=== PATIENT | female | born 1945 | race American Indian/Alaskan Native ===

== ENCOUNTER 2017-12-06 09:52 | Outpatient (CLI) | payer MEDICARE ==
--- NOTE | 2017-12-06 11:44 | Fluoroscopy Report ---
MODIFIED BARIUM SWALLOW History: dysphagia. Findings: Video radiography was provided by the radiologist for speech therapy to assess the swallowing mechanism. 1 fluoroscopic image was captured. Impression: Successful modified barium swallow.
== END 2017-12-06 09:53 | disposition home or self-care (01) ==
LOC: EDSEX → PT 09:52
PROVIDERS: ATTEND Internal Medicine
DX: R13.10 Dysphagia, unspecified (principal); I10 Essential (primary) hypertension
CPT/HCPCS: 74230; 92611; G8996; G8997; G8998

== ENCOUNTER 2018-07-06 13:46 | Inpatient (IN) | payer MEDICARE ==
--- NOTE | 2018-07-06 13:58 | Emergency Department Report ---
HPI - General Time Seen by Provider: 07/06/18 13:47 - HPI HPI: Charge nurse triage The patient is a 73-year-old female presenting with a chief complaint of "I think that a stroke." The patient states last night (time unknown) she noticed her right face was twisting and today she developed nausea and vomiting. This prompted her to believe she had another stroke. The patient states her first stroke in the 90s which resulted in right-sided weakness. The patient states that weakness has not changed. Patient denies other complaints Location: [See above] Duration: [See above] Quality: [See above] Severity: [See above] Modifying factors: [see above] Context: [see above] Mode of transportation: [not driving] ED Past Medical Hx - Past Medical History Previous Medical History?: Yes Hx Hypertension: Yes Hx CVA: Yes Hx Seizures: Yes - Surgical History Past Surgical History?: Yes - Family History Family history: no significant - Social History Smoking Status: Never Smoker Substance Use Type: None ED Review of Systems ROS: Stated complaint: NEURO ISSUES Other details as noted in HPI Constitutional: no symptoms reported Eyes: denies: eye pain ENT: denies: throat pain Respiratory: no symptoms reported Cardiovascular: denies: chest pain Endocrine: no symptoms reported Gastrointestinal: nausea, vomiting Genitourinary: denies: dysuria Musculoskeletal: denies: back pain Neurological: weakness (right facial twisting). denies: headache Physical Exam - Physical Exam Physical Exam: GENERAL: The patient is well-developed well-nourished female lying on stretcher appearing to be in acute distress. [] HEENT: Normocephalic. Atraumatic. Extraocular motions are intact. Patient has moist mucous membranes. NECK: Supple. No meningitic signs are noted. Trachea midline CHEST/LUNGS: Clear to auscultation. There is no respiratory distress noted. HEART/CARDIOVASCULAR: Regular. There is no tachycardia. There is no gallop rub or murmur. ABDOMEN: Abdomen is soft, nontender. Patient has normal bowel sounds. There is no abdominal distention. SKIN: There is no rash. There is no edema. There is no diaphoresis. NEURO: The patient is awake, alert, and oriented. The patient is cooperative. The patient has right sided facial droop. Patient has right-sided hemiparesis from previous CVA. The patient has normal speech. Tongue midline MUSCULOSKELETAL: There is no evidence of acute injury. NIHSS= 2 LOC a. Alert= 0 Not alert but arousable to minor stimuli=1 Not alert requires repeated or strong stimuli to move= 2 Responds only reflex motor or unresponsive=3 b. asks month and age answers both correctly= 0 answers one correctly= 1 answers neither correctly= 2 Best Gaze normal= 0 abnormal in one or both but forced deviation or total paresis absent= 1 forced deviation or total gaze paresis= 2 Visual no visual loss= 0 partial hemianopia= 1 complete hemianopia= 2 bilateral hemianopia= 3 Facial Palsy normal= 0 minor paralysis= 1 (+)partial paralysis= 2 complete paralysis= 3 Motor Arm no drift= 0 drift before 10 secs but doesnt hit bed= 1 some effort against gravity= 2 no effort against gravity= 3 no movement= 4 Motor leg no drift= 0 drift before 5 secs but doesnt hit bed= 1 drifts to bed before 5 secs= 2 no effort against gravity= 3 no movement= 4 Limb ataxia absent=0 present in one limb= 1 present in two limbs= 2 Sensory normal= 0 mild sensory loss= 1 severe (unaware of being touched)= 2 Best language mild/some loss of fluency= 1 severe= 2 mute= 3 Dysarthria normal= 0 slurs some words= 1 severe/unintelligible= 2 Extinction and Inattention no abnormality= 0 visual, tactile, auditory or personal inattention= 1 profound (doesnt recognize own hand or orients to only one side= 2 ED Course - Consultations Consultation #1: 07/06/18 14:38 Case discussed with Tele-neurologist- recommends administering aspirin and TPA candidate at this time. ED Medical Decision Making - Lab Data Result diagrams: 07/06/18 14:43 Laboratory Tests 07/06/18 07/06/18 07/06/18 14:43 14:43 14:43 WBC 6.6 RBC 3.60 L Hgb 10.3 Hct 32.0 MCV 89 MCH 29 MCHC 32 RDW 13.8 Plt Count 365 Lymph % (Auto) 32.2 [place] % (Auto) 7.7 H Eos % (Auto) 1.2 Baso % (Auto) 0.6 Lymph # 2.1 [place] # 0.5 Eos # 0.1 Baso # 0.0 Seg Neutrophils % 58.3 Seg Neutrophils # 3.9 PT 13.2 INR 0.95 APTT 28.9 Thrombin Time 16.1 VBG pH 7.433 H Total Bilirubin Direct Bilirubin Indirect Bilirubin AST ALT Alkaline Phosphatase Total Creatine Kinase Total Protein Albumin Albumin/Globulin Ratio Lipase 07/06/18 14:43 WBC RBC Hgb Hct MCV MCH MCHC RDW Plt Count Lymph % (Auto) [place] % (Auto) Eos % (Auto) Baso % (Auto) Lymph # [place] # Eos # Baso # Seg Neutrophils % Seg Neutrophils # PT INR APTT Thrombin Time VBG pH Total Bilirubin < 0.20 Direct Bilirubin < 0.2 Indirect Bilirubin 0.0 AST 16 ALT 15 Alkaline Phosphatase 72 Total Creatine Kinase 52 Total Protein 7.0 Albumin 3.4 L Albumin/Globulin Ratio 0.9 Lipase 23 - EKG Data -: EKG Interpreted by Nd EKG shows normal: sinus rhythm Rate: normal - EKG Data When compared to previous EKG there are: previous EKG unavailable Interpretation: other (no ischemic changes seen) - Radiology Data Radiology results: report reviewed (CT head), image reviewed (CT head) [address] [address] Cat Scan Report Signed Patient: DEANNE PAYNE MR#: [id number] : 1945 Acct:[id number] Age/Sex: 73 / F ADM Date: 07/06/18 Loc: ED Attending Dr: Ordering Physician: CHARITY PASTOR MD Date of Service: 07/06/18 Procedure(s): CT head/brain wo con Accession Number(s): [id number] cc: CHARITY PASTOR MD PROCEDURE: CT HEAD/BRAIN WO CON TECHNIQUE: CT examination of the brain without IV contrast HISTORY: right facial "twisting", nausea COMPARISONS: None FINDINGS: Cerebrovascular atherosclerotic calcification is present in the skull base adriana ashish. 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 Nonspecific slight hypodensity is noted in the left periventricular white matter extending to the left caudate body. Approximately size is 10 mm. This may be a focus of ischemia or ischemic infarct. It may be acute or subacute. A similar finding is noted in the anterior right basal ganglia and posterior right internal capsule. No acute air-fluid level visualized in the included air-filled sinuses. Bone windows demonstrate no acute fracture. There is ventricular and sulcal prominence compatible with global cerebrocortical atrophy. Low attenuation regions in the cerebral white matter, while nonspecific, are present and usually attributed to chronic ischemic gliosis. It can occur secondary to the normal aging process, hypertension, or arterial sclerotic vascular disease. The differential includes demyelination in the appropriate clinical setting. The brain contains no mass effect or hemorrhage. There is no extra-axial intracranial bleed or brain bleed. There is no midline shift. IMPRESSION: Multifocal areas of low density may reflect foci of ischemia and/or ischemic infarcts. These may be chronic. They are nonspecific and could reflect acute or subacute lesions. Recommend follow-up brain MRI to further characterize acuity. 07/06/2018 At 2:16 PM EST: I discussed the findings over the phone with Dr. Pastor This document is electronically signed by Kevin Park MD., July 06 2018 02:18:11 PM ET Transcribed By: CAS Dictated By: KEVIN PARK MD Electronically Authenticated By: KEVIN PARK MD Signed Date/Time: 07/06/18 1419 DD/ 1405 TD/TT: 07/06/18 1405 - Differential Diagnosis CVA, ICH, Critical care attestation.: If time is entered above; I have spent that time in minutes in the direct care of this critically ill patient, excluding procedure time. ED Disposition Clinical Impression: Weakness on right side of face Disposition: DC-09 OP ADMIT IP TO THIS HOSP Is pt being admited?: Yes Does the pt Need Aspirin: Yes Condition: Fair Referrals: PRIMARY CARE, [Primary Care Provider] - 3-5 Days Time of Disposition: 15:21 (hospitalist paged (Dr Medeiros))
--- NOTE | 2018-07-06 14:19 | Cat Scan Report ---
PROCEDURE: CT HEAD/BRAIN WO CON TECHNIQUE: CT examination of the brain without IV contrast HISTORY: right facial "twisting", nausea COMPARISONS: None FINDINGS: Cerebrovascular atherosclerotic calcification is present in the skull base arteries. Small cyst inferior to the left basal ganglia most compatible with developmental variation of posteri or choroidal fissure cyst. Nonspecific slight hypodensity is noted in the left periventricular white matter extending to the lef t caudate body. Approximately size is 10 mm. This may be a focus of ischemia or ischemic infarct. It may be acute or subacute. A similar finding is noted in the anterior right basal ganglia and posterio r right internal capsule. No acute air-fluid level visualized in the included air-filled sinuses. Bone windows demonstrate no acute fracture. There is ventricular and sulcal prominence compatible with global cerebrocortical atrophy. Low attenuation regions in the cerebral white matter, while nonspecific, are present and usually attr ibuted to chronic ischemic gliosis. It can occur secondary to the normal aging process, hypertension, or arterial sclerotic vascular dise ase. The differential includes demyelination in the appropriate clinical setting. The brain contains no mass effect or hemorrhage. There is no extra-axial intracranial bleed or brain bleed. There is no midline shift. IMPRESSION: Multifocal areas of low density may reflect foci of ischemia and/or ischemic infarcts. These may be c hronic. They are nonspecific and could reflect acute or subacute lesions. Recommend follow-up brain M RI to further characterize acuity. 07/06/2018 At 2:16 PM EST: I discussed the findings over the phone with Dr. Chavarria This document is electronically signed by Kevin Park MD., July 06 2018 02:18:11 PM ET
[2018-07-06] MEDS ORDERED: ASPIRIN PO ONE (14:37)
--- NOTE | 2018-07-06 14:37 | Consultation ---
History of Present Illness Consult date: 07/06/18 History of present illness: 73 y/o woman with h/o stroke (residual spastic right hemiparesis, speech difficulty) who presents with possible worsening symptoms. Unknown last known well. Emergent telestroke consult requested. CT head reviewed and case discsussed with ED staff. Medications and Allergies Allergies Allergy/AdvReac Type Severity Reaction Status Date / Time benazepril Allergy Unknown Verified 07/06/18 13:48 diltiazem [From Cardizem] Allergy Unknown Verified 07/06/18 13:48 losartan Allergy Unknown Verified 07/06/18 13:48 Physical Examination - Vital Signs Vital Signs: Vital Signs Pulse Resp BP Pulse Ox 74 16 150/90 96 07/06/18 13:51 07/06/18 13:51 07/06/18 13:51 07/06/18 13:51 - Level of Consciousness 1a. Level of Consciousness: alert/keenly responsive - LOC Questions 1b. LOC Questions: answers both correctly - LOC Command 1c. LOC Commands: performs tasks correctly - Best Gaze 2. Best Gaze: normal - Visual 3. Visual: no visual loss - Facial Palsy 4. Facial Palsy: minor paralysis - Motor Arm 5a. Motor Arm Left: no drift 5b. Motor Arm Right: no gravity effort - Motor Leg 6a. Motor Leg Left: no drift 6b. Motor Leg Right: drift - Limb Ataxia 7. Limb Ataxia: absent - Sensory 8. Sensory: normal - Best Language 9. Best Language: no aphasia - Dysarthria 10. Dysarthria: mild/moderate dysarthria - Extinction and Inattention 11. Extinction/Inattention: no abnormality - Scoring Total Score: 6 Stroke Severity: Moderate Stroke Assessment and Plan [facility] Consult Services Impression: R/O Stroke vs recrudescence of her previous stroke symptoms Differential Diagnosis: 1. Cardioembolic stroke 2. Small vessel disease/lacune 3. Thromboembolic, [id number] mechanism 4. Hypercoagulable state-related infarct 5. Thrombotic mechanism, large artery disease 6. Transient ischemic attack Comments: Last known well: unknown Door time:1346 [facility] contacted: 1421 [facility] at bedside: 1429 NIHSS assessment time:1429 Needle time:TPA not considered since she is unknown at her baseline. Thrombectomy not considered since large proximal intracranial vessel occlusion is not suspected. Also with high modified louie score due to previous stroke (lives in correction, dependent on ADLs and is nonambulatory) Discussion: Our recommendations are outlined below. Recommendations: Toxic, metabolic and infectious work-up as per ED and primary team ASA, IV fluids and permissive hypertension (Keep BP < 220/110) Neurochecks PT/OT/ST DVT prophylaxis Follow up with Neurology for further testing/evaluation Medical Decision Making: - Extensive number of diagnosis or management options are considered above. - Extensive amount of complex data reviewed. - High risk of complication and/or morbidity or mortality are associated with differential diagnostic considerations above. - There may be uncertain outcome and increased probability of prolonged functional impairment or high probability of severe prolonged functional impairment associated with some of these differential diagnosis. Medical Data Reviewed: 1.Data reviewed include clinical labs, radiology, Medical Tests; 2.Tests results discussed w/performing or interpreting physician; 3.Obtaining/reviewing old medical records; 4.Obtaining case history from another source; 5.Independent review of image, tracing or specimen.
[2018-07-06 14:58] LABS: Basophils % (Auto) 0.6 % (0.0-1.8); Eosinophils # (Auto) 0.1 K/mm3 (0.0-0.4); Eosinophils % (Auto) 1.2 % (0.0-4.3); Hemoglobin 10.3 gm/dl (10.1-14.3); Lymphocytes # (Auto) 2.1 K/mm3 (1.2-5.4); Lymphocytes % (Auto) 32.2 % (13.4-35.0); Monocytes # (Auto) 0.5 K/mm3 (0.0-0.8); Monocytes % (Auto) 7.7 % (0.0-7.3)
[2018-07-06 15:07] LABS: Alanine Aminotransferase 15 units/L (7-56); Albumin 3.4 g/dL (3.9-5); Mean Corpuscular HGB Conc 32 % (30-34); Mean Corpuscular Volume 89 fl (79-97); Platelet Count 365 K/mm3 (140-440); Red Cell Distribution Width 13.8 % (13.2-15.2)
[2018-07-06 15:08] LABS: Bilirubin,Direct < 0.2 mg/dL (0-0.2)
[2018-07-06 15:16] LABS: INR 0.95 (0.87-1.13); Partial Thromboplastin Time 28.9 Sec. (24.2-36.6); Thrombin Time 16.1 Sec. (15.1-19.6)
[2018-07-06 15:31] LABS: BUN/Creatinine Ratio 18; Blood Urea Nitrogen 14 mg/dL (7-17); Calcium 9.3 mg/dL (8.4-10.2); Hemolysis Index 0
[2018-07-06 15:40] LABS: Creatine Kinase MB < 1.0 ng/mL (0.0-4.0)
[2018-07-06] MEDS ORDERED: TYLENOL PO PRN (17:15)
[2018-07-06] MEDS ORDERED: SODIUM CHLORIDE FLUSH SYRINGE 10 ML IV PRN (17:15)
--- NOTE | 2018-07-06 17:15 | History and Physical Report ---
History of Present Illness Date of examination: 07/06/18 Date of admission: 07/06/18 Chief complaint: Facial weakness last night History of present illness: 73-year-old female presenting with a chief complaint of "I think that a stroke." The patient states last night (time unknown) she noticed her right face was twisting and today she developed nausea and vomiting. This prompted her to believe she had another stroke. The patient states her first stroke in the s which resulted in right-sided weakness. The patient states that weakness has not changed. Patient denies other complaints.No seizures. Past Medical History Previous Medical History?: Yes Hypertension: Yes CVA: Yes wiyh residual rt sided weakness Seizures: Yes Surgical History Past Surgical History?: Yes Family History Family history: no significant Social History Smoking Status: Never Smoker Substance Use Type: None Review of Systems ROS: Stated complaint: NEURO ISSUES Other details as noted in HPI Constitutional: no symptoms reported Eyes: denies: eye pain ENT: denies: throat pain Respiratory: no symptoms reported Cardiovascular: denies: chest pain Endocrine: no symptoms reported Gastrointestinal: nausea, vomiting Genitourinary: denies: dysuria Musculoskeletal: denies: back pain Neurological: weakness (right facial twisting). denies: headache Medications and Allergies Allergies Allergy/AdvReac Type Severity Reaction Status Date / Time benazepril Allergy Unknown Verified 07/06/18 13:48 diltiazem [From Cardizem] Allergy Unknown Verified 07/06/18 13:48 losartan Allergy Unknown Verified 07/06/18 13:48 Home Medications Medication Instructions Recorded Confirmed Last Taken Type Acetaminophen 325 mg PO Q12HR PRN 07/06/18 07/06/18 Unknown History Amino Acids/Protein Hydrolys 30 ml PO BID 07/06/18 07/06/18 Unknown History [Pro-Stat Aw Liquid Packet] Atorvastatin Calcium [Lipitor] 40 mg PO QHS 07/06/18 07/06/18 Unknown History Calcium Carbonate [Tums] 1,000 mg PO Q12HR 07/06/18 07/06/18 Unknown History Clopidogrel [Plavix] 75 mg PO QDAY 07/06/18 07/06/18 Unknown History Famotidine [Pepcid] 20 mg PO QHS 07/06/18 07/06/18 Unknown History Ferrous Sulfate [Iron 325 MG] 325 mg PO QAC 07/06/18 07/06/18 Unknown History Hydralazine HCl 50 mg PO TID 07/06/18 07/06/18 Unknown History Lactobacillus Acidophil [Lactinex] 1 cap PO Q12HR 07/06/18 07/06/18 Unknown History Loratadine [Claritin] 10 mg PO DAILY 07/06/18 07/06/18 Unknown History Magnesium Hydroxide [Milk of 400 mg PO QWEEK 07/06/18 07/06/18 Unknown History Magnesia] Melatonin 3 mg PO QHS 07/06/18 07/06/18 Unknown History Metoprolol [Lopressor TAB] 50 mg PO QDAY 07/06/18 07/06/18 Unknown History Mirtazapine [Remeron] 15 mg PO QHS 07/06/18 07/06/18 Unknown History Multivit with Minerals/Lutein [Pub 1 each PO QDAY 07/06/18 07/06/18 Unknown History Senior Vitamin Tablet] Polyethylene Glycol 3350 [Gavilax] 8.5 gm PO QDAY 07/06/18 07/06/18 Unknown History Scopolamine Hydrobromide 1.5 mg TP Q3D 07/06/18 07/06/18 Unknown History Sennosides/Docusate [Senokot S] 1 tab PO QDAY 07/06/18 07/06/18 Unknown History Sertraline [Zoloft] 25 mg PO QDAY 07/06/18 07/06/18 Unknown History amLODIPine [Norvasc] 10 mg PO DAILY 07/06/18 07/06/18 Unknown History levETIRAcetam [Keppra TAB] 500 mg PO BID 07/06/18 07/06/18 Unknown History Exam - Constitutional Vitals: Temp Pulse Resp BP Pulse Ox 98.4 F 74 24 150/84 97 07/06/18 15:05 07/06/18 15:05 07/06/18 15:06 07/06/18 15:05 07/06/18 15:06 General appearance: Present: no acute distress, well-nourished - EENT Eyes: Present: PERRL ENT: hearing intact, clear oral mucosa, other (Lower lip swollen--chronic) - Neck Neck: Present: supple, normal ROM - Respiratory Respiratory effort: normal Respiratory: bilateral: CTA - Cardiovascular Heart rate: 75 Rhythm: regular Heart Sounds: Present: S1 & S2. Absent: rub, click - Extremities Extremities: no ischemia, pulses intact, pulses symmetrical, No edema, abnormal Peripheral Pulses: within normal limits - Abdominal General gastrointestinal: Present: soft, non-tender, non-distended, normal bowel sounds Female genitourinary: Present: normal - Integumentary Integumentary: Present: clear, warm, dry - Musculoskeletal Musculoskeletal: right sided weakness (3/5 power both rt upper and lower extremity) - Psychiatric Psychiatric: appropriate mood/affect, intact judgment & insight - Neurologic Neurologic: CNII-XII intact, focal deficits - Allied Health Allied health notes reviewed: nursing, case management Results - Labs CBC & Chem 7: 07/06/18 14:43 07/06/18 14:43 Labs: Laboratory Last Values WBC 6.6 K/mm3 (4.5-11.0) 07/06/18 14:43 RBC 3.60 M/mm3 (3.65-5.03) L 07/06/18 14:43 Hgb 10.3 gm/dl (10.1-14.3) 07/06/18 14:43 Hct 32.0 % (30.3-42.9) 07/06/18 14:43 MCV 89 fl (79-97) 07/06/18 14:43 MCH 29 pg (28-32) 07/06/18 14:43 MCHC 32 % (30-34) 07/06/18 14:43 RDW 13.8 % (13.2-15.2) 07/06/18 14:43 Plt Count 365 K/mm3 (140-440) 07/06/18 14:43 Lymph % (Auto) 32.2 % (13.4-35.0) 07/06/18 14:43 [place] % (Auto) 7.7 % (0.0-7.3) H 07/06/18 14:43 Eos % (Auto) 1.2 % (0.0-4.3) 07/06/18 14:43 Baso % (Auto) 0.6 % (0.0-1.8) 07/06/18 14:43 Lymph # 2.1 K/mm3 (1.2-5.4) 07/06/18 14:43 [place] # 0.5 K/mm3 (0.0-0.8) 07/06/18 14:43 Eos # 0.1 K/mm3 (0.0-0.4) 07/06/18 14:43 Baso # 0.0 K/mm3 (0.0-0.1) 07/06/18 14:43 Seg Neutrophils % 58.3 % (40.0-70.0) 07/06/18 14:43 Seg Neutrophils # 3.9 K/mm3 (1.8-7.7) 07/06/18 14:43 PT 13.2 Sec. (12.2-14.9) 07/06/18 14:43 INR 0.95 (0.87-1.13) 07/06/18 14:43 APTT 28.9 Sec. (24.2-36.6) 07/06/18 14:43 Thrombin Time 16.1 Sec. (15.1-19.6) 07/06/18 14:43 VBG pH 7.433 (7.320-7.420) H 07/06/18 14:43 Sodium 143 mmol/L (137-145) 07/06/18 14:43 Potassium 3.8 mmol/L (3.6-5.0) 07/06/18 14:43 Chloride 105.0 mmol/L (98-107) 07/06/18 14:43 Carbon Dioxide 28 mmol/L (22-30) 07/06/18 14:43 Anion Gap 14 mmol/L 07/06/18 14:43 BUN 14 mg/dL (7-17) 07/06/18 14:43 Creatinine 0.8 mg/dL (0.7-1.2) 07/06/18 14:43 Estimated GFR > 60 ml/min 07/06/18 14:43 BUN/Creatinine Ratio 18 % 07/06/18 14:43 Glucose 86 mg/dL (65-100) 07/06/18 14:43 Calcium 9.3 mg/dL (8.4-10.2) 07/06/18 14:43 Total Bilirubin < 0.20 mg/dL (0.1-1.2) 07/06/18 14:43 Direct Bilirubin < 0.2 mg/dL (0-0.2) 07/06/18 14:43 Indirect Bilirubin 0.0 mg/dL 07/06/18 14:43 AST 16 units/L (5-40) 07/06/18 14:43 ALT 15 units/L (7-56) 07/06/18 14:43 Alkaline Phosphatase 72 units/L (35-129) 07/06/18 14:43 Total Creatine Kinase 52 units/L (30-135) 07/06/18 14:43 CK-MB (CK-2) < 1.0 ng/mL (0.0-4.0) 07/06/18 14:43 CK-MB (CK-2) Rel Index 1.9 (0-4) 07/06/18 14:43 Troponin T < 0.010 ng/mL (0.00-0.029) 07/06/18 14:43 Total Protein 7.0 g/dL (6.3-8.2) 07/06/18 14:43 Albumin 3.4 g/dL (3.9-5) L 07/06/18 14:43 Albumin/Globulin Ratio 0.9 % 07/06/18 14:43 Lipase 23 units/L (13-60) 07/06/18 14:43 - Imaging and Cardiology EKG: report reviewed (NSR 75/min) CT Scan - head: report reviewed Imaging and Cardiology: CT Head IMPRESSION: Multifocal areas of low density may reflect foci of ischemia and/or ischemic infarcts. These may be chronic. They are nonspecific and could reflect acute or subacute lesions. Recommend follow-up brain MRI to further characterize acuity. Assessment and Plan Advance Directives: Yes (Full code) VTE prophylaxis?: Chemical Plan of care discussed with patient/family: Yes - Patient Problems (1) TIA (transient ischemic attack) Current Visit: Yes Status: Acute Plan to address problem: Symptoms c/w TIA TIA w/u MRI/MRA ordered Neuro consult ordered (2) HTN (hypertension) Current Visit: Yes Status: Chronic Qualifiers: Hypertension type: essential hypertension Qualified Code(s): I10 - Essential (primary) hypertension Plan to address problem: Cont antihypertensives (3) Seizure disorder Current Visit: Yes Status: Chronic Plan to address problem: Cont Keppra (4) Anemia Current Visit: Yes Status: Chronic Qualifiers: Anemia type: iron deficiency Plan to address problem: Cont Iron (5) Constipation Current Visit: Yes Status: Chronic Qualifiers: Constipation type: slow transit constipation Qualified Code(s): K59.01 - Slow transit constipation Plan to address problem: Patient on Senna and Miralax (6) DVT prophylaxis Current Visit: Yes Status: Acute Plan to address problem: On Lovenox and GI prophylaxis
[2018-07-06] MEDS ORDERED: PERCOCET 5/325 PO PRN (17:16)
[2018-07-06] MEDS ORDERED: DILAUDID IV PRN (17:16)
[2018-07-06] MEDS ORDERED: NACL 0.9% 1000 ML 1,000 ML IV SCH (18:00)
[2018-07-06 19:22] LABS: Bacteria,Urine 1+ /HPF (Negative); Bilirubin,Urine NEG (Negative); Blood,Urine NEG (Negative); Color,Urine Yellow (Yellow); Mucus,Urine FEW /HPF; Urobilinogen,Urine < 2.0 mg/dL (<2.0)
[2018-07-06] MEDS: ZOFRAN IV PRN (20:23)
--- NOTE | 2018-07-06 21:26 | Consultation ---
HISTORY OF PRESENT ILLNESS: This is a 73-year-old black female who presents with a history of onset of feeling is that she had a stroke and the right side of her face was twisted. She began to develop nausea and vomiting. She presented to the Emergency Room with right-sided weakness. She has had a prior history of a previous stroke and by history of being followed up for this with treatment of hypertension. The patient was initially assessed in the Emergency Room Department by Dr. Chavarria, differential diagnosis of cerebrovascular accident versus intracranial hemorrhage. The patient's CT was reviewed by me and she has multiple scattered areas of deep white matter infarcts in the left cerebral hemisphere anterior to the caudate nucleus in the posterior internal capsule on several levels. These appeared to be non-confluent, but it is difficult to assess what the age of these she has I can say whether they are all from the prior stroke or certainly an evidence of a chronic stroke in the left hemisphere. We recommend getting MRI, MRA and potentially a CTA depending on Dr. Chavarria's impressions. I have reviewed over the chart and laboratories are not back as yet. The patient was seen as a result of the stroke alert. Further disposition and case as per Dr. Chavarria. JOB# [id number] MATT/NTS
[2018-07-06] MEDS ORDERED: PEPCID IV SCH (22:00)
[2018-07-07] MEDS: SODIUM CHLORIDE FLUSH SYRINGE 10 ML IV SCH ×3 (00:13→22:06)
[2018-07-07] MEDS ORDERED: SODIUM CHLORIDE FLUSH SYRINGE 10 ML INJ PRN ×2 (01:11→01:17)
[2018-07-07] MEDS ORDERED: NON-FORMULARY (Hydralazine Hcl [Hydralazine Hcl] 50 MG) PO SCH (08:00)
[2018-07-07 08:20] LABS: Basophils # (Auto) 0.1 K/mm3 (0.0-0.1); Eosinophils # (Auto) 0.1 K/mm3 (0.0-0.4); Hematocrit 31.3 % (30.3-42.9); Hemoglobin 10.2 gm/dl (10.1-14.3); Lymphocytes # (Auto) 1.7 K/mm3 (1.2-5.4); Lymphocytes % (Auto) 29.6 % (13.4-35.0); Mean Corpuscular HGB Conc 33 % (30-34); Mean Corpuscular Volume 88 fl (79-97); Monocytes # (Auto) 0.4 K/mm3 (0.0-0.8); Monocytes % (Auto) 7.7 % (0.0-7.3); Platelet Count 368 K/mm3 (140-440); Red Blood Count 3.56 M/mm3 (3.65-5.03); Red Cell Distribution Width 13.6 % (13.2-15.2)
[2018-07-07 08:58] LABS: Alanine Aminotransferase 13 units/L (7-56); Albumin 2.9 g/dL (3.9-5); BUN/Creatinine Ratio 14; Blood Urea Nitrogen 11 mg/dL (7-17); Calcium 8.9 mg/dL (8.4-10.2); Hemolysis Index 15
[2018-07-07] MEDS: ASPIRIN PO SCH (09:48)
[2018-07-07] MEDS: NORVASC PO SCH (09:48)
[2018-07-07] MEDS: FEOSOL PO SCH ×3 (09:48→17:24)
[2018-07-07] MEDS: ZOLOFT PO SCH (09:48)
[2018-07-07] MEDS: PLAVIX PO SCH (09:48)
[2018-07-07] MEDS: CLARITIN PO SCH (09:48)
[2018-07-07] MEDS: KEPPRA PO SCH ×2 (09:48→22:05)
[2018-07-07] MEDS: LACTINEX PO SCH ×2 (09:48→22:06)
[2018-07-07] MEDS: MIRALAX 3350 PO SCH (09:48)
[2018-07-07] MEDS: LOPRESSOR PO SCH (09:49)
[2018-07-07] MEDS: APRESOLINE PO SCH ×3 (09:49→22:05)
[2018-07-07] MEDS: SENOKOT S PO SCH (09:53)
[2018-07-07] MEDS ORDERED: POLYETHYLENE GLYCOL 8.5 GM PO SCH (10:00)
[2018-07-07] MEDS ORDERED: MILK OF MAGNESIA PO SCH (10:00)
--- NOTE | 2018-07-07 10:36 | Progress Note ---
Subjective Date of service: 07/07/18 Interval history: see my note from the ED dictated note for stroke alert plan MRI and further work up for condition there is prior hx of stroke reviewed CT during time of the stroke alert Thanks Objective - Vital Sign Vital Signs - 12hr 07/06/18 07/06/18 07/06/18 22:41 22:51 23:01 Temperature Pulse Rate 73 73 70 Respiratory 19 40 H 26 H Rate Blood Pressure 143/86 134/85 134/85 O2 Sat by Pulse 100 100 99 Oximetry 07/06/18 07/06/18 07/06/18 23:11 23:21 23:31 Temperature Pulse Rate 71 69 70 Respiratory 18 40 H 22 Rate Blood Pressure 134/85 134/85 134/85 O2 Sat by Pulse 100 99 99 Oximetry 07/06/18 07/07/18 07/07/18 23:45 00:16 00:26 Temperature 97.6 F Pulse Rate 72 72 78 Respiratory 36 H 20 Rate Blood Pressure 138/81 151/83 O2 Sat by Pulse 98 97 Oximetry 07/07/18 07/07/18 03:08 08:06 Temperature 97.8 F 98.6 F Pulse Rate 66 71 Respiratory 16 20 Rate Blood Pressure 134/76 140/82 O2 Sat by Pulse 100 98 Oximetry - Laboratory Findings CBC and BMP: 07/07/18 07:37 07/07/18 07:37 Abnormal Lab Findings: Abnormal Labs 07/06/18 07/06/18 07/06/18 14:43 14:43 14:43 RBC 3.60 L Towner % (Auto) 7.7 H VBG pH 7.433 H Albumin 3.4 L Urine WBC (Auto) 07/06/18 07/07/18 07/07/18 18:30 07:37 07:37 RBC 3.56 L [place] % (Auto) 7.7 H VBG pH Albumin 2.9 L Urine WBC (Auto) 33.0 H
[2018-07-07] MEDS: ZOFRAN IV PRN (12:08)
--- NOTE | 2018-07-07 12:33 | Vascular Lab Report ---
PROCEDURE: VL CAROTID DUPLEX BILAT TECHNIQUE: Duplex Doppler ultrasound of the common, internal and external carotid arteries and the v ertebral arteries was performed bilaterally. Bourgeois scale imaging, velocity spectral waveform analysis, and color flow Doppler were employed. HISTORY: stroke COMPARISONS: None . Note: Measurement of carotid stenosis is based on flow velocity values that correlate with the [place] Symptomatic Carotid Endarterectomy Trial (NASCET) based stenosis criteria using the internal carotid artery diameter as the denominator for stenosis calculation. FINDINGS: RIGHT carotid artery: Velocities: ICA PSV: 68.9 cm/sec ICA End diastolic: 24.5 cm/sec CCA PSV: 99.6 cm/sec IC/CC ratio : 0.69 Plaque/color flow: Mild heterogeneous plaque without significant spectral broadening or abnormal col or flow . RIGHT vertebral artery: Antegrade systolic and diastolic flow LEFT carotid artery: Velocities: ICA PSV: 71.5 cm/sec ICA End diastolic: 27.7 cm/sec CCA PSV: 72.7 cm/sec IC/CC ratio : 0.90 Plaque/color flow: Mild heterogeneous plaque without significant spectral broadening or abnormal col or flow . LEFT vertebral artery: Antegrade systolic and diastolic flow IMPRESSION: 1. RIGHT carotid: No hemodynamically significant (less than 50 percent) internal carotid artery kathryn nosis. 2. LEFT carotid: No hemodynamically significant (less than 50 percent) internal carotid artery sten osis. 3. Vertebral arteries: Bilaterally antegrade. This document is electronically signed by Karen Subramanian MD., July 07 2018 12:31:20 PM ET
--- NOTE | 2018-07-07 15:50 | Progress Note ---
Assessment and Plan Assessment and plan: TIA, rule out acute stroke -On stroke protocol -MRI brain, MRA head and neck pending -Neurology following UTI -On IV antibiotic -Urine culture pending Hypertension -Controlled Seizure disorder -Stable on Keppra Anemia of chronic disease -H/H stable -cont oral Fe tab Chronic constipation -Continue laxatives Disposition: For discharge if MRI brain is negative History Interval history: Patient complained of nausea without vomiting Hospitalist Physical - Constitutional Vitals: Temp Pulse Resp BP Pulse Ox 97.9 F 81 16 119/66 96 07/07/18 11:11 07/07/18 11:11 07/07/18 11:11 07/07/18 11:11 07/07/18 11:11 General appearance: Present: no acute distress, well-nourished - EENT Eyes: Present: PERRL, EOM intact ENT: hearing intact, clear oral mucosa - Neck Neck: Present: supple - Respiratory Respiratory effort: normal Respiratory: bilateral: CTA - Cardiovascular Rhythm: regular Heart Sounds: Present: S1 & S2 - Extremities Extremities: No edema - Abdominal General gastrointestinal: soft, tender (epigastric), non-distended, normal bowel sounds - Integumentary Integumentary: Present: clear, warm, dry - Neurologic Neurologic: focal deficits (chronic right-sided weakness) Results - Labs CBC & Chem 7: 07/07/18 07:37 07/07/18 07:37 Labs: Laboratory Last Values WBC 5.7 K/mm3 (4.5-11.0) 07/07/18 07:37 RBC 3.56 M/mm3 (3.65-5.03) L 07/07/18 07:37 Hgb 10.2 gm/dl (10.1-14.3) 07/07/18 07:37 Hct 31.3 % (30.3-42.9) 07/07/18 07:37 MCV 88 fl (79-97) 07/07/18 07:37 MCH 29 pg (28-32) 07/07/18 07:37 MCHC 33 % (30-34) 07/07/18 07:37 RDW 13.6 % (13.2-15.2) 07/07/18 07:37 Plt Count 368 K/mm3 (140-440) 07/07/18 07:37 Lymph % (Auto) 29.6 % (13.4-35.0) 07/07/18 07:37 Robertson % (Auto) 7.7 % (0.0-7.3) H 07/07/18 07:37 Eos % (Auto) 2.0 % (0.0-4.3) 07/07/18 07:37 Baso % (Auto) 1.0 % (0.0-1.8) 07/07/18 07:37 Lymph # 1.7 K/mm3 (1.2-5.4) 07/07/18 07:37 Robertson # 0.4 K/mm3 (0.0-0.8) 07/07/18 07:37 Eos # 0.1 K/mm3 (0.0-0.4) 07/07/18 07:37 Baso # 0.1 K/mm3 (0.0-0.1) 07/07/18 07:37 Seg Neutrophils % 59.7 % (40.0-70.0) 07/07/18 07:37 Seg Neutrophils # 3.4 K/mm3 (1.8-7.7) 07/07/18 07:37 PT 13.2 Sec. (12.2-14.9) 07/06/18 14:43 INR 0.95 (0.87-1.13) 07/06/18 14:43 APTT 28.9 Sec. (24.2-36.6) 07/06/18 14:43 Thrombin Time 16.1 Sec. (15.1-19.6) 07/06/18 14:43 VBG pH 7.433 (7.320-7.420) H 07/06/18 14:43 Sodium 143 mmol/L (137-145) 07/07/18 07:37 Potassium 4.3 mmol/L (3.6-5.0) 07/07/18 07:37 Chloride 105.1 mmol/L (98-107) 07/07/18 07:37 Carbon Dioxide 25 mmol/L (22-30) 07/07/18 07:37 Anion Gap 17 mmol/L 07/07/18 07:37 BUN 11 mg/dL (7-17) 07/07/18 07:37 Creatinine 0.8 mg/dL (0.7-1.2) 07/07/18 07:37 Estimated GFR > 60 ml/min 07/07/18 07:37 BUN/Creatinine Ratio 14 % 07/07/18 07:37 Glucose 68 mg/dL (65-100) 07/07/18 07:37 Hemoglobin A1c 5.0 % (4-6) 07/06/18 14:43 Calcium 8.9 mg/dL (8.4-10.2) 07/07/18 07:37 Total Bilirubin 0.30 mg/dL (0.1-1.2) 07/07/18 07:37 Direct Bilirubin < 0.2 mg/dL (0-0.2) 07/06/18 14:43 Indirect Bilirubin 0.0 mg/dL 07/06/18 14:43 AST 14 units/L (5-40) 07/07/18 07:37 ALT 13 units/L (7-56) 07/07/18 07:37 Alkaline Phosphatase 64 units/L (35-129) 07/07/18 07:37 Total Creatine Kinase 52 units/L (30-135) 07/06/18 14:43 CK-MB (CK-2) < 1.0 ng/mL (0.0-4.0) 07/06/18 14:43 CK-MB (CK-2) Rel Index 1.9 (0-4) 07/06/18 14:43 Troponin T < 0.010 ng/mL (0.00-0.029) 07/06/18 14:43 Total Protein 6.9 g/dL (6.3-8.2) 07/07/18 07:37 Albumin 2.9 g/dL (3.9-5) L 07/07/18 07:37 Albumin/Globulin Ratio 0.7 % 07/07/18 07:37 Lipase 23 units/L (13-60) 07/06/18 14:43 Urine Color Yellow (Yellow) 07/06/18 18:30 Urine Turbidity Slightly-cloudy (Clear) 07/06/18 18:30 Urine pH 7.0 (5.0-7.0) 07/06/18 18:30 Ur Specific [place] 1.009 (1.003-1.030) 07/06/18 18:30 Urine Protein 100 mg/dl mg/dL (Negative) 07/06/18 18:30 Urine Glucose (UA) Neg mg/dL (Negative) 07/06/18 18:30 Urine Ketones Neg mg/dL (Negative) 07/06/18 18:30 Urine Blood Neg (Negative) 07/06/18 18:30 Urine Nitrite Neg (Negative) 07/06/18 18:30 Urine Bilirubin Neg (Negative) 07/06/18 18:30 Urine Urobilinogen < 2.0 mg/dL (<2.0) 07/06/18 18:30 Ur Leukocyte Esterase Lg (Negative) 07/06/18 18:30 Urine WBC (Auto) 33.0 /HPF (0.0-6.0) H 07/06/18 18:30 Urine RBC (Auto) 2.0 /HPF (0.0-6.0) 07/06/18 18:30 U Epithel Cells (Auto) 1.0 /HPF (0-13.0) 07/06/18 18:30 Urine Bacteria (Auto) 1+ /HPF (Negative) 07/06/18 18:30 Urine Mucus Few /HPF 07/06/18 18:30 Active Medications - Current Medications Current Medications: Generic Name Dose Route Start Last Admin Trade Name Freq PRN Reason Stop Dose Admin Acetaminophen 650 mg 07/06/18 17:15 Tylenol PO Q4H PRN Pain MILD(1-3)/Fever >100.5/CHRISTIE Amlodipine Besylate 10 mg 07/07/18 10:00 07/07/18 09:48 Norvasc PO 10 mg DAILY COLE Administration Aspirin 325 mg 07/07/18 10:00 07/07/18 09:48 Aspirin PO 325 mg QDAY COLE Administration Atorvastatin Calcium 40 mg 07/07/18 22:00 Lipitor PO QHS [facility] Clopidogrel Bisulfate 75 mg 07/07/18 10:00 07/07/18 09:48 Plavix PO 75 mg QDAY COLE Administration Famotidine 20 mg 07/07/18 22:00 Pepcid PO QHS [facility] Ferrous Sulfate 325 mg 07/07/18 07:30 07/07/18 15:02 Feosol PO 325 mg QAC COLE Administration Hydralazine HCl 50 mg 07/07/18 08:00 07/07/18 14:55 Apresoline PO 50 mg TID COLE Administration Hydromorphone HCl 0.5 mg 07/06/18 17:16 Dilaudid IV Q3H PRN Pain , Severe (7-10) Ceftriaxone Sodium 1 gm in 50 mls @ 100 mls/hr 07/07/18 15:00 Rocephin/Ns 1 Gm/50 Ml IV Q24HR [facility] Protocol Lactobacillus Acidophilus 1 each 07/07/18 10:00 07/07/18 09:48 Lactinex PO 1 each Q12HR COLE Administration Levetiracetam 500 mg 07/07/18 10:00 07/07/18 09:48 Keppra PO 500 mg BID COLE Administration Loratadine 10 mg 07/07/18 10:00 07/07/18 09:48 Claritin PO 10 mg DAILY COLE Administration Magnesium Hydroxide 30 ml 07/07/18 21:00 Milk Of Magnesia PO 07/07/18 23:00 ONCE NR Magnesium Hydroxide 30 ml 07/13/18 22:00 Milk Of Magnesia PO Sa@2200 COLE Metoprolol Tartrate 50 mg 07/07/18 10:00 07/07/18 09:49 Lopressor PO 50 mg QDAY [facility] Administration Ondansetron HCl 4 mg 07/06/18 17:15 07/07/18 12:08 Zofran IV 4 mg Q8H PRN Administration Nausea And Vomiting Oxycodone/Acetaminophen 1 tab 07/06/18 17:16 Percocet 5/325 PO Q6H PRN Pain, Moderate (4-6) Polyethylene Glycol 8.5 gm 07/07/18 10:00 07/07/18 09:48 Miralax 3350 PO 8.5 gm QDAY COLE Administration Scopolamine 1 each 07/08/18 10:00 Transderm-Scop TD Q3D COLE Senna/Docusate Sodium 1 tab 07/07/18 10:00 07/07/18 09:53 Senokot S PO 1 tab QDAY COLE Administration Sertraline HCl 25 mg 07/07/18 10:00 07/07/18 09:48 Zoloft PO 25 mg QDAY COLE Administration Sodium Chloride 10 ml 07/06/18 22:00 07/07/18 09:49 Sodium Chloride Flush Syringe 10 Ml IV 10 ml BID COLE Administration Sodium Chloride 10 ml 07/06/18 17:15 Sodium Chloride Flush Syringe 10 Ml IV PRN PRN LINE FLUSH
[2018-07-07] MEDS: ROCEPHIN/NS 1 GM/50 ML 1 GM/50 ML BAG IV SCH (17:23)
[2018-07-07] MEDS ORDERED: MILK OF MAGNESIA PO NR (21:00)
[2018-07-07] MEDS ORDERED: NON-FORMULARY (Atorvastatin Calcium [Lipitor] 40 MG) PO SCH (22:00)
[2018-07-07] MEDS: PEPCID PO SCH (22:06)
[2018-07-08 06:48] LABS: Chol/HDL Ratio 3.2 %
[2018-07-08] MEDS ORDERED: SCOPOLAMINE HYDROBROMIDE TP SCH (07:30)
[2018-07-08] MEDS: SENOKOT S PO SCH (09:17)
[2018-07-08] MEDS: LACTINEX PO SCH ×2 (09:17→22:23)
[2018-07-08] MEDS: APRESOLINE PO SCH ×3 (09:17→22:23)
[2018-07-08] MEDS: PLAVIX PO SCH (09:17)
[2018-07-08] MEDS: FEOSOL PO SCH ×3 (09:17→18:14)
[2018-07-08] MEDS: ASPIRIN PO SCH (09:17)
[2018-07-08] MEDS: CLARITIN PO SCH (09:18)
[2018-07-08] MEDS: MIRALAX 3350 PO SCH (09:18)
[2018-07-08] MEDS: ZOLOFT PO SCH (09:18)
[2018-07-08] MEDS: NORVASC PO SCH (09:18)
[2018-07-08] MEDS: LOPRESSOR PO SCH (09:19)
[2018-07-08] MEDS: ROCEPHIN/NS 1 GM/50 ML 1 GM/50 ML BAG IV SCH (09:19)
[2018-07-08] MEDS: SODIUM CHLORIDE FLUSH SYRINGE 10 ML IV SCH ×2 (09:19→21:57)
[2018-07-08] MEDS: TRANSDERM-SCOP TD SCH (09:20)
[2018-07-08] MEDS: KEPPRA PO SCH ×2 (11:10→21:56)
--- NOTE | 2018-07-08 12:26 | Progress Note ---
Assessment and Plan Assessment and plan: TIA, rule out acute stroke -On stroke protocol -MRI brain, MRA head and neck pending -Carotid duplex negative for significant stenosis -Echocardiogram showed EF of 65-70% with diastolic dysfunction -Neurology following UTI -Continue IV antibiotic -Urine culture pending Hypertension -Controlled Seizure disorder -Stable on Keppra Anemia of chronic disease -H/H stable -cont oral Fe tab Chronic constipation -Continue laxatives Disposition: For discharge if MRI brain is negative History Interval history: Patient has no new complaints. Her nausea has resolved. Hospitalist Physical - Constitutional Vitals: Temp Pulse Resp BP Pulse Ox 97.4 F L 78 18 115/63 98 07/08/18 08:23 07/08/18 08:22 07/08/18 08:22 07/08/18 08:22 07/08/18 08:22 General appearance: Present: no acute distress - EENT Eyes: Present: PERRL, EOM intact ENT: hearing intact, clear oral mucosa - Neck Neck: Present: supple - Respiratory Respiratory effort: normal Respiratory: bilateral: CTA - Cardiovascular Rhythm: regular Heart Sounds: Present: S1 & S2 - Extremities Extremities: No edema - Abdominal General gastrointestinal: soft, non-tender, non-distended, normal bowel sounds - Integumentary Integumentary: Present: clear, warm, dry - Neurologic Neurologic: focal deficits (right-sided weakness) Results - Labs CBC & Chem 7: 07/07/18 07:37 07/07/18 07:37 Labs: Laboratory Last Values WBC 5.7 K/mm3 (4.5-11.0) 07/07/18 07:37 RBC 3.56 M/mm3 (3.65-5.03) L 07/07/18 07:37 Hgb 10.2 gm/dl (10.1-14.3) 07/07/18 07:37 Hct 31.3 % (30.3-42.9) 07/07/18 07:37 MCV 88 fl (79-97) 07/07/18 07:37 MCH 29 pg (28-32) 07/07/18 07:37 MCHC 33 % (30-34) 07/07/18 07:37 RDW 13.6 % (13.2-15.2) 07/07/18 07:37 Plt Count 368 K/mm3 (140-440) 07/07/18 07:37 Lymph % (Auto) 29.6 % (13.4-35.0) 07/07/18 07:37 Stark % (Auto) 7.7 % (0.0-7.3) H 07/07/18 07:37 Eos % (Auto) 2.0 % (0.0-4.3) 07/07/18 07:37 Baso % (Auto) 1.0 % (0.0-1.8) 07/07/18 07:37 Lymph # 1.7 K/mm3 (1.2-5.4) 07/07/18 07:37 Stark # 0.4 K/mm3 (0.0-0.8) 07/07/18 07:37 Eos # 0.1 K/mm3 (0.0-0.4) 07/07/18 07:37 Baso # 0.1 K/mm3 (0.0-0.1) 07/07/18 07:37 Seg Neutrophils % 59.7 % (40.0-70.0) 07/07/18 07:37 Seg Neutrophils # 3.4 K/mm3 (1.8-7.7) 07/07/18 07:37 PT 13.2 Sec. (12.2-14.9) 07/06/18 14:43 INR 0.95 (0.87-1.13) 07/06/18 14:43 APTT 28.9 Sec. (24.2-36.6) 07/06/18 14:43 Thrombin Time 16.1 Sec. (15.1-19.6) 07/06/18 14:43 VBG pH 7.433 (7.320-7.420) H 07/06/18 14:43 Sodium 143 mmol/L (137-145) 07/07/18 07:37 Potassium 4.3 mmol/L (3.6-5.0) 07/07/18 07:37 Chloride 105.1 mmol/L (98-107) 07/07/18 07:37 Carbon Dioxide 25 mmol/L (22-30) 07/07/18 07:37 Anion Gap 17 mmol/L 07/07/18 07:37 BUN 11 mg/dL (7-17) 07/07/18 07:37 Creatinine 0.8 mg/dL (0.7-1.2) 07/07/18 07:37 Estimated GFR > 60 ml/min 07/07/18 07:37 BUN/Creatinine Ratio 14 % 07/07/18 07:37 Glucose 68 mg/dL (65-100) 07/07/18 07:37 Hemoglobin A1c 5.0 % (4-6) 07/06/18 14:43 Calcium 8.9 mg/dL (8.4-10.2) 07/07/18 07:37 Total Bilirubin 0.30 mg/dL (0.1-1.2) 07/07/18 07:37 Direct Bilirubin < 0.2 mg/dL (0-0.2) 07/06/18 14:43 Indirect Bilirubin 0.0 mg/dL 07/06/18 14:43 AST 14 units/L (5-40) 07/07/18 07:37 ALT 13 units/L (7-56) 07/07/18 07:37 Alkaline Phosphatase 64 units/L (35-129) 07/07/18 07:37 Total Creatine Kinase 52 units/L (30-135) 07/06/18 14:43 CK-MB (CK-2) < 1.0 ng/mL (0.0-4.0) 07/06/18 14:43 CK-MB (CK-2) Rel Index 1.9 (0-4) 07/06/18 14:43 Troponin T < 0.010 ng/mL (0.00-0.029) 07/06/18 14:43 Total Protein 6.9 g/dL (6.3-8.2) 07/07/18 07:37 Albumin 2.9 g/dL (3.9-5) L 07/07/18 07:37 Albumin/Globulin Ratio 0.7 % 07/07/18 07:37 Triglycerides 81 mg/dL (2-149) 07/08/18 06:08 Cholesterol 157 mg/dL (50-199) 07/08/18 06:08 LDL Cholesterol Direct 103 mg/dL (50-130) 07/08/18 06:08 HDL Cholesterol 49 mg/dL (40-59) 07/08/18 06:08 Cholesterol/HDL Ratio 3.20 % 07/08/18 06:08 Lipase 23 units/L (13-60) 07/06/18 14:43 Urine Color Yellow (Yellow) 07/06/18 18:30 Urine Turbidity Slightly-cloudy (Clear) 07/06/18 18:30 Urine pH 7.0 (5.0-7.0) 07/06/18 18:30 Ur Specific [place] 1.009 (1.003-1.030) 07/06/18 18:30 Urine Protein 100 mg/dl mg/dL (Negative) 07/06/18 18:30 Urine Glucose (UA) Neg mg/dL (Negative) 07/06/18 18:30 Urine Ketones Neg mg/dL (Negative) 07/06/18 18:30 Urine Blood Neg (Negative) 07/06/18 18:30 Urine Nitrite Neg (Negative) 07/06/18 18:30 Urine Bilirubin Neg (Negative) 07/06/18 18:30 Urine Urobilinogen < 2.0 mg/dL (<2.0) 07/06/18 18:30 Ur Leukocyte Esterase Lg (Negative) 07/06/18 18:30 Urine WBC (Auto) 33.0 /HPF (0.0-6.0) H 07/06/18 18:30 Urine RBC (Auto) 2.0 /HPF (0.0-6.0) 07/06/18 18:30 U Epithel Cells (Auto) 1.0 /HPF (0-13.0) 07/06/18 18:30 Urine Bacteria (Auto) 1+ /HPF (Negative) 07/06/18 18:30 Urine Mucus Few /HPF 07/06/18 18:30 Active Medications - Current Medications Current Medications: Generic Name Dose Route Start Last Admin Trade Name Freq PRN Reason Stop Dose Admin Acetaminophen 650 mg 07/06/18 17:15 Tylenol PO Q4H PRN Pain MILD(1-3)/Fever >100.5/CHRISTIE Amlodipine Besylate 10 mg 07/07/18 10:00 07/08/18 09:18 Norvasc PO 10 mg DAILY COLE Administration Aspirin 325 mg 07/07/18 10:00 07/08/18 09:17 Aspirin PO 325 mg QDAY COLE Administration Atorvastatin Calcium 40 mg 07/07/18 22:00 07/07/18 22:05 Lipitor PO 40 mg QHS COLE Administration Clopidogrel Bisulfate 75 mg 07/07/18 10:00 07/08/18 09:17 Plavix PO 75 mg QDAY COLE Administration Famotidine 20 mg 07/07/18 22:00 07/07/18 22:06 Pepcid PO 20 mg QHS CO[facility] Administration Ferrous Sulfate 325 mg 07/07/18 07:30 07/08/18 09:17 Feosol PO 325 mg QAC COLE Administration Hydralazine HCl 50 mg 07/07/18 08:00 07/08/18 09:17 Apresoline PO 50 mg TID COLE Administration Hydromorphone HCl 0.5 mg 07/06/18 17:16 Dilaudid IV Q3H PRN Pain , Severe (7-10) Ceftriaxone Sodium 1 gm in 50 mls @ 100 mls/hr 07/07/18 15:00 07/08/18 09:19 Rocephin/Ns 1 Gm/50 Ml IV 100 mls/hr Q24HR COLE Administration Protocol Lactobacillus Acidophilus 1 each 07/07/18 10:00 07/08/18 09:17 Lactinex PO 1 each Q12HR COLE Administration Levetiracetam 500 mg 07/07/18 10:00 07/08/18 11:10 Keppra PO 500 mg BID COLE Administration Loratadine 10 mg 07/07/18 10:00 07/08/18 09:18 Claritin PO 10 mg DAILY COLE Administration Magnesium Hydroxide 30 ml 07/13/18 22:00 Milk Of Magnesia PO Sa@2200 [facility] Metoprolol Tartrate 50 mg 07/07/18 10:00 07/08/18 09:19 Lopressor PO 50 mg QDAY COLE Administration Ondansetron HCl 4 mg 07/06/18 17:15 07/07/18 12:08 Zofran IV 4 mg Q8H PRN Administration Nausea And Vomiting Oxycodone/Acetaminophen 1 tab 07/06/18 17:16 07/08/18 00:41 Percocet 5/325 PO 1 tab Q6H PRN Administration Pain, Moderate (4-6) Polyethylene Glycol 8.5 gm 07/07/18 10:00 07/08/18 09:18 Miralax 3350 PO 8.5 gm QDAY COLE Administration Scopolamine 1 each 07/08/18 10:00 07/08/18 09:20 Transderm-Scop TD 1 each Q3D COLE Administration Senna/Docusate Sodium 1 tab 07/07/18 10:00 07/08/18 09:17 Senokot S PO 1 tab QDAY COLE Administration Sertraline HCl 25 mg 07/07/18 10:00 07/08/18 09:18 Zoloft PO 25 mg QDAY COLE Administration Sodium Chloride 10 ml 07/06/18 22:00 07/08/18 09:19 Sodium Chloride Flush Syringe 10 Ml IV 10 ml BID COLE Administration Sodium Chloride 10 ml 07/06/18 17:15 Sodium Chloride Flush Syringe 10 Ml IV PRN PRN LINE FLUSH
--- NOTE | 2018-07-08 15:14 | Magnetic Resonance Report ---
MRI BRAIN WITHOUT CONTRAST: 07/08/18 CLINICAL: Stroke. COMPARISON: CT Head 07/06/18 TECHNIQUE: Axial diffusion, T1, T2, gradient echo T2*, coronal and axial FLAIR and sagittal T1 sequences on a 1.5 Ashley magnet. FINDINGS: The ventricles and sulci are normal for age . No restricted diffusion. Right temporal lobe encephalomalacia measures 3.2 x 1.6 cm. Multiple bilateral basal ganglia and deep white matter focal hyperintensities on T2 and FLAIR. Several correlate with hypodensities on the recent CT. A few bilateral basal ganglia chronic lacunar infarcts. The largest involve the left putamen, left external capsule and the left anterior commissure. No mass or mass effect. No hemorrhage, edema or extra-axial collection. No chronic microbleeds on the gradient echo sequence. Normal pituitary and optic chiasm. The brainstem is normal. Mild cerebellar cortical atrophy. Intact vascular flow voids. Mild right maxillary sinusitis . The orbits, and soft tissues are normal. Normal calvarium and skull base. IMPRESSION: 1. No evidence of acute/subacute infarct or hemorrhage. 2. A chronic right temporal lobe infarct. 3. Bilateral basal ganglia and deep white matter chronic lacunar infarcts and additional chronic ischemic changes. 4. Moderate bilateral deep white matter chronic ischemic micro-angiopathy.
--- NOTE | 2018-07-08 15:26 | Magnetic Resonance Report ---
MRA HEAD WITHOUT CONTRAST: 07/06/18 17:15:00 CLINICAL: Stroke. TECHNIQUE: Axial 3-D [id number] MR angiography of the [place] with review of axial source images. FINDINGS: A fair quality examination. High-grade stenosis of the distal right ICA with poststenotic dilatation. There is also a high-grade stenosis of the proximal right MCA. As result, the right posterior communicating artery is relatively large. Despite the high grade right ICA stenosis, there is relatively symmetric blood flow in the distal MCAs. 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 IMPRESSION: Abnormal study with high-grade stenoses of the distal right ICA and the proximal right MCA. Recommend CTA head for correlation since this exam is of marginal quality.
[2018-07-08] MEDS: PEPCID PO SCH (21:57)
[2018-07-09] MEDS: LOPRESSOR PO SCH (09:21)
[2018-07-09] MEDS: ASPIRIN PO SCH (09:21)
[2018-07-09] MEDS: ROCEPHIN/NS 1 GM/50 ML 1 GM/50 ML BAG IV SCH (09:21)
[2018-07-09] MEDS: LACTINEX PO SCH ×2 (09:21→22:06)
[2018-07-09] MEDS: KEPPRA PO SCH ×2 (09:21→22:05)
[2018-07-09] MEDS: SENOKOT S PO SCH (09:22)
[2018-07-09] MEDS: APRESOLINE PO SCH ×2 (09:22→13:32)
[2018-07-09] MEDS: PLAVIX PO SCH (09:22)
[2018-07-09] MEDS: FEOSOL PO SCH ×3 (09:22→17:14)
[2018-07-09] MEDS: NORVASC PO SCH (09:22)
[2018-07-09] MEDS: MIRALAX 3350 PO SCH (09:22)
[2018-07-09] MEDS: ZOLOFT PO SCH (09:23)
[2018-07-09] MEDS: CLARITIN PO SCH (09:23)
[2018-07-09] MEDS: SODIUM CHLORIDE FLUSH SYRINGE 10 ML IV SCH ×2 (09:28→22:06)
--- NOTE | 2018-07-09 14:02 | Progress Note ---
Assessment and Plan Assessment and plan: TIA, acute stroke ruled out -On stroke protocol except antiplatelet due to current nosebleed -MRI brain, MRA head and neck neg for acute findings -Carotid duplex negative for significant stenosis -Echocardiogram showed EF of 65-70% with diastolic dysfunction -Neurology following UTI -Continue IV antibiotic -Urine culture positive for gram-negative lamin, follow-up Hypertension -Controlled on meds Seizure disorder -Stable on Keppra Anemia of chronic disease -H/H stable -cont oral Fe tab Moderate malnutrition -Dietitian following Chronic constipation -Continue laxatives Chronic dysphagia -Diet changed to mechanical soft Disposition: Will await the urine culture result before discharge. For possible discharge in a.m. if the nosebleed is controlled History Interval history: Patient noted to be having nosebleed today. Hospitalist Physical - Constitutional Vitals: Temp Pulse Resp BP Pulse Ox 97.3 F L 70 18 104/61 98 07/09/18 13:53 07/09/18 08:02 07/09/18 13:53 07/09/18 13:53 07/09/18 08:02 General appearance: Present: no acute distress - EENT Eyes: Present: PERRL, EOM intact ENT: hearing intact, clear oral mucosa - Neck Neck: Present: supple - Respiratory Respiratory effort: normal Respiratory: bilateral: CTA - Cardiovascular Rhythm: regular Heart Sounds: Present: S1 & S2 - Extremities Extremities: No edema - Abdominal General gastrointestinal: soft, non-tender, non-distended, normal bowel sounds - Integumentary Integumentary: Present: clear, warm, dry - Neurologic Neurologic: focal deficits (right-sided weakness) Results - Labs CBC & Chem 7: 07/07/18 07:37 07/07/18 07:37 Labs: Laboratory Last Values WBC 5.7 K/mm3 (4.5-11.0) 07/07/18 07:37 RBC 3.56 M/mm3 (3.65-5.03) L 07/07/18 07:37 Hgb 10.2 gm/dl (10.1-14.3) 07/07/18 07:37 Hct 31.3 % (30.3-42.9) 07/07/18 07:37 MCV 88 fl (79-97) 07/07/18 07:37 MCH 29 pg (28-32) 07/07/18 07:37 MCHC 33 % (30-34) 07/07/18 07:37 RDW 13.6 % (13.2-15.2) 07/07/18 07:37 Plt Count 368 K/mm3 (140-440) 07/07/18 07:37 Lymph % (Auto) 29.6 % (13.4-35.0) 07/07/18 07:37 [place] % (Auto) 7.7 % (0.0-7.3) H 07/07/18 07:37 Eos % (Auto) 2.0 % (0.0-4.3) 07/07/18 07:37 Baso % (Auto) 1.0 % (0.0-1.8) 07/07/18 07:37 Lymph # 1.7 K/mm3 (1.2-5.4) 07/07/18 07:37 [place] # 0.4 K/mm3 (0.0-0.8) 07/07/18 07:37 Eos # 0.1 K/mm3 (0.0-0.4) 07/07/18 07:37 Baso # 0.1 K/mm3 (0.0-0.1) 07/07/18 07:37 Seg Neutrophils % 59.7 % (40.0-70.0) 07/07/18 07:37 Seg Neutrophils # 3.4 K/mm3 (1.8-7.7) 07/07/18 07:37 PT 13.2 Sec. (12.2-14.9) 07/06/18 14:43 INR 0.95 (0.87-1.13) 07/06/18 14:43 APTT 28.9 Sec. (24.2-36.6) 07/06/18 14:43 Thrombin Time 16.1 Sec. (15.1-19.6) 07/06/18 14:43 VBG pH 7.433 (7.320-7.420) H 07/06/18 14:43 Sodium 143 mmol/L (137-145) 07/07/18 07:37 Potassium 4.3 mmol/L (3.6-5.0) 07/07/18 07:37 Chloride 105.1 mmol/L (98-107) 07/07/18 07:37 Carbon Dioxide 25 mmol/L (22-30) 07/07/18 07:37 Anion Gap 17 mmol/L 07/07/18 07:37 BUN 11 mg/dL (7-17) 07/07/18 07:37 Creatinine 0.8 mg/dL (0.7-1.2) 07/07/18 07:37 Estimated GFR > 60 ml/min 07/07/18 07:37 BUN/Creatinine Ratio 14 % 07/07/18 07:37 Glucose 68 mg/dL (65-100) 07/07/18 07:37 Hemoglobin A1c 5.0 % (4-6) 07/06/18 14:43 Calcium 8.9 mg/dL (8.4-10.2) 07/07/18 07:37 Total Bilirubin 0.30 mg/dL (0.1-1.2) 07/07/18 07:37 Direct Bilirubin < 0.2 mg/dL (0-0.2) 07/06/18 14:43 Indirect Bilirubin 0.0 mg/dL 07/06/18 14:43 AST 14 units/L (5-40) 07/07/18 07:37 ALT 13 units/L (7-56) 07/07/18 07:37 Alkaline Phosphatase 64 units/L (35-129) 07/07/18 07:37 Total Creatine Kinase 52 units/L (30-135) 07/06/18 14:43 CK-MB (CK-2) < 1.0 ng/mL (0.0-4.0) 07/06/18 14:43 CK-MB (CK-2) Rel Index 1.9 (0-4) 07/06/18 14:43 Troponin T < 0.010 ng/mL (0.00-0.029) 07/06/18 14:43 Total Protein 6.9 g/dL (6.3-8.2) 07/07/18 07:37 Albumin 2.9 g/dL (3.9-5) L 07/07/18 07:37 Albumin/Globulin Ratio 0.7 % 07/07/18 07:37 Triglycerides 81 mg/dL (2-149) 07/08/18 06:08 Cholesterol 157 mg/dL (50-199) 07/08/18 06:08 LDL Cholesterol Direct 103 mg/dL (50-130) 07/08/18 06:08 HDL Cholesterol 49 mg/dL (40-59) 07/08/18 06:08 Cholesterol/HDL Ratio 3.20 % 07/08/18 06:08 Lipase 23 units/L (13-60) 07/06/18 14:43 Urine Color Yellow (Yellow) 07/06/18 18:30 Urine Turbidity Slightly-cloudy (Clear) 07/06/18 18:30 Urine pH 7.0 (5.0-7.0) 07/06/18 18:30 Ur Specific [place] 1.009 (1.003-1.030) 07/06/18 18:30 Urine Protein 100 mg/dl mg/dL (Negative) 07/06/18 18:30 Urine Glucose (UA) Neg mg/dL (Negative) 07/06/18 18:30 Urine Ketones Neg mg/dL (Negative) 07/06/18 18:30 Urine Blood Neg (Negative) 07/06/18 18:30 Urine Nitrite Neg (Negative) 07/06/18 18:30 Urine Bilirubin Neg (Negative) 07/06/18 18:30 Urine Urobilinogen < 2.0 mg/dL (<2.0) 07/06/18 18:30 Ur Leukocyte Esterase Lg (Negative) 07/06/18 18:30 Urine WBC (Auto) 33.0 /HPF (0.0-6.0) H 07/06/18 18:30 Urine RBC (Auto) 2.0 /HPF (0.0-6.0) 07/06/18 18:30 U Epithel Cells (Auto) 1.0 /HPF (0-13.0) 07/06/18 18:30 Urine Bacteria (Auto) 1+ /HPF (Negative) 07/06/18 18:30 Urine Mucus Few /HPF 07/06/18 18:30 Active Medications - Current Medications Current Medications: Generic Name Dose Route Start Last Admin Trade Name Freq PRN Reason Stop Dose Admin Acetaminophen 650 mg 07/06/18 17:15 Tylenol PO Q4H PRN Pain MILD(1-3)/Fever >100.5/CHRISTIE Amlodipine Besylate 10 mg 07/07/18 10:00 07/09/18 09:22 Norvasc PO 10 mg DAILY COLE Administration Aspirin 325 mg 07/07/18 10:00 07/09/18 09:21 Aspirin PO 325 mg QDAY COLE Administration Atorvastatin Calcium 40 mg 07/07/18 22:00 07/08/18 21:57 Lipitor PO 40 mg QHS COLE Administration Famotidine 20 mg 07/07/18 22:00 07/08/18 21:57 Pepcid PO 20 mg QHS COLE Administration Ferrous Sulfate 325 mg 07/07/18 07:30 07/09/18 13:32 Feosol PO 325 mg QAC COLE Administration Hydralazine HCl 50 mg 07/07/18 08:00 07/09/18 13:32 Apresoline PO 50 mg TID COLE Administration Hydromorphone HCl 0.5 mg 07/06/18 17:16 Dilaudid IV Q3H PRN Pain , Severe (7-10) Ceftriaxone Sodium 1 gm in 50 mls @ 100 mls/hr 07/07/18 15:00 07/09/18 09:21 Rocephin/Ns 1 Gm/50 Ml IV 100 mls/hr Q24HR COLE Administration Protocol Lactobacillus Acidophilus 1 each 07/07/18 10:00 07/09/18 09:21 Lactinex PO 1 each Q12HR COLE Administration Levetiracetam 500 mg 07/07/18 10:00 07/09/18 09:21 Keppra PO 500 mg BID [facility] Administration Loratadine 10 mg 07/07/18 10:00 07/09/18 09:23 Claritin PO 10 mg DAILY COLE Administration Magnesium Hydroxide 30 ml 07/13/18 22:00 Milk Of Magnesia PO Sa@2200 [facility] Metoprolol Tartrate 50 mg 07/07/18 10:00 07/09/18 09:21 Lopressor PO 50 mg QDAY [facility] Administration Ondansetron HCl 4 mg 07/06/18 17:15 07/07/18 12:08 Zofran IV 4 mg Q8H PRN Administration Nausea And Vomiting Oxycodone/Acetaminophen 1 tab 07/06/18 17:16 07/08/18 00:41 Percocet 5/325 PO 1 tab Q6H PRN Administration Pain, Moderate (4-6) Polyethylene Glycol 8.5 gm 07/07/18 10:00 07/09/18 09:22 Miralax 3350 PO 8.5 gm QDAY [facility] Administration Scopolamine 1 each 07/08/18 10:00 07/08/18 09:20 Transderm-Scop TD 1 each Q3D COLE Administration Senna/Docusate Sodium 1 tab 07/07/18 10:00 07/09/18 09:22 Senokot S PO 1 tab QDAY COLE Administration Sertraline HCl 25 mg 07/07/18 10:00 07/09/18 09:23 Zoloft PO 25 mg QDAY COLE Administration Sodium Chloride 10 ml 07/06/18 22:00 07/09/18 09:28 Sodium Chloride Flush Syringe 10 Ml IV 10 ml BID COLE Administration Sodium Chloride 10 ml 07/06/18 17:15 Sodium Chloride Flush Syringe 10 Ml IV PRN PRN LINE FLUSH Nutrition/Malnutrition Assess - Dietary Evaluation Nutrition/Malnutrition Findings: Nutrition Notes Start: 07/08/18 16:51 Freq: Status: Active Protocol: Document 07/08/18 16:51 RM (Rec: 07/08/18 16:58 RM [id number]) Nutrition Notes Need for Assessment generated from: MD Order Initial or Follow up Assessment Current Diagnosis Hypertension Other Pertinent Diagnosis Sacral stasis ulcer, TIA, Seizure disorder, Constipation , UTI Current Diet Cardiac Labs/Tests Reviewed Pertinent Medications Reviewed Height 5 ft 7 in Weight 52.3 kg Usual Body Weight 53.64 kg [place] Body Weight (kg) 61.36 BMI 18.0 Subjective/Other Information Screened for low BMI and consulted for malnutrition. Pt stated that [place] she ate [address] [place]. Stated that she eats 50% of her meals there. Stated that she ate bites of her breakfast here. Admitted to nausea and constipation. Also stated that when she tries to swallow "food doesn't go down like it should." Informed MD of this and MD stated she would ordered swallow evaluation ST. Pt stated that her UBW was 118 lbs a few months ago. No temporal or orbital wasting . Burn Absent Trauma Absent #1 Nutrition Diagnosis Malnutrition Etiology nausea, possible swallowing difficulty, decreased appetite As Evidenced by Signs and Symptoms pt statement that she ate 50% of her meals at the [place], pt BMI of 18.1 Is patient on ventilator? No Is Patient Ambulatory and/or Out of Bed No REE-([facility] [facility]-confined to bed) 1267.320 Kcal/Kg value to use for calculation 34 Approximate Energy Requirements Using 1778 kcal/Kg Calculation Used for Recommendations Kcal/kg Additional Notes Protein Needs: 63-78g (1.2-1. 5g/kg) Fluid Needs: 1 ml/kcal Nutrition Intervention Change Diet Order: Per ST Goal #1 ST swallow evaluation Anticipated Discharge Needs: Unable to determine at this time Follow-Up By: 07/10/18 Additional Comments Follow for swallow evaluation results, PO intakes
--- NOTE | 2018-07-09 15:42 | Event Note ---
Discussed with community specialist she has checked with physician patient showed up on my list Does know renal consult needed according to community specialist
[2018-07-09] MEDS: ZOFRAN IV PRN (17:15)
[2018-07-09] MEDS: PEPCID PO SCH (22:06)
[2018-07-10 06:36] LABS: Hematocrit 31.2 % (30.3-42.9); Hemoglobin 10.5 gm/dl (10.1-14.3)
[2018-07-10] MEDS: MIRALAX 3350 PO SCH (10:15)
[2018-07-10] MEDS: SENOKOT S PO SCH (10:15)
[2018-07-10] MEDS: CLARITIN PO SCH (10:15)
[2018-07-10] MEDS: KEPPRA PO SCH ×2 (10:15→22:15)
[2018-07-10] MEDS: LACTINEX PO SCH ×2 (10:15→22:15)
[2018-07-10] MEDS: ASPIRIN PO SCH (10:15)
[2018-07-10] MEDS: LOPRESSOR PO SCH (10:15)
[2018-07-10] MEDS: NORVASC PO SCH (10:15)
[2018-07-10] MEDS: FEOSOL PO SCH ×2 (10:16→17:08)
[2018-07-10] MEDS: SODIUM CHLORIDE FLUSH SYRINGE 10 ML IV SCH ×2 (10:16→22:14)
[2018-07-10] MEDS: ZOLOFT PO SCH (10:16)
[2018-07-10] MEDS: ROCEPHIN/NS 1 GM/50 ML 1 GM/50 ML BAG IV SCH (10:16)
--- NOTE | 2018-07-10 17:04 | Progress Note ---
Assessment and Plan Assessment and plan: TIA, acute stroke ruled out -On stroke protocol except antiplatelet due to current nosebleed -MRI brain, MRA head and neck neg for acute findings BUT NOTED SOME STENOSIS -Carotid duplex negative for significant stenosis -Echocardiogram showed EF of 65-70% with diastolic dysfunction -Neurology following - OBTAIN CTA head per MRI recommendation UTI -Continue IV antibiotic -Urine culture positive for gram-negative lamin, kLEBSILLA PNEUMONIA Hypertension -Controlled on meds Seizure disorder -Stable on Keppra Anemia of chronic disease -H/H stable -cont oral Fe tab Moderate malnutrition -Dietitian following Chronic constipation -Continue laxatives Chronic dysphagia -Diet changed to mechanical soft History of stroke with residual right-sided weakness Disposition: Will await the urine culture result before discharge. For possible discharge in a.m. if the nosebleed is controlled History Interval history: Patient seen and examined, no new complaints Hospitalist Physical - Physical exam Narrative exam: General appearance: Present: no acute distress - EENT Eyes: Present: PERRL, EOM intact ENT: hearing intact, clear oral mucosa - Neck Neck: Present: supple - Respiratory Respiratory effort: normal Respiratory: bilateral: CTA - Cardiovascular Rhythm: regular Heart Sounds: Present: S1 & S2 - Extremities Extremities: No edema - Abdominal General gastrointestinal: soft, non-tender, non-distended, normal bowel sounds - Integumentary Integumentary: Present: clear, warm, dry - Neurologic Neurologic: focal deficits (right-sided weakness) - Constitutional Vitals: Temp Pulse Resp BP Pulse Ox 97.9 F 71 18 125/71 98 07/10/18 12:05 07/10/18 12:05 07/10/18 12:05 07/10/18 12:05 07/10/18 12:05 General appearance: Present: no acute distress Results - Labs CBC & Chem 7: 07/10/18 06:15 07/07/18 07:37 Labs: Laboratory Last Values WBC 5.7 K/mm3 (4.5-11.0) 07/07/18 07:37 RBC 3.56 M/mm3 (3.65-5.03) L 07/07/18 07:37 Hgb 10.5 gm/dl (10.1-14.3) 07/10/18 06:15 Hct 31.2 % (30.3-42.9) 07/10/18 06:15 MCV 88 fl (79-97) 07/07/18 07:37 MCH 29 pg (28-32) 07/07/18 07:37 MCHC 33 % (30-34) 07/07/18 07:37 RDW 13.6 % (13.2-15.2) 07/07/18 07:37 Plt Count 368 K/mm3 (140-440) 07/07/18 07:37 Lymph % (Auto) 29.6 % (13.4-35.0) 07/07/18 07:37 [place] % (Auto) 7.7 % (0.0-7.3) H 07/07/18 07:37 Eos % (Auto) 2.0 % (0.0-4.3) 07/07/18 07:37 Baso % (Auto) 1.0 % (0.0-1.8) 07/07/18 07:37 Lymph # 1.7 K/mm3 (1.2-5.4) 07/07/18 07:37 [place] # 0.4 K/mm3 (0.0-0.8) 07/07/18 07:37 Eos # 0.1 K/mm3 (0.0-0.4) 07/07/18 07:37 Baso # 0.1 K/mm3 (0.0-0.1) 07/07/18 07:37 Seg Neutrophils % 59.7 % (40.0-70.0) 07/07/18 07:37 Seg Neutrophils # 3.4 K/mm3 (1.8-7.7) 07/07/18 07:37 PT 13.2 Sec. (12.2-14.9) 07/06/18 14:43 INR 0.95 (0.87-1.13) 07/06/18 14:43 APTT 28.9 Sec. (24.2-36.6) 07/06/18 14:43 Thrombin Time 16.1 Sec. (15.1-19.6) 07/06/18 14:43 VBG pH 7.433 (7.320-7.420) H 07/06/18 14:43 Sodium 143 mmol/L (137-145) 07/07/18 07:37 Potassium 4.3 mmol/L (3.6-5.0) 07/07/18 07:37 Chloride 105.1 mmol/L (98-107) 07/07/18 07:37 Carbon Dioxide 25 mmol/L (22-30) 07/07/18 07:37 Anion Gap 17 mmol/L 07/07/18 07:37 BUN 11 mg/dL (7-17) 07/07/18 07:37 Creatinine 0.8 mg/dL (0.7-1.2) 07/07/18 07:37 Estimated GFR > 60 ml/min 07/07/18 07:37 BUN/Creatinine Ratio 14 % 07/07/18 07:37 Glucose 68 mg/dL (65-100) 07/07/18 07:37 Hemoglobin A1c 5.0 % (4-6) 07/06/18 14:43 Calcium 8.9 mg/dL (8.4-10.2) 07/07/18 07:37 Total Bilirubin 0.30 mg/dL (0.1-1.2) 07/07/18 07:37 Direct Bilirubin < 0.2 mg/dL (0-0.2) 07/06/18 14:43 Indirect Bilirubin 0.0 mg/dL 07/06/18 14:43 AST 14 units/L (5-40) 07/07/18 07:37 ALT 13 units/L (7-56) 07/07/18 07:37 Alkaline Phosphatase 64 units/L (35-129) 07/07/18 07:37 Total Creatine Kinase 52 units/L (30-135) 07/06/18 14:43 CK-MB (CK-2) < 1.0 ng/mL (0.0-4.0) 07/06/18 14:43 CK-MB (CK-2) Rel Index 1.9 (0-4) 07/06/18 14:43 Troponin T < 0.010 ng/mL (0.00-0.029) 07/06/18 14:43 Total Protein 6.9 g/dL (6.3-8.2) 07/07/18 07:37 Albumin 2.9 g/dL (3.9-5) L 07/07/18 07:37 Albumin/Globulin Ratio 0.7 % 07/07/18 07:37 Triglycerides 81 mg/dL (2-149) 07/08/18 06:08 Cholesterol 157 mg/dL (50-199) 07/08/18 06:08 LDL Cholesterol Direct 103 mg/dL (50-130) 07/08/18 06:08 HDL Cholesterol 49 mg/dL (40-59) 07/08/18 06:08 Cholesterol/HDL Ratio 3.20 % 07/08/18 06:08 Lipase 23 units/L (13-60) 07/06/18 14:43 Urine Color Yellow (Yellow) 07/06/18 18:30 Urine Turbidity Slightly-cloudy (Clear) 07/06/18 18:30 Urine pH 7.0 (5.0-7.0) 07/06/18 18:30 Ur Specific [place] 1.009 (1.003-1.030) 07/06/18 18:30 Urine Protein 100 mg/dl mg/dL (Negative) 07/06/18 18:30 Urine Glucose (UA) Neg mg/dL (Negative) 07/06/18 18:30 Urine Ketones Neg mg/dL (Negative) 07/06/18 18:30 Urine Blood Neg (Negative) 07/06/18 18:30 Urine Nitrite Neg (Negative) 07/06/18 18:30 Urine Bilirubin Neg (Negative) 07/06/18 18:30 Urine Urobilinogen < 2.0 mg/dL (<2.0) 07/06/18 18:30 Ur Leukocyte Esterase Lg (Negative) 07/06/18 18:30 Urine WBC (Auto) 33.0 /HPF (0.0-6.0) H 07/06/18 18:30 Urine RBC (Auto) 2.0 /HPF (0.0-6.0) 07/06/18 18:30 U Epithel Cells (Auto) 1.0 /HPF (0-13.0) 07/06/18 18:30 Urine Bacteria (Auto) 1+ /HPF (Negative) 07/06/18 18:30 Urine Mucus Few /HPF 07/06/18 18:30 Active Medications - Current Medications Current Medications: Generic Name Dose Route Start Last Admin Trade Name Freq PRN Reason Stop Dose Admin Acetaminophen 650 mg 07/06/18 17:15 Tylenol PO Q4H PRN Pain MILD(1-3)/Fever >100.5/CHRISTIE Amlodipine Besylate 10 mg 07/07/18 10:00 07/10/18 10:15 Norvasc PO 10 mg DAILY COLE Administration Aspirin 325 mg 07/07/18 10:00 07/10/18 10:15 Aspirin PO 325 mg QDAY COLE Administration Atorvastatin Calcium 40 mg 07/07/18 22:00 07/09/18 22:05 Lipitor PO 40 mg QHS COLE Administration Famotidine 20 mg 07/07/18 22:00 07/09/18 22:06 Pepcid PO 20 mg QHS COLE Administration Ferrous Sulfate 325 mg 07/07/18 07:30 07/10/18 10:16 Feosol PO 325 mg QAC COLE Administration Hydromorphone HCl 0.5 mg 07/06/18 17:16 Dilaudid IV Q3H PRN Pain , Severe (7-10) Ceftriaxone Sodium 1 gm in 50 mls @ 100 mls/hr 07/07/18 15:00 07/10/18 10:16 Rocephin/Ns 1 Gm/50 Ml IV 100 mls/hr Q24HR COLE Administration Protocol Lactobacillus Acidophilus 1 each 07/07/18 10:00 07/10/18 10:15 Lactinex PO 1 each Q12HR COLE Administration Levetiracetam 500 mg 07/07/18 10:00 07/10/18 10:15 Keppra PO 500 mg BID COLE Administration Loratadine 10 mg 07/07/18 10:00 07/10/18 10:15 Claritin PO 10 mg DAILY COLE Administration Magnesium Hydroxide 30 ml 07/13/18 22:00 Milk Of Magnesia PO Sa@2200 [facility] Metoprolol Tartrate 50 mg 07/07/18 10:00 07/10/18 10:15 Lopressor PO 50 mg QDAY COLE Administration Ondansetron HCl 4 mg 07/06/18 17:15 07/09/18 17:15 Zofran IV 4 mg Q8H PRN Administration Nausea And Vomiting Oxycodone/Acetaminophen 1 tab 07/06/18 17:16 07/08/18 00:41 Percocet 5/325 PO 1 tab Q6H PRN Administration Pain, Moderate (4-6) Polyethylene Glycol 8.5 gm 07/07/18 10:00 07/10/18 10:15 Miralax 3350 PO 8.5 gm QDAY COLE Administration Scopolamine 1 each 07/08/18 10:00 07/08/18 09:20 Transderm-Scop TD 1 each Q3D COLE Administration Senna/Docusate Sodium 1 tab 07/07/18 10:00 07/10/18 10:15 Senokot S PO 1 tab QDAY COLE Administration Sertraline HCl 25 mg 07/07/18 10:00 07/10/18 10:16 Zoloft PO 25 mg QDAY COLE Administration Sodium Chloride 10 ml 07/06/18 22:00 07/10/18 10:16 Sodium Chloride Flush Syringe 10 Ml IV 10 ml BID COLE Administration Sodium Chloride 10 ml 07/06/18 17:15 Sodium Chloride Flush Syringe 10 Ml IV PRN PRN LINE FLUSH Nutrition/Malnutrition Assess - Dietary Evaluation Nutrition/Malnutrition Findings: Nutrition Notes Start: 07/08/18 16:51 Freq: Status: Active Protocol: Document 07/10/18 08:56 ER (Rec: 07/10/18 09:08 ER [id number]) Co-Sign 07/10/18 08:56 LP Nutrition Notes Initial or Follow up Reassessment Current Diagnosis Hypertension Other Pertinent Diagnosis Sacral stasis ulcer, TIA, Seizure disorder, Constipation , UTI Current Diet Cardiac Diet Labs/Tests Reviewed Pertinent Medications Miralax Height 5 ft 7 in Weight 52.3 kg [place] Body Weight (kg) 61.36 BMI 18.0 Subjective/Other Information Per ST note, patient's swallowing is adequate, but she exhibits impaired cognitive and auditory comprehensive function. Pt. stated she is eating just under 50% of her meals, tolerates the softer foods and liquids. Pt. agreeable to try Ensure Enlive once daily. Pt. has nausea, constipation is better. Percent of energy/protein needs met: 60%/66% Burn Absent Trauma Absent #1 Nutrition Diagnosis Malnutrition Diagnosis Progress(for reassessment Continues documentation) Is patient on ventilator? No Is Patient Ambulatory and/or Out of Bed No REE-([facility]-confined to bed) 1267.320 Kcal/Kg value to use for calculation 34 Approximate Energy Requirements Using 1778 kcal/Kg Calculation Used for Recommendations Kcal/kg Additional Notes Protein Needs: 63-78g (1.2-1. 5g/kg) Fluid Needs: 1 ml/kcal Nutrition Intervention Change Diet Order: Add mechanical soft modification and Ensure Enlive once daily Add Supplement/Snack (indicate name/kcal Ensure Enlive (vanilla) once /protein ) daily Provides kCal: 350 Provides Protein (gm) 20 Goal #1 Pt. to consume 75% of energy and protein needs through PO and ONS intakes. Anticipated Discharge Needs: Mechanical Soft Follow-Up By: 07/12/18 Additional Comments F/U: PO and ONS intakes
[2018-07-10] MEDS: PEPCID PO SCH (22:15)
--- NOTE | 2018-07-11 11:10 | Discharge Summary ---
Providers - Providers Date of Admission: 07/06/18 17:15 Attending physician: THERESA LIZAMA MD 07/07/18 Consult to Physician [CONS] Routine Comment: Consulting Provider: ASHIA HARMON Physician Instructions: Reason For Exam: CVA 07/07/18 01:12 Occupational Therapy Evaluate and Treat [CONS] Routine Comment: Reason For Exam: Neuro deficits Physical Therapy Evaluation and Treat [CONS] Routine Comment: Reason For Exam: Neuro deficits 07/07/18 01:17 Occupational Therapy Evaluate and Treat [CONS] Routine Comment: Reason For Exam: Neuro deficits Physical Therapy Evaluation and Treat [CONS] Routine Comment: Reason For Exam: Neuro deficits 07/07/18 08:00 Consult to Wound/ET Nurse [CONS] Urgent Reason For Exam: wound eval of sacrum 07/08/18 12:24 Consult to Dietitian/Nutrition [CONS] Routine Physician Instructions: Reason For Exam: Reason for Consult: Malnutrition 07/08/18 17:58 Speech Therapy Evaluation and Treat [CONS] Routine Reason For Exam: dysphagia Primary care physician: YOSELIN SOUSA Hospitalization Reason for admission: TIA Condition: Fair Hospital course: 73-year-old female presenting with a chief complaint of "I think that a stroke." The patient states last night (time unknown) she noticed her right face was twisting and today she developed nausea and vomiting. This prompted her to believe she had another stroke. The patient states her first stroke in the 90s which resulted in right-sided weakness. The patient states that weakness has not changed. Patient denies other complaints.No seizures. TIA, acute stroke ruled out -On stroke protocol except antiplatelet due to current nosebleed -MRI brain, MRA head and neck neg for acute findings BUT NOTED SOME STENOSIS -Carotid duplex negative for significant stenosis -Echocardiogram showed EF of 65-70% with diastolic dysfunction -Neurology following -cta showed 65% steonsis of the cavernous portion of the right ICA and 50% stenosis of the right MCA VA. findings discussed witht eh aptient and recommended she follow with vascular outpatient UTI -treated with IV antibiotic -Urine culture positive for gram-negative lamin, kLEBSILLA PNEUMONIA Hypertension -Controlled on meds Seizure disorder -Stable on Keppra Anemia of chronic disease -H/H stable -cont oral Fe tab Moderate malnutrition -Dietitian following Chronic constipation -Continue laxatives Chronic dysphagia -Diet changed to mechanical soft History of stroke with residual right-sided weakness Disposition: DC/[place]-03 [facility] Time spent for discharge: 35 mins Core Measure Documentation - Palliative Care Palliative Care/ Comfort Measures: Not Applicable - Core Measures Any of the following diagnoses?: stroke - Stroke Discharge Requirements Statin for LDL = or >70 mg/dl on DC: Yes Anticoag for atrial fib/atrial flutter: Not Applicable Antithrombotic for ischemic stroke: Yes Exam - Physical Exam Narrative exam: General appearance: Present: no acute distress - EENT Eyes: Present: PERRL, EOM intact ENT: hearing intact, clear oral mucosa - Neck Neck: Present: supple - Respiratory Respiratory effort: normal Respiratory: bilateral: CTA - Cardiovascular Rhythm: regular Heart Sounds: Present: S1 & S2 - Extremities Extremities: No edema - Abdominal General gastrointestinal: soft, non-tender, non-distended, normal bowel sounds - Integumentary Integumentary: Present: clear, warm, dry - Neurologic Neurologic: focal deficits (right-sided weakness) - Constitutional Vitals: Temp Pulse Resp BP Pulse Ox 97.9 F 75 18 130/71 99 07/11/18 07:55 07/11/18 07:55 07/11/18 07:55 07/11/18 07:55 07/11/18 07:55 Plan Activity: advance as tolerated, fall precautions Diet: per dietitian instruction Special Instructions: record daily BP diary Follow up with: PRIMARY CARE, [Referring] - 3-5 Days ASHIA HARMON MD [Staff Physician] - 7 Days MYCHAL SUH MD [Staff Physician] - 7 Days
--- NOTE | 2018-07-11 13:48 | Cat Scan Report ---
CTA HEAD: 07/11/18 CLINICAL: Right ICA and MCA stenosis. COMPARISON: MRA head 07/08/18 TECHNIQUE- Volumetric acquisition and 1.25 mm scan reconstructions after the uneventful intravenous injection of 100-cc Omnipaque 350. Consent was obtained prior to the administration of the IV contrast. Sagittal and reformats were obtained. Volume rendered images were generated and reviewed on a 3-D workstation. FINDINGS: Extensive calcification of the distal ICAs and 65% stenosis of the cavernous portion of the right ICA and 54% stenosis of the proximal right MCA M1 segment. No other significant stenoses. Relatively symmetric blood flow in the distal MCA's. Intact bilateral ELIZABETH and TUBE DRAWER. No aneurysm. The vertebral and basilar arteries are intact. The left vertebral artery is dominant. IMPRESSION: 65% stenosis of the cavernous portion of the right ICA and 50% stenosis of the right MCA M1 segment.
[2018-07-11] MEDS: LACTINEX PO SCH (14:42)
[2018-07-11] MEDS: SENOKOT S PO SCH (14:42)
[2018-07-11] MEDS: NORVASC PO SCH (14:42)
[2018-07-11] MEDS: TRANSDERM-SCOP TD SCH (14:42)
[2018-07-11] MEDS: ZOLOFT PO SCH (14:43)
[2018-07-11] MEDS: CLARITIN PO SCH (14:43)
[2018-07-11] MEDS: ASPIRIN PO SCH (14:43)
[2018-07-11] MEDS: LOPRESSOR PO SCH (14:43)
[2018-07-11] MEDS: KEPPRA PO SCH (14:43)
[2018-07-11] MEDS: FEOSOL PO SCH ×2 (14:44→14:45)
[2018-07-11] MEDS: MIRALAX 3350 PO SCH (14:44)
[2018-07-11] MEDS: SODIUM CHLORIDE FLUSH SYRINGE 10 ML IV SCH (14:45)
[2018-07-11] MEDS: ROCEPHIN/NS 1 GM/50 ML 1 GM/50 ML BAG IV SCH (14:45)
[2018-07-11 16:09] VITALS: BP 141/84
[2018-07-13] MEDS ORDERED: MILK OF MAGNESIA PO SCH (22:00)
== END 2018-07-11 18:30 | DRG 69 ==
LOC: ED 13:46 → 4A 17:15
PROVIDERS: ADMIT Internal Medicine; ATTEND Internal Medicine
DX: G45.9 Transient cerebral ischemic attack, unspecified (principal); N39.0 Urinary tract infection, site not specified; E44.0 Moderate protein-calorie malnutrition; Z68.1 Body mass index [BMI] 19.9 or less, adult; I69.351 Hemiplegia and hemiparesis following cerebral infarction affecting right dominant side; I10 Essential (primary) hypertension; G40.909 Epilepsy, unspecified, not intractable, without status epilepticus; D50.9 Iron deficiency anemia, unspecified; K59.01 Slow transit constipation; D63.8 Anemia in other chronic diseases classified elsewhere; R13.10 Dysphagia, unspecified; B96.1 Klebsiella pneumoniae [K. pneumoniae] as the cause of diseases classified elsewhere
CPT/HCPCS: 36415; 70450; 70496; 70544; 70551; 80048; 80053; 80061; 80076; 81001; 82550; 82553; 82805; 83036; 83690; 84484; 85014; 85018; 85025; 85610; 85670; 85730; 87076; 87086; 87186; 93005; 93010; 93306; 93880; 96374; G0378; A9270-GY; J0696; J2405; J3246; J7030; Q9967

== ENCOUNTER 2019-11-05 19:33 | Inpatient (IN) | payer MEDICARE ==
[2019-11-05] MEDS ORDERED: SODIUM CHLORIDE 0.9% 500 ML 500 ML IV ONE (20:45)
--- NOTE | 2019-11-05 20:56 | Emergency Department Report ---
ED Altered Mental Status HPI - General Chief Complaint: Altered Mental Status Stated Complaint: FAILURE TO LAUNCH PUI?: No Time Seen by Provider: 11/05/19 20:45 Source: EMS Mode of arrival: Stretcher Limitations: Altered Mental Status - History of Present Illness Initial Comments: CC: Altered mental status HPI: This is a 74-year-old female with history of CVA hemiplegia seizure disorder, anemia, lung mass, UTI, pneumonia, hyperlipidemia who presents with altered mental status after fall 3 days ago. She is a resident of [facility]. She appears lethargic. She gives limited history. She was able to say her first name. When asked if in pain she says "no". MD Complaint: altered mental status, decreased responsiveness -: Gradual Severity: severe Consistency of Symptoms: getting worse Context: seizure disorder - Related Data Home Medications Medication Instructions Recorded Confirmed Last Taken Acetaminophen 325 mg PO Q12HR PRN 07/06/18 11/28/18 Unknown Amino Acids/Protein Hydrolys 30 ml PO BID 07/06/18 11/28/18 Unknown [Pro-Stat Aw Liquid Packet] Calcium Carbonate [Tums 500MG CHEW] 1,000 mg PO Q12HR 07/06/18 11/28/18 Unknown Famotidine [Pepcid] 20 mg PO QHS 07/06/18 11/28/18 Unknown Ferrous Sulfate [Iron 325 MG] 325 mg PO QAC 07/06/18 11/28/18 Unknown Hydralazine HCl 50 mg PO TID 07/06/18 11/28/18 Unknown Lactobacillus Acidophil [Lactinex] 1 cap PO Q12HR 07/06/18 11/28/18 Unknown Loratadine (Nf) [Claritin (Nf)] 10 mg PO DAILY 07/06/18 11/28/18 Unknown Magnesium Hydroxide [Milk of 400 mg PO QWEEK 07/06/18 11/28/18 Unknown Magnesia] Melatonin 3 mg PO QHS 07/06/18 11/28/18 Unknown Metoprolol [Lopressor TAB] 50 mg PO QDAY 07/06/18 11/28/18 Unknown Mirtazapine [Remeron 15mg TAB] 15 mg PO QHS 07/06/18 11/28/18 Unknown Multivit with Minerals/Lutein [Pub 1 each PO QDAY 07/06/18 11/28/18 Unknown Multivitamin 50 Plus Tab] Polyethylene Glycol 3350 [Gavilax] 8.5 gm PO QDAY 07/06/18 11/28/18 Unknown Scopolamine Hydrobromide 1.5 mg TP Q3D 07/06/18 11/28/18 Unknown Sennosides/Docusate [Senokot S] 1 tab PO QDAY 07/06/18 11/28/18 Unknown amLODIPine 10 mg PO DAILY 07/06/18 11/28/18 Unknown levETIRAcetam [Keppra TAB] 500 mg PO BID 07/06/18 11/28/18 Unknown Previous Rx's Medication Instructions Recorded Last Taken Type Metoclopramide [Reglan TAB] 10 mg PO Q6H PRN #90 tablet 01/09/14 Unknown Rx Rosuvastatin (Nf) [Crestor] 20 mg PO QHS #30 tablet 01/09/14 Unknown Rx levETIRAcetam [Keppra TAB] 500 mg PO BID #60 tablet 01/09/14 Unknown Rx hydrALAZINE [Apresoline TAB] 25 mg PO Q8H #90 tab 01/28/14 Unknown Rx Allergies Allergy/AdvReac Type Severity Reaction Status Date / Time benazepril Allergy Unknown Verified 07/09/18 10:17 benazepril HCl Allergy Swelling Verified 07/09/18 10:17 [From Lotensin] diltiazem [From Cardizem] Allergy Unknown Verified 07/09/18 10:17 diltiazem HCl [From Cardizem] Allergy Swelling Verified 07/09/18 10:17 losartan Allergy Unknown Verified 07/09/18 10:17 ED Review of Systems ROS: Stated complaint: FAILURE TO LAUNCH Other details as noted in HPI Comment: Unobtainable due to pts medical conditions (Altered mental status) ED Past Medical Hx - Past Medical History Previous Medical History?: Yes Hx Hypertension: Yes Hx CVA: Yes Hx Diabetes: No Hx Renal Disease: No Hx Arthritis: No Hx Seizures: Yes Hx Asthma: No Hx HIV: No Additional medical history: R side deficits from previous cva - Surgical History Past Surgical History?: Yes Hx Pacemaker: No Hx Appendectomy: Yes Additional Surgical History: partial hysterectomy - Social History Smoking Status: Unknown if ever smoked Substance Use Type: None - Medications Home Medications: Home Medications Medication Instructions Recorded Confirmed Last Taken Type Metoclopramide [Reglan TAB] 10 mg PO Q6H PRN #90 tablet 01/09/14 11/28/18 Unknown Rx Rosuvastatin (Nf) [Crestor] 20 mg PO QHS #30 tablet 01/09/14 11/28/18 Unknown Rx levETIRAcetam [Keppra TAB] 500 mg PO BID #60 tablet 01/09/14 11/28/18 Unknown Rx hydrALAZINE [Apresoline TAB] 25 mg PO Q8H #90 tab 01/28/14 11/28/18 Unknown Rx Acetaminophen 325 mg PO Q12HR PRN 07/06/18 11/28/18 Unknown History Amino Acids/Protein Hydrolys 30 ml PO BID 07/06/18 11/28/18 Unknown History [Pro-Stat [facility] Liquid Packet] Calcium Carbonate [Tums 500MG CHEW] 1,000 mg PO Q12HR 07/06/18 11/28/18 Unknown History Famotidine [Pepcid] 20 mg PO QHS 07/06/18 11/28/18 Unknown History Ferrous Sulfate [Iron 325 MG] 325 mg PO QAC 07/06/18 11/28/18 Unknown History Hydralazine HCl 50 mg PO TID 07/06/18 11/28/18 Unknown History Lactobacillus Acidophil [Lactinex] 1 cap PO Q12HR 07/06/18 11/28/18 Unknown History Loratadine (Nf) [Claritin (Nf)] 10 mg PO DAILY 07/06/18 11/28/18 Unknown History Magnesium Hydroxide [Milk of 400 mg PO QWEEK 07/06/18 11/28/18 Unknown History Magnesia] Melatonin 3 mg PO QHS 07/06/18 11/28/18 Unknown History Metoprolol [Lopressor TAB] 50 mg PO QDAY 07/06/18 11/28/18 Unknown History Mirtazapine [Remeron 15mg TAB] 15 mg PO QHS 07/06/18 11/28/18 Unknown History Multivit with Minerals/Lutein [Pub 1 each PO QDAY 07/06/18 11/28/18 Unknown History Multivitamin 50 Plus Tab] Polyethylene Glycol 3350 [Gavilax] 8.5 gm PO QDAY 07/06/18 11/28/18 Unknown History Scopolamine Hydrobromide 1.5 mg TP Q3D 07/06/18 11/28/18 Unknown History Sennosides/Docusate [Senokot S] 1 tab PO QDAY 07/06/18 11/28/18 Unknown History amLODIPine 10 mg PO DAILY 07/06/18 11/28/18 Unknown History levETIRAcetam [Keppra TAB] 500 mg PO BID 07/06/18 11/28/18 Unknown History ED Physical Exam - General Limitations: Altered Mental Status General appearance: alert, lethargic, cachectic, other (Facial droop evident, frequent cough) - Head Head exam: Present: atraumatic, normocephalic - Eye Eye exam: Present: normal appearance. Absent: scleral icterus, conjunctival injection - ENT ENT exam: Present: mucous membranes dry, other (Copious amount of dark galicia sputum in mouth, poor dentition, no oropharyngeal lesions) - Neck Neck exam: Present: normal inspection, full ROM - Respiratory Respiratory exam: Present: normal lung sounds bilaterally. Absent: respiratory distress, wheezes, rales, rhonchi - Cardiovascular Cardiovascular Exam: Present: tachycardia, irregular rhythm, normal heart sounds. Absent: systolic murmur, diastolic murmur, rubs, gallop - GI/Abdominal GI/Abdominal exam: Present: soft, normal bowel sounds. Absent: distended, tenderness, guarding - Extremities Exam Extremities exam: Present: other (flexed Contracted right upper extremity ) - Neurological Exam Neurological exam: Present: alert, altered - Psychiatric Psychiatric exam: Present: depressed, flat affect - Skin Skin exam: Present: warm, dry, pallor, other (Bandage overlying sacral region). Absent: rash ED Course Vital Signs 11/05/19 11/05/19 11/05/19 20:06 20:40 20:46 Temperature 97.8 F Pulse Rate 113 H 157 H 106 H Respiratory 18 Rate Blood Pressure 95/59 Blood Pressure 69/61 [Left] O2 Sat by Pulse 99 Oximetry 11/05/19 11/05/19 21:00 21:15 Temperature Pulse Rate 107 H 109 H Respiratory Rate Blood Pressure 93/68 98/66 Blood Pressure [Left] O2 Sat by Pulse 95 95 Oximetry - Lab Data Result diagrams: 11/05/19 23:03 11/05/19 23:03 Lab Results 11/05/19 11/05/19 11/05/19 Range/Units 21:44 23:03 23:03 WBC 19.2 H (4.5-11.0) K/mm3 RBC 3.84 (3.65-5.03) M/mm3 Hgb 10.8 (10.1-14.3) gm/dl Hct 34.2 (30.3-42.9) % MCV 89 (79-97) fl MCH 28 (28-32) pg MCHC 32 (30-34) % RDW 13.7 (13.2-15.2) % Plt Count 677 H (140-440) K/mm3 Lymph % (Auto) 5.5 L (13.4-35.0) % Winkler % (Auto) 7.2 (0.0-7.3) % Eos % (Auto) 0.1 (0.0-4.3) % Baso % (Auto) 0.3 (0.0-1.8) % Lymph # 1.1 L (1.2-5.4) K/mm3 Winkler # 1.4 H (0.0-0.8) K/mm3 Eos # 0.0 (0.0-0.4) K/mm3 Baso # 0.1 (0.0-0.1) K/mm3 Seg Neutrophils % 86.9 H (40.0-70.0) % Seg Neutrophils # 16.7 H (1.8-7.7) K/mm3 PT (12.2-14.9) Sec. INR (0.87-1.13) Sodium 158 H (137-145) mmol/L Potassium 4.1 (3.6-5.0) mmol/L Chloride 116.3 H (98-107) mmol/L Carbon Dioxide 25 (22-30) mmol/L Anion Gap 21 mmol/L BUN 92 H (7-17) mg/dL Creatinine 3.5 H (0.6-1.2) mg/dL Estimated GFR 15 ml/min BUN/Creatinine Ratio 26 % Glucose 116 H (65-100) mg/dL Lactic Acid (0.7-2.0) mmol/L Calcium 9.7 (8.4-10.2) mg/dL Total Bilirubin 0.20 (0.1-1.2) mg/dL AST 29 (5-40) units/L ALT 21 (7-56) units/L Alkaline Phosphatase 91 (35-129) units/L Troponin T (0.00-0.029) ng/mL Total Protein 7.8 (6.3-8.2) g/dL Albumin 3.0 L (3.9-5) g/dL Albumin/Globulin Ratio 0.6 % TSH (0.270-4.200) mlU/mL Urine Color Brianna (Yellow) Urine Turbidity Cloudy (Clear) Urine pH 6.0 (5.0-7.0) Ur Specific Auberry 1.016 (1.003-1.030) Urine Protein 100 mg/dl (Negative) mg/dL Urine Glucose (UA) Neg (Negative) mg/dL Urine Ketones Neg (Negative) mg/dL Urine Blood Mod (Negative) Urine Nitrite Neg (Negative) Urine Bilirubin Neg (Negative) Urine Urobilinogen < 2.0 (<2.0) mg/dL Ur Leukocyte Esterase Lg (Negative) Urine WBC (Auto) > 182.0 H (0.0-6.0) /HPF Urine RBC (Auto) 6.0 (0.0-6.0) /HPF Urine Bacteria (Auto) 2+ (Negative) /HPF Urine Mucus 3+ /HPF Urine Yeast (Budding) 2+ /HPF 11/05/19 11/05/19 11/05/19 Range/Units 23:03 23:03 23:03 WBC (4.5-11.0) K/mm3 RBC (3.65-5.03) M/mm3 Hgb (10.1-14.3) gm/dl Hct (30.3-42.9) % MCV (79-97) fl MCH (28-32) pg MCHC (30-34) % RDW (13.2-15.2) % Plt Count (140-440) K/mm3 Lymph % (Auto) (13.4-35.0) % Winkler % (Auto) (0.0-7.3) % Eos % (Auto) (0.0-4.3) % Baso % (Auto) (0.0-1.8) % Lymph # (1.2-5.4) K/mm3 Winkler # (0.0-0.8) K/mm3 Eos # (0.0-0.4) K/mm3 Baso # (0.0-0.1) K/mm3 Seg Neutrophils % (40.0-70.0) % Seg Neutrophils # (1.8-7.7) K/mm3 PT 17.5 H (12.2-14.9) Sec. INR 1.40 H (0.87-1.13) Sodium (137-145) mmol/L Potassium (3.6-5.0) mmol/L Chloride (98-107) mmol/L Carbon Dioxide (22-30) mmol/L Anion Gap mmol/L BUN (7-17) mg/dL Creatinine (0.6-1.2) mg/dL Estimated GFR ml/min BUN/Creatinine Ratio % Glucose (65-100) mg/dL Lactic Acid 1.20 (0.7-2.0) mmol/L Calcium (8.4-10.2) mg/dL Total Bilirubin (0.1-1.2) mg/dL AST (5-40) units/L ALT (7-56) units/L Alkaline Phosphatase (35-129) units/L Troponin T 0.014 (0.00-0.029) ng/mL Total Protein (6.3-8.2) g/dL Albumin (3.9-5) g/dL Albumin/Globulin Ratio % TSH (0.270-4.200) mlU/mL Urine Color (Yellow) Urine Turbidity (Clear) Urine pH (5.0-7.0) Ur Specific Auberry (1.003-1.030) Urine Protein (Negative) mg/dL Urine Glucose (UA) (Negative) mg/dL Urine Ketones (Negative) mg/dL Urine Blood (Negative) Urine Nitrite (Negative) Urine Bilirubin (Negative) Urine Urobilinogen (<2.0) mg/dL Ur Leukocyte Esterase (Negative) Urine WBC (Auto) (0.0-6.0) /HPF Urine RBC (Auto) (0.0-6.0) /HPF Urine Bacteria (Auto) (Negative) /HPF Urine Mucus /HPF Urine Yeast (Budding) /HPF 11/05/19 Range/Units 23:03 WBC (4.5-11.0) K/mm3 RBC (3.65-5.03) M/mm3 Hgb (10.1-14.3) gm/dl Hct (30.3-42.9) % MCV (79-97) fl MCH (28-32) pg MCHC (30-34) % RDW (13.2-15.2) % Plt Count (140-440) K/mm3 Lymph % (Auto) (13.4-35.0) % Winkler % (Auto) (0.0-7.3) % Eos % (Auto) (0.0-4.3) % Baso % (Auto) (0.0-1.8) % Lymph # (1.2-5.4) K/mm3 Winkler # (0.0-0.8) K/mm3 Eos # (0.0-0.4) K/mm3 Baso # (0.0-0.1) K/mm3 Seg Neutrophils % (40.0-70.0) % Seg Neutrophils # (1.8-7.7) K/mm3 PT (12.2-14.9) Sec. INR (0.87-1.13) Sodium (137-145) mmol/L Potassium (3.6-5.0) mmol/L Chloride (98-107) mmol/L Carbon Dioxide (22-30) mmol/L Anion Gap mmol/L BUN (7-17) mg/dL Creatinine (0.6-1.2) mg/dL Estimated GFR ml/min BUN/Creatinine Ratio % Glucose (65-100) mg/dL Lactic Acid (0.7-2.0) mmol/L Calcium (8.4-10.2) mg/dL Total Bilirubin (0.1-1.2) mg/dL AST (5-40) units/L ALT (7-56) units/L Alkaline Phosphatase (35-129) units/L Troponin T (0.00-0.029) ng/mL Total Protein (6.3-8.2) g/dL Albumin (3.9-5) g/dL Albumin/Globulin Ratio % TSH 0.214 L (0.270-4.200) mlU/mL Urine Color (Yellow) Urine Turbidity (Clear) Urine pH (5.0-7.0) Ur Specific Auberry (1.003-1.030) Urine Protein (Negative) mg/dL Urine Glucose (UA) (Negative) mg/dL Urine Ketones (Negative) mg/dL Urine Blood (Negative) Urine Nitrite (Negative) Urine Bilirubin (Negative) Urine Urobilinogen (<2.0) mg/dL Ur Leukocyte Esterase (Negative) Urine WBC (Auto) (0.0-6.0) /HPF Urine RBC (Auto) (0.0-6.0) /HPF Urine Bacteria (Auto) (Negative) /HPF Urine Mucus /HPF Urine Yeast (Budding) /HPF - Radiology Data Radiology results: report reviewed Chest radiograph: No acute findings CT head: Chronic changes present, no evidence for acute intracranial abnormality, evidence of previous infarcts seen on previous CT head imaging CT head images are unchanged from previous study obtained 07/06/2018 - Medical Decision Making Acute metabolic encephalopathy caused by UTI sepsis uremia. Patient received broad-spectrum antibiotics upon arrival. Work-up revealed leukocytosis 19,000 WBC, urinalysis reveals pyuria. Patient also has severe acute prerenal injury due to sepsis and likely decreased p.o. intake. Patient had normal kidney function on previous labs obtained last year. Suspect hypovolemic hypernatremia Admitted to the hospital service in fair condition Critical Care Time: Yes Critical care time in (mins) excluding proc time.: 40 Critical care attestation.: If time is entered above; I have spent that time in minutes in the direct care of this critically ill patient, excluding procedure time. 40 minutes of critical care time excluding procedures were used in the care of the patient. I reviewed electronic record. I discussed treatment plan with the nursing team members at the bedside. I came immediately to the bedside upon patient's arrival. I was concerned for sepsis. I was concerned for possible intracranial hemorrhage. Patient required multiple interventions and reassessments. ED Disposition Clinical Impression: Sepsis, Acute prerenal failure, Acute metabolic encephalopathy, UTI (urinary tract infection) Disposition: OP ADMIT IP TO THIS HOSP Is pt being admited?: Yes Does the pt Need Aspirin: No Condition: Stable
[2019-11-05] MEDS ORDERED: VANCOMYCIN 1,000 MG in SODIUM CHLORIDE 0.9% 500 ML 500 ML IV ONE (20:59)
[2019-11-05] MEDS ORDERED: SODIUM CHLORIDE 0.9% 1000 ML IV SOLN IV ONE (20:59)
[2019-11-05] MEDS ORDERED: VANCOMYCIN PHARMACY TO DOSE IV SCH (21:00)
[2019-11-05] MEDS ORDERED: CEFEPIME/NS 2 GM/100 ML 2 GM/100 ML BAG IV SCH (21:30)
[2019-11-05] MEDS ORDERED: CEFEPIME/NS 2 GM/100 ML 2 GM/100 ML BAG IV ONE (21:30)
--- NOTE | 2019-11-05 21:34 | XRay Report ---
CHEST 1 VIEW INDICATION / CLINICAL INFORMATION: Altered Mental Status. COMPARISON: 11/28/2018 FINDINGS: SUPPORT DEVICES: None. HEART / MEDIASTINUM: No significant abnormality. LUNGS / PLEURA: No significant pulmonary or pleural abnormality. No pneumothorax. ADDITIONAL FINDINGS: No significant additional findings. IMPRESSION: 1. No acute findings. 2. Previously seen right upper lobe opacification on the prior chest radiograph has resolved. Signer Name: Colleen Che MD Signed: 11/05/2019 9:29 PM Workstation Name: [email or web address]
[2019-11-05] MEDS ORDERED: VANCOMYCIN/NS 1 GM/250 ML 1 GM/250 ML BAG IV ONE (22:00)
[2019-11-05 22:08] LABS: Bacteria,Urine 2+ /HPF (Negative); Bilirubin,Urine NEG (Negative); Blood,Urine MOD (Negative); Color,Urine Amber (Yellow); Mucus,Urine 3+ /HPF; Urobilinogen,Urine < 2.0 mg/dL (<2.0)
[2019-11-05 22:10] LABS: WBC,Urine > 182.0 /HPF (0.0-6.0)
--- NOTE | 2019-11-05 22:58 | Cat Scan Report ---
CT head/brain wo con INDICATION / CLINICAL INFORMATION: Altered Mental Status. TECHNIQUE: Axial CT imaging of abdomen and pelvis was obtained without contrast. Coronal and sagittal reformatte d imaging obtained and reviewed. All CT scans at this location are performed using CT dose reduction for ALARA by means of automated exposure control. COMPARISON: Prior head CT, 07/06/2018 FINDINGS: No intracranial hemorrhage, mass, or midline shift is noted. No extra-axial fluid collection or sugge stion of acute territorial infarction. Focal area of encephalomalacia is again noted in the right tem poral lobe unchanged from prior exam. There is patchy hypoattenuation throughout the periventricular white matter unchanged from prior exam, either representing old infarcts or microangiopathy. Ventricu lar system and basilar cisterns are unremarkable. Overall, the appearance of the head CT is stable fr om prior exam. Visualized paranasal sinuses and mastoid air cells are well aerated and clear. IMPRESSION: 1. Chronic changes as described above. No evidence for acute intracranial abnormality. There has been no interval change in the appearance of the head CT since 07/06/2018. Signer Name: Colleen Che MD Signed: 11/05/2019 10:53 PM Workstation Name: [id number]
[2019-11-05 23:32] LABS: Basophils # (Auto) 0.1 K/mm3 (0.0-0.1); Basophils % (Auto) 0.3 % (0.0-1.8); Eosinophils % (Auto) 0.1 % (0.0-4.3); Hematocrit 34.2 % (30.3-42.9); Hemoglobin 10.8 gm/dl (10.1-14.3); Lymphocytes # (Auto) 1.1 K/mm3 (1.2-5.4); Lymphocytes % (Auto) 5.5 % (13.4-35.0); Mean Corpuscular HGB Conc 32 % (30-34); Mean Corpuscular Volume 89 fl (79-97); Monocytes # (Auto) 1.4 K/mm3 (0.0-0.8); Monocytes % (Auto) 7.2 % (0.0-7.3); Platelet Count 677 K/mm3 (140-440); Red Blood Count 3.84 M/mm3 (3.65-5.03); Red Cell Distribution Width 13.7 % (13.2-15.2)
[2019-11-05 23:39] LABS: INR 1.4 (0.87-1.13)
[2019-11-05 23:40] LABS: Calcium 9.7 mg/dL (8.4-10.2)
[2019-11-06] MEDS ORDERED: ACETAMINOPHEN 325 MG TAB PO PRN (02:04)
[2019-11-06] MEDS ORDERED: SODIUM CHLORIDE 0.9% 1000 ML 1,000 ML IV SCH (02:15)
--- NOTE | 2019-11-06 02:34 | History and Physical Report ---
History of Present Illness Date of examination: 11/06/19 Date of admission: 11/06/19 00:49 Chief complaint: Altered Mental Status History of present illness: 74 year old female brought from [facility] facility with altered mental status 3 days after a fall. No history of fever, shortness of breath ,cough ,nausea or vomiting. 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) Family history: no significant family history Medications and Allergies Allergies Allergy/AdvReac Type Severity Reaction Status Date / Time benazepril Allergy Unknown Verified 07/09/18 10:17 benazepril HCl Allergy Swelling Verified 07/09/18 10:17 [From Lotensin] diltiazem [From Cardizem] Allergy Unknown Verified 07/09/18 10:17 diltiazem HCl [From Cardizem] Allergy Swelling Verified 07/09/18 10:17 losartan Allergy Unknown Verified 07/09/18 10:17 Home Medications Medication Instructions Recorded Confirmed Last Taken Type Metoclopramide [Reglan TAB] 10 mg PO Q6H PRN #90 tablet 01/09/14 11/28/18 Unknown Rx Rosuvastatin (Nf) [Crestor] 20 mg PO QHS #30 tablet 01/09/14 11/28/18 Unknown Rx levETIRAcetam [Keppra TAB] 500 mg PO BID #60 tablet 01/09/14 11/28/18 Unknown Rx hydrALAZINE [Apresoline TAB] 25 mg PO Q8H #90 tab 01/28/14 11/28/18 Unknown Rx Acetaminophen 325 mg PO Q12HR PRN 07/06/18 11/28/18 Unknown History Amino Acids/Protein Hydrolys 30 ml PO BID 07/06/18 11/28/18 Unknown History [Pro-Stat Awc Liquid Packet] Calcium Carbonate [Tums 500MG CHEW] 1,000 mg PO Q12HR 07/06/18 11/28/18 Unknown History Famotidine [Pepcid] 20 mg PO QHS 07/06/18 11/28/18 Unknown History Ferrous Sulfate [Iron 325 MG] 325 mg PO QAC 07/06/18 11/28/18 Unknown History Hydralazine HCl 50 mg PO TID 07/06/18 11/28/18 Unknown History Lactobacillus Acidophil [Lactinex] 1 cap PO Q12HR 07/06/18 11/28/18 Unknown History Loratadine (Nf) [Claritin (Nf)] 10 mg PO DAILY 07/06/18 11/28/18 Unknown History Magnesium Hydroxide [Milk of 400 mg PO QWEEK 07/06/18 11/28/18 Unknown History Magnesia] Melatonin 3 mg PO QHS 07/06/18 11/28/18 Unknown History Metoprolol [Lopressor TAB] 50 mg PO QDAY 07/06/18 11/28/18 Unknown History Mirtazapine [Remeron 15mg TAB] 15 mg PO QHS 07/06/18 11/28/18 Unknown History Multivit with Minerals/Lutein [Pub 1 each PO QDAY 07/06/18 11/28/18 Unknown History Multivitamin 50 Plus Tab] Polyethylene Glycol 3350 [Gavilax] 8.5 gm PO QDAY 07/06/18 11/28/18 Unknown History Scopolamine Hydrobromide 1.5 mg TP Q3D 07/06/18 11/28/18 Unknown History Sennosides/Docusate [Senokot S] 1 tab PO QDAY 07/06/18 11/28/18 Unknown History amLODIPine 10 mg PO DAILY 07/06/18 11/28/18 Unknown History levETIRAcetam [Keppra TAB] 500 mg PO BID 07/06/18 11/28/18 Unknown History Active Meds: Active Medications Acetaminophen (Tylenol) 650 mg PO Q4H PRN PRN Reason: Fever >101 Amlodipine Besylate (Amlodipine) 10 mg PO DAILY [facility] Calcium Carbonate/Glycine (Tums) 1,000 mg PO Q12HR [facility] Famotidine (Pepcid) 20 mg PO QHS [facility] Ferrous Sulfate (Feosol) 325 mg PO QAC [facility] Heparin Sodium (Porcine) (Heparin) 5,000 unit SUB-Q Q12HR [facility] Hydralazine HCl (Apresoline) 50 mg PO TID [facility] Cefepime HCl (Cefepime/Ns 2 Gm/100 Ml) 2 gm in 100 mls @ 200 mls/hr IV Q24HR COLE; Protocol Sodium Chloride (Nacl 0.9% 1000 Ml) 1,000 mls @ 125 mls/hr IV DIRECT [facility] Miscellaneous Medication (Amino Acids/Protein Hydrolys [Pro-Stat Awc Liquid Packet]) 30 ml PO BID COLE Review of Systems Constitutional: weakness, no weight loss, no weight gain, no fever, no chills, no sweats, no night sweats, no fatigue, no malaise Eyes: bilateral: other (NO BILATERAL EYE SYMPTOM) Ears, nose, mouth and throat: no ear pain, no ear discharge, no decreased hearing, no nose pain, no nasal congestion, no nasal discharge, no sinus pressure, no dental pain, no mouth pain, no dysphagia, no hoarseness, no sore throat, no swelling in mouth, no swelling in throat Breasts: deferred Cardiovascular: no chest pain, no syncope, no lightheadedness, no shortness of breath Respiratory: no cough, no hemoptysis, no shortness of breath, no congestion, no wheezing Gastrointestinal: no abdominal pain, no nausea, no vomiting, no diarrhea, no constipation, no hematemesis, no hematochezia Genitourinary Female: no Menstruation: postmenopausal Rectal: no pain, no itching Integumentary: no rash, no pruritis, no redness, no sores, no wounds, no jaundice, no boils, no growths, no lesions, no darkening of skin, no depigmenta tion, no acne, no dryness Neurological: change in mentation, no paralysis, no weakness, no parathesias, no numbness, no tingling, no seizures, no syncope, no headaches, no migraines, no convulsions, no aphasia, no change in speech Psychiatric: no anxiety, no suicidal ideation, no depression Endocrine: no cold intolerance, no heat intolerance, no polydipsia, no polyuria, no excessive sweating Hematologic/Lymphatic: no easy bruising, no easy bleeding, no lymphadenopathy Allergic/Immunologic: no urticaria, no persistent infections Exam - Constitutional Vitals: Temp Pulse Resp BP Pulse Ox 97.8 F 101 H 48 H 141/82 77 L 11/05/19 20:06 11/06/19 02:15 11/06/19 02:15 11/06/19 02:15 11/06/19 02:15 General appearance: Present: no acute distress - EENT Eyes: Present: PERRL - Neck Neck: Present: supple, normal ROM - Respiratory Respiratory effort: normal - Cardiovascular Rhythm: regular Heart Sounds: Present: S1 & S2. Absent: gallop, systolic murmur, diastolic murmur, click - Extremities Extremities: no ischemia, No edema Peripheral Pulses: within normal limits - Abdominal General gastrointestinal: Present: soft, non-tender, non-distended. Absent: tender, distended, hepatomegaly, splenomegaly Female genitourinary: Present: deferred - Rectal Rectal Exam: deferred - Integumentary Integumentary: Present: clear, warm, dry - Musculoskeletal Musculoskeletal: strength equal bilaterally HEART Score - HEART Score Age: > 65 Risk factors: 1-2 risk factors Troponin: Troponin T 0.014 ng/mL (0.00-0.029) 11/05/19 23:03 Troponin: < normal limit - Critical Actions Critical Actions: 0-3 pts:0.9-1.7%risk of adverse cardiac event.Candidate for discharge Results - Labs CBC & Chem 7: 11/05/19 23:03 11/05/19 23:03 Labs: Laboratory Last Values WBC 19.2 K/mm3 (4.5-11.0) H 11/05/19 23:03 RBC 3.84 M/mm3 (3.65-5.03) 11/05/19 23:03 Hgb 10.8 gm/dl (10.1-14.3) 11/05/19 23:03 Hct 34.2 % (30.3-42.9) 11/05/19 23:03 MCV 89 fl (79-97) 11/05/19 23:03 MCH 28 pg (28-32) 11/05/19 23: MCHC 32 % (30-34) 11/05/19 23:03 RDW 13.7 % (13.2-15.2) 11/05/19 23:03 Plt Count 677 K/mm3 (140-440) H 11/05/19 23:03 Lymph % (Auto) 5.5 % (13.4-35.0) L 11/05/19 23: [place] % (Auto) 7.2 % (0.0-7.3) 11/05/19 23:03 Eos % (Auto) 0.1 % (0.0-4.3) 11/05/19 23: Baso % (Auto) 0.3 % (0.0-1.8) 11/05/19 23:03 Lymph # 1.1 K/mm3 (1.2-5.4) L 11/05/19 23:03 [place] # 1.4 K/mm3 (0.0-0.8) H 11/05/19 23:03 Eos # 0.0 K/mm3 (0.0-0.4) 11/05/19 23:03 Baso # 0.1 K/mm3 (0.0-0.1) 11/05/19 23:03 Seg Neutrophils % 86.9 % (40.0-70.0) H 11/05/19 23:03 Seg Neutrophils # 16.7 K/mm3 (1.8-7.7) H 11/05/19 23:03 PT 17.5 Sec. (12.2-14.9) H 11/05/19 23:03 INR 1.40 (0.87-1.13) H 11/05/19 23:03 Sodium 158 mmol/L (137-145) H 11/05/19 23:03 Potassium 4.1 mmol/L (3.6-5.0) 11/05/19 23:03 Chloride 116.3 mmol/L (98-107) H 11/05/19 23:03 Carbon Dioxide 25 mmol/L (22-30) 11/05/19 23:03 Anion Gap 21 mmol/L 11/05/19 23:03 BUN 92 mg/dL (7-17) H 11/05/19 23:03 Creatinine 3.5 mg/dL (0.6-1.2) H 11/05/19 23:03 Estimated GFR 15 ml/min 11/05/19 23:03 BUN/Creatinine Ratio 26 % 11/05/19 23:03 Glucose 116 mg/dL (65-100) H 11/05/19 23:03 Lactic Acid 0.80 mmol/L (0.7-2.0) 11/05/19 23:57 Calcium 9.7 mg/dL (8.4-10.2) 11/05/19 23:03 Total Bilirubin 0.20 mg/dL (0.1-1.2) 11/05/19 23:03 AST 29 units/L (5-40) 11/05/19 23:03 ALT 21 units/L (7-56) 11/05/19 23:03 Alkaline Phosphatase 91 units/L (35-129) 11/05/19 23:03 Troponin T 0.014 ng/mL (0.00-0.029) 11/05/19 23:03 Total Protein 7.8 g/dL (6.3-8.2) 11/05/19 23:03 Albumin 3.0 g/dL (3.9-5) L 11/05/19 23:03 Albumin/Globulin Ratio 0.6 % 11/05/19 23:03 TSH 0.214 mlU/mL (0.270-4.200) L 11/05/19 23:03 Urine Color Brianna (Yellow) 11/05/19 21:44 Urine Turbidity Cloudy (Clear) 11/05/19 21:44 Urine pH 6.0 (5.0-7.0) 11/05/19 21:44 Ur Specific [place] 1.016 (1.003-1.030) 11/05/19 21:44 Urine Protein 100 mg/dl mg/dL (Negative) 11/05/19 21:44 Urine Glucose (UA) Neg mg/dL (Negative) 11/05/19 21:44 Urine Ketones Neg mg/dL (Negative) 11/05/19 21:44 Urine Blood Mod (Negative) 11/05/19 21:44 Urine Nitrite Neg (Negative) 11/05/19 21:44 Urine Bilirubin Neg (Negative) 11/05/19 21:44 Urine Urobilinogen < 2.0 mg/dL (<2.0) 11/05/19 21:44 Ur Leukocyte Esterase Lg (Negative) 11/05/19 21:44 Urine WBC (Auto) > 182.0 /HPF (0.0-6.0) H 11/05/19 21:44 Urine RBC (Auto) 6.0 /HPF (0.0-6.0) 11/05/19 21:44 Urine Bacteria (Auto) 2+ /HPF (Negative) 11/05/19 21:44 Urine Mucus 3+ /HPF 11/05/19 21:44 Urine Yeast (Budding) 2+ /HPF 11/05/19 21:44 Microbiology: Microbiology 11/05/19 23:03 Peripheral/Venous Blood Culture - Preliminary Culture in Progress 11/05/19 22:57 Peripheral/Venous Blood Culture - Preliminary Culture in Progress Assessment and Plan - Patient Problems (1) TAYLER (acute kidney injury) Current Visit: Yes Status: Acute Plan to address problem: 1. I.V FLUID 2. BMP IN A.M 3 NEPHROLOGY CONSULT (2) Sepsis Current Visit: Yes Status: Acute Plan to address problem: 1. I.V VANCOMYCIN ANTIBIOTIC 2. I.V CEFEPIME ANTIBIOTIC 3. I.V FLUID 4. TYLENOL FOR FEVER (3) Urinary tract infection Current Visit: Yes Status: Acute Plan to address problem: 1. I.V CEFEPIME ANTIBIOTIC (4) Hypernatremia Current Visit: Yes Status: Acute Plan to address problem: 1. I.V DETROSE IN WATER 2. BMP MORNITORING
[2019-11-06] MEDS: HEPARIN 5,000 UNIT/1 ML VIAL SUB-Q SCH ×3 (02:44→22:01)
[2019-11-06] MEDS ORDERED: DEXTROSE 5% IN WATER 1,000 ML IV SCH (03:00)
[2019-11-06] MEDS: hydrALAZINE 25 MG TAB PO SCH ×5 (08:30→22:09)
--- NOTE | 2019-11-06 08:37 | Consultation ---
History of Present Illness - Reason for Consult Consult date: 11/06/19 acute renal failure - History of Present Illness This is a 74-year-old female with history of CVA hemiplegia seizure disorder, anemia, lung mass, UTI, pneumonia, hyperlipidemia who presents with altered mental status after fall 3 days ago. She is a resident of Health system. history obtained from chart, she was found to have TAYLER and hypernatremia and renal consult was requested. 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) Family history: no significant family history Medications and Allergies Allergies Allergy/AdvReac Type Severity Reaction Status Date / Time benazepril Allergy Unknown Verified 07/09/18 10:17 benazepril HCl Allergy Swelling Verified 07/09/18 10:17 [From Lotensin] diltiazem [From Cardizem] Allergy Unknown Verified 07/09/18 10:17 diltiazem HCl [From Cardizem] Allergy Swelling Verified 07/09/18 10:17 losartan Allergy Unknown Verified 07/09/18 10:17 Home Medications Medication Instructions Recorded Confirmed Last Taken Type Metoclopramide [Reglan TAB] 10 mg PO Q6H PRN #90 tablet 01/09/14 11/06/19 Unknown Rx Rosuvastatin (Nf) [Crestor] 20 mg PO QHS #30 tablet 01/09/14 11/06/19 Unknown Rx levETIRAcetam [Keppra TAB] 500 mg PO BID #60 tablet 01/09/14 11/28/18 Unknown Rx hydrALAZINE [Apresoline TAB] 25 mg PO Q8H #90 tab 01/28/14 11/06/19 Unknown Rx Acetaminophen 325 mg PO Q12HR PRN 07/06/18 11/06/19 Unknown History Amino Acids/Protein Hydrolys 30 ml PO BID 07/06/18 11/06/19 Unknown History [Pro-Stat Awc Liquid Packet] Calcium Carbonate [Tums 500MG CHEW] 1,000 mg PO Q12HR 07/06/18 11/06/19 Unknown History Famotidine [Pepcid] 20 mg PO QHS 07/06/18 11/28/18 Unknown History Ferrous Sulfate [Iron 325 MG] 325 mg PO QAC 07/06/18 11/28/18 Unknown History Lactobacillus Acidophil [Lactinex] 1 cap PO Q12HR 07/06/18 11/06/19 Unknown History Loratadine (Nf) [Claritin (Nf)] 10 mg PO DAILY 07/06/18 11/06/19 Unknown History Magnesium Hydroxide [Milk of 400 mg PO QWEEK 07/06/18 11/06/19 Unknown History Magnesia] Melatonin 3 mg PO QHS 07/06/18 11/06/19 Unknown History Metoprolol [Lopressor TAB] 50 mg PO QDAY 07/06/18 11/06/19 Unknown History Mirtazapine [Remeron 15mg TAB] 15 mg PO QHS 07/06/18 11/06/19 Unknown History Multivit with Minerals/Lutein [Pub 1 each PO QDAY 07/06/18 11/06/19 Unknown History Multivitamin 50 Plus Tab] Polyethylene Glycol 3350 [Gavilax] 8.5 gm PO QDAY 07/06/18 11/28/18 Unknown H istory Scopolamine Hydrobromide 1.5 mg TP Q3D 07/06/18 11/06/19 Unknown History Sennosides/Docusate [Senokot S] 1 tab PO QDAY 07/06/18 11/06/19 Unknown History amLODIPine 10 mg PO DAILY 07/06/18 11/06/19 Unknown History levETIRAcetam [Keppra TAB] 500 mg PO BID 07/06/18 11/06/19 Unknown History Collagenase (Nf) [Santyl (Nf)] 11/06/19 Unknown History Active Meds: Active Medications Acetaminophen (Tylenol) 650 mg PO Q4H PRN PRN Reason: Fever >101 Last Admin: 11/06/19 07:04 Dose: 650 mg Documented by: Amlodipine Besylate (Amlodipine) 10 mg PO DAILY [facility] Calcium Carbonate/Glycine (Tums) 1,000 mg PO Q12HR [facility] Famotidine (Pepcid) 20 mg PO QHS [facility] Ferrous Sulfate (Feosol) 325 mg PO QAC [facility] Heparin Sodium (Porcine) (Heparin) 5,000 unit SUB-Q Q12HR COLE Last Admin: 11/06/19 02:44 Dose: 5,000 unit Documented by: Hydralazine HCl (Apresoline) 50 mg PO TID [facility] Cefepime HCl (Cefepime/Ns 2 Gm/100 Ml) 2 gm in 100 mls @ 200 mls/hr IV Q24HR [facility]; Protocol Dextrose (D5w) 1,000 mls @ 75 mls/hr IV DIRECT [facility]LE Last Admin: 11/06/19 07:03 Dose: 75 mls/hr Documented by: Sodium Chloride (Nacl 0.45% 1000 Ml) 1,000 mls @ 125 mls/hr IV DIRECT [facility] Miscellaneous Medication (Amino Acids/Protein Hydrolys [Pro-Stat Awc Liquid Packet]) 30 ml PO BID COLE Review of Systems ROS unobtainable: due to mental status Exam - Vital Signs Vital signs: Vital Signs Temp Pulse Resp BP Pulse Ox 97.8 F 113 H 18 69/61 99 11/05/19 20:06 11/05/19 20:06 11/05/19 20:06 11/05/19 20:06 11/05/19 20:06 - General Appearance General appearance: cachectic EENT: mucous membranes dry Neck: Present: neck supple Respiratory: Clear to Ascultation Heart: regular, S1S2 Gastrointestinal: Present: normoactive bowel sounds Integumentary: no rash, warm and dry Neurologic: other (does not follow commands) Musculoskeletal: Present: other (no edema in BLE) Psychiatric: other (does not answer questions) Results - Lab Results 11/05/19 23:03 11/05/19 23:03 Most recent lab results Calcium 9.7 mg/dL (8.4-10.2) 11/05/19 23:03 Assessment and Plan acute renal failure, likel yprerenal azotemia, cannot r/o ATN Hypernatremia due to poor oral intake Sepsis UTI will switch IVF to 1/2 NS 125 cc/h for volume repletion and hypernatremia will check renal US will check urine lytes, protein and eos renally dose meds strict I&O daily weight Shyam Guo MD [phone]
[2019-11-06] MEDS: CEFEPIME/NS 2 GM/100 ML 2 GM/100 ML BAG IV SCH (09:19)
[2019-11-06] MEDS: SODIUM CHLORIDE 0.45% 1000 ML 1,000 ML IV SCH ×2 (09:19→15:34)
[2019-11-06] MEDS: amLODIPine 10 MG TAB PO SCH ×2 (09:19→09:34)
[2019-11-06] MEDS: CALCIUM CARBONATE 500 MG TAB CHEW PO SCH ×2 (09:20→21:59)
[2019-11-06] MEDS: FERROUS SULFATE 325 MG TAB PO SCH ×3 (09:20→17:56)
[2019-11-06 09:23] LABS: Calcium 9.7 mg/dL (8.4-10.2)
[2019-11-06] MEDS ORDERED: PROTEIN HYDROLYS PO SCH (10:00)
[2019-11-06] MEDS ORDERED: AMINO ACIDS PO SCH (10:00)
--- NOTE | 2019-11-06 12:47 | Progress Note ---
Assessment and Plan Assessment and plan: 74-year-old female with history of CVA hemiplegia, seizure disorder, anemia, lung mass, UTI, pneumonia, hyperlipidemia who presents with altered mental status after fall 3 days ago. She is a resident of [facility]. Here in the ER, she appeared lethargic. She gives limited history. She was able to say her first name. When asked if in pain she says "no". She was found to have leukocytosis, lactic acidosis, UTI, TAYLER and was admitted to the hospital for evaluation of sepsis secondary to pneumonia. Blood cultures were drawn and patient was started on vancomycin and cefepime. 11/05. Patient seen and examined at bedside this morning. She is unable to be further history. On IV antibiotics. Blood cultures have been drawn and awaiting results. Urine culture also pending. - Patient Problems (1) Sepsis Current Visit: Yes Status: Acute Plan to address problem: Blood culture and urine cultures pending Continue vancomycin and cefepime Monitor vital signs closely (2) TAYLER (acute kidney injury) Current Visit: Yes Status: Acute Plan to address problem: Continue IV hydration Nephrology consulted. Recommendations appreciated Avoid nephrotoxic medications (3) Acute metabolic encephalopathy Current Visit: Yes Status: Acute Plan to address problem: Likely as result of sepsis secondary to infection and possibly uremia Continue antibiotics. Nephrology consulted for renal failure (4) Hypernatremia Current Visit: Yes Status: Acute Plan to address problem: Continue hypotonic solution Nephrology recommendations appreciated (5) Urinary tract infection Current Visit: Yes Status: Acute Plan to address problem: Continue antibiotics Urine cultures pending (6) DVT prophylaxis Current Visit: No Status: Acute History Interval history: See assessment and plan Hospitalist Physical - Constitutional Vitals: Temp Pulse Resp BP Pulse Ox 98.9 F 109 H 16 105/56 96 11/06/19 08:50 11/06/19 08:50 11/06/19 08:50 11/06/19 08:50 11/06/19 08:50 General appearance: Present: no acute distress - EENT Eyes: Present: PERRL - Neck Neck: Present: supple - Respiratory Respiratory effort: normal Respiratory: bilateral: diminished - Cardiovascular Heart Sounds: Present: S1 & S2 - Extremities Extremities: no ischemia - Abdominal General gastrointestinal: soft, non-tender, non-distended - Neurologic Neurologic: CNII-XII intact HEART Score - HEART Score Age: > 65 Risk factors: 1-2 risk factors Troponin: Troponin T 0.014 ng/mL (0.00-0.029) 11/05/19 23:03 Troponin: < normal limit - Critical Actions Critical Actions: 0-3 pts:0.9-1.7%risk of adverse cardiac event.Candidate for discharge Results - Labs CBC & Chem 7: 11/05/19 23:03 11/06/19 08:35 Labs: Laboratory Last Values WBC 19.2 K/mm3 (4.5-11.0) H 11/05/19 23:03 RBC 3.84 M/mm3 (3.65-5.03) 11/05/19 23:03 Hgb 10.8 gm/dl (10.1-14.3) 11/05/19 23:03 Hct 34.2 % (30.3-42.9) 11/05/19 23:03 MCV 89 fl (79-97) 11/05/19 23:03 MCH 28 pg (28-32) 11/05/19 23: MCHC 32 % (30-34) 11/05/19 23:03 RDW 13.7 % (13.2-15.2) 11/05/19 23:03 Plt Count 677 K/mm3 (140-440) H 11/05/19 23:03 Lymph % (Auto) 5.5 % (13.4-35.0) L 11/05/19 23:03 [place] % (Auto) 7.2 % (0.0-7.3) 11/05/19 23: Eos % (Auto) 0.1 % (0.0-4.3) 11/05/19 23:03 Baso % (Auto) 0.3 % (0.0-1.8) 11/05/19 23:03 Lymph # 1.1 K/mm3 (1.2-5.4) L 11/05/19 23:03 [place] # 1.4 K/mm3 (0.0-0.8) H 11/05/19 23:03 Eos # 0.0 K/mm3 (0.0-0.4) 11/05/19 23:03 Baso # 0.1 K/mm3 (0.0-0.1) 11/05/19 23:03 Seg Neutrophils % 86.9 % (40.0-70.0) H 11/05/19 23:03 Seg Neutrophils # 16.7 K/mm3 (1.8-7.7) H 11/05/19 23:03 PT 17.5 Sec. (12.2-14.9) H 11/05/19 23:03 INR 1.40 (0.87-1.13) H 11/05/19 23:03 Sodium 162 mmol/L (137-145) H* 11/06/19 08:35 Potassium 3.9 mmol/L (3.6-5.0) 11/06/19 08:35 Chloride 121.5 mmol/L (98-107) H 11/06/19 08:35 Carbon Dioxide 25 mmol/L (22-30) 11/06/19 08:35 Anion Gap 19 mmol/L 11/06/19 08:35 BUN 87 mg/dL (7-17) H 11/06/19 08:35 Creatinine 2.8 mg/dL (0.6-1.2) H 11/06/19 08:35 Estimated GFR 20 ml/min 11/06/19 08:35 BUN/Creatinine Ratio 31 % 11/06/19 08:35 Glucose 130 mg/dL (65-100) H 11/06/19 08:35 Lactic Acid 0.80 mmol/L (0.7-2.0) 11/05/19 23:57 Calcium 9.7 mg/dL (8.4-10.2) 11/06/19 08:35 Total Bilirubin 0.20 mg/dL (0.1-1.2) 11/05/19 23:03 AST 29 units/L (5-40) 11/05/19 23:03 ALT 21 units/L (7-56) 11/05/19 23:03 Alkaline Phosphatase 91 units/L (35-129) 11/05/19 23:03 Lactate Dehydrogenase 216 units/L (91-180) H 11/06/19 08:35 Total Creatine Kinase 802 units/L (30-135) H 11/06/19 08:35 Troponin T 0.014 ng/mL (0.00-0.029) 11/05/19 23:03 Total Protein 7.8 g/dL (6.3-8.2) 11/05/19 23:03 Albumin 3.0 g/dL (3.9-5) L 11/05/19 23:03 Albumin/Globulin Ratio 0.6 % 11/05/19 23:03 TSH 0.214 mlU/mL (0.270-4.200) L 11/05/19 23:03 Thyroxine (T4) 9.8 ug/dL (4.0-12.0) 11/06/19 05:25 Urine Color [place] (Yellow) 11/05/19 21:44 Urine Turbidity Cloudy (Clear) 11/05/19 21:44 Urine pH 6.0 (5.0-7.0) 11/05/19 21:44 Ur Specific [place] 1.016 (1.003-1.030) 11/05/19 21:44 Urine Protein 100 mg/dl mg/dL (Negative) 11/05/19 21:44 Urine Glucose (UA) Neg mg/dL (Negative) 11/05/19 21:44 Urine Ketones Neg mg/dL (Negative) 11/05/19 21:44 Urine Blood Mod (Negative) 11/05/19 21:44 Urine Nitrite Neg (Negative) 11/05/19 21:44 Urine Bilirubin Neg (Negative) 11/05/19 21:44 Urine Urobilinogen < 2.0 mg/dL (<2.0) 11/05/19 21:44 Ur Leukocyte Esterase Lg (Negative) 11/05/19 21:44 Urine WBC (Auto) > 182.0 /HPF (0.0-6.0) H 11/05/19 21:44 Urine RBC (Auto) 6.0 /HPF (0.0-6.0) 11/05/19 21:44 Urine Bacteria (Auto) 2+ /HPF (Negative) 11/05/19 21:44 Urine Mucus 3+ /HPF 11/05/19 21:44 Urine Yeast (Budding) 2+ /HPF 11/05/19 21:44 Microbiology: Microbiology 11/05/19 21:40 Urine,Catheterized - Straight Catheter Urine Culture - Preliminary NO GROWTH AFTER 24 HOURS 11/05/19 23:03 Peripheral/Venous Blood Culture - Preliminary Culture in Progress 11/05/19 22:57 Peripheral/Venous Blood Culture - Preliminary Culture in Progress To/IV: Voiding Method External Female Catheter IV Catheter Type [Right Hand] INT / Saline Lock Active Medications - Current Medications Current Medications: Generic Name Dose Route Start Last Admin Trade Name Freq PRN Reason Stop Dose Admin Acetaminophen 650 mg 11/06/19 02:04 11/06/19 07:04 Tylenol PO 650 mg Q4H PRN Administration Fever >101 Amlodipine Besylate 10 mg 11/06/19 10:00 11/06/19 09:34 Amlodipine PO Not Given DAILY COLE Calcium Carbonate/Glycine 1,000 mg 11/06/19 10:00 11/06/19 09:20 Tums PO 1,000 mg Q12HR COLE Administration Famotidine 20 mg 11/06/19 22:00 Pepcid PO QHS COLE Ferrous Sulfate 325 mg 11/06/19 07:30 11/06/19 09:20 Feosol PO 325 mg QAC COLE Administration Heparin Sodium (Porcine) 5,000 unit 11/06/19 02:15 11/06/19 09:20 Heparin SUB-Q 5,000 unit Q12HR COLE Administration Hydralazine HCl 50 mg 11/06/19 08:00 11/06/19 08:30 Apresoline PO Not Given TID COLE Cefepime HCl 2 gm in 100 mls @ 200 mls/hr 11/06/19 10:00 11/06/19 09:19 Cefepime/Ns 2 Gm/100 Ml IV 200 mls/hr Q24HR COLE Administration Protocol Sodium Chloride 1,000 mls @ 125 mls/hr 11/06/19 09:00 11/06/19 09:19 Nacl 0.45% 1000 Ml IV 125 mls/hr DIRECT COLE Administration Miscellaneous Medication 30 ml 11/06/19 10:00 Amino Acids/Protein Hydrolys [Pro-Stat Awc Liquid Packet] PO BID COLE
[2019-11-06] MEDS: FAMOTIDINE 20 MG TAB PO SCH (22:01)
[2019-11-07 00:52] LABS: Basophils % (Auto) 0.1 % (0.0-1.8); Eosinophils % (Auto) 0.1 % (0.0-4.3); Hematocrit 31.9 % (30.3-42.9); Hemoglobin 9.4 gm/dl (10.1-14.3); Lymphocytes # (Auto) 1.1 K/mm3 (1.2-5.4); Lymphocytes % (Auto) 4.5 % (13.4-35.0); Mean Corpuscular HGB Conc 29 % (30-34); Mean Corpuscular Volume 91 fl (79-97); Monocytes # (Auto) 1.1 K/mm3 (0.0-0.8); Monocytes % (Auto) 4.2 % (0.0-7.3); Platelet Count 654 K/mm3 (140-440); Red Blood Count 3.51 M/mm3 (3.65-5.03); Red Cell Distribution Width 13.7 % (13.2-15.2)
[2019-11-07 01:17] LABS: Albumin 2.5 g/dL (3.9-5); Calcium 9.3 mg/dL (8.4-10.2)
[2019-11-07] MEDS: SODIUM CHLORIDE 0.45% 1000 ML 1,000 ML IV SCH ×2 (03:38→18:55)
[2019-11-07 06:25] LABS: Basophils # (Auto) 0.1 K/mm3 (0.0-0.1); Basophils % (Auto) 0.5 % (0.0-1.8); Eosinophils % (Auto) 0.2 % (0.0-4.3); Hematocrit 30.3 % (30.3-42.9); Hemoglobin 9.5 gm/dl (10.1-14.3); Lymphocytes # (Auto) 1.2 K/mm3 (1.2-5.4); Lymphocytes % (Auto) 5.1 % (13.4-35.0); Mean Corpuscular HGB Conc 31 % (30-34); Mean Corpuscular Volume 91 fl (79-97); Monocytes % (Auto) 4.2 % (0.0-7.3); Platelet Count 590 K/mm3 (140-440); Red Blood Count 3.34 M/mm3 (3.65-5.03); Red Cell Distribution Width 13.4 % (13.2-15.2)
[2019-11-07 07:12] LABS: Calcium 9.3 mg/dL (8.4-10.2)
[2019-11-07 08:32] LABS: Bacteria,Urine 3+ /HPF (Negative); Bilirubin,Urine NEG (Negative); Blood,Urine MOD (Negative); Color,Urine Amber (Yellow); Mucus,Urine FEW /HPF; Urobilinogen,Urine < 2.0 mg/dL (<2.0)
--- NOTE | 2019-11-07 08:42 | Progress Note ---
Assessment and Plan acute renal failure, likel yprerenal azotemia, cannot r/o ATN Hypernatremia due to poor oral intake Sepsis UTI Cr is trending down will increase 1/2 NS to 150 cc/h for worsening hypernatremia, consider NGT for feeding and water flushes, may switch IVF to D5W if hypernatremia is not imporiving renal US is pending will check urine lytes, protein and eos renally dose meds strict I&O daily weight Shyam Guo MD [phone] Subjective Date of service: 11/07/19 Principal diagnosis: TAYLER Interval history: no overnight events reported Objective - Vital Signs Vital signs: Vital Signs - 12hr 11/06/19 11/06/19 11/07/19 21:22 22:09 01:00 Temperature 100.0 F H Pulse Rate 111 H 111 H Respiratory 20 18 Rate Blood Pressure 111/63 111/63 Blood Pressure [Left] O2 Sat by Pulse 99 Oximetry 11/07/19 11/07/19 11/07/19 01:53 02:00 06:00 Temperature 98.6 F 97.8 F Pulse Rate 117 H 50 L Respiratory 18 18 18 Rate Blood Pressure 131/73 Blood Pressure 131/73 136/75 [Left] O2 Sat by Pulse 91 92 Oximetry - Lab 11/07/19 05:03 11/07/19 05:03 Most recent lab results Calcium 9.3 mg/dL (8.4-10.2) 11/07/19 05:03 Phosphorus 2.50 mg/dL (2.5-4.5) 11/07/19 05:03 Medications & Allergies - Medications Allergies/Adverse Reactions: Allergies benazepril Allergy (Verified 07/09/18 10:17) Unknown benazepril HCl [From Lotensin] Allergy (Verified 07/09/18 10:17) Swelling diltiazem [From Cardizem] Allergy (Verified 07/09/18 10:17) Unknown diltiazem HCl [From Cardizem] Allergy (Verified 07/09/18 10:17) Swelling losartan Allergy (Verified 07/09/18 10:17) Unknown Home Medications: Home Medications Medication Instructions Recorded Confirmed Last Taken Type Metoclopramide [Reglan TAB] 10 mg PO Q6H PRN #90 tablet 01/09/14 11/06/19 Unknown Rx Rosuvastatin (Nf) [Crestor] 20 mg PO QHS #30 tablet 01/09/14 11/06/19 Unknown Rx levETIRAcetam [Keppra TAB] 500 mg PO BID #60 tablet 01/09/14 11/07/19 Unknown Rx hydrALAZINE [Apresoline TAB] 25 mg PO Q8H #90 tab 01/28/14 11/06/19 Unknown Rx Acetaminophen 325 mg PO Q12HR PRN 07/06/18 11/06/19 Unknown History Amino Acids/Protein Hydrolys 30 ml PO BID 07/06/18 11/06/19 Unknown History [Pro-Stat [facility]c Liquid Packet] Calcium Carbonate [Tums 500MG CHEW] 1,000 mg PO Q12HR 07/06/18 11/06/19 Unknown History Famotidine [Pepcid] 20 mg PO QHS 07/06/18 11/07/19 Unknown History Ferrous Sulfate [Iron 325 MG] 325 mg PO QAC 07/06/18 11/07/19 Unknown History Lactobacillus Acidophil [Lactinex] 1 cap PO Q12HR 07/06/18 11/06/19 Unknown History Loratadine (Nf) [Claritin (Nf)] 10 mg PO DAILY 07/06/18 11/06/19 Unknown History Magnesium Hydroxide [Milk of 400 mg PO QWEEK 07/06/18 11/06/19 Unknown History Magnesia] Melatonin 3 mg PO QHS 07/06/18 11/06/19 Unknown History Metoprolol [Lopressor TAB] 50 mg PO QDAY 07/06/18 11/06/19 Unknown History Mirtazapine [Remeron 15mg TAB] 15 mg PO QHS 07/06/18 11/06/19 Unknown History Multivit with Minerals/Lutein [Pub 1 each PO QDAY 07/06/18 11/06/19 Unknown History Multivitamin 50 Plus Tab] Polyethylene Glycol 3350 [Gavilax] 8.5 gm PO QDAY 07/06/18 11/07/19 Unknown History Scopolamine Hydrobromide 1.5 mg TP Q3D 07/06/18 11/06/19 Unknown History Sennosides/Docusate [Senokot S] 1 tab PO QDAY 07/06/18 11/06/19 Unknown History amLODIPine 10 mg PO DAILY 07/06/18 11/06/19 Unknown History levETIRAcetam [Keppra TAB] 500 mg PO BID 07/06/18 11/06/19 Unknown History Collagenase (Nf) [Santyl (Nf)] 1 applic TRANSDERMA QDAY 11/06/19 11/07/19 Unknown History Active Medications: Generic Name Dose Route Start Last Admin Trade Name Freq PRN Reason Stop Dose Admin Acetaminophen 650 mg 11/06/19 02:04 11/06/19 07:04 Tylenol PO 650 mg Q4H PRN Administration Fever >101 Amlodipine Besylate 10 mg 11/06/19 10:00 11/06/19 09:34 Amlodipine PO Not Given DAILY COLE Calcium Carbonate/Glycine 1,000 mg 11/06/19 10:00 11/06/19 21:59 Tums PO 1,000 mg Q12HR COLE Administration Famotidine 20 mg 11/06/19 22:00 11/06/19 22:01 Pepcid PO 20 mg QHS COLE Administration Ferrous Sulfate 325 mg 11/06/19 07:30 11/06/19 17:56 Feosol PO Not Given QAC COLE Heparin Sodium (Porcine) 5,000 unit 11/06/19 02:15 11/06/19 22:01 Heparin SUB-Q 5,000 unit Q12HR COLE Administration Hydralazine HCl 50 mg 11/06/19 08:00 11/06/19 22:09 Apresoline PO Not Given TID COLE Cefepime HCl 2 gm in 100 mls @ 200 mls/hr 11/06/19 10:00 11/06/19 09:19 Cefepime/Ns 2 Gm/100 Ml IV 200 mls/hr Q24HR COLE Administration Protocol Sodium Chloride 1,000 mls @ 150 mls/hr 11/06/19 09:00 11/07/19 03:38 Nacl 0.45% 1000 Ml IV 125 mls/hr DIRECT COLE Administration
[2019-11-07 09:54] LABS: Creatinine,Urine 111.2 mg/dL (0.1-20.0); Protein/Creatinine Ratio,Urine 1.41
[2019-11-07] MEDS: CALCIUM CARBONATE 500 MG TAB CHEW PO SCH ×2 (10:35→22:48)
[2019-11-07] MEDS: FERROUS SULFATE 325 MG TAB PO SCH ×3 (10:35→17:16)
[2019-11-07] MEDS: amLODIPine 10 MG TAB PO SCH (10:35)
[2019-11-07] MEDS: HEPARIN 5,000 UNIT/1 ML VIAL SUB-Q SCH ×2 (10:35→22:50)
[2019-11-07] MEDS: CEFEPIME/NS 2 GM/100 ML 2 GM/100 ML BAG IV SCH (10:36)
[2019-11-07] MEDS: hydrALAZINE 25 MG TAB PO SCH ×3 (10:38→22:48)
[2019-11-07] MEDS ORDERED: VANCOMYCIN 750 MG in SODIUM CHLORIDE 0.9% 250ML 250 ML IV SCH (11:00)
--- NOTE | 2019-11-07 16:46 | Progress Note ---
Assessment and Plan Assessment and plan: 74-year-old female with history of CVA hemiplegia, seizure disorder, anemia, lung mass, UTI, pneumonia, hyperlipidemia who presents with altered mental status after fall 3 days ago. She is a resident of [facility]. Here in the ER, she appeared lethargic. She gives limited history. She was able to say her first name. When asked if in pain she says "no". She was found to have leukocytosis, lactic acidosis, UTI, TAYLER and was admitted to the hospital for evaluation of sepsis secondary to pneumonia. Blood cultures were drawn and patient was started on vancomycin and cefepime. 11/05. Patient seen and examined at bedside this morning. She is unable to be further history. On IV antibiotics. Blood cultures have been drawn and awaiting results. Urine culture also pending. 11/06. COVID -19 came out positive. She has been placed on isolation. Urine culture is growing gram negative rods. On cefepime and vancomycin. Awaiting final blood culture results - Patient Problems (1) Sepsis Current Visit: Yes Status: Acute Plan to address problem: From UTI and COVID-19. Blood culture NTD Urine culture - GN rods Continue vancomycin and cefepime for now. Monitor vital signs closely (2) TAYLER (acute kidney injury) Current Visit: Yes Status: Acute Plan to address problem: [place] vasomotor nephropathy. Continue IV hydration Nephrology recommendations appreciated Avoid nephrotoxic medications (3) Acute metabolic encephalopathy Current Visit: Yes Status: Acute Plan to address problem: Likely as result of sepsis secondary to infection and possibly uremia Continue antibiotics. Nephrology consulted for renal failure (4) Hypernatremia Current Visit: Yes Status: Acute Plan to address problem: Continue hypotonic solution Trend sodium Nephrology recommendations appreciated (5) Urinary tract infection Current Visit: Yes Status: Acute Plan to address problem: Continue antibiotics Urine cultures - GN rods. (6) COVID-19 Current Visit: Yes Status: Acute Plan to address problem: Continue oxygen supplementation Dexamethasone if she becomes hypoxic.. Not a candidate for remdesivir due to TAYLER Will get ID evaluation (7) DVT prophylaxis Current Visit: No Status: Acute Plan to address problem: Lovenox 30 mg BID History Interval history: See assessment and plan Hospitalist Physical - Constitutional Vitals: Temp Pulse Resp BP Pulse Ox 97.8 F 111 H 18 136/75 92 11/07/19 06:00 11/07/19 11:00 11/07/19 06:00 11/07/19 06:00 11/07/19 06:00 General appearance: Present: no acute distress - EENT Eyes: Present: PERRL - Respiratory Respiratory effort: normal Respiratory: bilateral: CTA - Cardiovascular Heart Sounds: Present: S1 & S2 - Extremities Extremities: No edema - Abdominal General gastrointestinal: soft, non-tender, non-distended - Neurologic Neurologic: CNII-XII intact HEART Score - HEART Score Age: > 65 Risk factors: 1-2 risk factors Troponin: Troponin T 0.014 ng/mL (0.00-0.029) 11/05/19 23:03 Troponin: < normal limit - Critical Actions Critical Actions: 0-3 pts:0.9-1.7%risk of adverse cardiac event.Candidate for discharge Results - Labs CBC & Chem 7: 11/07/19 05:03 11/07/19 05:03 Labs: Laboratory Last Values WBC 24.1 K/mm3 (4.5-11.0) H 11/07/19 05:03 RBC 3.34 M/mm3 (3.65-5.03) L 11/07/19 05:03 Hgb 9.5 gm/dl (10.1-14.3) L 11/07/19 05:03 Hct 30.3 % (30.3-42.9) 11/07/19 05:03 MCV 91 fl (79-97) 11/07/19 05:03 MCH 28 pg (28-32) 11/07/19 05:03 MCHC 31 % (30-34) 11/07/19 05:03 RDW 13.4 % (13.2-15.2) 11/07/19 05:03 Plt Count 590 K/mm3 (140-440) H 11/07/19 05:03 Lymph % (Auto) 5.1 % (13.4-35.0) L 11/07/19 05:03 [place]imer % (Auto) 4.2 % (0.0-7.3) 11/07/19 05:03 Eos % (Auto) 0.2 % (0.0-4.3) 11/07/19 05:03 Baso % (Auto) 0.5 % (0.0-1.8) 11/07/19 05:03 Lymph # 1.2 K/mm3 (1.2-5.4) 11/07/19 05:03 Latimer # 1.0 K/mm3 (0.0-0.8) H 11/07/19 05:03 Eos # 0.0 K/mm3 (0.0-0.4) 11/07/19 05:03 Baso # 0.1 K/mm3 (0.0-0.1) 11/07/19 05:03 Seg Neutrophils % 90.0 % (40.0-70.0) H 11/07/19 05:03 Seg Neutrophils # 21.7 K/mm3 (1.8-7.7) H 11/07/19 05:03 PT 17.5 Sec. (12.2-14.9) H 11/05/19 23:03 INR 1.40 (0.87-1.13) H 11/05/19 23:03 Sodium 159 mmol/L (137-145) H 11/07/19 05:03 Potassium 3.4 mmol/L (3.6-5.0) L 11/07/19 05:03 Chloride 121.2 mmol/L (98-107) H 11/07/19 05:03 Carbon Dioxide 20 mmol/L (22-30) L 11/07/19 05:03 Anion Gap 21 mmol/L 11/07/19 05:03 BUN 69 mg/dL (7-17) H 11/07/19 05:03 Creatinine 1.9 mg/dL (0.6-1.2) H 11/07/19 05:03 Estimated GFR 31 ml/min 11/07/19 05:03 BUN/Creatinine Ratio 36 % 11/07/19 05:03 Glucose 76 mg/dL (65-100) 11/07/19 05:03 Lactic Acid 0.80 mmol/L (0.7-2.0) 11/05/19 23:57 Calcium 9.3 mg/dL (8.4-10.2) 11/07/19 05:03 Phosphorus 2.50 mg/dL (2.5-4.5) 11/07/19 05:03 Total Bilirubin 0.20 mg/dL (0.1-1.2) 11/07/19 00:43 AST 27 units/L (5-40) 11/07/19 00:43 ALT 20 units/L (7-56) 11/07/19 00:43 Alkaline Phosphatase 81 units/L (35-129) 11/07/19 00:43 Lactate Dehydrogenase 216 units/L (91-180) H 11/06/19 08:35 Total Creatine Kinase 802 units/L (30-135) H 11/06/19 08:35 Troponin T 0.014 ng/mL (0.00-0.029) 11/05/19 23:03 Total Protein 7.1 g/dL (6.3-8.2) 11/07/19 00:43 Albumin 2.5 g/dL (3.9-5) L 11/07/19 00:43 Albumin/Globulin Ratio 0.5 % 11/07/19 00:43 TSH 0.214 mlU/mL (0.270-4.200) L 11/05/19 23:03 Thyroxine (T4) 9.8 ug/dL (4.0-12.0) 11/06/19 05:25 Urine Color Brianna (Yellow) 11/07/19 08:10 Urine Turbidity Cloudy (Clear) 11/07/19 08:10 Urine pH 6.0 (5.0-7.0) 11/07/19 08:10 Ur Specific [place] 1.017 (1.003-1.030) 11/07/19 08:10 Urine Protein 100 mg/dl mg/dL (Negative) 11/07/19 08:10 Urine Glucose (UA) Neg mg/dL (Negative) 11/07/19 08:10 Urine Ketones Tr mg/dL (Negative) 11/07/19 08:10 Urine Blood Mod (Negative) 11/07/19 08:10 Urine Nitrite Pos (Negative) 11/07/19 08:10 Urine Bilirubin Neg (Negative) 11/07/19 08:10 Urine Urobilinogen < 2.0 mg/dL (<2.0) 11/07/19 08:10 Ur Leukocyte Esterase Lg (Negative) 11/07/19 08:10 Urine WBC (Auto) 65.0 /HPF (0.0-6.0) H 11/07/19 08:10 Urine RBC (Auto) 3.0 /HPF (0.0-6.0) 11/07/19 08:10 U Epithel Cells (Auto) 1.0 /HPF (0-13.0) 11/07/19 08:10 Urine Bacteria (Auto) 3+ /HPF (Negative) 11/07/19 08:10 Urine Mucus Few /HPF 11/07/19 08:10 Urine Yeast (Budding) 2+ /HPF 11/05/19 21:44 Urine Eosinophils None seen (None Seen) 11/07/19 08:10 Urine Creatinine 111.2 mg/dL (0.1-20.0) H 11/07/19 08:10 Protein/Creatinin Ratio 1.41 11/07/19 08:10 Urine Sodium 41 mmol/L 11/07/19 08:10 Urine Urea Nitrogen 894 11/07/19 08:10 Urine Total Protein 157 mg/dL (5-11.8) H 11/07/19 08:10 Random Vancomycin 7.7 ug/mL (0-40.0) 11/07/19 05:03 Coronavirus (PCR) Positive (Negative) A 11/06/19 09:56 Microbiology: Microbiology 11/05/19 21:40 Urine,Catheterized - Straight Catheter Urine Culture - Preliminary Gram Negative Matthew 11/05/19 23:03 Peripheral/Venous Blood Culture - Preliminary NO GROWTH AFTER 24 HOURS 11/05/19 22:57 Peripheral/Venous Blood Culture - Preliminary NO GROWTH AFTER 24 HOURS To/IV: Voiding Method External Female Catheter IV Catheter Type [Left INT / Saline Lock Antecubital] IV Catheter Type [Right Hand] INT / Saline Lock Active Medications - Current Medications Current Medications: Generic Name Dose Route Start Last Admin Trade Name Jefferyq PRN Reason Stop Dose Admin Acetaminophen 650 mg 11/06/19 02:04 11/06/19 07:04 Tylenol PO 650 mg Q4H PRN Administration Fever >101 Amlodipine Besylate 10 mg 11/06/19 10:00 11/07/19 10:35 Amlodipine PO 10 mg DAILY COLE Administration Calcium Carbonate/Glycine 1,000 mg 11/06/19 10:00 11/07/19 10:35 Tums PO 1,000 mg Q12HR COLE Administration Famotidine 20 mg 11/06/19 22:00 11/06/19 22:01 Pepcid PO 20 mg QHS COLE Administration Ferrous Sulfate 325 mg 11/06/19 07:30 11/07/19 14:21 Feosol PO 325 mg QAC COLE Administration Heparin Sodium (Porcine) 5,000 unit 11/06/19 02:15 11/07/19 10:35 Heparin SUB-Q 5,000 unit Q12HR COLE Administration Hydralazine HCl 50 mg 11/06/19 08:00 11/07/19 14:21 Apresoline PO 50 mg TID COLE Administration Cefepime HCl 2 gm in 100 mls @ 200 mls/hr 11/06/19 10:00 11/07/19 10:36 Cefepime/Ns 2 Gm/100 Ml IV 200 mls/hr Q24HR COLE Administration Protocol Sodium Chloride 1,000 mls @ 150 mls/hr 11/06/19 09:00 11/07/19 03:38 Nacl 0.45% 1000 Ml IV 125 mls/hr DIRECT COLE Administration Nutrition/Malnutrition Assess - Dietary Evaluation Nutrition/Malnutrition Findings: Nutrition Notes Start: 11/06/19 12:02 Freq: Status: Active Protocol: Document 11/06/19 12:04 CW (Rec: 11/06/19 13:15 CW [id number]) Co-Sign 11/06/19 12:04 LP Nutrition Notes Need for Assessment generated from: director outpatient services Initial or Follow up Assessment Current Diagnosis Acute Kidney Injury,Sepsis Other Pertinent Diagnosis AMS, UTI, seizure disorder Current Diet sodium diet Labs/Tests Na 162 BUN 87 Creatinine 2.8 Glucose 130 Pertinent Medications reviewed Height 5 ft 6 in Weight 45.359 kg [place] Body Weight (kg) 59.09 BMI 16.1 Intake Prior to Admission Fair Weight Status Underweight Subjective/Other Information [facility] from [facility]. Previously on pureed diet with no salt, house supplement tid , and pro-stat 30mL bid. Consult for MST and skin assessment. Pt with AMS and decreased responsiveness. Pt has sacral wound. Pt is not able to feed herself. Pt has temporal wasting and teeth missing. 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 No Is Patient Ambulatory and/or Out of Bed No REE-([facility]-confined to bed) 1159.164 Kcal/Kg value to use for calculation 35 Approximate Energy Requirements Using 1588 kcal/Kg Calculation Used for Recommendations Kcal/kg Additional Notes Protein needs are 54-68g (1.2- 1.5 g/kg) Fluid needs are 1ml/kcal Nutrition Intervention Change Diet Order: pureed Add Supplement/Snack (indicate name/kcal Ensure Enlive Vanilla tid /protein ) Provides kCal: 1,050 Provides Protein (gm) 60 Goal #1 meet at least 75% of kcal and protein needs via pureed diet and supplements Goal #2 wound healing Anticipated Discharge Needs: pureed diet with ONS Follow-Up By: 11/10/19 Additional Comments follow for po tollerence/ intake and wound healing
[2019-11-07 17:31] LABS: Calcium 9.5 mg/dL (8.4-10.2)
[2019-11-07] MEDS: FAMOTIDINE 20 MG TAB PO SCH (22:48)
[2019-11-08 06:00] LABS: Hematocrit 29.4 % (30.3-42.9); Hemoglobin 8.8 gm/dl (10.1-14.3); Mean Corpuscular HGB Conc 30 % (30-34); Mean Corpuscular Volume 93 fl (79-97); Platelet Count 507 K/mm3 (140-440); Red Blood Count 3.16 M/mm3 (3.65-5.03); Red Cell Distribution Width 14.2 % (13.2-15.2)
[2019-11-08 06:12] LABS: Alanine Aminotransferase 20 units/L (7-56); Albumin 2.4 g/dL (3.9-5); BUN/Creatinine Ratio 38; Blood Urea Nitrogen 49 mg/dL (7-17); Calcium 9.5 mg/dL (8.4-10.2); Hemolysis Index 14
[2019-11-08 06:54] LABS: Total Cells Counted 200
[2019-11-08 06:55] LABS: Anisocytosis 1+; Basophils % (Manual) 0 % (0.0-1.8); Eosinophils % (Manual) 0 % (0.0-4.3); Monocytes % (Manual) 1.5 % (0.0-7.3); Platelet Estimate Consistent w Auto
[2019-11-08 07:03] LABS: Calcium 9.5 mg/dL (8.4-10.2)
[2019-11-08] MEDS ORDERED: VANCOMYCIN 750 MG in SODIUM CHLORIDE 0.9% 250ML 250 ML IV SCH (10:00)
[2019-11-08] MEDS: CALCIUM CARBONATE 500 MG TAB CHEW PO SCH ×2 (10:56→22:52)
[2019-11-08] MEDS: FERROUS SULFATE 325 MG TAB PO SCH ×3 (10:56→18:05)
[2019-11-08] MEDS: HEPARIN 5,000 UNIT/1 ML VIAL SUB-Q SCH ×2 (10:56→22:54)
[2019-11-08] MEDS ORDERED: REMDESIVIR 100 MG VIAL IV ONE (11:00)
[2019-11-08] MEDS ORDERED: REMDESIVIR 200 MG in SODIUM CHLORIDE 0.9% 250ML 250 ML IV ONE (11:00)
[2019-11-08] MEDS: hydrALAZINE 25 MG TAB PO SCH ×3 (11:05→22:52)
[2019-11-08] MEDS: amLODIPine 10 MG TAB PO SCH (11:05)
[2019-11-08] MEDS: CEFEPIME/NS 2 GM/100 ML 2 GM/100 ML BAG IV SCH (12:25)
[2019-11-08] MEDS: dexAMETHasone 4 MG/ML VIAL IV SCH (12:25)
--- NOTE | 2019-11-08 12:52 | Progress Note ---
Assessment and Plan Acute kidney injury 2/2 prerenal azotemia, cannot r/o ATN Hypernatremia due to poor oral intake Sepsis 2/2 COVID-19 COVID-19 Non-Anion Gap Metabolic Acidosis UTI Acute Encephalopathy Plan: Renal function reviewed, improving, SCr level was 1.3 today, yesterday's SCr level was 1.5 D/C 0.45% NS infusion Start D5W infusion at 75 ml/hr for worsening hypernatremia Renal US pending Calculated protein to cr ratio 1.4 g, urine eosinophils negative Pt on isolation for COVID-19, on remdesivir and decadron Renally dose meds Strict I&O Renal plan d/w Dr Tian Subjective Date of service: 11/08/19 Principal diagnosis: TAYLER Interval history: Pt on isolation for COVID-19, pt not examined to limit direct contact/resources of PPE, reviewed medical chart, labs, and notes Objective - Vital Signs Vital signs: Vital Signs - 12hr 11/08/19 11/08/19 11/08/19 04:38 11:41 11:42 Temperature 97.7 F 98.5 F Pulse Rate 61 112 H 111 H Respiratory 20 20 Rate Blood Pressure 122/78 143/70 O2 Sat by Pulse 92 92 100 Oximetry - Lab 11/08/19 04:48 11/08/19 04:48 Most recent lab results Calcium 9.5 mg/dL (8.4-10.2) 11/08/19 04:48 Calcium 9.5 mg/dL (8.4-10.2) 11/08/19 04:48 Phosphorus 2.50 mg/dL (2.5-4.5) 11/07/19 05:03 Urine Creatinine 111.2 mg/dL (0.1-20.0) H 11/07/19 08:10 Urine Sodium 41 mmol/L 11/07/19 08:10 Urine Total Protein 157 mg/dL (5-11.8) H 11/07/19 08:10 Medications & Allergies - Medications Allergies/Adverse Reactions: Allergies benazepril Allergy (Verified 07/09/18 10:17) Unknown benazepril HCl [From Lotensin] Allergy (Verified 07/09/18 10:17) Swelling diltiazem [From Cardizem] Allergy (Verified 07/09/18 10:17) Unknown diltiazem HCl [From Cardizem] Allergy (Verified 07/09/18 10:17) Swelling losartan Allergy (Verified 07/09/18 10:17) Unknown Home Medications: Home Medications Medication Instructions Recorded Confirmed Last Taken Type Metoclopramide [Reglan TAB] 10 mg PO Q6H PRN #90 tablet 01/09/14 11/06/19 Unknown Rx Rosuvastatin (Nf) [Crestor] 20 mg PO QHS #30 tablet 01/09/14 11/06/19 Unknown Rx levETIRAcetam [Keppra TAB] 500 mg PO BID #60 tablet 01/09/14 11/07/19 Unknown Rx hydrALAZINE [Apresoline TAB] 25 mg PO Q8H #90 tab 01/28/14 11/06/19 Unknown Rx Acetaminophen 325 mg PO Q12HR PRN 07/06/18 11/06/19 Unknown History Amino Acids/Protein Hydrolys 30 ml PO BID 07/06/18 11/06/19 Unknown History [Pro-Stat [facility]c Liquid Packet] Calcium Carbonate [Tums 500MG CHEW] 1,000 mg PO Q12HR 07/06/18 11/06/19 Unknown History Famotidine [Pepcid] 20 mg PO QHS 07/06/18 11/07/19 Unknown History Ferrous Sulfate [Iron 325 MG] 325 mg PO QAC 07/06/18 11/07/19 Unknown History Lactobacillus Acidophil [Lactinex] 1 cap PO Q12HR 07/06/18 11/06/19 Unknown History Loratadine (Nf) [Claritin (Nf)] 10 mg PO DAILY 07/06/18 11/06/19 Unknown History Magnesium Hydroxide [Milk of 400 mg PO QWEEK 07/06/18 11/06/19 Unknown History Magnesia] Melatonin 3 mg PO QHS 07/06/18 11/06/19 Unknown History Metoprolol [Lopressor TAB] 50 mg PO QDAY 07/06/18 11/06/19 Unknown History Mirtazapine [Remeron 15mg TAB] 15 mg PO QHS 07/06/18 11/06/19 Unknown History Multivit with Minerals/Lutein [Pub 1 each PO QDAY 07/06/18 11/06/19 Unknown History Multivitamin 50 Plus Tab] Polyethylene Glycol 3350 [Gavilax] 8.5 gm PO QDAY 07/06/18 11/07/19 Unknown History Scopolamine Hydrobromide 1.5 mg TP Q3D 07/06/18 11/06/19 Unknown History Sennosides/Docusate [Senokot S] 1 tab PO QDAY 07/06/18 11/06/19 Unknown History amLODIPine 10 mg PO DAILY 07/06/18 11/06/19 Unknown History levETIRAcetam [Keppra TAB] 500 mg PO BID 07/06/18 11/06/19 Unknown History Collagenase (Nf) [Santyl (Nf)] 1 applic TRANSDERMA QDAY 11/06/19 11/07/19 Unknown History Active Medications: Generic Name Dose Route Start Last Admin Trade Name Freq PRN Reason Stop Dose Admin Acetaminophen 650 mg 11/06/19 02:04 11/06/19 07:04 Tylenol PO 650 mg Q4H PRN Administration Fever >101 Amlodipine Besylate 10 mg 11/06/19 10:00 11/08/19 11:05 Amlodipine PO 10 mg DAILY COLE Administration Calcium Carbonate/Glycine 1,000 mg 11/06/19 10:00 11/08/19 10:56 Tums PO 1,000 mg Q12HR COLE Administration Dexamethasone 6 mg 11/08/19 10:00 11/08/19 12:25 Decadron IV 6 mg DAILY COLE Administration Famotidine 20 mg 11/06/19 22:00 11/07/19 22:48 Pepcid PO 20 mg QHS COLE Administration Ferrous Sulfate 325 mg 11/06/19 07:30 11/08/19 10:56 Feosol PO 325 mg QAC COLE Administration Heparin Sodium (Porcine) 5,000 unit 11/06/19 02:15 11/08/19 10:56 Heparin SUB-Q 5,000 unit Q12HR COLE Administration Hydralazine HCl 50 mg 11/06/19 08:00 11/08/19 11:05 Apresoline PO 50 mg TID COLE Administration Cefepime HCl 2 gm in 100 mls @ 200 mls/hr 11/06/19 10:00 11/08/19 12:25 Cefepime/Ns 2 Gm/100 Ml IV 200 mls/hr Q24HR COLE Administration Protocol Sodium Chloride 1,000 mls @ 150 mls/hr 11/06/19 09:00 11/07/19 18:55 Nacl 0.45% 1000 Ml IV 125 mls/hr DIRECT COLE Administration Vancomycin HCl 750 mg/ Sodium 265 mls @ 166.667 mls/hr 11/08/19 10:00 Chloride IV Q24HR COLE REMDESIVIR 100 mg/ Sodium 250 mls @ 500 mls/hr 11/09/19 21:00 Chloride IV 11/12/19 21:29 Q24HR@2100 COLE Sodium Chloride 50 ml 11/08/19 11:00 Nacl 0.9% IV 11/12/19 21:01 2100 COLE
--- NOTE | 2019-11-08 13:04 | Progress Note ---
Assessment and Plan Assessment and plan: 74-year-old female with history of CVA hemiplegia, seizure disorder, anemia, lung mass, UTI, pneumonia, hyperlipidemia who presents with altered mental status after fall 3 days ago. She is a resident of [facility] nursing [facility]. Here in the ER, she appeared lethargic. She gives limited history. She was able to say her first name. When asked if in pain she says "no". She was found to have leukocytosis, lactic acidosis, UTI, TAYLER and was admitted to the hospital for evaluation of sepsis secondary to pneumonia. Blood cultures were drawn and patient was started on vancomycin and cefepime. 11/05. Patient seen and examined at bedside this morning. She is unable to be further history. On IV antibiotics. Blood cultures have been drawn and awaiting results. Urine culture also pending. 11/06. COVID -19 came out positive. She has been placed on isolation. Urine culture is growing gram negative rods. On cefepime and vancomycin. Awaiting final blood culture results 11/07. She became hypoxic and has been started on dexamethasone and remdesivir. ID consulted. Continue antibiotics for UTI. Urine culture grwoing GN rods. Still has hypernatremia - nephrology is following. - Patient Problems (1) Sepsis Current Visit: Yes Status: Acute Plan to address problem: From UTI and COVID-19. Blood culture NTD Urine culture - GN rods Continue cefepime. DC vancomycin Monitor vital signs closely (2) TAYLER (acute kidney injury) Current Visit: Yes Status: Acute Plan to address problem: From vasomotor nephropathy. This is improving. Continue IV hydration Nephrology recommendations appreciated Avoid nephrotoxic medications (3) Acute metabolic encephalopathy Current Visit: Yes Status: Acute Plan to address problem: Likely as result of sepsis secondary to infection and possibly uremia Continue antibiotics. Nephrology following for renal failure (4) Hypernatremia Current Visit: Yes Status: Acute Plan to address problem: Continue hypotonic solution Trend sodium Nephrology recommendations appreciated (5) Urinary tract infection Current Visit: Yes Status: Acute Plan to address problem: Continue cefepime. Urine cultures - GN rods. (6) COVID-19 Current Visit: Yes Status: Acute Plan to address problem: Continue oxygen supplementation Dexamethasone as she became hypoxic and is now on 5L. ID consulted. Ordered remdesivir as her renal function has improved. (7) DVT prophylaxis Current Visit: No Status: Acute Plan to address problem: Heparin SQ History Interval history: See assessment and plan Hospitalist Physical - Constitutional Vitals: Temp Pulse Resp BP Pulse Ox 98.5 F 111 H 20 143/70 100 11/08/19 11:41 11/08/19 11:42 11/08/19 11:41 11/08/19 11:41 11/08/19 11:42 General appearance: Present: no acute distress - EENT Eyes: Present: PERRL - Neck Neck: Present: supple - Respiratory Respiratory: bilateral: CTA - Cardiovascular Rhythm: regular Heart Sounds: Present: S1 & S2 - Extremities Extremities: no ischemia - Abdominal General gastrointestinal: soft, non-tender, non-distended - Neurologic Neurologic: CNII-XII intact HEART Score - HEART Score Age: > 65 Risk factors: 1-2 risk factors Troponin: Troponin T 0.014 ng/mL (0.00-0.029) 11/05/19 23:03 Troponin: < normal limit - Critical Actions Critical Actions: 0-3 pts:0.9-1.7%risk of adverse cardiac event.Candidate for discharge Results - Labs CBC & Chem 7: 11/08/19 04:48 11/08/19 04:48 Labs: Laboratory Last Values WBC 23.8 K/mm3 (4.5-11.0) H 11/08/19 04:48 RBC 3.16 M/mm3 (3.65-5.03) L 11/08/19 04:48 Hgb 8.8 gm/dl (10.1-14.3) L 11/08/19 04:48 Hct 29.4 % (30.3-42.9) L 11/08/19 04:48 MCV 93 fl (79-97) 11/08/19 04:48 MCH 28 pg (28-32) 11/08/19 04:48 MCHC 30 % (30-34) 11/08/19 04:48 RDW 14.2 % (13.2-15.2) 11/08/19 04:48 Plt Count 507 K/mm3 (140-440) H 11/08/19 04:48 Lymph % (Auto) 5.1 % (13.4-35.0) L 11/07/19 05:03 Mccracken % (Auto) 4.2 % (0.0-7.3) 11/07/19 05:03 Eos % (Auto) 0.2 % (0.0-4.3) 11/07/19 05:03 Baso % (Auto) 0.5 % (0.0-1.8) 11/07/19 05:03 Lymph # 1.2 K/mm3 (1.2-5.4) 11/07/19 05:03 Mccracken # 1.0 K/mm3 (0.0-0.8) H 11/07/19 05:03 Eos # 0.0 K/mm3 (0.0-0.4) 11/07/19 05:03 Baso # 0.1 K/mm3 (0.0-0.1) 11/07/19 05:03 Add Manual Diff Complete 11/08/19 04:48 Total Counted 200 11/08/19 04:48 Seg Neutrophils % 90.0 % (40.0-70.0) H 11/07/19 05:03 Seg Neuts % (Manual) 95.0 % (40.0-70.0) H 11/08/19 04:48 Band Neutrophils % 0 % 11/08/19 04:48 Lymphocytes % (Manual) 3.5 % (13.4-35.0) L 11/08/19 04:48 Reactive Lymphs % (Man) 0 % 11/08/19 04:48 Monocytes % (Manual) 1.5 % (0.0-7.3) 11/08/19 04:48 Eosinophils % (Manual) 0 % (0.0-4.3) 11/08/19 04:48 Basophils % (Manual) 0 % (0.0-1.8) 11/08/19 04:48 Metamyelocytes % 0 % 11/08/19 04:48 Myelocytes % 0 % 11/08/19 04:48 Promyelocytes % 0 % 11/08/19 04:48 Blast Cells % 0 % 11/08/19 04:48 Nucleated RBC % Not Reportable 11/08/19 04:48 Seg Neutrophils # 21.7 K/mm3 (1.8-7.7) H 11/07/19 05:03 Seg Neutrophils # Man 22.6 K/mm3 (1.8-7.7) H 11/08/19 04:48 Band Neutrophils # 0.0 K/mm3 11/08/19 04:48 Lymphocytes # (Manual) 0.8 K/mm3 (1.2-5.4) L 11/08/19 04:48 Abs React Lymphs (Man) 0.0 K/mm3 11/08/19 04:48 Monocytes # (Manual) 0.4 K/mm3 (0.0-0.8) 11/08/19 04:48 Eosinophils # (Manual) 0.0 K/mm3 (0.0-0.4) 11/08/19 04:48 Basophils # (Manual) 0.0 K/mm3 (0.0-0.1) 11/08/19 04:48 Metamyelocytes # 0.0 K/mm3 11/08/19 04:48 Myelocytes # 0.0 K/mm3 11/08/19 04:48 Promyelocytes # 0.0 K/mm3 11/08/19 04:48 Blast Cells # 0.0 K/mm3 11/08/19 04:48 WBC Morphology Not Reportable 11/08/19 04:48 Hypersegmented Neuts Not Reportable 11/08/19 04:48 Hyposegmented Neuts Not Reportable 11/08/19 04:48 Hypogranular Neuts Not Reportable 11/08/19 04:48 Smudge Cells Not Reportable 11/08/19 04:48 Toxic Granulation Not Reportable 11/08/19 04:48 Toxic Vacuolation Not Reportable 11/08/19 04:48 Dohle Bodies Not Reportable 11/08/19 04:48 Pelger-Huet Anomaly Not Reportable 11/08/19 04:48 Sofi Rods Not Reportable 11/08/19 04:48 Platelet Estimate Consistent w auto 11/08/19 04:48 Clumped Platelets Not Reportable 11/08/19 04:48 Plt Clumps, EDTA Not Reportable 11/08/19 04:48 Large Platelets Not Reportable 11/08/19 04:48 Giant Platelets Not Reportable 11/08/19 04:48 Platelet Satelliting Not Reportable 11/08/19 04:48 Plt Morphology Comment Not Reportable 11/08/19 04:48 RBC Morphology Not Reportable 11/08/19 04:48 Dimorphic RBCs Not Reportable 11/08/19 04:48 Polychromasia Not Reportable 11/08/19 04:48 Hypochromasia Not Reportable 11/08/19 04:48 Poikilocytosis Not Reportable 11/08/19 04:48 Anisocytosis 1+ 11/08/19 04:48 Microcytosis Not Reportable 11/08/19 04:48 Macrocytosis Not Reportable 11/08/19 04:48 Spherocytes Not Reportable 11/08/19 04:48 Pappenheimer Bodies Not Reportable 11/08/19 04:48 Sickle Cells Not Reportable 11/08/19 04:48 Target Cells Not Reportable 11/08/19 04:48 Tear Drop Cells Not Reportable 11/08/19 04:48 Ovalocytes Not Reportable 11/08/19 04:48 Helmet Cells Not Reportable 11/08/19 04:48 Mandel-Belton Bodies Not Reportable 11/08/19 04:48 [place] Rings Not Reportable 11/08/19 04:48 Iron Belt Cells Not Reportable 11/08/19 04:48 Bite Cells Not Reportable 11/08/19 04:48 Crenated Cell Not Reportable 11/08/19 04:48 Elliptocytes Not Reportable 11/08/19 04:48 Acanthocytes (Spur) Not Reportable 11/08/19 04:48 Rouleaux Not Reportable 11/08/19 04:48 Hemoglobin C Crystals Not Reportable 11/08/19 04:48 Schistocytes Not Reportable 11/08/19 04:48 Malaria parasites Not Reportable 11/08/19 04:48 [place] Bodies Not Reportable 11/08/19 04:48 Hem Pathologist Commnt No 11/08/19 04:48 PT 17.5 Sec. (12.2-14.9) H 11/05/19 23:03 INR 1.40 (0.87-1.13) H 11/05/19 23:03 D-Dimer 2398.51 ng/mlDDU (0-234) H 11/08/19 04:48 Sodium 158 mmol/L (137-145) H 11/08/19 04:48 Sodium 159 mmol/L (137-145) H 11/08/19 04:48 Potassium 3.8 mmol/L (3.6-5.0) 11/08/19 04:48 Potassium 3.8 mmol/L (3.6-5.0) 11/08/19 04:48 Chloride 123.4 mmol/L (98-107) H 11/08/19 04:48 Chloride 124.0 mmol/L (98-107) H 11/08/19 04:48 Carbon Dioxide 21 mmol/L (22-30) L 11/08/19 04:48 Carbon Dioxide 22 mmol/L (22-30) 11/08/19 04:48 Anion Gap 17 mmol/L 11/08/19 04:48 Anion Gap 17 mmol/L 11/08/19 04:48 BUN 48 mg/dL (7-17) H 11/08/19 04:48 BUN 49 mg/dL (7-17) H 11/08/19 04:48 Creatinine 1.3 mg/dL (0.6-1.2) H 11/08/19 04:48 Creatinine 1.3 mg/dL (0.6-1.2) H 11/08/19 04:48 Estimated GFR 48 ml/min 11/08/19 04:48 Estimated GFR 48 ml/min 11/08/19 04:48 BUN/Creatinine Ratio 37 % 11/08/19 04:48 BUN/Creatinine Ratio 38 % 11/08/19 04:48 Glucose 83 mg/dL (65-100) 11/08/19 04:48 Glucose 84 mg/dL (65-100) 11/08/19 04:48 Lactic Acid 0.80 mmol/L (0.7-2.0) 11/05/19 23:57 Calcium 9.5 mg/dL (8.4-10.2) 11/08/19 04:48 Calcium 9.5 mg/dL (8.4-10.2) 11/08/19 04:48 Phosphorus 2.50 mg/dL (2.5-4.5) 11/07/19 05:03 Total Bilirubin < 0.20 mg/dL (0.1-1.2) 11/08/19 04:48 AST 25 units/L (5-40) 11/08/19 04:48 ALT 20 units/L (7-56) 11/08/19 04:48 Alkaline Phosphatase 101 units/L (35-129) 11/08/19 04:48 Lactate Dehydrogenase 216 units/L (91-180) H 11/06/19 08:35 Total Creatine Kinase 802 units/L (30-135) H 11/06/19 08:35 Troponin T 0.014 ng/mL (0.00-0.029) 11/05/19 23:03 Total Protein 6.8 g/dL (6.3-8.2) 11/08/19 04:48 Albumin 2.4 g/dL (3.9-5) L 11/08/19 04:48 Albumin/Globulin Ratio 0.5 % 11/08/19 04:48 TSH 0.214 mlU/mL (0.270-4.200) L 11/05/19 23:03 Thyroxine (T4) 9.8 ug/dL (4.0-12.0) 11/06/19 05:25 Urine Color Brianna (Yellow) 11/07/19 08:10 Urine Turbidity Cloudy (Clear) 11/07/19 08:10 Urine pH 6.0 (5.0-7.0) 11/07/19 08:10 Ur Specific [place] 1.017 (1.003-1.030) 11/07/19 08:10 Urine Protein 100 mg/dl mg/dL (Negative) 11/07/19 08:10 Urine Glucose (UA) Neg mg/dL (Negative) 11/07/19 08:10 Urine Ketones Tr mg/dL (Negative) 11/07/19 08:10 Urine Blood Mod (Negative) 11/07/19 08:10 Urine Nitrite Pos (Negative) 11/07/19 08:10 Urine Bilirubin Neg (Negative) 11/07/19 08:10 Urine Urobilinogen < 2.0 mg/dL (<2.0) 11/07/19 08:10 Ur Leukocyte Esterase Lg (Negative) 11/07/19 08:10 Urine WBC (Auto) 65.0 /HPF (0.0-6.0) H 11/07/19 08:10 Urine RBC (Auto) 3.0 /HPF (0.0-6.0) 11/07/19 08:10 U Epithel Cells (Auto) 1.0 /HPF (0-13.0) 11/07/19 08:10 Urine Bacteria (Auto) 3+ /HPF (Negative) 11/07/19 08:10 Urine Mucus Few /HPF 11/07/19 08:10 Urine Yeast (Budding) 2+ /HPF 11/05/19 21:44 Urine Eosinophils None seen (None Seen) 11/07/19 08:10 Urine Creatinine 111.2 mg/dL (0.1-20.0) H 11/07/19 08:10 Protein/Creatinin Ratio 1.41 11/07/19 08:10 Urine Sodium 41 mmol/L 11/07/19 08:10 Urine Urea Nitrogen 894 11/07/19 08:10 Urine Total Protein 157 mg/dL (5-11.8) H 11/07/19 08:10 Random Vancomycin 7.7 ug/mL (0-40.0) 11/07/19 05:03 Coronavirus (PCR) Positive (Negative) A 11/06/19 09:56 Microbiology: Microbiology 11/05/19 23:03 Peripheral/Venous Blood Culture - Preliminary NO GROWTH AFTER 48 HOURS 11/05/19 22:57 Peripheral/Venous Blood Culture - Preliminary NO GROWTH AFTER 48 HOURS 11/05/19 21:40 Urine,Catheterized - Straight Catheter Urine Culture - Preliminary Gram Negative Matthew To/IV: Voiding Method External Female Catheter IV Catheter Type [Left INT / Saline Lock Antecubital] IV Catheter Type [Right Hand] INT / Saline Lock Active Medications - Current Medications Current Medications: Generic Name Dose Route Start Last Admin Trade Name Jefferyq PRN Reason Stop Dose Admin Acetaminophen 650 mg 11/06/19 02:04 11/06/19 07:04 Tylenol PO 650 mg Q4H PRN Administration Fever >101 Amlodipine Besylate 10 mg 11/06/19 10:00 11/08/19 11:05 Amlodipine PO 10 mg DAILY COLE Administration Calcium Carbonate/Glycine 1,000 mg 11/06/19 10:00 11/08/19 10:56 Tums PO 1,000 mg Q12HR COLE Administration Dexamethasone 6 mg 11/08/19 10:00 11/08/19 12:25 Decadron IV 6 mg DAILY COLE Administration Famotidine 20 mg 11/06/19 22:00 11/07/19 22:48 Pepcid PO 20 mg QHS COLE Administration Ferrous Sulfate 325 mg 11/06/19 07:30 11/08/19 10:56 Feosol PO 325 mg QAC COLE Administration Heparin Sodium (Porcine) 5,000 unit 11/06/19 02:15 11/08/19 10:56 Heparin SUB-Q 5,000 unit Q12HR COLE Administration Hydralazine HCl 50 mg 11/06/19 08:00 11/08/19 11:05 Apresoline PO 50 mg TID COLE Administration Cefepime HCl 2 gm in 100 mls @ 200 mls/hr 11/06/19 10:00 11/08/19 12:25 Cefepime/Ns 2 Gm/100 Ml IV 200 mls/hr Q24HR COLE Administration Protocol Vancomycin HCl 750 mg/ Sodium 265 mls @ 166.667 mls/hr 11/08/19 10:00 Chloride IV Q24HR COLE REMDESIVIR 100 mg/ Sodium 250 mls @ 500 mls/hr 11/09/19 21:00 Chloride IV 11/12/19 21:29 Q24HR@2100 COLE Dextrose 1,000 mls @ 75 mls/hr 11/08/19 13:00 D5w IV [facility] Sodium Chloride 50 ml 11/08/19 11:00 Nacl 0.9% IV 11/12/19 21:01 2100 [facility] Nutrition/Malnutrition Assess - Dietary Evaluation Nutrition/Malnutrition Findings: Nutrition Notes Start: 11/06/19 1 2:02 Freq: Status: Active Protocol: Document 11/06/19 12:04 CW (Rec: 11/06/19 13:15 CW [id number]) Co-Sign 11/06/19 12:04 LP Nutrition Notes 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 Previously on pureed diet with no salt, house supplement tid , and pro-stat 30mL bid. Consult for MST and skin assessment. Pt with AMS and decreased responsiveness. Pt has sacral wound. Pt is not able to feed herself. Pt has temporal wasting and teeth missing. Burn Absent Trauma Absent GI Symptoms None Food Allergy No Current % PO Poor (25-49%) Minimum of two criteria Yes Body Fat Depletion Mild depletion (non-severe) Muscle Mass Mild Depletion (non-severe) Reduced Complaint Clerk Strength Measurably Reduced (severe) #2 Nutrition Diagnosis Increased nutrient needs ( specify in comment below) Comments: Protein Etiology wound healing As Evidenced by Signs and Symptoms scaral wound #1 Nutrition Diagnosis Malnutrition Etiology advantaced age and inabilty to feed self As Evidenced by Signs and Symptoms Pt noted with reduced support services rep strength, 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 No Is Patient Ambulatory and/or Out of Bed No REE-([facility]-confined to bed) 1159.164 Kcal/Kg value to use for calculation 35 Approximate Energy Requirements Using 1588 kcal/Kg Calculation Used for Recommendations Kcal/kg Additional Notes Protein needs are 54-68g (1.2- 1.5 g/kg) Fluid needs are 1ml/kcal Nutrition Intervention Change Diet Order: pureed Add Supplement/Snack (indicate name/kcal Ensure Enlive Vanilla tid /protein ) Provides kCal: 1,050 Provides Protein (gm) 60 Goal #1 meet at least 75% of kcal and protein needs via pureed diet and supplements Goal #2 wound healing Anticipated Discharge Needs: pureed diet with ONS Follow-Up By: 11/10/19 Additional Comments follow for po tollerence/ intake and wound healing
[2019-11-08] MEDS: SODIUM CHLORIDE 0.9% 50 ML IVPB IV SCH (13:59)
[2019-11-08] MEDS: DEXTROSE 5% IN WATER 1,000 ML IV SCH (18:06)
[2019-11-08 20:00] LABS: Calcium 9.6 mg/dL (8.4-10.2)
[2019-11-08] MEDS ORDERED: REMDESIVIR 100 MG in SODIUM CHLORIDE 0.9% 250ML 250 ML IV SCH (21:00)
[2019-11-08] MEDS: FAMOTIDINE 20 MG TAB PO SCH (22:52)
[2019-11-08] MEDS: DOXYCYCLINE 100 MG CAP PO SCH (22:52)
[2019-11-09 04:34] LABS: Hematocrit 27.9 % (30.3-42.9); Hemoglobin 8.7 gm/dl (10.1-14.3); Mean Corpuscular HGB Conc 31 % (30-34); Mean Corpuscular Volume 89 fl (79-97); Platelet Count 550 K/mm3 (140-440); Red Blood Count 3.13 M/mm3 (3.65-5.03); Red Cell Distribution Width 13.5 % (13.2-15.2)
[2019-11-09 04:53] LABS: Calcium 9.7 mg/dL (8.4-10.2)
[2019-11-09 04:54] LABS: Albumin 2.5 g/dL (3.9-5); Calcium 9.8 mg/dL (8.4-10.2)
[2019-11-09 05:31] LABS: Basophils % (Manual) 0 % (0.0-1.8); Eosinophils % (Manual) 0 % (0.0-4.3); Total Cells Counted 100
[2019-11-09 05:32] LABS: Macrocytosis Few; Ovalocytes Rare; Platelet Estimate Consistent w Auto; Schistocytes Few; Target Cells Rare
[2019-11-09] MEDS ORDERED: POTASSIUM CHLORIDE ER 20 MEQ TAB PO ONE (08:00)
--- NOTE | 2019-11-09 08:13 | Consultation ---
History of Present Illness - Reason for Consult Consult date: 11/09/19 COVID Requesting physician: NICK UNNES - History of Present Illness 74 y/o female with history of hypertension, seizures, CVA with hemiplegia, anemia, previous Kleb UTI, previous pneumonia, hyperlipidemia admitted on 11/05/2019 due to 3-day history of altered mental status and a fall. She is a resident of [facility] nursing [facility]. History is limited due to AMS. On arrival, temp 97.8, HR 113, BP 69/61. WBC 19. Plat 677. Ddimer 2398. UA with 182 wbc/large LE. MRSA PCR positive. COVID 11/06/2019 positive. Urine cx 11/05/2019 Klebsiella resist to Bactrim/amp. Blood cx 11/05/[address] no [address]. [address] head chronic changes. CXR no consolidations. Sats dropped 85% now on 6L NC O2. 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) Family history: no significant family history Medications and Allergies Allergies Allergy/AdvReac Type Severity Reaction Status Date / Time benazepril Allergy Unknown Verified 07/09/18 10:17 benazepril HCl Allergy Swelling Verified 07/09/18 10:17 [From Lotensin] diltiazem [From Cardizem] Allergy Unknown Verified 07/09/18 10:17 diltiazem HCl [From Cardizem] Allergy Swelling Verified 07/09/18 10:17 losartan Allergy Unknown Verified 07/09/18 10:17 Home Medications Medication Instructions Recorded Confirmed Last Taken Type Metoclopramide [Reglan TAB] 10 mg PO Q6H PRN #90 tablet 01/09/14 11/06/19 Unknown Rx Rosuvastatin (Nf) [Crestor] 20 mg PO QHS #30 tablet 01/09/14 11/06/19 Unknown Rx levETIRAcetam [Keppra TAB] 500 mg PO BID #60 tablet 01/09/14 11/07/19 Unknown Rx hydrALAZINE [Apresoline TAB] 25 mg PO Q8H #90 tab 01/28/14 11/06/19 Unknown Rx Acetaminophen 325 mg PO Q12HR PRN 07/06/18 11/06/19 Unknown History Amino Acids/Protein Hydrolys 30 ml PO BID 07/06/18 11/06/19 Unknown History [Pro-Stat Awc Liquid Packet] Calcium Carbonate [Tums 500MG CHEW] 1,000 mg PO Q12HR 07/06/18 11/06/19 Unknown History Famotidine [Pepcid] 20 mg PO QHS 07/06/18 11/07/19 Unknown History Ferrous Sulfate [Iron 325 MG] 325 mg PO QAC 07/06/18 11/07/19 Unknown History Lactobacillus Acidophil [Lactinex] 1 cap PO Q12HR 07/06/18 11/06/19 Unknown History Loratadine (Nf) [Claritin (Nf)] 10 mg PO DAILY 07/06/18 11/06/19 Unknown History Magnesium Hydroxide [Milk of 400 mg PO QWEEK 07/06/18 11/06/19 Unknown History Magnesia] Melatonin 3 mg PO QHS 07/06/18 11/06/19 Unknown History Metoprolol [Lopressor TAB] 50 mg PO QDAY 07/06/18 11/06/19 Unknown History Mirtazapine [Remeron 15mg TAB] 15 mg PO QHS 07/06/18 11/06/19 Unknown History Multivit with Minerals/Lutein [Pub 1 each PO QDAY 07/06/18 11/06/19 Unknown History Multivitamin 50 Plus Tab] Polyethylene Glycol 3350 [Gavilax] 8.5 gm PO QDAY 07/06/18 11/07/19 Unknown History Scopolamine Hydrobromide 1.5 mg TP Q3D 07/06/18 11/06/19 Unknown History Sennosides/Docusate [Senokot S] 1 tab PO QDAY 07/06/18 11/06/19 Unknown History amLODIPine 10 mg PO DAILY 07/06/18 11/06/19 Unknown History levETIRAcetam [Keppra TAB] 500 mg PO BID 07/06/18 11/06/19 Unknown History Collagenase (Nf) [Santyl (Nf)] 1 applic TRANSDERMA QDAY 11/06/19 11/07/19 Unknown History Active Meds: Active Medications Acetaminophen (Tylenol) 650 mg PO Q4H PRN PRN Reason: Fever >101 Last Admin: 11/06/19 07:04 Dose: 650 mg Documented by: Amlodipine Besylate (Amlodipine) 10 mg PO DAILY [facility] Last Admin: 11/08/19 11:05 Dose: 10 mg Documented by: Calcium Carbonate/Glycine (Tums) 1,000 mg PO Q12HR [facility] Last Admin: 11/08/19 22:52 Dose: 1,000 mg Documented by: Dexamethasone (Decadron) 6 mg IV DAILY [facility] Last Admin: 11/08/19 12:25 Dose: 6 mg Documented by: Doxycycline Hyclate (Vibramycin) 100 mg PO BID [facility] Last Admin: 11/08/19 22:52 Dose: 100 mg Documented by: Famotidine (Pepcid) 20 mg PO QHS [facility] Last Admin: 11/08/19 22:52 Dose: 20 mg Documented by: Ferrous Sulfate (Feosol) 325 mg PO QAC [facility] Last Admin: 11/08/19 18:05 Dose: 325 mg Documented by: Heparin Sodium (Porcine) (Heparin) 5,000 unit SUB-Q Q12HR [facility] Last Admin: 11/08/19 22:54 Dose: 5,000 unit Documented by: Hydralazine HCl (Apresoline) 50 mg PO TID [facility] Last Admin: 11/08/19 22:52 Dose: 50 mg Documented by: Cefepime HCl (Cefepime/Ns 2 Gm/100 Ml) 2 gm in 100 mls @ 200 mls/hr IV Q24HR [facility]; Protocol Last Admin: 11/08/19 12:25 Dose: 200 mls/hr Documented by: REMDESIVIR 100 mg/ Sodium (Chloride) 250 mls @ 500 mls/hr IV Q24HR@2100 [facility] Stop: 11/12/19 21:29 Dextrose (D5w) 1,000 mls @ 75 mls/hr IV DIRECT [facility] Last Admin: 11/08/19 18:06 Dose: 75 mls/hr Documented by: Sodium Chloride (Nacl 0.9%) 50 ml IV 2100 [facility] Stop: 11/12/19 21:01 Last Admin: 11/08/19 13:59 Dose: 50 ml Documented by: Physical Examination - Physical Exam Narrative exam: Physical Exam (reviewed in chart due to PPE conservation and minimize risk of transmission) Constitutional: limited due to PPE conservation strategy Head, Ears, Nose: normocephalic, atraumatic Eyes: limited due to PPE conservation strategy Neck:limited due to PPE conservation strategy Oral: limited due to PPE conservation strategy Cardiovascular: limited due to PPE conservation strategy Respiratory: limited due to PPE conservation strategy GI: limited due to PPE conservation strategy Musculoskeletal: limited due to PPE conservation strategy Skin: limited due to PPE conservation strategy Hem/Lymphatic: limited due to PPE conservation strategy Neuro: limited due to PPE conservation strategy - Constitutional Vitals: Vital Signs Temp Pulse Resp BP Pulse Ox 98.6 F 98 H 16 134/75 97 11/09/19 04:54 11/09/19 04:54 11/09/19 04:54 11/09/19 04:54 11/09/19 04:54 Temperature -Last 24 Hours Temperature 98.6 F Temperature 98.1 F Temperature 98.0 F Temperature 98.5 F Results - Labs CBC & Chem 7: 11/09/19 04:02 11/09/19 04:02 Labs: Abnormal lab results 11/08/19 11/09/19 11/09/19 Range/Units 19:30 04:02 04:02 WBC 23.4 H (4.5-11.0) K/mm3 RBC 3.13 L (3.65-5.03) M/mm3 Hgb 8.7 L (10.1-14.3) gm/dl Hct 27.9 L (30.3-42.9) % Plt Count 550 H (140-440) K/mm3 Seg Neuts % (Manual) 91.0 H (40.0-70.0) % Lymphocytes % (Manual) 5.0 L (13.4-35.0) % Seg Neutrophils # Man 21.3 H (1.8-7.7) K/mm3 Monocytes # (Manual) 0.9 H (0.0-0.8) K/mm3 Sodium 157 H 157 H (137-145) mmol/L Potassium 3.4 L (3.6-5.0) mmol/L Chloride 123.8 H 121.1 H (98-107) mmol/L Carbon Dioxide 19 L 20 L (22-30) mmol/L BUN 44 H 43 H (7-17) mg/dL Glucose 163 H 142 H (65-100) mg/dL Phosphorus (2.5-4.5) mg/dL Albumin 2.5 L (3.9-5) g/dL 11/09/19 Range/Units 04:02 WBC (4.5-11.0) K/mm3 RBC (3.65-5.03) M/mm3 Hgb (10.1-14.3) gm/dl Hct (30.3-42.9) % Plt Count (140-440) K/mm3 Seg Neuts % (Manual) (40.0-70.0) % Lymphocytes % (Manual) (13.4-35.0) % Seg Neutrophils # Man (1.8-7.7) K/mm3 Monocytes # (Manual) (0.0-0.8) K/mm3 Sodium 157 H (137-145) mmol/L Potassium 3.3 L (3.6-5.0) mmol/L Chloride 121.8 H (98-107) mmol/L Carbon Dioxide 20 L (22-30) mmol/L BUN 43 H (7-17) mg/dL Glucose 141 H (65-100) mg/dL Phosphorus 1.70 L (2.5-4.5) mg/dL Albumin (3.9-5) g/dL Assessment and Plan Cultures: MRSA PCR positive. COVID 11/06/2019 positive. Urine cx 11/05/2019 Klebsiella resist to Bactrim/amp. Blood cx 11/05/2019 no growth so far. A/P: 74 y/o female with history of hypertension, seizures, CVA with hemiplegia, anemia, previous Kleb UTI, previous pneumonia, hyperlipidemia admitted on 11/05/2019 due to 3-day history of altered mental status and a fall: #Severe Sepsis: with tachycardia, leukocytosis, hypotension, AMS; secondary to COVID-19 infection and UTI: #Presumed severe COVID pneumonia: Initial CXR w/o obvious infiltrates, suspect interstitial pneumonia. Noted MRSA PCR positive. ?bacterial component possible. #Acute hypoxic respiratory failure: sats dropped 85%, now on 6L NC #TAYLER: creat 2.8--> now 1.2, renal on board #AMS: from COVID, UTI and high sodium #Hypernatremia: managed by hospitalist / renal Recs: -Continue IV/PO Dexamethasone 6 mg daily x 10 days -Continue IV Remdesivir x 5 days - CrCl>30. day 2 of 5 -Prophylactic anticoagulation based on d-dimer -Trend ferritin, LDH, d-dimer, CRP every 2-3 days for risk stratification and to assess disease progression- ferritin/CRP pending -Continue cefepime total 7 days (very high inital WBC, suspect from UTI/ HCAP) -Continue doxycycline total 7 days (very high inital WBC, suspect from HCAP +MRSA PCR) -Check procal -Repeat CXR Disccused with pharmacy MD [facility] M: [phone] C: [phone]
[2019-11-09] MEDS: dexAMETHasone 4 MG/ML VIAL IV SCH (09:49)
[2019-11-09] MEDS: CEFEPIME/NS 2 GM/100 ML 2 GM/100 ML BAG IV SCH (09:49)
[2019-11-09] MEDS: CALCIUM CARBONATE 500 MG TAB CHEW PO SCH (09:50)
[2019-11-09] MEDS: FERROUS SULFATE 325 MG TAB PO SCH ×3 (09:50→17:40)
[2019-11-09] MEDS: amLODIPine 10 MG TAB PO SCH (09:50)
[2019-11-09] MEDS: hydrALAZINE 25 MG TAB PO SCH ×3 (09:50→23:46)
[2019-11-09] MEDS: HEPARIN 5,000 UNIT/1 ML VIAL SUB-Q SCH ×2 (09:51→23:46)
[2019-11-09] MEDS: DOXYCYCLINE 100 MG CAP PO SCH ×2 (09:51→23:46)
--- NOTE | 2019-11-09 10:08 | XRay Report ---
CHEST 1 VIEW INDICATION / CLINICAL INFORMATION: COVID worsening hypoxia. COMPARISON: 11/05/2019. FINDINGS: SUPPORT DEVICES: None. HEART / MEDIASTINUM: Stable. LUNGS / PLEURA: Interval development of confluent infiltrate in the right perihilar region and lower lobe. No pneumothorax. ADDITIONAL FINDINGS: No significant additional findings. IMPRESSION: 1. Interval development of confluent infiltrate in the right perihilar and lower lobe region consiste nt with infectious etiology given the patient's clinical history. Signer Name: Bradford Baptiste MD Signed: 11/09/2019 10:03 AM Workstation Name: [id number]
[2019-11-09 10:32] LABS: C-Reactive Protein 16.1 mg/dL (0.00-1.30)
--- NOTE | 2019-11-09 11:37 | Progress Note ---
Assessment and Plan Acute kidney injury 2/2 prerenal azotemia, cannot r/o ATN Hypernatremia due to poor oral intake Sepsis 2/2 COVID-19 COVID-19 Non-Anion Gap Metabolic Acidosis UTI Acute Encephalopathy Plan: Renal function reviewed, stable, SCr level was 1.2 today, yesterday's SCr level was 1.2 Most recent serum Na level was 157 today Increase D5W infusion at 100 ml/hr for hypernatremia Replete potassium and phosphorus Renal US pending Calculated protein to cr ratio 1.4 g, urine eosinophils negative Pt on isolation for COVID-19, on remdesivir and decadron Renally dose meds Strict I&O Renal plan d/w Dr Tian Plan d/w nurse Subjective Date of service: 11/09/19 Principal diagnosis: TAYLER Interval history: Pt on isolation for COVID-19, pt not examined to limit direct contact/resources of PPE, reviewed medical chart, labs, and notes. Nurse states pt tolerating oral intake/medications, denies pt having any choking issues Objective - Vital Signs Vital signs: Vital Signs - 12hr 11/09/19 11/09/19 04:54 09:50 Temperature 98.6 F Pulse Rate 98 H 98 H Respiratory 16 Rate Blood Pressure 134/75 O2 Sat by Pulse 97 Oximetry - Lab 11/09/19 04:02 11/09/19 04:02 Most recent lab results Calcium 9.7 mg/dL (8.4-10.2) 11/09/19 04:02 Calcium 9.8 mg/dL (8.4-10.2) 11/09/19 04:02 Phosphorus 1.70 mg/dL (2.5-4.5) L 11/09/19 04:02 Urine Creatinine 111.2 mg/dL (0.1-20.0) H 11/07/19 08:10 Urine Sodium 41 mmol/L 11/07/19 08:10 Urine Total Protein 157 mg/dL (5-11.8) H 11/07/19 08:10 Medications & Allergies - Medications Allergies/Adverse Reactions: Allergies benazepril Allergy (Verified 07/09/18 10:17) Unknown benazepril HCl [From Lotensin] Allergy (Verified 07/09/18 10:17) Swelling diltiazem [From Cardizem] Allergy (Verified 07/09/18 10:17) Unknown diltiazem HCl [From Cardizem] Allergy (Verified 07/09/18 10:17) Swelling losartan Allergy (Verified 07/09/18 10:17) Unknown Home Medications: Home Medications Medication Instructions Recorded Confirmed Last Taken Type Metoclopramide [Reglan TAB] 10 mg PO Q6H PRN #90 tablet 01/09/14 11/06/19 Unknown Rx Rosuvastatin (Nf) [Crestor] 20 mg PO QHS #30 tablet 01/09/14 11/06/19 Unknown Rx levETIRAcetam [Keppra TAB] 500 mg PO BID #60 tablet 01/09/14 11/07/19 Unknown Rx hydrALAZINE [Apresoline TAB] 25 mg PO Q8H #90 tab 01/28/14 11/06/19 Unknown Rx Acetaminophen 325 mg PO Q12HR PRN 07/06/18 11/06/19 Unknown History Amino Acids/Protein Hydrolys 30 ml PO BID 07/06/18 11/06/19 Unknown History [Pro-Stat [facility] Liquid Packet] Calcium Carbonate [Tums 500MG CHEW] 1,000 mg PO Q12HR 07/06/18 11/06/19 Unknown History Famotidine [Pepcid] 20 mg PO QHS 07/06/18 11/07/19 Unknown History Ferrous Sulfate [Iron 325 MG] 325 mg PO QAC 07/06/18 11/07/19 Unknown History Lactobacillus Acidophil [Lactinex] 1 cap PO Q12HR 07/06/18 11/06/19 Unknown History Loratadine (Nf) [Claritin (Nf)] 10 mg PO DAILY 07/06/18 11/06/19 Unknown History Magnesium Hydroxide [Milk of 400 mg PO QWEEK 07/06/18 11/06/19 Unknown History Magnesia] Melatonin 3 mg PO QHS 07/06/18 11/06/19 Unknown History Metoprolol [Lopressor TAB] 50 mg PO QDAY 07/06/18 11/06/19 Unknown History Mirtazapine [Remeron 15mg TAB] 15 mg PO QHS 07/06/18 11/06/19 Unknown History Multivit with Minerals/Lutein [Pub 1 each PO QDAY 07/06/18 11/06/19 Unknown History Multivitamin 50 Plus Tab] Polyethylene Glycol 3350 [Gavilax] 8.5 gm PO QDAY 07/06/18 11/07/19 Unknown History Scopolamine Hydrobromide 1.5 mg TP Q3D 07/06/18 11/06/19 Unknown History Sennosides/Docusate [Senokot S] 1 tab PO QDAY 07/06/18 11/06/19 Unknown History amLODIPine 10 mg PO DAILY 07/06/18 11/06/19 Unknown History levETIRAcetam [Keppra TAB] 500 mg PO BID 07/06/18 11/06/19 Unknown History Collagenase (Nf) [Santyl (Nf)] 1 applic TRANSDERMA QDAY 11/06/19 11/07/19 Unknown History Active Medications: Generic Name Dose Route Start Last Admin Trade Name Freq PRN Reason Stop Dose Admin Acetaminophen 650 mg 11/06/19 02:04 11/06/19 07:04 Tylenol PO 650 mg Q4H PRN Administration Fever >101 Amlodipine Besylate 10 mg 11/06/19 10:00 11/09/19 09:50 Amlodipine PO 10 mg DAILY COLE Administration Calcium Carbonate/Glycine 1,000 mg 11/06/19 10:00 11/09/19 09:50 Tums PO 1,000 mg Q12HR COLE Administration Dexamethasone 6 mg 11/08/19 10:00 11/09/19 09:49 Decadron IV 11/17/19 10:01 6 mg DAILY COLE Administration Doxycycline Hyclate 100 mg 11/08/19 22:00 11/09/19 09:51 Vibramycin PO 11/11/19 21:59 100 mg BID COLE Administration Famotidine 20 mg 11/06/19 22:00 11/08/19 22:52 Pepcid PO 20 mg QHS COLE Administration Ferrous Sulfate 325 mg 11/06/19 07:30 11/09/19 09:50 Feosol PO 325 mg QAC COLE Administration Heparin Sodium (Porcine) 5,000 unit 11/06/19 02:15 11/09/19 09:51 Heparin SUB-Q 5,000 unit Q12HR COLE Administration Hydralazine HCl 50 mg 11/06/19 08:00 11/09/19 09:50 Apresoline PO 50 mg TID COLE Administration Cefepime HCl 2 gm in 100 mls @ 200 mls/hr 11/06/19 10:00 08/30/20 09:49 Cefepime/Ns 2 Gm/100 Ml IV 11/11/19 23:59 200 mls/hr Q24HR COLE Administration Protocol Dextrose 1,000 mls @ 75 mls/hr 11/08/19 13:00 11/08/19 18:06 D5w IV 75 mls/hr DIRECT COLE Administration REMDESIVIR 100 mg/ Sodium 250 mls @ 500 mls/hr 11/09/19 21:00 Chloride IV 11/12/19 21:29 Q24HR@2100 COLE Sodium Chloride 50 ml 11/08/19 11:00 11/08/19 13:59 Nacl 0.9% IV 11/12/19 21:01 50 ml 2100 COLE Administration
[2019-11-09] MEDS ORDERED: PHOS-NAK POWDER PACKET PO ONE (12:00)
--- NOTE | 2019-11-09 15:40 | Progress Note ---
Assessment and Plan Assessment and plan: 74-year-old female with history of CVA hemiplegia, seizure disorder, anemia, lung mass, UTI, pneumonia, hyperlipidemia who presents with altered mental status after fall 3 days ago. She is a resident of [facility] nursing [facility]. Here in the ER, she appeared lethargic. She gives limited history. She was able to say her first name. When asked if in pain she says "no". She was found to have leukocytosis, lactic acidosis, UTI, TAYLER and was admitted to the hospital for evaluation of sepsis secondary to pneumonia. Blood cultures were drawn and patient was started on vancomycin and cefepime. 11/05. Patient seen and examined at bedside this morning. She is unable to be further history. On IV antibiotics. Blood cultures have been drawn and awaiting results. Urine culture also pending. 11/06. COVID -19 came out positive. She has been placed on isolation. Urine culture is growing gram negative rods. On cefepime and vancomycin. Awaiting final blood culture results 11/07. She became hypoxic and has been started on dexamethasone and remdesivir. ID consulted. Continue antibiotics for UTI. Urine culture growing GN rods. Still has hypernatremia - nephrology is following. 11/08. On 6L nasal cannula. Still on remdesivir and dexamethasone. Urine culture grew Klebsiella pneumoniae. Sodium is still high. Need to encourage PO intake. - Patient Problems (1) Sepsis Current Visit: Yes Status: Acute Plan to address problem: From UTI and COVID-19. Blood culture NTD Urine culture - Klebsiella Continue cefepime. Added doxycycline as MRSA nares+ Monitor vital signs closely (2) TAYLER (acute kidney injury) Current Visit: Yes Status: Acute Plan to address problem: From vasomotor nephropathy. This is improving. Continue IV hydration Nephrology recommendations appreciated Avoid nephrotoxic medications (3) Acute metabolic encephalopathy Current Visit: Yes Status: Acute Plan to address problem: Likely as result of sepsis secondary to infection and possibly uremia Continue antibiotics. Nephrology following for renal failure (4) Hypernatremia Current Visit: Yes Status: Acute Plan to address problem: Continue hypotonic solution Trend sodium Nephrology recommendations appreciated (5) Urinary tract infection Current Visit: Yes Status: Acute Plan to address problem: Continue cefepime. Urine cultures - Klebsiella. (6) COVID-19 Current Visit: Yes Status: Acute Plan to address problem: Continue oxygen supplementation Continue remdesivir and dexamethasone ID following Continue to follow inflammatory markers (7) DVT prophylaxis Current Visit: No Status: Acute Plan to address problem: Heparin SQ History Interval history: See assessment and plan Hospitalist Physical - Constitutional Vitals: Temp Pulse Resp BP Pulse Ox 97.9 F 109 H 20 124/76 100 11/09/19 11:02 11/09/19 11:02 11/09/19 13:00 11/09/19 11:02 11/09/19 11:02 General appearance: Present: no acute distress - EENT Eyes: Present: PERRL - Respiratory Respiratory: bilateral: rales - Cardiovascular Heart Sounds: Present: S1 & S2 - Abdominal General gastrointestinal: soft, non-tender, non-distended, normal bowel sounds - Neurologic Neurologic: CNII-XII intact HEART Score - HEART Score Age: > 65 Risk factors: 1-2 risk factors Troponin: Troponin T 0.014 ng/mL (0.00-0.029) 11/05/19 23:03 Troponin: < normal limit - Critical Actions Critical Actions: 0-3 pts:0.9-1.7%risk of adverse cardiac event.Candidate for discharge Results - Labs CBC & Chem 7: 11/09/19 04:02 11/09/19 04:02 Labs: Laboratory Last Values WBC 23.4 K/mm3 (4.5-11.0) H 11/09/19 04:02 RBC 3.13 M/mm3 (3.65-5.03) L 11/09/19 04:02 Hgb 8.7 gm/dl (10.1-14.3) L 11/09/19 04:02 Hct 27.9 % (30.3-42.9) L 11/09/19 04:02 MCV 89 fl (79-97) 11/09/19 04:02 MCH 28 pg (28-32) 11/09/19 04:02 MCHC 31 % (30-34) 11/09/19 04:02 RDW 13.5 % (13.2-15.2) 11/09/19 04:02 Plt Count 550 K/mm3 (140-440) H 11/09/19 04:02 Lymph % (Auto) 5.1 % (13.4-35.0) L 11/07/19 05:03 Mcintosh % (Auto) 4.2 % (0.0-7.3) 11/07/19 05:03 Eos % (Auto) 0.2 % (0.0-4.3) 11/07/19 05:03 Baso % (Auto) 0.5 % (0.0-1.8) 11/07/19 05:03 Lymph # 1.2 K/mm3 (1.2-5.4) 11/07/19 05:03 Mcintosh # 1.0 K/mm3 (0.0-0.8) H 11/07/19 05:03 Eos # 0.0 K/mm3 (0.0-0.4) 11/07/19 05:03 Baso # 0.1 K/mm3 (0.0-0.1) 11/07/19 05:03 Add Manual Diff Complete 11/09/19 04:02 Total Counted 100 11/09/19 04:02 Seg Neutrophils % Polysomnography Technician 11/09/19 04:02 Seg Neuts % (Manual) 91.0 % (40.0-70.0) H 11/09/19 04:02 Band Neutrophils % 0 % 11/09/19 04:02 Lymphocytes % (Manual) 5.0 % (13.4-35.0) L 11/09/19 04:02 Reactive Lymphs % (Man) 0 % 11/09/19 04:02 Monocytes % (Manual) 4.0 % (0.0-7.3) 11/09/19 04:02 Eosinophils % (Manual) 0 % (0.0-4.3) 11/09/19 04:02 Basophils % (Manual) 0 % (0.0-1.8) 11/09/19 04:02 Metamyelocytes % 0 % 11/09/19 04:02 Myelocytes % 0 % 11/09/19 04:02 Promyelocytes % 0 % 11/09/19 04:02 Blast Cells % 0 % 11/09/19 04:02 Nucleated RBC % Not Reportable 11/09/19 04:02 Seg Neutrophils # 21.7 K/mm3 (1.8-7.7) H 11/07/19 05:03 Seg Neutrophils # Man 21.3 K/mm3 (1.8-7.7) H 11/09/19 04:02 Band Neutrophils # 0.0 K/mm3 11/09/19 04:02 Lymphocytes # (Manual) 1.2 K/mm3 (1.2-5.4) 11/09/19 04:02 Abs React Lymphs (Man) 0.0 K/mm3 11/09/19 04:02 Monocytes # (Manual) 0.9 K/mm3 (0.0-0.8) H 11/09/19 04:02 Eosinophils # (Manual) 0.0 K/mm3 (0.0-0.4) 11/09/19 04:02 Basophils # (Manual) 0.0 K/mm3 (0.0-0.1) 11/09/19 04:02 Metamyelocytes # 0.0 K/mm3 11/09/19 04:02 Myelocytes # 0.0 K/mm3 11/09/19 04:02 Promyelocytes # 0.0 K/mm3 11/09/19 04:02 Blast Cells # 0.0 K/mm3 11/09/19 04:02 WBC Morphology Not Reportable 11/09/19 04:02 Hypersegmented Neuts Not Reportable 11/09/19 04:02 Hyposegmented Neuts Not Reportable 11/09/19 04:02 Hypogranular Neuts Not Reportable 11/09/19 04:02 Smudge Cells Not Reportable 11/09/19 04:02 Toxic Granulation Not Reportable 11/09/19 04:02 Toxic Vacuolation Not Reportable 11/09/19 04:02 Dohle Bodies Not Reportable 11/09/19 04:02 Pelger-Huet Anomaly Not Reportable 11/09/19 04:02 Sofi Rods Not Reportable 11/09/19 04:02 Platelet Estimate Consistent w auto 11/09/19 04:02 Clumped Platelets Not Reportable 11/09/19 04:02 Plt Clumps, EDTA Not Reportable 11/09/19 04:02 Large Platelets Not Reportable 11/09/19 04:02 Giant Platelets Not Reportable 11/09/19 04:02 Platelet Satelliting Not Reportable 11/09/19 04:02 Plt Morphology Comment Not Reportable 11/09/19 04:02 RBC Morphology Not Reportable 11/09/19 04:02 Dimorphic RBCs Not Reportable 11/09/19 04:02 Polychromasia Few 11/09/19 04:02 Hypochromasia Not Reportable 11/09/19 04:02 Poikilocytosis Not Reportable 11/09/19 04:02 Anisocytosis Not Reportable 11/09/19 04:02 Microcytosis Not Reportable 11/09/19 04:02 Macrocytosis Few 11/09/19 04:02 Spherocytes Not Reportable 11/09/19 04:02 Pappenheimer Bodies Not Reportable 11/09/19 04:02 Sickle Cells Not Reportable 11/09/19 04:02 Target Cells Rare 11/09/19 04:02 Tear Drop Cells Not Reportable 11/09/19 04:02 Ovalocytes Rare 11/09/19 04:02 Helmet Cells Not Reportable 11/09/19 04:02 Mandel-Platina Bodies Not Reportable 11/09/19 04:02 [place] Rings Not Reportable 11/09/19 04:02 Telma Cells Not Reportable 11/09/19 04:02 Bite Cells Not Reportable 11/09/19 04:02 Crenated Cell Not Reportable 11/09/19 04:02 Elliptocytes Not Reportable 11/09/19 04:02 Acanthocytes (Spur) Not Reportable 11/09/19 04:02 Rouleaux Not Reportable 11/09/19 04:02 Hemoglobin C Crystals Not Reportable 11/09/19 04:02 Schistocytes Few 11/09/19 04:02 Malaria parasites Not Reportable 11/09/19 04:02 [place] Bodies Not Reportable 11/09/19 04:02 Hem Pathologist Commnt No 11/09/19 04:02 PT 17.5 Sec. (12.2-14.9) H 11/05/19 23:03 INR 1.40 (0.87-1.13) H 11/05/19 23:03 D-Dimer 2218.71 ng/mlDDU (0-234) H 11/09/19 09:37 Sodium 157 mmol/L (137-145) H 11/09/19 04:02 Sodium 157 mmol/L (137-145) H 11/09/19 04:02 Potassium 3.3 mmol/L (3.6-5.0) L 11/09/19 04:02 Potassium 3.4 mmol/L (3.6-5.0) L 11/09/19 04:02 Chloride 121.1 mmol/L (98-107) H 11/09/19 04:02 Chloride 121.8 mmol/L (98-107) H 11/09/19 04:02 Carbon Dioxide 20 mmol/L (22-30) L 11/09/19 04:02 Carbon Dioxide 20 mmol/L (22-30) L 11/09/19 04:02 Anion Gap 19 mmol/L 11/09/19 04:02 Anion Gap 19 mmol/L 11/09/19 04:02 BUN 43 mg/dL (7-17) H 11/09/19 04:02 BUN 43 mg/dL (7-17) H 11/09/19 04:02 Creatinine 1.2 mg/dL (0.6-1.2) 11/09/19 04:02 Creatinine 1.2 mg/dL (0.6-1.2) 11/09/19 04:02 Estimated GFR 53 ml/min 11/09/19 04:02 Estimated GFR 53 ml/min 11/09/19 04:02 BUN/Creatinine Ratio 36 % 11/09/19 04:02 BUN/Creatinine Ratio 36 % 11/09/19 04:02 Glucose 141 mg/dL (65-100) H 11/09/19 04:02 Glucose 142 mg/dL (65-100) H 11/09/19 04:02 Lactic Acid 0.80 mmol/L (0.7-2.0) 11/05/19 23:57 Calcium 9.7 mg/dL (8.4-10.2) 11/09/19 04:02 Calcium 9.8 mg/dL (8.4-10.2) 11/09/19 04:02 Phosphorus 1.70 mg/dL (2.5-4.5) L 11/09/19 04:02 Ferritin 1703.0 ng/mL (10.0-200.0) H 11/09/19 09:37 Total Bilirubin 0.20 mg/dL (0.1-1.2) 11/09/19 04:02 AST 21 units/L (5-40) 11/09/19 04:02 ALT 22 units/L (7-56) 11/09/19 04:02 Alkaline Phosphatase 86 units/L (35-129) 11/09/19 04:02 Lactate Dehydrogenase 271 units/L (91-180) H 11/09/19 09:37 Total Creatine Kinase 802 units/L (30-135) H 11/06/19 08:35 Troponin T 0.014 ng/mL (0.00-0.029) 11/05/19 23:03 C-Reactive Protein 16.10 mg/dL (0.00-1.30) H 11/09/19 09:37 Total Protein 7.3 g/dL (6.3-8.2) 11/09/19 04:02 Albumin 2.5 g/dL (3.9-5) L 11/09/19 04:02 Albumin/Globulin Ratio 0.5 % 11/09/19 04:02 Procalcitonin 0.60 ng/mL (<0.15) 11/09/19 09:37 TSH 0.214 mlU/mL (0.270-4.200) L 11/05/19 23:03 Thyroxine (T4) 9.8 ug/dL (4.0-12.0) 11/06/19 05:25 Urine Color Brianna (Yellow) 11/07/19 08:10 Urine Turbidity Cloudy (Clear) 11/07/19 08:10 Urine pH 6.0 (5.0-7.0) 11/07/19 08:10 Ur Specific [place] 1.017 (1.003-1.030) 11/07/19 08:10 Urine Protein 100 mg/dl mg/dL (Negative) 11/07/19 08:10 Urine Glucose (UA) Neg mg/dL (Negative) 11/07/19 08:10 Urine Ketones Tr mg/dL (Negative) 11/07/19 08:10 Urine Blood Mod (Negative) 11/07/19 08:10 Urine Nitrite Pos (Negative) 11/07/19 08:10 Urine Bilirubin Neg (Negative) 11/07/19 08:10 Urine Urobilinogen < 2.0 mg/dL (<2.0) 11/07/19 08:10 Ur Leukocyte Esterase Lg (Negative) 11/07/19 08:10 Urine WBC (Auto) 65.0 /HPF (0.0-6.0) H 11/07/19 08:10 Urine RBC (Auto) 3.0 /HPF (0.0-6.0) 11/07/19 08:10 U Epithel Cells (Auto) 1.0 /HPF (0-13.0) 11/07/19 08:10 Urine Bacteria (Auto) 3+ /HPF (Negative) 11/07/19 08:10 Urine Mucus Few /HPF 11/07/19 08:10 Urine Yeast (Budding) 2+ /HPF 11/05/19 21:44 Urine Eosinophils None seen (None Seen) 11/07/19 08:10 Urine Creatinine 111.2 mg/dL (0.1-20.0) H 11/07/19 08:10 Protein/Creatinin Ratio 1.41 11/07/19 08:10 Urine Sodium 41 mmol/L 11/07/19 08:10 Urine Urea Nitrogen 894 11/07/19 08:10 Urine Total Protein 157 mg/dL (5-11.8) H 11/07/19 08:10 Nasal Screen MRSA (PCR) Positive (Negative) 11/06/19 13:30 Random Vancomycin 7.7 ug/mL (0-40.0) 11/07/19 05:03 Coronavirus (PCR) Positive (Negative) A 11/06/19 09:56 Microbiology: Microbiology 11/07/19 08:10 Urine,Clean Catch Urine Culture - Final 11/05/19 23:03 Peripheral/Venous Blood Culture - Preliminary NO GROWTH AFTER 72 HOURS 11/05/19 22:57 Peripheral/Venous Blood Culture - Preliminary NO GROWTH AFTER 72 HOURS 11/05/19 21:40 Urine,Catheterized - Straight Catheter Urine Culture - Final Klebsiella Pneumoniae To/IV: Voiding Method Indwelling Catheter IV Catheter Type [Left Upper INT / Saline Lock arm] IV Catheter Type [Left INT / Saline Lock Antecubital] IV Catheter Type [Right Hand] INT / Saline Lock Active Medications - Current Medications Current Medications: Generic Name Dose Route Start Last Admin Trade Name Freq PRN Reason Stop Dose Admin Acetaminophen 650 mg 11/06/19 02:04 11/06/19 07:04 Tylenol PO 650 mg Q4H PRN Administration Fever >101 Amlodipine Besylate 10 mg 11/06/19 10:00 11/09/19 09:50 Amlodipine PO 10 mg DAILY COLE Administration Dexamethasone 6 mg 11/08/19 10:00 11/09/19 09:49 Decadron IV 11/17/19 10:01 6 mg DAILY COLE Administration Doxycycline Hyclate 100 mg 11/08/19 22:00 11/09/19 09:51 Vibramycin PO 11/11/19 21:59 100 mg BID COLE Administration Famotidine 20 mg 11/06/19 22:00 11/08/19 22:52 Pepcid PO 20 mg QHS COLE Administration Ferrous Sulfate 325 mg 11/06/19 07:30 11/09/19 14:33 Feosol PO 325 mg QAC COLE Administration Heparin Sodium (Porcine) 5,000 unit 11/06/19 02:15 11/09/19 09:51 Heparin SUB-Q 5,000 unit Q12HR COLE Administration Hydralazine HCl 50 mg 11/06/19 08:00 11/09/19 14:32 Apresoline PO 50 mg TID COLE Administration Cefepime HCl 2 gm in 100 mls @ 200 mls/hr 11/06/19 10:00 11/09/19 09:49 Cefepime/Ns 2 Gm/100 Ml IV 11/11/19 23:59 200 mls/hr Q24HR COLE Administration Protocol Dextrose 1,000 mls @ 100 mls/hr 11/08/19 13:00 11/08/19 18:06 D5w IV 75 mls/hr DIRECT COLE Administration REMDESIVIR 100 mg/ Sodium 250 mls @ 500 mls/hr 11/09/19 21:00 Chloride IV 11/12/19 21:29 Q24HR@2100 COLE Sodium Chloride 50 ml 11/08/19 11:00 11/08/19 13:59 Nacl 0.9% IV 11/12/19 21:01 50 ml 2100 COLE Administration Nutrition/Malnutrition Assess - Dietary Evaluation Nutrition/Malnutrition Findings: Nutrition Notes Start: 11/06/19 12:02 Freq: Status: Active Protocol: Document 11/06/19 12:04 CW (Rec: 11/06/19 13:15 CW [id number]) Co-Sign 11/06/19 12:04 LP Nutrition Notes 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 Previously on pureed diet with no salt, house supplement tid , and pro-stat 30mL bid. Consult for MST and skin assessment. Pt with AMS and decreased responsiveness. Pt has sacral wound. Pt is not able to feed herself. Pt has temporal wasting and teeth missing. 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 No Is Patient Ambulatory and/or Out of Bed No REE-([facility]-confined to bed) 1159.164 Kcal/Kg value to use for calculation 35 Approximate Energy Requirements Using 1588 kcal/Kg Calculation Used for Recommendations Kcal/kg Additional Notes Protein needs are 54-68g (1.2- 1.5 g/kg) Fluid needs are 1ml/kcal Nutrition Intervention Change Diet Order: pureed Add Supplement/Snack (indicate name/kcal Ensure Enlive Vanilla tid /protein ) Provides kCal: 1,050 Provides Protein (gm) 60 Goal #1 meet at least 75% of kcal and protein needs via pureed diet and supplements Goal #2 wound healing Anticipated Discharge Needs: pureed diet with ONS Follow-Up By: 11/10/19 Additional Comments follow for po tollerence/ intake and wound healing
[2019-11-09] MEDS ORDERED: REMDESIVIR 100 MG in SODIUM CHLORIDE 0.9% 250ML 250 ML IV SCH (21:00)
[2019-11-09] MEDS: FAMOTIDINE 20 MG TAB PO SCH (23:46)
[2019-11-10] MEDS: SODIUM CHLORIDE 0.9% 50 ML IVPB IV SCH (00:31)
[2019-11-10] MEDS: REMDESIVIR 100 MG in SODIUM CHLORIDE 0.9% 250ML 250 ML IV SCH (00:32)
[2019-11-10 02:45] LABS: Hematocrit 28.3 % (30.3-42.9); Hemoglobin 8.7 gm/dl (10.1-14.3); Mean Corpuscular HGB Conc 31 % (30-34); Mean Corpuscular Volume 91 fl (79-97); Platelet Count 508 K/mm3 (140-440); Red Cell Distribution Width 13.7 % (13.2-15.2)
[2019-11-10 02:56] LABS: Albumin 2.6 g/dL (3.9-5); Calcium 9.8 mg/dL (8.4-10.2)
[2019-11-10 04:22] LABS: Basophils % (Manual) 0 % (0.0-1.8); Eosinophils % (Manual) 0 % (0.0-4.3); Total Cells Counted 200
[2019-11-10 04:23] LABS: Anisocytosis 1+; Macrocytosis 1+; Platelet Estimate Consistent w Auto
[2019-11-10 06:46] LABS: Hematocrit 28.4 % (30.3-42.9); Hemoglobin 8.9 gm/dl (10.1-14.3); Mean Corpuscular HGB Conc 31 % (30-34); Mean Corpuscular Volume 89 fl (79-97); Platelet Count 559 K/mm3 (140-440); Red Cell Distribution Width 13.7 % (13.2-15.2)
[2019-11-10 07:31] LABS: Calcium 10.5 mg/dL (8.4-10.2)
[2019-11-10 08:47] LABS: Anisocytosis 1+; Basophils % (Manual) 0 % (0.0-1.8); Eosinophils % (Manual) 0 % (0.0-4.3); Total Cells Counted 100
[2019-11-10 08:48] LABS: Platelet Estimate Consistent w Auto
[2019-11-10] MEDS: FERROUS SULFATE 325 MG TAB PO SCH ×3 (09:39→18:24)
[2019-11-10] MEDS: DOXYCYCLINE 100 MG CAP PO SCH (09:39)
[2019-11-10] MEDS: amLODIPine 10 MG TAB PO SCH (09:39)
[2019-11-10] MEDS: hydrALAZINE 25 MG TAB PO SCH ×2 (09:40→13:13)
[2019-11-10] MEDS: HEPARIN 5,000 UNIT/1 ML VIAL SUB-Q SCH (09:41)
[2019-11-10] MEDS: DEXAMETHASONE 4 MG TAB PO SCH (09:47)
[2019-11-10] MEDS: DEXTROSE 5% IN WATER 1,000 ML IV SCH ×2 (11:14→18:48)
--- NOTE | 2019-11-10 13:41 | Progress Note ---
Assessment and Plan Assessment: Acute kidney injury 2/2 prerenal azotemia, cannot r/o ATN Hypernatremia due to poor oral intake Sepsis 2/2 COVID-19 COVID-19 Non-Anion Gap Metabolic Acidosis UTI Acute Encephalopathy Plan: Renal function reviewed, stable, SCr level was 1.2 today, yesterday's SCr level was 1.2 Most recent serum Na level was 166 today, yesterday's was 157 Increase D5W infusion to 150 ml/hr for hypernatremia and needs free water intake Replete potassium and phosphorus Renal US- remains pending Calculated protein to cr ratio 1.4 g, urine eosinophils negative Pt on isolation for COVID-19, on remdesivir and decadron Renally dose medications Strict I&O monitor Renal plan discussed with Dr Tian Subjective Date of service: 11/10/19 Principal diagnosis: TAYLER Interval history: Patient on isolation for COVID-19, pt not examined to limit direct contact/resources of PPE, reviewed medical chart, labs, and notes. Objective - Vital Signs Vital signs: Vital Signs - 12hr 11/10/19 11/10/19 04:53 12:02 Temperature 98.4 F 98.0 F Pulse Rate 100 H 105 H Respiratory 16 20 Rate Blood Pressure 142/79 133/76 O2 Sat by Pulse 97 97 Oximetry - Lab 11/10/19 06:04 11/10/19 06:04 Most recent lab results Calcium 10.5 mg/dL (8.4-10.2) H 11/10/19 06:04 Phosphorus 1.70 mg/dL (2.5-4.5) L 11/09/19 04:02 Urine Creatinine 111.2 mg/dL (0.1-20.0) H 11/07/19 08:10 Urine Sodium 41 mmol/L 11/07/19 08:10 Urine Total Protein 157 mg/dL (5-11.8) H 11/07/19 08:10 Medications & Allergies - Medications Allergies/Adverse Reactions: Allergies benazepril Allergy (Verified 07/09/18 10:17) Unknown benazepril HCl [From Lotensin] Allergy (Verified 07/09/18 10:17) Swelling diltiazem [From Cardizem] Allergy (Verified 07/09/18 10:17) Unknown diltiazem HCl [From Cardizem] Allergy (Verified 07/09/18 10:17) Swelling losartan Allergy (Verified 07/09/18 10:17) Unknown Home Medications: Home Medications Medication Instructions Recorded Confirmed Last Taken Type Metoclopramide [Reglan TAB] 10 mg PO Q6H PRN #90 tablet 01/09/14 11/06/19 Unkno wn Rx Rosuvastatin (Nf) [Crestor] 20 mg PO QHS #30 tablet 01/09/14 11/06/19 Unknown Rx levETIRAcetam [Keppra TAB] 500 mg PO BID #60 tablet 01/09/14 11/07/19 Unknown Rx hydrALAZINE [Apresoline TAB] 25 mg PO Q8H #90 tab 01/28/14 11/06/19 Unknown Rx Acetaminophen 325 mg PO Q12HR PRN 07/06/18 11/06/19 Unknown History Amino Acids/Protein Hydrolys 30 ml PO BID 07/06/18 11/06/19 Unknown History [Pro-Stat Awc Liquid Packet] Calcium Carbonate [Tums 500MG CHEW] 1,000 mg PO Q12HR 07/06/18 11/06/19 Unknown History Famotidine [Pepcid] 20 mg PO QHS 07/06/18 11/07/19 Unknown History Ferrous Sulfate [Iron 325 MG] 325 mg PO QAC 07/06/18 11/07/19 Unknown History Lactobacillus Acidophil [Lactinex] 1 cap PO Q12HR 07/06/18 11/06/19 Unknown History Loratadine (Nf) [Claritin (Nf)] 10 mg PO DAILY 07/06/18 11/06/19 Unknown History Magnesium Hydroxide [Milk of 400 mg PO QWEEK 07/06/18 11/06/19 Unknown History Magnesia] Melatonin 3 mg PO QHS 07/06/18 11/06/19 Unknown History Metoprolol [Lopressor TAB] 50 mg PO QDAY 07/06/18 11/06/19 Unknown History Mirtazapine [Remeron 15mg TAB] 15 mg PO QHS 07/06/18 11/06/19 Unknown History Multivit with Minerals/Lutein [Pub 1 each PO QDAY 07/06/18 11/06/19 Unknown History Multivitamin 50 Plus Tab] Polyethylene Glycol 3350 [Gavilax] 8.5 gm PO QDAY 07/06/18 11/07/19 Unknown History Scopolamine Hydrobromide 1.5 mg TP Q3D 07/06/18 11/06/19 Unknown History Sennosides/Docusate [Senokot S] 1 tab PO QDAY 07/06/18 11/06/19 Unknown History amLODIPine 10 mg PO DAILY 07/06/18 11/06/19 Unknown History levETIRAcetam [Keppra TAB] 500 mg PO BID 07/06/18 11/06/19 Unknown History Collagenase (Nf) [Santyl (Nf)] 1 applic TRANSDERMA QDAY 11/06/19 11/07/19 Unknown History Active Medications: Generic Name Dose Route Start Last Admin Trade Name Freq PRN Reason Stop Dose Admin Acetaminophen 650 mg 11/06/19 02:04 11/06/19 07:04 Tylenol PO 650 mg Q4H PRN Administration Fever >101 Amlodipine Besylate 10 mg 11/06/19 10:00 11/10/19 09:39 Amlodipine PO 10 mg DAILY COLE Administration Dexamethasone 6 mg 11/10/19 10:00 11/10/19 09:47 Decadron PO 11/17/19 12:00 6 mg DAILY COLE Administration Doxycycline Hyclate 100 mg 11/08/19 22:00 11/10/19 09:39 Vibramycin PO 11/11/19 21:59 100 mg BID COLE Administration Famotidine 20 mg 11/06/19 22:00 11/09/19 23:46 Pepcid PO 20 mg QHS COLE Administration Ferrous Sulfate 325 mg 11/06/19 07:30 11/10/19 11:13 Feosol PO 325 mg QAC COLE Administration Heparin Sodium (Porcine) 5,000 unit 11/06/19 02:15 11/10/19 09:41 Heparin SUB-Q 5,000 unit Q12HR COLE Administration Hydralazine HCl 50 mg 11/06/19 08:00 11/10/19 13:13 Apresoline PO 50 mg TID COLE Administration Cefepime HCl 2 gm in 100 mls @ 200 mls/hr 11/06/19 10:00 11/09/19 09:49 Cefepime/Ns 2 Gm/100 Ml IV 11/11/19 23:59 200 mls/hr Q24HR COLE Administration Protocol Dextrose 1,000 mls @ 100 mls/hr 11/08/19 13:00 11/10/19 11:14 D5w IV 75 mls/hr DIRECT COLE Administration REMDESIVIR 100 mg/ Sodium 250 mls @ 500 mls/hr 11/09/19 21:00 11/10/19 00:32 Chloride IV 11/12/19 21:29 Not Given Q24HR@2100 COLE Sodium Chloride 50 ml 11/08/19 11:00 11/10/19 00:31 Nacl 0.9% IV 11/12/19 21:01 Not Given 2100 COLE
[2019-11-10] MEDS: CEFEPIME/NS 2 GM/100 ML 2 GM/100 ML BAG IV SCH (13:52)
--- NOTE | 2019-11-10 13:52 | Progress Note ---
Assessment and Plan Assessment and plan: 74-year-old female with history of CVA hemiplegia, seizure disorder, anemia, lung mass, UTI, pneumonia, hyperlipidemia who presents with altered mental status after fall 3 days ago. She is a resident of [facility] nursing [facility]. Here in the ER, she appeared lethargic. She gives limited history. She was able to say her first name. When asked if in pain she says "no". She was found to have leukocytosis, lactic acidosis, UTI, TAYLER and was admitted to the hospital for evaluation of sepsis secondary to pneumonia. Blood cultures were drawn and patient was started on vancomycin and cefepime. 11/05. Patient seen and examined at bedside this morning. She is unable to be further history. On IV antibiotics. Blood cultures have been drawn and awaiting results. Urine culture also pending. 11/06. COVID -19 came out positive. She has been placed on isolation. Urine culture is growing gram negative rods. On cefepime and vancomycin. Awaiting final blood culture results 11/07. She became hypoxic and has been started on dexamethasone and remdesivir. ID consulted. Continue antibiotics for UTI. Urine culture growing GN rods. Still has hypernatremia - nephrology is following. 11/08. On 6L nasal cannula. Still on remdesivir and dexamethasone. Urine culture grew Klebsiella pneumoniae. Sodium is still high. Need to encourage PO intake. 11/09. Sodium is still creeping up. She has poor oral intake. Increased D5 to 150cc/hr. She needs encouragement and assistance with meals and water intake. Discussed with RN. Nephrology recommendations appreciated. - Patient Problems (1) Sepsis Current Visit: Yes Status: Acute Plan to address problem: Secondary to PNA, UTI and COVID-19 Blood culture NTD Urine culture - Klebsiella Continue cefepime. Added doxycycline as MRSA nares+ Monitor vital signs closely (2) TAYLER (acute kidney injury) Current Visit: Yes Status: Acute Plan to address problem: From vasomotor nephropathy. This is improving. Continue IV hydration Nephrology recommendations appreciated Avoid nephrotoxic medications (3) Acute metabolic encephalopathy Current Visit: Yes Status: Acute Plan to address problem: Likely as result of sepsis Continue antibiotics. Nephrology following for renal failure (4) Hypernatremia Current Visit: Yes Status: Acute Plan to address problem: Continue hypotonic solution. Increase rate to 150 cc/h Trend sodium Nephrology recommendations appreciated (5) Urinary tract infection Current Visit: Yes Status: Acute Plan to address problem: Continue cefepime. Urine cultures - Klebsiella. (6) COVID-19 Current Visit: Yes Status: Acute Plan to address problem: Continue oxygen supplementation Continue remdesivir and dexamethasone ID following Continue to follow inflammatory markers (7) DVT prophylaxis Current Visit: No Status: Acute Plan to address problem: Heparin SQ History Interval history: See assessment and plan Hospitalist Physical - Constitutional Vitals: Temp Pulse Resp BP Pulse Ox 98.0 F 105 H 20 133/76 97 11/10/19 12:02 11/10/19 12:02 11/10/19 12:02 11/10/19 12:02 11/10/19 12:02 General appearance: Present: no acute distress - Neck Neck: Present: supple - Respiratory Respiratory: bilateral: diminished - Cardiovascular Heart Sounds: Present: S1 & S2 - Abdominal General gastrointestinal: soft, non-tender, non-distended, normal bowel sounds - Neurologic Neurologic: CNII-XII intact HEART Score - HEART Score Age: > 65 Risk factors: 1-2 risk factors Troponin: Troponin T 0.014 ng/mL (0.00-0.029) 11/05/19 23:03 Troponin: < normal limit - Critical Actions Critical Actions: 0-3 pts:0.9-1.7%risk of adverse cardiac event.Candidate for discharge Results - Labs CBC & Chem 7: 11/10/19 06:04 11/10/19 06:04 Labs: Laboratory Last Values WBC 22.7 K/mm3 (4.5-11.0) H 11/10/19 06:04 RBC 3.20 M/mm3 (3.65-5.03) L 11/10/19 06:04 Hgb 8.9 gm/dl (10.1-14.3) L 11/10/19 06:04 Hct 28.4 % (30.3-42.9) L 11/10/19 06:04 MCV 89 fl (79-97) 11/10/19 06:04 MCH 28 pg (28-32) 11/10/19 06:04 MCHC 31 % (30-34) 11/10/19 06:04 RDW 13.7 % (13.2-15.2) 11/10/19 06:04 Plt Count 559 K/mm3 (140-440) H 11/10/19 06:04 Lymph % (Auto) 5.1 % (13.4-35.0) L 11/07/19 05:03 [place] % (Auto) 4.2 % (0.0-7.3) 11/07/19 05:03 Eos % (Auto) 0.2 % (0.0-4.3) 11/07/19 05:03 Baso % (Auto) 0.5 % (0.0-1.8) 11/07/19 05:03 Lymph # 1.2 K/mm3 (1.2-5.4) 11/07/19 05:03 [place] # 1.0 K/mm3 (0.0-0.8) H 11/07/19 05:03 Eos # 0.0 K/mm3 (0.0-0.4) 11/07/19 05:03 Baso # 0.1 K/mm3 (0.0-0.1) 11/07/19 05:03 Add Manual Diff Complete 11/10/19 06:04 Total Counted 100 11/10/19 06:04 Seg Neutrophils % Dairy Bacteriologist 11/09/19 04:02 Seg Neuts % (Manual) 92.0 % (40.0-70.0) H 11/10/19 06:04 Band Neutrophils % 0 % 11/10/19 06:04 Lymphocytes % (Manual) 5.0 % (13.4-35.0) L 11/10/19 06:04 Reactive Lymphs % (Man) 0 % 11/10/19 06:04 Monocytes % (Manual) 3.0 % (0.0-7.3) 11/10/19 06:04 Eosinophils % (Manual) 0 % (0.0-4.3) 11/10/19 06:04 Basophils % (Manual) 0 % (0.0-1.8) 11/10/19 06:04 Metamyelocytes % 0 % 11/10/19 06:04 Myelocytes % 0 % 11/10/19 06:04 Promyelocytes % 0 % 11/10/19 06:04 Blast Cells % 0 % 11/10/19 06:04 Nucleated RBC % Not Reportable 11/10/19 06:04 Seg Neutrophils # 21.7 K/mm3 (1.8-7.7) H 11/07/19 05:03 Seg Neutrophils # Man 20.9 K/mm3 (1.8-7.7) H 11/10/19 06:04 Band Neutrophils # 0.0 K/mm3 11/10/19 06:04 Lymphocytes # (Manual) 1.1 K/mm3 (1.2-5.4) L 11/10/19 06:04 Abs React Lymphs (Man) 0.0 K/mm3 11/10/19 06:04 Monocytes # (Manual) 0.7 K/mm3 (0.0-0.8) 11/10/19 06:04 Eosinophils # (Manual) 0.0 K/mm3 (0.0-0.4) 11/10/19 06:04 Basophils # (Manual) 0.0 K/mm3 (0.0-0.1) 11/10/19 06:04 Metamyelocytes # 0.0 K/mm3 11/10/19 06:04 Myelocytes # 0.0 K/mm3 11/10/19 06:04 Promyelocytes # 0.0 K/mm3 11/10/19 06:04 Blast Cells # 0.0 K/mm3 11/10/19 06:04 WBC Morphology Not Reportable 11/10/19 06:04 Hypersegmented Neuts Not Reportable 11/10/19 06:04 Hyposegmented Neuts Not Reportable 11/10/19 06:04 Hypogranular Neuts Not Reportable 11/10/19 06:04 Smudge Cells Not Reportable 11/10/19 06:04 Toxic Granulation Not Reportable 11/10/19 06:04 Toxic Vacuolation Not Reportable 11/10/19 06:04 Dohle Bodies Not Reportable 11/10/19 06:04 Pelger-Huet Anomaly Not Reportable 11/10/19 06:04 Sofi Rods Not Reportable 11/10/19 06:04 Platelet Estimate Consistent w auto 11/10/19 06:04 Clumped Platelets Not Reportable 11/10/19 06:04 Plt Clumps, EDTA Not Reportable 11/10/19 06:04 Large Platelets Not Reportable 11/10/19 06:04 Giant Platelets Not Reportable 11/10/19 06:04 Platelet Satelliting Not Reportable 11/10/19 06:04 Plt Morphology Comment Not Reportable 11/10/19 06:04 RBC Morphology Not Reportable 11/10/19 06:04 Dimorphic RBCs Not Reportable 11/10/19 06:04 Polychromasia Not Reportable 11/10/19 06:04 Hypochromasia Not Reportable 11/10/19 06:04 Poikilocytosis Not Reportable 11/10/19 06:04 Anisocytosis 1+ 11/10/19 06:04 Microcytosis Not Reportable 11/10/19 06:04 Macrocytosis Not Reportable 11/10/19 06:04 Spherocytes Not Reportable 11/10/19 06:04 Pappenheimer Bodies Not Reportable 11/10/19 06:04 Sickle Cells Not Reportable 11/10/19 06:04 Target Cells Not Reportable 11/10/19 06:04 Tear Drop Cells Not Reportable 11/10/19 06:04 Ovalocytes Not Reportable 11/10/19 06:04 Helmet Cells Not Reportable 11/10/19 06:04 [place] Bodies Not Reportable 11/10/19 06:04 [place] Rings Not Reportable 11/10/19 06:04 [place] Cells Not Reportable 11/10/19 06:04 Bite Cells Not Reportable 11/10/19 06:04 Crenated Cell Not Reportable 11/10/19 06:04 Elliptocytes Not Reportable 11/10/19 06:04 Acanthocytes (Spur) Not Reportable 11/10/19 06:04 Rouleaux Not Reportable 11/10/19 06:04 Hemoglobin C Crystals Not Reportable 11/10/19 06:04 Schistocytes Not Reportable 11/10/19 06:04 Malaria parasites Not Reportable 11/10/19 06:04 [place] Bodies Not Reportable 11/10/19 06:04 Hem Pathologist Commnt No 11/10/19 06:04 PT 17.5 Sec. (12.2-14.9) H 11/05/19 23:03 INR 1.40 (0.87-1.13) H 11/05/19 23:03 D-Dimer 2218.71 ng/mlDDU (0-234) H 11/09/19 09:37 Sodium 166 mmol/L (137-145) H* 11/10/19 06:04 Potassium 3.8 mmol/L (3.6-5.0) 11/10/19 06:04 Chloride 129.3 mmol/L (98-107) H 11/10/19 06:04 Carbon Dioxide 20 mmol/L (22-30) L 11/10/19 06:04 Anion Gap 20 mmol/L 11/10/19 06:04 BUN 47 mg/dL (7-17) H 11/10/19 06:04 Creatinine 1.2 mg/dL (0.6-1.2) 11/10/19 06:04 Estimated GFR 53 ml/min 11/10/19 06:04 BUN/Creatinine Ratio 39 % 11/10/19 06:04 Glucose 99 mg/dL (65-100) 11/10/19 06:04 Lactic Acid 0.80 mmol/L (0.7-2.0) 11/05/19 23:57 Calcium 10.5 mg/dL (8.4-10.2) H 11/10/19 06:04 Phosphorus 1.70 mg/dL (2.5-4.5) L 11/09/19 04:02 Ferritin 1703.0 ng/mL (10.0-200.0) H 11/09/19 09:37 Total Bilirubin 0.20 mg/dL (0.1-1.2) 11/10/19 01:42 AST 22 units/L (5-40) 11/10/19 01:42 ALT 22 units/L (7-56) 11/10/19 01:42 Alkaline Phosphatase 83 units/L (35-129) 11/10/19 01:42 Lactate Dehydrogenase 271 units/L (91-180) H 11/09/19 09:37 Total Creatine Kinase 802 units/L (30-135) H 11/06/19 08:35 Troponin T 0.014 ng/mL (0.00-0.029) 11/05/19 23:03 C-Reactive Protein 16.10 mg/dL (0.00-1.30) H 11/09/19 09:37 Total Protein 7.0 g/dL (6.3-8.2) 11/10/19 01:42 Albumin 2.6 g/dL (3.9-5) L 11/10/19 01:42 Albumin/Globulin Ratio 0.6 % 11/10/19 01:42 Procalcitonin 0.60 ng/mL (<0.15) 11/09/19 09:37 TSH 0.214 mlU/mL (0.270-4.200) L 11/05/19 23:03 Thyroxine (T4) 9.8 ug/dL (4.0-12.0) 11/06/19 05:25 Urine Color Brianna (Yellow) 11/07/19 08:10 Urine Turbidity Cloudy (Clear) 11/07/19 08:10 Urine pH 6.0 (5.0-7.0) 11/07/19 08:10 Ur Specific [place] 1.017 (1.003-1.030) 11/07/19 08:10 Urine Protein 100 mg/dl mg/dL (Negative) 11/07/19 08:10 Urine Glucose (UA) Neg mg/dL (Negative) 11/07/19 08:10 Urine Ketones Tr mg/dL (Negative) 11/07/19 08:10 Urine Blood Mod (Negative) 11/07/19 08:10 Urine Nitrite Pos (Negative) 11/07/19 08:10 Urine Bilirubin Neg (Negative) 11/07/19 08:10 Urine Urobilinogen < 2.0 mg/dL (<2.0) 11/07/19 08:10 Ur Leukocyte Esterase Lg (Negative) 11/07/19 08:10 Urine WBC (Auto) 65.0 /HPF (0.0-6.0) H 11/07/19 08:10 Urine RBC (Auto) 3.0 /HPF (0.0-6.0) 11/07/19 08:10 U Epithel Cells (Auto) 1.0 /HPF (0-13.0) 11/07/19 08:10 Urine Bacteria (Auto) 3+ /HPF (Negative) 11/07/19 08:10 Urine Mucus Few /HPF 11/07/19 08:10 Urine Yeast (Budding) 2+ /HPF 11/05/19 21:44 Urine Eosinophils None seen (None Seen) 11/07/19 08:10 Urine Creatinine 111.2 mg/dL (0.1-20.0) H 11/07/19 08:10 Protein/Creatinin Ratio 1.41 11/07/19 08:10 Urine Sodium 41 mmol/L 11/07/19 08:10 Urine Urea Nitrogen 894 11/07/19 08:10 Urine Total Protein 157 mg/dL (5-11.8) H 11/07/19 08:10 Nasal Screen MRSA (PCR) Positive (Negative) 11/06/19 13:30 Random Vancomycin 7.7 ug/mL (0-40.0) 11/07/19 05:03 Coronavirus (PCR) Positive (Negative) A 11/06/19 09:56 Microbiology: Microbiology 11/05/19 23:03 Peripheral/Venous Blood Culture - Preliminary NO GROWTH AFTER 4 DAYS 11/05/19 22:57 Peripheral/Venous Blood Culture - Preliminary NO GROWTH AFTER 4 DAYS 11/07/19 08:10 Urine,Clean Catch Urine Culture - Final To/IV: Voiding Method External Female Catheter IV Catheter Type [Left Hand] INT / Saline Lock IV Catheter Type [Left Upper INT / Saline Lock arm] IV Catheter Type [Left INT / Saline Lock Antecubital] IV Catheter Type [Right Hand] INT / Saline Lock Active Medications - Current Medications Current Medications: Generic Name Dose Route Start Last Admin Trade Name Freq PRN Reason Stop Dose Admin Acetaminophen 650 mg 11/06/19 02:04 11/06/19 07:04 Tylenol PO 650 mg Q4H PRN Administration Fever >101 Amlodipine Besylate 10 mg 11/06/19 10:00 11/10/19 09:39 Amlodipine PO 10 mg DAILY COLE Administration Dexamethasone 6 mg 11/10/19 10:00 11/10/19 09:47 Decadron PO 11/17/19 12:00 6 mg DAILY COLE Administration Doxycycline Hyclate 100 mg 11/08/19 22:00 11/10/19 09:39 Vibramycin PO 11/11/19 21:59 100 mg BID COLE Administration Famotidine 20 mg 11/06/19 22:00 11/09/19 23:46 Pepcid PO 20 mg QHS COLE Administration Ferrous Sulfate 325 mg 11/06/19 07:30 11/10/19 11:13 Feosol PO 325 mg QAC COLE Administration Heparin Sodium (Porcine) 5,000 unit 11/06/19 02:15 11/10/19 09:41 Heparin SUB-Q 5,000 unit Q12HR COLE Administration Hydralazine HCl 50 mg 11/06/19 08:00 11/10/19 13:13 Apresoline PO 50 mg TID COLE Administration Cefepime HCl 2 gm in 100 mls @ 200 mls/hr 11/06/19 10:00 11/09/19 09:49 Cefepime/Ns 2 Gm/100 Ml IV 11/11/19 23:59 200 mls/hr Q24HR COLE Administration Protocol Dextrose 1,000 mls @ 150 mls/hr 11/08/19 13:00 11/10/19 11:14 D5w IV 75 mls/hr DIRECT COLE Administration REMDESIVIR 100 mg/ Sodium 250 mls @ 500 mls/hr 11/09/19 21:00 11/10/19 00:32 Chloride IV 11/12/19 21:29 Not Given Q24HR@2100 COLE Sodium Chloride 50 ml 11/08/19 11:00 11/10/19 00:31 Nacl 0.9% IV 11/12/19 21:01 Not Given 2100 COLE Nutrition/Malnutrition Assess - Dietary Evaluation Nutrition/Malnutrition Findings: Nutrition Notes Start: 11/06/19 12:02 Freq: Status: Active Protocol: Document 11/06/19 12:04 CW (Rec: 11/06/19 13:15 CW [id number]) Co-Sign 11/06/19 12:04 LP Nutrition Notes 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 Previously on pureed diet with no salt, house supplement tid , and pro-stat 30mL bid. Consult for MST and skin assessment. Pt with AMS and decreased responsiveness. Pt has sacral wound. Pt is not able to feed herself. Pt has temporal wasting and teeth missing. 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 No Is Patient Ambulatory and/or Out of Bed No REE-([facility]-confined to bed) 1159.164 Kcal/Kg value to use for calculation 35 Approximate Energy Requirements Using 1588 kcal/Kg Calculation Used for Recommendations Kcal/kg Additional Notes Protein needs are 54-68g (1.2- 1.5 g/kg) Fluid needs are 1ml/kcal Nutrition Intervention Change Diet Order: pureed Add Supplement/Snack (indicate name/kcal Ensure Enlive Vanilla tid /protein ) Provides kCal: 1,050 Provides Protein (gm) 60 Goal #1 meet at least 75% of kcal and protein needs via pureed diet and supplements Goal #2 wound healing Anticipated Discharge Needs: pureed diet with ONS Follow-Up By: 11/10/19 Additional Comments follow for po tollerence/ intake and wound healing
[2019-11-10] MEDS ORDERED: DEXTROSE 5% IN WATER 1,000 ML IV SCH (14:00)
--- NOTE | 2019-11-10 15:01 | Progress Note ---
Assessment and Plan Cultures: MRSA PCR positive. COVID 11/06/2019 positive. Urine cx 11/05/2019 Klebsiella resist to Bactrim/amp. Blood cx 11/05/2019 no growth so far. A/P: 74 y/o female with history of hypertension, seizures, CVA with hemiplegia, anemia, previous Kleb UTI, previous pneumonia, hyperlipidemia admitted on 11/05/2019 due to 3-day history of altered mental status and a fall: #Severe Sepsis: with tachycardia, leukocytosis, hypotension, AMS; secondary to COVID-19 infection and UTI: #Presumed severe COVID pneumonia: Initial CXR w/o obvious infiltrates, suspect interstitial pneumonia. Noted MRSA PCR positive. ?bacterial component possible. #Acute hypoxic respiratory failure: sats dropped 85%, now on 6L NC #TAYLER: creat 2.8--> now 1.2, renal on board #AMS: from COVID, UTI and high sodium #Hypernatremia: managed by hospitalist / renal Recs: -Continue IV/PO Dexamethasone 6 mg daily x 10 days -Continue IV Remdesivir x 5 days - CrCl>30. day 3 of 5 -Prophylactic anticoagulation based on d-dimer -Trend ferritin, LDH, d-dimer, CRP every 2-3 days for risk stratification and to assess disease progression- ferritin/CRP pending -Continue cefepime total 7 days (very high inital WBC, suspect from UTI/ HCAP) -Continue doxycycline total 7 days (very high inital WBC, suspect from HCAP +MRSA PCR) Kee Noriega MD [facility] M: [phone] O: [phone] F: [phone] Subjective Date of service: 11/10/19 Principal diagnosis: TAYLER Interval history: Afebrile, white count remains high at 22.7. Imaging personally reviewed: Chest x-ray: Development of confluent infiltrates Objective - Exam Narrative Exam: Physical exam deferred due to PPE conservation strategy. Please refer to primary team's note. - Constitutional Vitals: Vital Signs Temp Pulse Resp BP Pulse Ox 98.0 F 105 H 20 133/76 97 11/10/19 12:02 11/10/19 12:02 11/10/19 12:02 11/10/19 12:02 11/10/19 12:02 Temperature -Last 24 Hours Temperature 98.0 F Temperature 98.4 F Temperature 98.2 F Temperature 97.7 F - Labs CBC & Chem 7: 11/10/19 06:04 11/10/19 06:04 Labs: Abnormal lab results 11/09/19 11/10/19 11/10/19 Range/Units 19:12 01:42 01:42 WBC 22.1 H (4.5-11.0) K/mm3 RBC 3.10 L (3.65-5.03) M/mm3 Hgb 8.7 L (10.1-14.3) gm/dl Hct 28.3 L (30.3-42.9) % Plt Count 508 H (140-440) K/mm3 Seg Neuts % (Manual) 90.0 H (40.0-70.0) % Lymphocytes % (Manual) 5.0 L (13.4-35.0) % Seg Neutrophils # Man 19.9 H (1.8-7.7) K/mm3 Lymphocytes # (Manual) 1.1 L (1.2-5.4) K/mm3 Monocytes # (Manual) 1.1 H (0.0-0.8) K/mm3 Sodium 157 H 160 H (137-145) mmol/L Chloride 124.4 H 125.9 H (98-107) mmol/L Carbon Dioxide 19 L 20 L (22-30) mmol/L BUN 46 H 47 H (7-17) mg/dL Glucose 138 H 113 H (65-100) mg/dL Calcium (8.4-10.2) mg/dL Albumin 2.6 L (3.9-5) g/dL 11/10/19 11/10/19 Range/Units 06:04 06:04 WBC 22.7 H (4.5-11.0) K/mm3 RBC 3.20 L (3.65-5.03) M/mm3 Hgb 8.9 L (10.1-14.3) gm/dl Hct 28.4 L (30.3-42.9) % Plt Count 559 H (140-440) K/mm3 Seg Neuts % (Manual) 92.0 H (40.0-70.0) % Lymphocytes % (Manual) 5.0 L (13.4-35.0) % Seg Neutrophils # Man 20.9 H (1.8-7.7) K/mm3 Lymphocytes # (Manual) 1.1 L (1.2-5.4) K/mm3 Monocytes # (Manual) (0.0-0.8) K/mm3 Sodium 166 H* (137-145) mmol/L Chloride 129.3 H (98-107) mmol/L Carbon Dioxide 20 L (22-30) mmol/L BUN 47 H (7-17) mg/dL Glucose (65-100) mg/dL Calcium 10.5 H (8.4-10.2) mg/dL Albumin (3.9-5) g/dL
[2019-11-10 20:56] LABS: Calcium 9.3 mg/dL (8.4-10.2)
[2019-11-11] MEDS: hydrALAZINE 25 MG TAB PO SCH ×4 (00:33→23:11)
[2019-11-11] MEDS: REMDESIVIR 100 MG in SODIUM CHLORIDE 0.9% 250ML 250 ML IV SCH ×2 (00:34→23:10)
[2019-11-11] MEDS: FAMOTIDINE 20 MG TAB PO SCH ×2 (00:34→23:12)
[2019-11-11] MEDS: DOXYCYCLINE 100 MG CAP PO SCH ×2 (00:34→10:07)
[2019-11-11] MEDS: HEPARIN 5,000 UNIT/1 ML VIAL SUB-Q SCH ×3 (00:34→23:12)
[2019-11-11] MEDS ORDERED: ZOLPIDEM 5 MG TAB PO ONE (01:16)
[2019-11-11] MEDS: SODIUM CHLORIDE 0.9% 50 ML IVPB IV SCH ×2 (05:32→23:13)
--- NOTE | 2019-11-11 08:36 | Progress Note ---
Assessment and Plan Acute kidney injury 2/2 prerenal azotemia, cannot r/o ATN Hypernatremia due to poor oral intake Sepsis 2/2 COVID-19 COVID-19 Non-Anion Gap Metabolic Acidosis UTI Acute Encephalopathy Plan: stable kidney function Na is trending down, BMP from AM is pending Renally dose medications Strict I&O monitor Subjective Date of service: 11/11/19 Principal diagnosis: TAYLER Interval history: no overnight events Objective - Vital Signs Vital signs: Vital Signs - 12hr 11/10/19 23:27 Temperature 97.5 F L Pulse Rate 97 H Respiratory 18 Rate Blood Pressure 139/68 O2 Sat by Pulse 98 Oximetry - Lab 11/10/19 06:04 11/10/19 19:43 Most recent lab results Calcium 9.3 mg/dL (8.4-10.2) 11/10/19 19:43 Phosphorus 1.70 mg/dL (2.5-4.5) L 11/09/19 04:02 Urine Creatinine 111.2 mg/dL (0.1-20.0) H 11/07/19 08:10 Urine Sodium 41 mmol/L 11/07/19 08:10 Urine Total Protein 157 mg/dL (5-11.8) H 11/07/19 08:10 Medications & Allergies - Medications Allergies/Adverse Reactions: Allergies benazepril Allergy (Verified 07/09/18 10:17) Unknown benazepril HCl [From Lotensin] Allergy (Verified 07/09/18 10:17) Swelling diltiazem [From Cardizem] Allergy (Verified 07/09/18 10:17) Unknown diltiazem HCl [From Cardizem] Allergy (Verified 07/09/18 10:17) Swelling losartan Allergy (Verified 07/09/18 10:17) Unknown Home Medications: Home Medications Medication Instructions Recorded Confirmed Last Taken Type Metoclopramide [Reglan TAB] 10 mg PO Q6H PRN #90 tablet 01/09/14 11/06/19 Unknown Rx Rosuvastatin (Nf) [Crestor] 20 mg PO QHS #30 tablet 01/09/14 11/06/19 Unknown Rx levETIRAcetam [Keppra TAB] 500 mg PO BID #60 tablet 01/09/14 11/07/19 Unknown Rx hydrALAZINE [Apresoline TAB] 25 mg PO Q8H #90 tab 01/28/14 11/06/19 Unknown Rx Acetaminophen 325 mg PO Q12HR PRN 07/06/18 11/06/19 Unknown History Amino Acids/Protein Hydrolys 30 ml PO BID 07/06/18 11/06/19 Unknown History [Pro-Stat Awc Liquid Packet] Calcium Carbonate [Tums 500MG CHEW] 1,000 mg PO Q12HR 07/06/18 11/06/19 Unknown History Famotidine [Pepcid] 20 mg PO QHS 07/06/18 11/07/19 Unknown History Ferrous Sulfate [Iron 325 MG] 325 mg PO QAC 07/06/18 11/07/19 Unknown History Lactobacillus Acidophil [Lactinex] 1 cap PO Q12HR 07/06/18 11/06/19 Unknown History Loratadine (Nf) [Claritin (Nf)] 10 mg PO DAILY 07/06/18 11/06/19 Unknown History Magnesium Hydroxide [Milk of 400 mg PO QWEEK 07/06/18 11/06/19 Unknown History Magnesia] Melatonin 3 mg PO QHS 07/06/18 11/06/19 Unknown History Metoprolol [Lopressor TAB] 50 mg PO QDAY 07/06/18 11/06/19 Unknown History Mirtazapine [Remeron 15mg TAB] 15 mg PO QHS 07/06/18 11/06/19 Unknown History Multivit with Minerals/Lutein [Pub 1 each PO QDAY 07/06/18 11/06/19 Unknown History Multivitamin 50 Plus Tab] Polyethylene Glycol 3350 [Gavilax] 8.5 gm PO QDAY 07/06/18 11/07/19 Unknown History Scopolamine Hydrobromide 1.5 mg TP Q3D 07/06/18 11/06/19 Unknown History Sennosides/Docusate [Senokot S] 1 tab PO QDAY 07/06/18 11/06/19 Unknown History amLODIPine 10 mg PO DAILY 07/06/18 11/06/19 Unknown History levETIRAcetam [Keppra TAB] 500 mg PO BID 07/06/18 11/06/19 Unknown History Collagenase (Nf) [Santyl (Nf)] 1 applic TRANSDERMA QDAY 11/06/19 11/07/19 Unknown History Active Medications: Generic Name Dose Route Start Last Admin Trade Name Gaviota PRN Reason Stop Dose Admin Acetaminophen 650 mg 11/06/19 02:04 11/06/19 07:04 Tylenol PO 650 mg Q4H PRN Administration Fever >101 Amlodipine Besylate 10 mg 11/06/19 10:00 11/10/19 09:39 Amlodipine PO 10 mg DAILY COLE Administration Dexamethasone 6 mg 11/10/19 10:00 11/10/19 09:47 Decadron PO 11/17/19 12:00 6 mg DAILY COLE Administration Doxycycline Hyclate 100 mg 11/08/19 22:00 11/11/19 00:34 Vibramycin PO 11/11/19 21:59 100 mg BID COLE Administration Famotidine 20 mg 11/06/19 22:00 11/11/19 00:34 Pepcid PO 20 mg QHS COLE Administration Ferrous Sulfate 325 mg 11/06/19 07:30 11/10/19 18:24 Feosol PO 325 mg QAC COLE Administration Heparin Sodium (Porcine) 5,000 unit 11/06/19 02:15 11/11/19 00:34 Heparin SUB-Q 5,000 unit Q12HR COLE Administration Hydralazine HCl 50 mg 11/06/19 08:00 11/11/19 00:33 Apresoline PO 25 mg TID COLE Administration Cefepime HCl 2 gm in 100 mls @ 200 mls/hr 11/06/19 10:00 11/10/19 13:52 Cefepime/Ns 2 Gm/100 Ml IV 11/11/19 23:59 200 mls/hr Q24HR COLE Administration Protocol Dextrose 1,000 mls @ 150 mls/hr 11/08/19 13:00 11/10/19 18:48 D5w IV 75 mls/hr DIRECT COLE Administration REMDESIVIR 100 mg/ Sodium 250 mls @ 500 mls/hr 11/09/19 21:00 11/11/19 00:34 Chloride IV 11/12/19 21:29 500 mls/hr Q24HR@2100 COLE Administration Sodium Chloride 50 ml 11/08/19 11:00 11/11/19 05:32 Nacl 0.9% IV 11/12/19 21:01 Not Given 2100 COLE
[2019-11-11] MEDS: DEXAMETHASONE 4 MG TAB PO SCH (10:06)
[2019-11-11] MEDS: CEFEPIME/NS 2 GM/100 ML 2 GM/100 ML BAG IV SCH (10:06)
[2019-11-11] MEDS: amLODIPine 10 MG TAB PO SCH (10:07)
[2019-11-11] MEDS: FERROUS SULFATE 325 MG TAB PO SCH ×3 (10:07→18:48)
[2019-11-11] MEDS: DEXTROSE 5% IN WATER 1,000 ML IV SCH ×2 (10:11→23:34)
--- NOTE | 2019-11-11 14:47 | Progress Note ---
Assessment and Plan Cultures: MRSA PCR positive. COVID 11/06/2019 positive. Urine cx 11/05/2019 Klebsiella resist to Bactrim/amp. Blood cx 11/05/2019 no growth so far. A/P: 74 y/o female with history of hypertension, seizures, CVA with hemiplegia, anemia, previous Kleb UTI, previous pneumonia, hyperlipidemia admitted on 11/05/2019 due to 3-day history of altered mental status and a fall: #Severe Sepsis: with tachycardia, leukocytosis, hypotension, AMS; secondary to COVID-19 infection and UTI: #Presumed severe COVID pneumonia: Initial CXR w/o obvious infiltrates, suspect interstitial pneumonia. Noted MRSA PCR positive. ?bacterial component possible. #Acute hypoxic respiratory failure: sats dropped 85%, now on 6L NC #TAYLER: creat 2.8--> now 1.2, renal on board #AMS: from COVID, UTI and high sodium #Hypernatremia: managed by hospitalist / renal Recs: -Continue IV/PO Dexamethasone 6 mg daily x 10 days -Continue IV Remdesivir x 5 days - CrCl>30. day 4 of 5 -Prophylactic anticoagulation based on d-dimer -Trend ferritin, LDH, d-dimer, CRP every 2-3 days for risk stratification and to assess disease progression- ferritin/CRP pending -Continue cefepime total 7 days (very high inital WBC, suspect from UTI/ HCAP) -Continue doxycycline total 7 days (very high inital WBC, suspect from HCAP +MRSA PCR) Kee Noriega MD [facility] ([facility] M: [phone] O: [phone] F: [phone] Subjective Date of service: 11/11/19 Principal diagnosis: TAYLER Interval history: Afebrile, elevated white count at 22.7 Objective - Exam Narrative Exam: Physical exam deferred due to PPE conservation strategy. Please refer to primary team's note. - Constitutional Vitals: Vital Signs Temp Pulse Resp BP Pulse Ox 98.4 F 92 H 24 117/75 93 11/11/19 11:44 11/11/19 11:44 11/11/19 11:44 11/11/19 11:44 11/11/19 11:44 Temperature -Last 24 Hours Temperature 98.4 F Temperature 97.5 F Temperature 98.2 F - Labs CBC & Chem 7: 11/10/19 06:04 11/10/19 19:43 Labs: Abnormal lab results 11/10/19 Range/Units 19:43 Sodium 153 H D (137-145) mmol/L Potassium 5.2 H D (3.6-5.0) mmol/L Chloride 120.0 H (98-107) mmol/L Carbon Dioxide 19 L (22-30) mmol/L BUN 42 H (7-17) mg/dL Glucose 165 H (65-100) mg/dL
--- NOTE | 2019-11-11 15:57 | Progress Note ---
Assessment and Plan -- Sepsis Secondary to PNA, UTI and COVID-19 Blood culture NTD Urine culture - Klebsiella Continue cefepime. Added doxycycline as MRSA nares+ Monitor vital signs closely -- TAYLER (acute kidney injury) From vasomotor nephropathy. This is improving. Continue IV hydration Nephrology recommendations appreciated Avoid nephrotoxic medications -- Acute metabolic encephalopathy Likely as result of sepsis Continue antibiotics. Nephrology following for renal failure -- Hypernatremia Continue hypotonic solution. Increase rate to 150 cc/h Trend sodium Nephrology recommendations appreciated -- Urinary tract infection Continue cefepime. Urine cultures - Klebsiella. -- COVID-19 Continue oxygen supplementation Continue remdesivir and dexamethasone ID following, Continue to follow inflammatory markers --Severe protein calorie malnutrition, present on admission Speech therapy evaluation pending, patient is on great risks for aspiration We will also consult dietary -- DVT prophylaxis Heparin SQ Brief History; 74-year-old female with history of CVA hemiplegia, seizure disorder, anemia, lung mass, UTI, pneumonia, hyperlipidemia who presents with altered mental status after fall 3 days ago. She is a resident of [facility]. Here in the ER, she appeared lethargic. She gives limited history. She was able to say her first name. When asked if in pain she says "no". She was found to have leukocytosis, lactic acidosis, UTI, TAYLER and was admitted to the hospital for evaluation of sepsis secondary to pneumonia. Blood cultures were drawn and patient was started on vancomycin and cefepime. 11/05. Patient seen and examined at bedside this morning. She is unable to be further history. On IV antibiotics. Blood cultures have been drawn and awaiting results. Urine culture also pending. 11/06. COVID -19 came out positive. She has been placed on isolation. Urine cult ure is growing gram negative rods. On cefepime and vancomycin. Awaiting final blood culture results 11/07. She became hypoxic and has been started on dexamethasone and remdesivir. ID consulted. Continue antibiotics for UTI. Urine culture growing GN rods. Still has hypernatremia - nephrology is following. 11/08. On 6L nasal cannula. Still on remdesivir and dexamethasone. Urine culture grew Klebsiella pneumoniae. Sodium is still high. Need to encourage PO intake. 11/09. Sodium is still creeping up. She has poor oral intake. Increased D5 to 150cc/hr. She needs encouragement and assistance with meals and water intake. Discussed with RN. Nephrology recommendations appreciated. 11/10: cont on remdesivir (last day would be tomorrow, but she missed her dose on 11/08 because she lost iv access) and dexamethasone Subjective Date of service: 11/11/19 Principal diagnosis: TAYLER Interval history: Patient seen and examined. Medical records and medication list reviewed. No acute event overnight noted by the RN. Patient denies any chest pain or difficulty breathing. We will follow speech eval Discussed plan of care at bedside with patient,s RN. Objective - Exam Narrative Exam: GENERAL: This is a malnourished elderly -[place] female lying on bed appeared to be in no discomfort. HEENT: Normocephalic. Atraumatic. No conjunctival congestion or icterus. Patient has moist mucous membranes. NECK: Supple. Trachea midline. CHEST/LUNGS: Clear to auscultated bilaterally, breathing nonlabored. No wheezes crackles or rhonchi. HEART/CARDIOVASCULAR: Regular in rate and rhythm. S1 and S2 positive. ABDOMEN: Abdomen is soft, nontender. Patient has normal bowel sounds. SKIN: There is no rash. Warm and dry. NEURO: No focal motor deficit. Follows command. MUSCULOSKELETAL: No joint effusion or tenderness. Generalized muscle wasting EXTRIMITY: No edema, no cyanosis or clubbing. PSYCH: Cooperative. - Constitutional Vitals: Vital Signs - 12hr 11/11/19 11:44 Temperature 98.4 F Pulse Rate 92 H Respiratory 24 Rate Blood Pressure 117/75 O2 Sat by Pulse 93 Oximetry - Labs CBC & Chem 7: 11/13/19 04:38 11/13/19 08:46 Labs: Abnormal lab results 11/10/19 Range/Units 19:43 Sodium 153 H D (137-145) mmol/L Potassium 5.2 H D (3.6-5.0) mmol/L Chloride 120.0 H (98-107) mmol/L Carbon Dioxide 19 L (22-30) mmol/L BUN 42 H (7-17) mg/dL Glucose 165 H (65-100) mg/dL HEART Score - HEART Score Age: > 65 Risk factors: 1-2 risk factors Troponin: Troponin T 0.014 ng/mL (0.00-0.029) 11/05/19 23:03 Troponin: < normal limit - Critical Actions Critical Actions: 0-3 pts:0.9-1.7%risk of adverse cardiac event.Candidate for discharge
[2019-11-12 00:26] LABS: Basophils # (Auto) 0.1 K/mm3 (0.0-0.1); Basophils % (Auto) 0.5 % (0.0-1.8); Eosinophils % (Auto) 0.1 % (0.0-4.3); Hematocrit 26.5 % (30.3-42.9); Hemoglobin 8.1 gm/dl (10.1-14.3); Lymphocytes # (Auto) 1.3 K/mm3 (1.2-5.4); Lymphocytes % (Auto) 6.5 % (13.4-35.0); Mean Corpuscular HGB Conc 31 % (30-34); Mean Corpuscular Volume 90 fl (79-97); Monocytes # (Auto) 1.1 K/mm3 (0.0-0.8); Monocytes % (Auto) 5.7 % (0.0-7.3); Platelet Count 444 K/mm3 (140-440); Red Blood Count 2.95 M/mm3 (3.65-5.03); Red Cell Distribution Width 13.7 % (13.2-15.2)
[2019-11-12 00:42] LABS: Alanine Aminotransferase 31 units/L (7-56); Albumin 2.5 g/dL (3.9-5); BUN/Creatinine Ratio 41; Blood Urea Nitrogen 37 mg/dL (7-17); Calcium 8.2 mg/dL (8.4-10.2); Hemolysis Index 0
[2019-11-12 01:13] LABS: Albumin 2.1 g/dL (3.8-4.8); Gamma Globulin 1.4 g/dL (0.8-1.7)
[2019-11-12] MEDS ORDERED: guaiFENesin/CODEINE 100-10MG ORAL LIQD 5 ML PO PRN (01:26)
[2019-11-12 06:13] LABS: Basophils % (Auto) 0.2 % (0.0-1.8); Hemoglobin 7.8 gm/dl (10.1-14.3); Lymphocytes # (Auto) 1.6 K/mm3 (1.2-5.4); Lymphocytes % (Auto) 7.7 % (13.4-35.0); Mean Corpuscular HGB Conc 31 % (30-34); Mean Corpuscular Volume 90 fl (79-97); Monocytes # (Auto) 1.4 K/mm3 (0.0-0.8); Monocytes % (Auto) 6.9 % (0.0-7.3); Platelet Count 401 K/mm3 (140-440); Red Blood Count 2.76 M/mm3 (3.65-5.03); Red Cell Distribution Width 13.5 % (13.2-15.2)
[2019-11-12 08:45] LABS: BUN/Creatinine Ratio 41; Blood Urea Nitrogen 33 mg/dL (7-17); Calcium 8.8 mg/dL (8.4-10.2); Hemolysis Index 0
[2019-11-12] MEDS: DEXAMETHASONE 4 MG TAB PO SCH (11:30)
[2019-11-12] MEDS: HEPARIN 5,000 UNIT/1 ML VIAL SUB-Q SCH ×2 (11:30→22:23)
[2019-11-12] MEDS: amLODIPine 10 MG TAB PO SCH (11:30)
[2019-11-12] MEDS: DEXTROSE 5% IN WATER 1,000 ML IV SCH (11:31)
[2019-11-12] MEDS: FERROUS SULFATE 325 MG TAB PO SCH ×3 (11:31→18:38)
[2019-11-12] MEDS: hydrALAZINE 25 MG TAB PO SCH ×3 (11:31→22:23)
--- NOTE | 2019-11-12 14:21 | Progress Note ---
Assessment and Plan Cultures: MRSA PCR positive. COVID 11/06/2019 positive. Urine cx 11/05/2019 Klebsiella resist to Bactrim/amp. Blood cx 11/05/2019 no growth so far. A/P: 74 y/o female with history of hypertension, seizures, CVA with hemiplegia, anemia, previous Kleb UTI, previous pneumonia, hyperlipidemia admitted on 11/05/2019 due to 3-day history of altered mental status and a fall: #Severe Sepsis: with tachycardia, leukocytosis, hypotension, AMS; secondary to COVID-19 infection and UTI: #Presumed severe COVID pneumonia: Initial CXR w/o obvious infiltrates, suspect interstitial pneumonia. Noted MRSA PCR positive. ?bacterial component possible. #Acute hypoxic respiratory failure: sats dropped 85%, now on 6L NC #TAYLER: creat 2.8--> now 1.2, renal on board #AMS: from COVID, UTI and high sodium #Hypernatremia: managed by hospitalist / renal Recs: -Continue IV/PO Dexamethasone 6 mg daily x 10 days -Continue IV Remdesivir x 5 days - CrCl>30. day 4 of 5 -Prophylactic anticoagulation based on d-dimer -Trend ferritin, LDH, d-dimer, CRP every 2-3 days for risk stratification and to assess disease progression- ferritin/CRP pending -Continue cefepime total 7 days (very high inital WBC, suspect from UTI/ HCAP) -Continue doxycycline total 7 days (very high inital WBC, suspect from HCAP +MRSA PCR) -Ordered repeat procalcitonin for morning labs Kee Noriega MD [facility] ([facility] M: [phone] O: [phone] F: [phone] Subjective Date of service: 11/12/19 Principal diagnosis: TAYLER Interval history: Afebrile, white count remains high at 20. Objective - Exam Narrative Exam: Physical exam deferred due to PPE conservation strategy. Please refer to primary team's note. - Constitutional Vitals: Vital Signs Temp Pulse Resp BP Pulse Ox 98.6 F 81 16 157/80 98 11/12/19 04:04 11/12/19 04:04 11/12/19 04:04 11/12/19 04:04 11/12/19 04:04 Temperature -Last 24 Hours Temperature 98.6 F Temperature 97.5 F Temperature 98.7 F - Labs CBC & Chem 7: 11/12/19 05:31 11/12/19 08:03 Labs: Abnormal lab results 11/07/19 11/11/19 11/11/19 Range/Units 07:53 23:39 23:39 WBC 19.5 H (4.5-11.0) K/mm3 RBC 2.95 L (3.65-5.03) M/mm3 Hgb 8.1 L (10.1-14.3) gm/dl Hct 26.5 L (30.3-42.9) % MCH 27 L (28-32) pg Plt Count 444 H (140-440) K/mm3 Lymph % (Auto) 6.5 L (13.4-35.0) % [place] # 1.1 H (0.0-0.8) K/mm3 Seg Neutrophils % 87.2 H (40.0-70.0) % Seg Neutrophils # 17.0 H (1.8-7.7) K/mm3 Sodium 148 H (137-145) mmol/L Chloride 113.5 H (98-107) mmol/L Carbon Dioxide 20 L (22-30) mmol/L BUN 37 H (7-17) mg/dL Glucose 136 H (65-100) mg/dL Calcium 8.2 L (8.4-10.2) mg/dL Albumin 2.1 L 2.5 L (3.8-4.8) g/dL Vcnop-4-Zyjitptkq 0.7 H (0.2-0.3) g/dL Hhoyb-2-Nwhiwvkgj 1.2 H (0.5-0.9) g/dL PEP Interpretation see below H 11/12/19 11/12/19 Range/Units 05:31 08:03 WBC 20.0 H (4.5-11.0) K/mm3 RBC 2.76 L (3.65-5.03) M/mm3 Hgb 7.8 L (10.1-14.3) gm/dl Hct 25.0 L (30.3-42.9) % MCH (28-32) pg Plt Count (140-440) K/mm3 Lymph % (Auto) 7.7 L (13.4-35.0) % [place] # 1.4 H (0.0-0.8) K/mm3 Seg Neutrophils % 85.2 H (40.0-70.0) % Seg Neutrophils # 17.0 H (1.8-7.7) K/mm3 Sodium 149 H (137-145) mmol/L Chloride 112.5 H (98-107) mmol/L Carbon Dioxide (22-30) mmol/L BUN 33 H (7-17) mg/dL Glucose (65-100) mg/dL Calcium (8.4-10.2) mg/dL Albumin (3.8-4.8) g/dL Zjkdm-3-Nzmonsxcj (0.2-0.3) g/dL Aiivi-1-Xljrrxzzb (0.5-0.9) g/dL PEP Interpretation
--- NOTE | 2019-11-12 15:08 | Progress Note ---
Assessment and Plan Assessment: Acute kidney injury 2/2 prerenal azotemia, cannot r/o ATN Hypernatremia due to poor oral intake Sepsis 2/2 COVID-19 COVID-19 Non-Anion Gap Metabolic Acidosis UTI Acute Encephalopathy Plan: Renal function reviewed, stable, SCr level was 0.8 today, yesterday's SCr level was 0.9 Most recent serum Na level was 149 today, yesterday's was 148 On D5W. Needs free water intake when can take oral intake Renal US- remains pending Calculated protein to cr ratio 1.4 g, urine eosinophils negative Pt on isolation for COVID-19, on remdesivir and decadron Renally dose medications Strict I&O monitor Renal plan discussed with Dr. Tian Subjective Date of service: 11/12/19 Principal diagnosis: TAYLER Interval history: Patient on isolation for COVID-19, pt not examined to limit direct contac t/resources of PPE, reviewed medical chart, labs, and notes. Objective - Vital Signs Vital signs: Vital Signs - 12hr 11/12/19 04:04 Temperature 98.6 F Pulse Rate 81 Respiratory 16 Rate Blood Pressure 157/80 O2 Sat by Pulse 98 Oximetry - Lab 11/12/19 05:31 11/12/19 08:03 Most recent lab results Calcium 8.8 mg/dL (8.4-10.2) 11/12/19 08:03 Phosphorus 3.30 mg/dL (2.5-4.5) 11/11/19 23:39 Magnesium 1.70 mg/dL (1.7-2.3) 11/11/19 23:39 Urine Creatinine 111.2 mg/dL (0.1-20.0) H 11/07/19 08:10 Urine Sodium 41 mmol/L 11/07/19 08:10 Urine Total Protein 157 mg/dL (5-11.8) H 11/07/19 08:10 Medications & Allergies - Medications Allergies/Adverse Reactions: Allergies benazepril Allergy (Verified 07/09/18 10:17) Unknown benazepril HCl [From Lotensin] Allergy (Verified 07/09/18 10:17) Swelling diltiazem [From Cardizem] Allergy (Verified 07/09/18 10:17) Unknown diltiazem HCl [From Cardizem] Allergy (Verified 07/09/18 10:17) Swelling losartan Allergy (Verified 07/09/18 10:17) Unknown Home Medications: Home Medications Medication Instructions Recorded Confirmed Last Taken Type Metoclopramide [Reglan TAB] 10 mg PO Q6H PRN #90 tablet 01/09/14 11/06/19 Unknown Rx Rosuvastatin (Nf) [Crestor] 20 mg PO QHS #30 tablet 01/09/14 11/06/19 Unknown Rx levETIRAcetam [Keppra TAB] 500 mg PO BID #60 tablet 01/09/14 11/07/19 Unknown Rx hydrALAZINE [Apresoline TAB] 25 mg PO Q8H #90 tab 01/28/14 11/06/19 Unknown Rx Acetaminophen 325 mg PO Q12HR PRN 07/06/18 11/06/19 Unknown History Amino Acids/Protein Hydrolys 30 ml PO BID 07/06/18 11/06/19 Unknown History [Pro-Stat Awc Liquid Packet] Calcium Carbonate [Tums 500MG CHEW] 1,000 mg PO Q12HR 07/06/18 11/06/19 Unknown History Famotidine [Pepcid] 20 mg PO QHS 07/06/18 11/07/19 Unknown History Ferrous Sulfate [Iron 325 MG] 325 mg PO QAC 07/06/18 11/07/19 Unknown History Lactobacillus Acidophil [Lactinex] 1 cap PO Q12HR 07/06/18 11/06/19 Unknown History Loratadine (Nf) [Claritin (Nf)] 10 mg PO DAILY 07/06/18 11/06/19 Unknown History Magnesium Hydroxide [Milk of 400 mg PO QWEEK 07/06/18 11/06/19 Unknown History Magnesia] Melatonin 3 mg PO QHS 07/06/18 11/06/19 Unknown History Metoprolol [Lopressor TAB] 50 mg PO QDAY 07/06/18 11/06/19 Unknown History Mirtazapine [Remeron 15mg TAB] 15 mg PO QHS 07/06/18 11/06/19 Unknown History Multivit with Minerals/Lutein [Pub 1 each PO QDAY 07/06/18 11/06/19 Unknown History Multivitamin 50 Plus Tab] Polyethylene Glycol 3350 [Gavilax] 8.5 gm PO QDAY 07/06/18 11/07/19 Unknown History Scopolamine Hydrobromide 1.5 mg TP Q3D 07/06/18 11/06/19 Unknown History Sennosides/Docusate [Senokot S] 1 tab PO QDAY 07/06/18 11/06/19 Unknown History amLODIPine 10 mg PO DAILY 07/06/18 11/06/19 Unknown History levETIRAcetam [Keppra TAB] 500 mg PO BID 07/06/18 11/06/19 Unknown History Collagenase (Nf) [Santyl (Nf)] 1 applic TRANSDERMA QDAY 11/06/19 11/07/19 Unknown History Active Medications: Generic Name Dose Route Start Last Admin Trade Name Freq PRN Reason Stop Dose Admin Acetaminophen 650 mg 11/06/19 02:04 11/06/19 07:04 Tylenol PO 650 mg Q4H PRN Administration Fever >101 Amlodipine Besylate 10 mg 11/06/19 10:00 11/12/19 11:30 Amlodipine PO 10 mg DAILY COLE Administration Dexamethasone 6 mg 11/10/19 10:00 11/12/19 11:30 Decadron PO 11/17/19 12:00 6 mg DAILY COLE Administration Famotidine 20 mg 11/06/19 22:00 11/11/19 23:12 Pepcid PO 20 mg QHS COLE Administration Ferrous Sulfate 325 mg 11/06/19 07:30 11/12/19 13:20 Feosol PO Not Given QAC COLE Heparin Sodium (Porcine) 5,000 unit 11/06/19 02:15 11/12/19 11:30 Heparin SUB-Q 5,000 unit Q12HR COLE Administration Hydralazine HCl 50 mg 11/06/19 08:00 11/12/19 11:31 Apresoline PO 50 mg TID COLE Administration Dextrose 1,000 mls @ 150 mls/hr 11/08/19 13:00 11/12/19 11:31 D5w IV 75 mls/hr DIRECT COLE Administration REMDESIVIR 100 mg/ Sodium 250 mls @ 500 mls/hr 11/09/19 21:00 11/11/19 23:10 Chloride IV 11/12/19 21:29 500 mls/hr Q24HR@2100 COLE Administration Pseudoephedrine/Acetam/Chlorphenir 10 ml 11/12/19 01:26 11/12/19 01:31 Robitussin Ac PO 10 ml Q6H PRN Administration Cough Sodium Chloride 50 ml 11/08/19 11:00 11/11/19 23:13 Nacl 0.9% IV 11/12/19 21:01 50 ml 2100 COLE Administration
--- NOTE | 2019-11-12 18:29 | Progress Note ---
Assessment and Plan -- Sepsis Secondary to PNA, UTI and COVID-19 Blood culture NTD Urine culture - Klebsiella Continue cefepime. Added doxycycline as MRSA nares+ Monitor vital signs closely -- TAYLER (acute kidney injury) From vasomotor nephropathy. This is improving. Continue IV hydration Nephrology recommendations appreciated Avoid nephrotoxic medications -- Acute metabolic encephalopathy Likely as result of sepsis Continue antibiotics. Nephrology following for renal failure -- Hypernatremia Continue hypotonic solution. Increase rate to 150 cc/h Trend sodium Nephrology recommendations appreciated --Dysphagia, failed speech eval Need alternative feeding GI consulted for PEG tube placement --Severe protein calorie malnutrition, POA Patient will need tube feeding until PEG tube has placed Consult dietary -- Urinary tract infection Continue cefepime. Urine cultures - Klebsiella. -- COVID-19 Continue oxygen supplementation Continue remdesivir and dexamethasone ID following, Continue to follow inflammatory markers -- DVT prophylaxis Heparin SQ Brief History; 74-year-old female with history of CVA hemiplegia, seizure disorder, anemia, lung mass, UTI, pneumonia, hyperlipidemia who presents with altered mental status after fall 3 days ago. She is a resident of [facility]. Here in the ER, she appeared lethargic. She gives limited history. She was able to say her first name. When asked if in pain she says "no". She was found to have leukocytosis, lactic acidosis, UTI, TAYLER and was admitted to the hospital for evaluation of sepsis secondary to pneumonia. Blood cultures were drawn and patient was started on vancomycin and cefepime. 11/05. Patient seen and examined at bedside this morning. She is unable to be further history. On IV antibiotics. Blood cultures have been drawn and awaiting results. Urine culture also pending. 11/06. COVID -19 came out positive. She has been placed on isolation. Urine culture is growing gram negative rods. On cefepime and vancomycin. Awaiting final blood culture results 11/07. She became hypoxic and has been started on dexamethasone and remdesivir. ID consulted. Continue antibiotics for UTI. Urine culture growing GN rods. Still has hypernatremia - nephrology is following. 11/08. On 6L nasal cannula. Still on remdesivir and dexamethasone. Urine culture grew Klebsiella pneumoniae. Sodium is still high. Need to encourage PO intake. 11/09. Sodium is still creeping up. She has poor oral intake. Increased D5 to 150cc/hr. She needs encouragement and assistance with meals and water intake. Discussed with RN. Nephrology recommendations appreciated. 11/10: cont on remdesivir (she missed her dose on 11/08 because she lost iv access) and dexamethasone 11/11: cont on remdesivir (she missed her dose on 11/08 because she lost iv access, last dose is tomorrow) and dexamethasone. failed swallow eval, ST recommended PEG tube. consult GI. Cont d5W, monitor BMP Subjective Date of service: 11/12/19 Principal diagnosis: TAYLER Interval history: Patient seen and examined. Medical records and medication list reviewed. No acute event overnight noted by the RN. Patient denies any chest pain or difficulty breathing. Patient failed speech eval, currently n.p.o. Discussed plan of care at bedside with patient,s RN. Objective - Exam Narrative Exam: GENERAL: This is a malnourished elderly -[place] female lying on bed appeared to be in no discomfort. HEENT: Normocephalic. Atraumatic. No conjunctival congestion or icterus. Patient has moist mucous membranes. NECK: Supple. Trachea midline. CHEST/LUNGS: Clear to auscultated bilaterally, breathing nonlabored. No wheezes crackles or rhonchi. HEART/CARDIOVASCULAR: Regular in rate and rhythm. S1 and S2 positive. ABDOMEN: Abdomen is soft, nontender. Patient has normal bowel sounds. SKIN: There is no rash. Warm and dry. NEURO: No focal motor deficit. Follows command. MUSCULOSKELETAL: No joint effusion or tenderness. Generalized muscle wasting EXTRIMITY: No edema, no cyanosis or clubbing. PSYCH: Cooperative. - Constitutional Vitals: Vital Signs - 12hr 11/12/19 11/12/19 11/12/19 12:55 15:18 16:00 Temperature 99.1 F 99.3 F Pulse Rate 99 H 97 H 97 H Respiratory 16 18 Rate Blood Pressure 134/79 Blood Pressure 134/74 [Left] O2 Sat by Pulse 100 98 Oximetry - Labs CBC & Chem 7: 11/13/19 04:38 11/13/19 08:46 Labs: Abnormal lab results 11/07/19 11/11/19 11/11/19 Range/Units 07:53 23:39 23:39 WBC 19.5 H (4.5-11.0) K/mm3 RBC 2.95 L (3.65-5.03) M/mm3 Hgb 8.1 L (10.1-14.3) gm/dl Hct 26.5 L (30.3-42.9) % MCH 27 L (28-32) pg Plt Count 444 H (140-440) K/mm3 Lymph % (Auto) 6.5 L (13.4-35.0) % [place] # 1.1 H (0.0-0.8) K/mm3 Seg Neutrophils % 87.2 H (40.0-70.0) % Seg Neutrophils # 17.0 H (1.8-7.7) K/mm3 Sodium 148 H (137-145) mmol/L Chloride 113.5 H (98-107) mmol/L Carbon Dioxide 20 L (22-30) mmol/L BUN 37 H (7-17) mg/dL Glucose 136 H (65-100) mg/dL Calcium 8.2 L (8.4-10.2) mg/dL Albumin 2.1 L 2.5 L (3.8-4.8) g/dL Idjwb-4-Wxzkzqfvu 0.7 H (0.2-0.3) g/dL Aotnl-8-Rldnwvtip 1.2 H (0.5-0.9) g/dL PEP Interpretation see below H 11/12/19 11/12/19 Range/Units 05:31 08:03 WBC 20.0 H (4.5-11.0) K/mm3 RBC 2.76 L (3.65-5.03) M/mm3 Hgb 7.8 L (10.1-14.3) gm/dl Hct 25.0 L (30.3-42.9) % MCH (28-32) pg Plt Count (140-440) K/mm3 Lymph % (Auto) 7.7 L (13.4-35.0) % [place] # 1.4 H (0.0-0.8) K/mm3 Seg Neutrophils % 85.2 H (40.0-70.0) % Seg Neutrophils # 17.0 H (1.8-7.7) K/mm3 Sodium 149 H (137-145) mmol/L Chloride 112.5 H (98-107) mmol/L Carbon Dioxide (22-30) mmol/L BUN 33 H (7-17) mg/dL Glucose (65-100) mg/dL Calcium (8.4-10.2) mg/dL Albumin (3.8-4.8) g/dL Iymlp-6-Lfirldiup (0.2-0.3) g/dL Lnfyf-2-Clbnnwmmg (0.5-0.9) g/dL PEP Interpretation HEART Score - HEART Score Age: > 65 Risk factors: 1-2 risk factors Troponin: Troponin T 0.014 ng/mL (0.00-0.029) 11/05/19 23:03 Troponin: < normal limit - Critical Actions Critical Actions: 0-3 pts:0.9-1.7%risk of adverse cardiac event.Candidate for discharge
[2019-11-12] MEDS: FAMOTIDINE 20 MG TAB PO SCH (22:23)
[2019-11-12] MEDS: SODIUM CHLORIDE 0.9% 50 ML IVPB IV SCH (22:24)
[2019-11-12] MEDS: REMDESIVIR 100 MG in SODIUM CHLORIDE 0.9% 250ML 250 ML IV SCH (22:24)
[2019-11-13 05:45] LABS: Hematocrit 25.5 % (30.3-42.9); Hemoglobin 7.8 gm/dl (10.1-14.3); Mean Corpuscular HGB Conc 31 % (30-34); Mean Corpuscular Volume 90 fl (79-97); Platelet Count 387 K/mm3 (140-440); Red Blood Count 2.84 M/mm3 (3.65-5.03); Red Cell Distribution Width 13.5 % (13.2-15.2)
[2019-11-13 06:21] LABS: Basophils % (Auto) 0.2 % (0.0-1.8); Lymphocytes # (Auto) 1.9 K/mm3 (1.2-5.4); Lymphocytes % (Auto) 12.5 % (13.4-35.0); Monocytes # (Auto) 1.3 K/mm3 (0.0-0.8); Monocytes % (Auto) 8.7 % (0.0-7.3)
[2019-11-13] MEDS: FERROUS SULFATE 325 MG TAB PO SCH ×3 (09:06→16:57)
[2019-11-13] MEDS: DEXAMETHASONE 4 MG TAB PO SCH (09:06)
[2019-11-13] MEDS: hydrALAZINE 25 MG TAB PO SCH ×2 (09:07→14:34)
[2019-11-13] MEDS: HEPARIN 5,000 UNIT/1 ML VIAL SUB-Q SCH ×2 (09:07→21:05)
[2019-11-13] MEDS: amLODIPine 10 MG TAB PO SCH (09:07)
[2019-11-13 09:48] LABS: BUN/Creatinine Ratio 34; Blood Urea Nitrogen 31 mg/dL (7-17); Hemolysis Index 16
[2019-11-13] MEDS ORDERED: MAGNESIUM SULFATE 2 GM/50 ML BAG IV ONE (12:00)
--- NOTE | 2019-11-13 13:45 | Progress Note ---
Assessment and Plan Cultures: MRSA PCR positive. COVID 11/06/2019 positive. Urine cx 11/05/2019 Klebsiella resist to Bactrim/amp. Blood cx 11/05/2019 no growth so far. A/P: 74 y/o female with history of hypertension, seizures, CVA with hemiplegia, anemia, previous Kleb UTI, previous pneumonia, hyperlipidemia admitted on 11/05/2019 due to 3-day history of altered mental status and a fall: #Severe Sepsis: with tachycardia, leukocytosis, hypotension, AMS; secondary to COVID-19 infection and UTI: #Presumed severe COVID pneumonia: Initial CXR w/o obvious infiltrates, suspect interstitial pneumonia. Noted MRSA PCR positive. ?bacterial component possible. #Acute hypoxic respiratory failure: sats dropped 85%, now on 6L NC #TAYLER: creat 2.8--> now 1.2, renal on board #AMS: from COVID, UTI and high sodium #Hypernatremia: managed by hospitalist / renal Recs: -Continue IV/PO Dexamethasone 6 mg daily x 10 days -Continue IV Remdesivir x 5 days - CrCl>30. day 5 of 5 -Prophylactic anticoagulation based on d-dimer -Trend ferritin, LDH, d-dimer, CRP every 2-3 days for risk stratification and to assess disease progression- ferritin/CRP pending -Completed antibiotics, procal resolved -OK for DC from ID perspective. Kee Noriega MD [facility] ([facility]) M: [phone] O: [phone] F: [phone] Subjective Date of service: 11/13/19 Principal diagnosis: TAYLER Interval history: Afebrile, improving white count. Objective - Exam Narrative Exam: Physical exam deferred due to PPE conservation strategy. Please refer to primary team's note. - Constitutional Vitals: Vital Signs Temp Pulse Resp BP Pulse Ox 98.4 F 92 H 16 132/76 97 11/13/19 04:43 11/13/19 04:43 11/13/19 04:43 11/13/19 04:43 11/13/19 04:43 Temperature -Last 24 Hours Temperature 98.4 F Temperature 97.9 F Temperature 99.3 F - Labs CBC & Chem 7: 11/13/19 04:38 11/13/19 08:46 Labs: Abnormal lab results 11/13/19 11/13/19 11/13/19 Range/Units 04:38 04:38 08:46 WBC 14.6 H (4.5-11.0) K/mm3 RBC 2.84 L (3.65-5.03) M/mm3 Hgb 7.8 L (10.1-14.3) gm/dl Hct 25.5 L (30.3-42.9) % Lymph % (Auto) 12.5 L (13.4-35.0) % [place] % (Auto) 8.7 H (0.0-7.3) % [place] # 1.3 H (0.0-0.8) K/mm3 Seg Neutrophils % 78.6 H (40.0-70.0) % Seg Neutrophils # 11.7 H (1.8-7.7) K/mm3 Sodium 147 H (137-145) mmol/L Chloride 112.1 H (98-107) mmol/L Carbon Dioxide 20 L (22-30) mmol/L BUN 31 H (7-17) mg/dL Magnesium 1.50 L (1.7-2.3) mg/dL
[2019-11-13] MEDS ORDERED: LIPASE 10,500/PROTEASE 25,000/AMYLASE 43,750 (UNITS) DR CAP FEEDTUBE PRN (13:56)
[2019-11-13] MEDS ORDERED: SIMPLE SYRUP 15 ML FEEDTUBE PRN ×2 (13:56)
[2019-11-13] MEDS ORDERED: SODIUM BICARBONATE 325 MG TAB FEEDTUBE PRN (13:56)
--- NOTE | 2019-11-13 13:59 | Progress Note ---
Assessment and Plan -- Sepsis Secondary to PNA, UTI and COVID-19 Blood culture NTD Urine culture - Klebsiella Continue cefepime. Added doxycycline as MRSA nares+ Monitor vital signs closely -- TAYLER (acute kidney injury) From vasomotor nephropathy. This is improving. Continue IV hydration Nephrology recommendations appreciated Avoid nephrotoxic medications -- Acute metabolic encephalopathy Likely as result of sepsis Continue antibiotics. Nephrology following for renal failure -- Hypernatremia Continue hypotonic solution. Increase rate to 150 cc/h Trend sodium Nephrology recommendations appreciated --Dysphagia, failed speech eval Need alternative feeding GI consulted for PEG tube placement --Severe protein calorie malnutrition, POA Patient will need tube feeding until PEG tube has placed Consult dietary -- Urinary tract infection Continue cefepime. Urine cultures - Klebsiella. -- COVID-19 Continue oxygen supplementation Continue remdesivir and dexamethasone ID following, Continue to follow inflammatory markers -- DVT prophylaxis Heparin SQ Brief History; 74-year-old female with history of CVA hemiplegia, seizure disorder, anemia, lung mass, UTI, pneumonia, hyperlipidemia who presents with altered mental status after fall 3 days ago. She is a resident of [facility]. Here in the ER, she appeared lethargic. She gives limited history. She was able to say her first name. When asked if in pain she says "no". She was found to have leukocytosis, lactic acidosis, UTI, TAYLER and was admitted to the hospital for evaluation of sepsis secondary to pneumonia. Blood cultures were drawn and patient was started on vancomycin and cefepime. 11/05. Patient seen and examined at bedside this morning. She is unable to be further history. On IV antibiotics. Blood cultures have been drawn and awaiting results. Urine culture also pending. 11/06. COVID -19 came out positive. She has been placed on isolation. Urine culture is growing gram negative rods. On cefepime and vancomycin. Awaiting final blood culture results 11/07. She became hypoxic and has been started on dexamethasone and remdesivir. ID consulted. Continue antibiotics for UTI. Urine culture growing GN rods. Still has hypernatremia - nephrology is following. 11/08. On 6L nasal cannula. Still on remdesivir and dexamethasone. Urine culture grew Klebsiella pneumoniae. Sodium is still high. Need to encourage PO intake. 11/09. Sodium is still creeping up. She has poor oral intake. Increased D5 to 150cc/hr. She needs encouragement and assistance with meals and water intake. Discussed with RN. Nephrology recommendations appreciated. 11/10: cont on remdesivir (she missed her dose on 11/08 because she lost iv access) and dexamethasone 11/11: cont on remdesivir (she missed her dose on 11/08 because she lost iv access, last dose is tomorrow) and dexamethasone. failed swallow eval, ST recommended PEG tube. consult GI. Cont d5W, monitor BMP 11/12; wait on GI recommendation for PEG placement. Place [place] and start tube feeding for now. last dose of remdesivir today Subjective Date of service: 11/13/19 Principal diagnosis: TAYLER Interval history: Patient seen and examined. Medical records and medication list reviewed. No acute event overnight noted by the RN. Patient denies any chest pain or difficulty breathing. Patient failed speech eval, currently n.p.o. Discussed plan of care at bedside with patient,s RN. Objective - Exam Narrative Exam: GENERAL: This is a malnourished elderly -Monegasque female lying on bed appeared to be in no discomfort. HEENT: Normocephalic. Atraumatic. No conjunctival congestion or icterus. Pa quin has moist mucous membranes. NECK: Supple. Trachea midline. CHEST/LUNGS: Clear to auscultated bilaterally, breathing nonlabored. No wheezes crackles or rhonchi. HEART/CARDIOVASCULAR: Regular in rate and rhythm. S1 and S2 positive. ABDOMEN: Abdomen is soft, nontender. Patient has normal bowel sounds. SKIN: There is no rash. Warm and dry. NEURO: No focal motor deficit. Follows command. MUSCULOSKELETAL: No joint effusion or tenderness. Generalized muscle wasting EXTRIMITY: No edema, no cyanosis or clubbing. PSYCH: Cooperative. - Constitutional Vitals: Vital Signs - 12hr 11/13/19 11/13/19 04:43 11:13 Temperature 98.4 F 98.0 F Pulse Rate 92 H 95 H Respiratory 16 20 Rate Blood Pressure 132/76 143/78 O2 Sat by Pulse 97 99 Oximetry - Labs CBC & Chem 7: 11/13/19 04:38 11/14/19 10:47 Labs: Abnormal lab results 11/13/19 11/13/19 11/13/19 Range/Units 04:38 04:38 08:46 WBC 14.6 H (4.5-11.0) K/mm3 RBC 2.84 L (3.65-5.03) M/mm3 Hgb 7.8 L (10.1-14.3) gm/dl Hct 25.5 L (30.3-42.9) % Lymph % (Auto) 12.5 L (13.4-35.0) % [place] % (Auto) 8.7 H (0.0-7.3) % [place] # 1.3 H (0.0-0.8) K/mm3 Seg Neutrophils % 78.6 H (40.0-70.0) % Seg Neutrophils # 11.7 H (1.8-7.7) K/mm3 Sodium 147 H (137-145) mmol/L Chloride 112.1 H (98-107) mmol/L Carbon Dioxide 20 L (22-30) mmol/L BUN 31 H (7-17) mg/dL Magnesium 1.50 L (1.7-2.3) mg/dL HEART Score - HEART Score Age: > 65 Risk factors: 1-2 risk factors Troponin: Troponin T 0.014 ng/mL (0.00-0.029) 11/05/19 23:03 Troponin: < normal limit - Critical Actions Critical Actions: 0-3 pts:0.9-1.7%risk of adverse cardiac event.Candidate for discharge
--- NOTE | 2019-11-13 14:08 | Progress Note ---
Assessment and Plan Assessment: Acute kidney injury 2/2 prerenal azotemia, cannot r/o ATN Hypernatremia due to poor oral intake Sepsis 2/2 COVID-19 COVID-19 Non-Anion Gap Metabolic Acidosis UTI Acute Encephalopathy Plan: Renal function reviewed, stable, SCr level was 0.9 today, yesterday's SCr level was 0.8 Most recent serum Na level was 147 today, yesterday's was 149 On D5W. Needs free water intake when can take oral intake Renal US- remains pending Calculated protein to cr ratio 1.4 g, urine eosinophils negative Pt on isolation for COVID-19, on remdesivir and decadron Renally dose medications Strict I&O monitor Renal plan discussed with Dr. Tian Subjective Date of service: 11/13/19 Principal diagnosis: TAYLER Interval history: Patient on isolation for COVID-19, pt not examined to limit direct contac t/resources of PPE, reviewed medical chart, labs, and notes. Objective - Vital Signs Vital signs: Vital Signs - 12hr 11/13/19 11/13/19 04:43 11:13 Temperature 98.4 F 98.0 F Pulse Rate 92 H 95 H Respiratory 16 20 Rate Blood Pressure 132/76 143/78 O2 Sat by Pulse 97 99 Oximetry - Lab 11/13/19 04:38 11/13/19 08:46 Most recent lab results Calcium 9.0 mg/dL (8.4-10.2) 11/13/19 08:46 Phosphorus 3.30 mg/dL (2.5-4.5) 11/11/19 23:39 Magnesium 1.50 mg/dL (1.7-2.3) L 11/13/19 04:38 Urine Creatinine 111.2 mg/dL (0.1-20.0) H 11/07/19 08:10 Urine Sodium 41 mmol/L 11/07/19 08:10 Urine Total Protein 157 mg/dL (5-11.8) H 11/07/19 08:10 Medications & Allergies - Medications Allergies/Adverse Reactions: Allergies benazepril Allergy (Verified 07/09/18 10:17) Unknown benazepril HCl [From Lotensin] Allergy (Verified 07/09/18 10:17) Swelling diltiazem [From Cardizem] Allergy (Verified 04/30/19 10:17) Unknown diltiazem HCl [From Cardizem] Allergy (Verified 07/09/18 10:17) Swelling losartan Allergy (Verified 07/09/18 10:17) Unknown Home Medications: Home Medications Medication Instructions Recorded Confirmed Last Taken Type Metoclopramide [Reglan TAB] 10 mg PO Q6H PRN #90 tablet 01/09/14 11/06/19 Unknow n Rx Rosuvastatin (Nf) [Crestor] 20 mg PO QHS #30 tablet 01/09/14 11/06/19 Unknown Rx levETIRAcetam [Keppra TAB] 500 mg PO BID #60 tablet 01/09/14 11/07/19 Unknown Rx hydrALAZINE [Apresoline TAB] 25 mg PO Q8H #90 tab 01/28/14 11/06/19 Unknown Rx Acetaminophen 325 mg PO Q12HR PRN 07/06/18 11/06/19 Unknown History Amino Acids/Protein Hydrolys 30 ml PO BID 07/06/18 11/06/19 Unknown History [Pro-Stat [facility] Liquid Packet] Calcium Carbonate [Tums 500MG CHEW] 1,000 mg PO Q12HR 07/06/18 11/06/19 Unknown History Famotidine [Pepcid] 20 mg PO QHS 07/06/18 11/07/19 Unknown History Ferrous Sulfate [Iron 325 MG] 325 mg PO QAC 07/06/18 11/07/19 Unknown History Lactobacillus Acidophil [Lactinex] 1 cap PO Q12HR 07/06/18 11/06/19 Unknown History Loratadine (Nf) [Claritin (Nf)] 10 mg PO DAILY 07/06/18 11/06/19 Unknown History Magnesium Hydroxide [Milk of 400 mg PO QWEEK 07/06/18 11/06/19 Unknown History Magnesia] Melatonin 3 mg PO QHS 07/06/18 11/06/19 Unknown History Metoprolol [Lopressor TAB] 50 mg PO QDAY 07/06/18 11/06/19 Unknown History Mirtazapine [Remeron 15mg TAB] 15 mg PO QHS 07/06/18 11/06/19 Unknown History Multivit with Minerals/Lutein [Pub 1 each PO QDAY 07/06/18 11/06/19 Unknown History Multivitamin 50 Plus Tab] Polyethylene Glycol 3350 [Gavilax] 8.5 gm PO QDAY 07/06/18 11/07/19 Unknown History Scopolamine Hydrobromide 1.5 mg TP Q3D 07/06/18 11/06/19 Unknown History Sennosides/Docusate [Senokot S] 1 tab PO QDAY 07/06/18 11/06/19 Unknown History amLODIPine 10 mg PO DAILY 07/06/18 11/06/19 Unknown History levETIRAcetam [Keppra TAB] 500 mg PO BID 07/06/18 11/06/19 Unknown History Collagenase (Nf) [Santyl (Nf)] 1 applic TRANSDERMA QDAY 11/06/19 11/07/19 Unknown History Active Medications: Generic Name Dose Route Start Last Admin Trade Name Freq PRN Reason Stop Dose Admin Acetaminophen 650 mg 11/06/19 02:04 11/06/19 07:04 Tylenol PO 650 mg Q4H PRN Administration Fever >101 Amlodipine Besylate 10 mg 11/06/19 10:00 11/13/19 09:07 Amlodipine PO 10 mg DAILY COLE Administration Lipase/Protease/Amylase 1 each 11/13/19 13:[address] 10,500 Unit FEEDTUBE PRN PRN For Clogged Feeding Tube Dexamethasone 6 mg 11/10/19 10:00 11/13/19 09:06 Decadron PO 11/17/19 12:00 6 mg DAILY COLE Administration Famotidine 20 mg 11/06/19 22:00 11/12/19 22:23 Pepcid PO 20 mg QHS COLE Administration Ferrous Sulfate 325 mg 11/06/19 07:30 11/13/19 12:19 Feosol PO Not Given QAC COLE Heparin Sodium (Porcine) 5,000 unit 11/06/19 02:15 11/13/19 09:07 Heparin SUB-Q 5,000 unit Q12HR COLE Administration Hydralazine HCl 50 mg 11/06/19 08:00 11/13/19 09:07 Apresoline PO 50 mg TID COLE Administration Dextrose 1,000 mls @ 150 mls/hr 11/08/19 13:00 11/12/19 11:31 D5w IV 75 mls/hr DIRECT COLE Administration Levetiracetam 750 mg/ Dextrose 107.5 mls @ 400 mls/hr 11/13/19 22:00 IV Q12HR COLE Pseudoephedrine/Acetam/Chlorphenir 10 ml 11/12/19 01:26 11/12/19 01:31 Robitussin Ac PO 10 ml Q6H PRN Administration Cough Simple Syrup 15 ml 11/13/19 13:56 Simple Syrup FEEDTUBE PRN PRN Hypoglycemia Simple Syrup 30 ml 11/13/19 13:56 Simple Syrup FEEDTUBE PRN PRN Hypoglycemia Sodium Bicarbonate 325 mg 11/13/19 13:56 Sodium Bicarbonate FEEDTUBE PRN PRN For Clogged Feeding Tube
[2019-11-13] MEDS: levETIRAcetam 750 MG in DEXTROSE 5% IN WATER 100 ML IV SCH (21:06)
[2019-11-13] MEDS: FAMOTIDINE 20 MG TAB PO SCH (23:14)
[2019-11-14] MEDS: DEXTROSE 5% IN WATER 1,000 ML IV SCH (03:11)
[2019-11-14] MEDS: hydrALAZINE 25 MG TAB PO SCH ×4 (06:06→23:47)
[2019-11-14] MEDS: FERROUS SULFATE 325 MG TAB PO SCH ×3 (07:30→16:37)
[2019-11-14] MEDS: levETIRAcetam 750 MG in DEXTROSE 5% IN WATER 100 ML IV SCH (09:34)
[2019-11-14] MEDS: HEPARIN 5,000 UNIT/1 ML VIAL SUB-Q SCH ×2 (10:00→22:51)
[2019-11-14] MEDS: amLODIPine 10 MG TAB PO SCH (10:00)
[2019-11-14] MEDS ORDERED: cloNIDine TTS 0.2 MG/24 HR PATCH TD SCH (11:00)
[2019-11-14 11:38] LABS: BUN/Creatinine Ratio 40; Blood Urea Nitrogen 32 mg/dL (7-17); Calcium 9.1 mg/dL (8.4-10.2); Hemolysis Index 11
--- NOTE | 2019-11-14 12:38 | XRay Report ---
ABDOMEN 1 VIEW INDICATION / CLINICAL INFORMATION: NG tube placement. COMPARISON: None available. FINDINGS: TUBES / LINES: The NG tube terminates over the gastric antrum. BOWEL GAS PATTERN: No significant abnormality. FREE AIR / EXTRALUMINAL GAS: None seen. ADDITIONAL FINDINGS: No significant additional findings. IMPRESSION: Satisfactory positioning of the NG tube. Signer Name: Jean Marie Swenson MD Signed: 11/14/2019 12:33 PM Workstation Name: [id number]
--- NOTE | 2019-11-14 14:29 | Progress Note ---
Assessment and Plan Acute kidney injury 2/2 prerenal azotemia, cannot r/o ATN Hypernatremia due to poor oral intake Sepsis 2/2 COVID-19 COVID-19 Non-Anion Gap Metabolic Acidosis UTI Acute Encephalopathy Plan: Renal function reviewed, stable, SCr level was 0.8 today, yesterday's SCr level was 0.9 Most recent serum Na level was 141 today Replete potassium TAYLER and hypernatremia resolved, we will sign off Renal US pending Calculated protein to cr ratio 1.4 g, urine eosinophils negative Pt on isolation for COVID-19 Renally dose meds Strict I&O Renal plan d/w Dr Tian Subjective Principal diagnosis: TAYLER Interval history: Pt on isolation for COVID-19, pt not examined to limit direct contact/resources of PPE, reviewed medical chart, labs, and notes. Objective - Vital Signs Vital signs: Vital Signs - 12hr 11/14/19 11/14/19 11/14/19 05:03 11:05 11:06 Temperature 98.5 F 97.7 F Pulse Rate 85 95 H Respiratory 20 20 Rate Blood Pressure 173/89 118/74 O2 Sat by Pulse 94 94 Oximetry - Lab 11/13/19 04:38 11/14/19 10:47 Most recent lab results Calcium 9.1 mg/dL (8.4-10.2) 11/14/19 10:47 Phosphorus 3.30 mg/dL (2.5-4.5) 11/11/19 23:39 Magnesium 1.50 mg/dL (1.7-2.3) L 11/13/19 04:38 Urine Creatinine 111.2 mg/dL (0.1-20.0) H 11/07/19 08:10 Urine Sodium 41 mmol/L 11/07/19 08:10 Urine Total Protein 157 mg/dL (5-11.8) H 11/07/19 08:10 Medications & Allergies - Medications Allergies/Adverse Reactions: Allergies benazepril Allergy (Verified 07/09/18 10:17) Unknown benazepril HCl [From Lotensin] Allergy (Verified 07/09/18 10:17) Swelling diltiazem [From Cardizem] Allergy (Verified 07/09/18 10:17) Unknown diltiazem HCl [From Cardizem] Allergy (Verified 07/09/18 10:17) Swelling losartan Allergy (Verified 07/09/18 10:17) Unknown Home Medications: Home Medications Medication Instructions Recorded Confirmed Last Taken Type Metoclopramide [Reglan TAB] 10 mg PO Q6H PRN #90 tablet 01/09/14 11/06/19 Unknown Rx Rosuvastatin (Nf) [Crestor] 20 mg PO QHS #30 tablet 01/09/14 11/06/19 Unknown Rx levETIRAcetam [Keppra TAB] 500 mg PO BID #60 tablet 01/09/14 11/07/19 Unknown Rx hydrALAZINE [Apresoline TAB] 25 mg PO Q8H #90 tab 01/28/14 11/06/19 Unknown Rx Acetaminophen 325 mg PO Q12HR PRN 07/06/18 11/06/19 Unknown History Amino Acids/Protein Hydrolys 30 ml PO BID 07/06/18 11/06/19 Unknown History [Pro-Stat Awc Liquid Packet] Calcium Carbonate [Tums 500MG CHEW] 1,000 mg PO Q12HR 07/06/18 11/06/19 Unknown History Famotidine [Pepcid] 20 mg PO QHS 07/06/18 11/07/19 Unknown History Ferrous Sulfate [Iron 325 MG] 325 mg PO QAC 07/06/18 11/07/19 Unknown History Lactobacillus Acidophil [Lactinex] 1 cap PO Q12HR 07/06/18 11/06/19 Unknown History Loratadine (Nf) [Claritin (Nf)] 10 mg PO DAILY 07/06/18 11/06/19 Unknown History Magnesium Hydroxide [Milk of 400 mg PO QWEEK 07/06/18 11/06/19 Unknown History Magnesia] Melatonin 3 mg PO QHS 07/06/18 11/06/19 Unknown History Metoprolol [Lopressor TAB] 50 mg PO QDAY 07/06/18 11/06/19 Unknown History Mirtazapine [Remeron 15mg TAB] 15 mg PO QHS 07/06/18 11/06/19 Unknown History Multivit with Minerals/Lutein [Pub 1 each PO QDAY 07/06/18 11/06/19 Unknown History Multivitamin 50 Plus Tab] Polyethylene Glycol 3350 [Gavilax] 8.5 gm PO QDAY 07/06/18 11/07/19 Unknown History Scopolamine Hydrobromide 1.5 mg TP Q3D 07/06/18 11/06/19 Unknown History Sennosides/Docusate [Senokot S] 1 tab PO QDAY 07/06/18 11/06/19 Unknown History amLODIPine 10 mg PO DAILY 07/06/18 11/06/19 Unknown History levETIRAcetam [Keppra TAB] 500 mg PO BID 07/06/18 11/06/19 Unknown History Collagenase (Nf) [Santyl (Nf)] 1 applic TRANSDERMA QDAY 11/06/19 11/07/19 Unknown History Active Medications: Generic Name Dose Route Start Last Admin Trade Name Freq PRN Reason Stop Dose Admin Acetaminophen 650 mg 11/06/19 02:04 11/06/19 07:04 Tylenol PO 650 mg Q4H PRN Administration Fever >101 Amlodipine Besylate 10 mg 11/06/19 10:00 11/14/19 10:00 Amlodipine PO Not Given DAILY [facility] Lipase/Protease/Amylase 1 each 11/13/19 13:[address] 10,500 Unit FEEDTUBE PRN PRN For Clogged Feeding Tube Clonidine HCl 0.2 mg 11/14/19 11:00 11/14/19 11:54 Catapres-Tts Patch TD 0.2 mg Fr@1000 COLE Administration Dexamethasone 6 mg 11/10/19 10:00 11/13/19 09:06 Decadron PO 11/17/19 12:00 6 mg DAILY COLE Administration Famotidine 20 mg 11/06/19 22:00 11/13/19 23:14 Pepcid PO Not Given QHS [facility] Ferrous Sulfate 325 mg 11/06/19 07:30 11/14/19 11:30 Feosol PO Not Given QAC CO[facility] Heparin Sodium (Porcine) 5,000 unit 11/06/19 02:15 11/13/19 21:05 Heparin SUB-Q 5,000 unit Q12HR COLE Administration Hydralazine HCl 50 mg 11/06/19 08:00 11/14/19 08:00 Apresoline PO Not Given TID COLE Dextrose 1,000 mls @ 100 mls/hr 11/08/19 13:00 11/14/19 03:11 D5w IV 75 mls/hr DIRECT COLE Administration Levetiracetam 750 mg/ Dextrose 107.5 mls @ 400 mls/hr 11/13/19 22:00 11/14/19 09:34 IV 400 mls/hr Q12HR COLE Administration Pseudoephedrine/Acetam/Chlorphenir 10 ml 11/12/19 01:26 11/12/19 01:31 Robitussin Ac PO 10 ml Q6H PRN Administration Cough Simple Syrup 15 ml 11/13/19 13:56 Simple Syrup FEEDTUBE PRN PRN Hypoglycemia Simple Syrup 30 ml 11/13/19 13:56 Simple Syrup FEEDTUBE PRN PRN Hypoglycemia Sodium Bicarbonate 325 mg 11/13/19 13:56 Sodium Bicarbonate FEEDTUBE PRN PRN For Clogged Feeding Tube
[2019-11-14] MEDS: DEXAMETHASONE 4 MG TAB PO SCH (15:06)
--- NOTE | 2019-11-14 15:22 | Progress Note ---
Assessment and Plan -- Sepsis Secondary to PNA, UTI and COVID-19 Blood culture NTD Urine culture - Klebsiella Continue cefepime. Added doxycycline as MRSA nares+ Monitor vital signs closely -- TAYLER (acute kidney injury) From vasomotor nephropathy. This is improving. Continue IV hydration Nephrology recommendations appreciated Avoid nephrotoxic medications -- Acute metabolic encephalopathy Likely as result of sepsis Continue antibiotics. Nephrology following for renal failure -- Hypernatremia Continue hypotonic solution. Increase rate to 150 cc/h Trend sodium Nephrology recommendations appreciated --Dysphagia, failed speech eval Need alternative feeding GI consulted for PEG tube placement --Severe protein calorie malnutrition, POA Patient will need tube feeding until PEG tube has placed Consult dietary -- Urinary tract infection Continue cefepime. Urine cultures - Klebsiella. -- COVID-19 Continue oxygen supplementation Continue remdesivir and dexamethasone ID following, Continue to follow inflammatory markers -- DVT prophylaxis Heparin SQ Brief History; 74-year-old female with history of CVA hemiplegia, seizure disorder, anemia, lung mass, UTI, pneumonia, hyperlipidemia who presents with altered mental status after fall 3 days ago. She is a resident of [facility]. Here in the ER, she appeared lethargic. She gives limited history. She was able to say her first name. When asked if in pain she says "no". She was found to have leukocytosis, lactic acidosis, UTI, TAYLER and was admitted to the hospital for evaluation of sepsis secondary to pneumonia. Blood cultures were drawn and patient was started on vancomycin and cefepime. 11/05. Patient seen and examined at bedside this morning. She is unable to be further history. On IV antibiotics. Blood cultures have been drawn and awaiting results. Urine culture also pending. 11/06. COVID -19 came out positive. She has been placed on isolation. Urine culture is growing gram negative rods. On cefepime and vancomycin. Awaiting final blood culture results 11/07. She became hypoxic and has been started on dexamethasone and remdesivir. ID consulted. Continue antibiotics for UTI. Urine culture growing GN rods. Still has hypernatremia - nephrology is following. 11/08. On 6L nasal cannula. Still on remdesivir and dexamethasone. Urine culture grew Klebsiella pneumoniae. Sodium is still high. Need to encourage PO intake. 11/09. Sodium is still creeping up. She has poor oral intake. Increased D5 to 150cc/hr. She needs encouragement and assistance with meals and water intake. Discussed with RN. Nephrology recommendations appreciated. 11/10: cont on remdesivir (she missed her dose on 11/08 because she lost iv access) and dexamethasone 11/11: cont on remdesivir (she missed her dose on 11/08 because she lost iv access, last dose is tomorrow) and dexamethasone. failed swallow eval, ST recommended PEG tube. consult GI. Cont d5W, monitor BMP 11/12; wait on GI recommendation for PEG placement. Place Dobb[place] and start tube feeding for now. last dose of remdesivir today 11/13: pending PEG placement by GI, cont TF for now. Subjective Date of service: 11/14/19 Principal diagnosis: TAYLER Interval history: Patient seen and examined. Medical records and medication list reviewed. No acute event overnight noted by the RN. Patient denies any chest pain or difficulty breathing. Patient failed speech eval, currently n.p.o. and on TF Discussed plan of care at bedside with patient,s RN. Objective - Exam Narrative Exam: GENERAL: This is a malnourished elderly -Nepalese female lying on bed appeared to be in no discomfort. HEENT: Normocephalic. Atraumatic. No conjunctival congestion or icterus. Patient has moist mucous membranes. NECK: Supple. Trachea midline. CHEST/LUNGS: Clear to auscultated bilaterally, breathing nonlabored. No wheezes crackles or rhonchi. HEART/CARDIOVASCULAR: Regular in rate and rhythm. S1 and S2 positive. ABDOMEN: Abdomen is soft, nontender. Patient has normal bowel sounds. SKIN: There is no rash. Warm and dry. NEURO: No focal motor deficit. Follows command. MUSCULOSKELETAL: No joint effusion or tenderness. Generalized muscle wasting EXTRIMITY: No edema, no cyanosis or clubbing. PSYCH: Cooperative. - Constitutional Vitals: Vital Signs - 12hr 11/14/19 11/14/19 11/14/19 05:03 11:05 11:06 Temperature 98.5 F 97.7 F Pulse Rate 85 95 H Respiratory 20 20 Rate Blood Pressure 173/89 118/74 O2 Sat by Pulse 94 94 Oximetry - Labs CBC & Chem 7: 11/15/19 05:35 11/15/19 09:02 Labs: Abnormal lab results 11/14/19 Range/Units 10:47 Potassium 3.3 L (3.6-5.0) mmol/L Carbon Dioxide 21 L (22-30) mmol/L BUN 32 H (7-17) mg/dL Glucose 122 H (65-100) mg/dL HEART Score - HEART Score Age: > 65 Risk factors: 1-2 risk factors Troponin: Troponin T 0.014 ng/mL (0.00-0.029) 11/05/19 23:03 Troponin: < normal limit - Critical Actions Critical Actions: 0-3 pts:0.9-1.7%risk of adverse cardiac event.Candidate for discharge
--- NOTE | 2019-11-14 16:46 | Gastroenterology Consultation ---
History of Present Illness - Reason for Consult Consult date: 11/14/19 oropharygeal dysphagia Requesting physician: ELODIA LEDEZMA - History of Present Illness The patient is a 73 yo aaf who presented from SNF with worsening mental status, found to have COVID-19, currently with NG in place tolerating tube feeds. failed swallow study, GI consulted for PEG tube placement. Pt unable to provide history at time of exam. respiratory status is stable, receiving treatment for COVID. 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) Family history: no significant family history Medications and Allergies Allergies Allergy/AdvReac Type Severity Reaction Status Date / Time benazepril Allergy Unknown Verified 07/09/18 10:17 benazepril HCl Allergy Swelling Verified 07/09/18 10:17 [From Lotensin] diltiazem [From Cardizem] Allergy Unknown Verified 07/09/18 10:17 diltiazem HCl [From Cardizem] Allergy Swelling Verified 07/09/18 10:17 losartan Allergy Unknown Verified 07/09/18 10:17 Home Medications Medication Instructions Recorded Confirmed Last Taken Type Metoclopramide [Reglan TAB] 10 mg PO Q6H PRN #90 tablet 01/09/14 11/06/19 Unknown Rx Rosuvastatin (Nf) [Crestor] 20 mg PO QHS #30 tablet 01/09/14 11/06/19 Unknown Rx levETIRAcetam [Keppra TAB] 500 mg PO BID #60 tablet 01/09/14 11/07/19 Unknown Rx hydrALAZINE [Apresoline TAB] 25 mg PO Q8H #90 tab 01/28/14 11/06/19 Unknown Rx Acetaminophen 325 mg PO Q12HR PRN 07/06/18 11/06/19 Unknown History Amino Acids/Protein Hydrolys 30 ml PO BID 07/06/18 11/06/19 Unknown History [Pro-Stat Awc Liquid Packet] Calcium Carbonate [Tums 500MG CHEW] 1,000 mg PO Q12HR 07/06/18 11/06/19 Unknown History Famotidine [Pepcid] 20 mg PO QHS 07/06/18 11/07/19 Unknown History Ferrous Sulfate [Iron 325 MG] 325 mg PO QAC 07/06/18 11/07/19 Unknown History Lactobacillus Acidophil [Lactinex] 1 cap PO Q12HR 07/06/18 11/06/19 Unknown History Loratadine (Nf) [Claritin (Nf)] 10 mg PO DAILY 07/06/18 11/06/19 Unknown History Magnesium Hydroxide [Milk of 400 mg PO QWEEK 07/06/18 11/06/19 Unknown History Magnesia] Melatonin 3 mg PO QHS 07/06/18 11/06/19 Unknown History Metoprolol [Lopressor TAB] 50 mg PO QDAY 07/06/18 11/06/19 Unknown History Mirtazapine [Remeron 15mg TAB] 15 mg PO QHS 07/06/18 11/06/19 Unknown History Multivit with Minerals/Lutein [Pub 1 each PO QDAY 07/06/18 11/06/19 Unknown History Multivitamin 50 Plus Tab] Polyethylene Glycol 3350 [Gavilax] 8.5 gm PO QDAY 07/06/18 11/07/19 Unknown History Scopolamine Hydrobromide 1.5 mg TP Q3D 07/06/18 11/06/19 Unknown History Sennosides/Docusate [Senokot S] 1 tab PO QDAY 07/06/18 11/06/19 Unknown History amLODIPine 10 mg PO DAILY 07/06/18 11/06/19 Unknown History levETIRAcetam [Keppra TAB] 500 mg PO BID 07/06/18 11/06/19 Unknown History Collagenase (Nf) [Santyl (Nf)] 1 applic TRANSDERMA QDAY 11/06/19 11/07/19 Unknown History Active Meds: Active Medications Acetaminophen (Tylenol) 650 mg PO Q4H PRN PRN Reason: Fever >101 Last Admin: 11/06/19 07:04 Dose: 650 mg Documented by: Amlodipine Besylate (Amlodipine) 10 mg PO DAILY [facility] Last Admin: 11/14/19 10:00 Dose: Not Given Documented by: Lipase/Protease/Amylase (Soco Joshua 10,500 Unit) 1 each FEEDTUBE PRN PRN PRN Reason: For Clogged Feeding Tube Clonidine HCl (Catapres-Tts Patch) 0.2 mg TD Fr@1000 [facility] Last Admin: 11/14/19 11:54 Dose: 0.2 mg Documented by: Dexamethasone (Decadron) 6 mg PO DAILY [facility] Stop: 11/17/19 12:00 Last Admin: 11/14/19 15:06 Dose: 6 mg Documented by: Famotidine (Pepcid) 20 mg PO QHS [facility] Last Admin: 11/13/19 23:14 Dose: Not Given Documented by: Ferrous Sulfate (Feosol) 325 mg PO QAC [facility] Last Admin: 11/14/19 16:37 Dose: 325 mg Documented by: Heparin Sodium (Porcine) (Heparin) 5,000 unit SUB-Q Q12HR [facility] Last Admin: 11/14/19 10:00 Dose: 5,000 unit Documented by: Hydralazine HCl (Apresoline) 50 mg PO TID [facility] Last Admin: 11/14/19 15:07 Dose: 50 mg Documented by: Dextrose (D5w) 1,000 mls @ 100 mls/hr IV DIRECT [facility] Last Admin: 11/14/19 03:11 Dose: 75 mls/hr Documented by: Levetiracetam 750 mg/ Dextrose 107.5 mls @ 400 mls/hr IV Q12HR [facility] Last Admin: 11/14/19 09:34 Dose: 400 mls/hr Documented by: Pseudoephedrine/Acetam/Chlorphenir (Robitussin Ac) 10 ml PO Q6H PRN PRN Reason: Cough Last Admin: 11/12/19 01:31 Dose: 10 ml Documented by: Simple Syrup (Simple Syrup) 15 ml FEEDTUBE PRN PRN PRN Reason: Hypoglycemia Simple Syrup (Simple Syrup) 30 ml FEEDTUBE PRN PRN PRN Reason: Hypoglycemia Sodium Bicarbonate (Sodium Bicarbonate) 325 mg FEEDTUBE PRN PRN PRN Reason: For Clogged Feeding Tube Reviewed/updated patient's home and current medications Review of Systems - Review of Systems ROS unobtainable: due to mental status Exam - Constitutional Vital Signs: Temp Pulse Resp BP Pulse Ox 97.7 F 95 H 20 118/74 94 11/14/19 11:05 11/14/19 11:06 11/14/19 11:05 11/14/19 11:05 11/14/19 11:06 General appearance: no acute distress, cachectic, other (non-verbal) - EENT ENT: other (+NG tube) - Respiratory Respiratory effort: normal Respiratory: bilateral: CTA - Cardiovascular Rhythm: regular Heart Sounds: Present: S1 & S2 - Gastrointestinal General gastrointestinal: Present: soft, non-tender, non-distended, other (+ surgical scars, ? prior peg tube scar) - Labs CBC & Chem 7: 11/13/19 04:38 11/14/19 10:47 Lab Results: Laboratory Results - last 24 hr 11/14/19 10:47 Sodium 141 Potassium 3.3 L Chloride 106.9 Carbon Dioxide 21 L Anion Gap 16 BUN 32 H Creatinine 0.8 Estimated GFR > 60 BUN/Creatinine Ratio 40 Glucose 122 H Calcium 9.1 Assessment and Plan 1. Oropharyngeal dysphagia - failed swallow study with recommendations for PEG tube placement 2. COVID-19 3. AMS/dementia -will f/u early next week to determine timing of egd/peg during hospitalization.
--- NOTE | 2019-11-14 16:54 | Progress Note ---
Assessment and Plan Cultures: MRSA PCR positive. COVID 11/06/2019 positive. Urine cx 11/05/2019 Klebsiella resist to Bactrim/amp. Blood cx 11/05/2019 no growth so far. A/P: 74 y/o female with history of hypertension, seizures, CVA with hemiplegia, anemia, previous Kleb UTI, previous pneumonia, hyperlipidemia admitted on 11/05/2019 due to 3-day history of altered mental status and a fall: #Severe Sepsis: with tachycardia, leukocytosis, hypotension, AMS; secondary to COVID-19 infection and UTI: #Presumed severe COVID pneumonia: Initial CXR w/o obvious infiltrates, suspect interstitial pneumonia. Noted MRSA PCR positive. ?bacterial component possible. #Acute hypoxic respiratory failure: sats dropped 85%, now on 6L NC #TAYLER: creat 2.8--> now 1.2, renal on board #AMS: from COVID, UTI and high sodium #Hypernatremia: managed by hospitalist / renal Recs: -Continue IV/PO Dexamethasone 6 mg daily x 10 days -Completed Remdesivir -Prophylactic anticoagulation based on d-dimer -Trend ferritin, LDH, d-dimer, CRP every 2-3 days for risk stratification and to assess disease progression- ferritin/CRP pending -OK for DC from ID perspective. Kee Noriega MD [facility], [place] [facility] M: [phone] O: [phone] F: [phone] Subjective Date of service: 11/14/19 Principal diagnosis: TAYLER Interval history: Afebrile, improving white count. No other acute changes. Objective - Exam Narrative Exam: Physical exam deferred due to PPE conservation strategy. Please refer to primary team's note. - Constitutional Vitals: Vital Signs Temp Pulse Resp BP Pulse Ox 97.7 F 95 H 20 118/74 94 11/14/19 11:05 11/14/19 11:06 11/14/19 11:05 11/14/19 11:05 11/14/19 11:06 Temperature -Last 24 Hours Temperature 97.7 F Temperature 98.5 F Temperature 99.4 F - Labs CBC & Chem 7: 11/13/19 04:38 11/14/19 10:47 Labs: Abnormal lab results 11/14/19 Range/Units 10:47 Potassium 3.3 L (3.6-5.0) mmol/L Carbon Dioxide 21 L (22-30) mmol/L BUN 32 H (7-17) mg/dL Glucose 122 H (65-100) mg/dL
[2019-11-14] MEDS: FAMOTIDINE 20 MG TAB PO SCH (22:51)
[2019-11-14] MEDS: levETIRAcetam 500 MG/5 ML ORAL LIQD PO SCH (22:52)
[2019-11-15 06:03] LABS: Basophils % (Auto) 0.1 % (0.0-1.8); Hematocrit 27.8 % (30.3-42.9); Hemoglobin 8.7 gm/dl (10.1-14.3); Lymphocytes # (Auto) 1.4 K/mm3 (1.2-5.4); Lymphocytes % (Auto) 9.2 % (13.4-35.0); Mean Corpuscular HGB Conc 31 % (30-34); Mean Corpuscular Volume 89 fl (79-97); Monocytes # (Auto) 0.8 K/mm3 (0.0-0.8); Monocytes % (Auto) 5.4 % (0.0-7.3); Platelet Count 403 K/mm3 (140-440); Red Blood Count 3.12 M/mm3 (3.65-5.03); Red Cell Distribution Width 13.4 % (13.2-15.2)
[2019-11-15 06:14] LABS: BUN/Creatinine Ratio 36; Blood Urea Nitrogen 32 mg/dL (7-17); Calcium 8.9 mg/dL (8.4-10.2); Hemolysis Index 1
[2019-11-15] MEDS: FERROUS SULFATE 325 MG TAB PO SCH ×3 (08:29→16:44)
[2019-11-15 09:49] LABS: BUN/Creatinine Ratio 39; Blood Urea Nitrogen 31 mg/dL (7-17); Calcium 8.7 mg/dL (8.4-10.2); Hemolysis Index 9
[2019-11-15] MEDS: HEPARIN 5,000 UNIT/1 ML VIAL SUB-Q SCH ×2 (10:42→21:16)
[2019-11-15] MEDS: levETIRAcetam 500 MG/5 ML ORAL LIQD PO SCH ×2 (10:42→21:17)
[2019-11-15] MEDS: DEXAMETHASONE 4 MG TAB PO SCH (10:42)
[2019-11-15] MEDS: amLODIPine 10 MG TAB PO SCH (10:43)
[2019-11-15] MEDS: hydrALAZINE 25 MG TAB PO SCH ×3 (10:49→21:20)
--- NOTE | 2019-11-15 15:37 | Progress Note ---
Assessment and Plan -- Sepsis Secondary to PNA, UTI and COVID-19 Blood culture NTD Urine culture - Klebsiella Continue cefepime. Added doxycycline as MRSA nares+ Monitor vital signs closely -- TAYLER (acute kidney injury) From vasomotor nephropathy. This is improving. Continue IV hydration Nephrology recommendations appreciated Avoid nephrotoxic medications -- Acute metabolic encephalopathy Likely as result of sepsis Continue antibiotics. Nephrology following for renal failure -- Hypernatremia Continue hypotonic solution. Increase rate to 150 cc/h Trend sodium Nephrology recommendations appreciated --Dysphagia, failed speech eval Need alternative feeding GI consulted for PEG tube placement --Severe protein calorie malnutrition, POA Patient will need tube feeding until PEG tube has placed Consulted dietary -- Urinary tract infection Continue cefepime. Urine cultures - Klebsiella. -- COVID-19 Continue oxygen supplementation Continue remdesivir and dexamethasone ID following, Continue to follow inflammatory markers -- DVT prophylaxis Heparin SQ Brief History; 74-year-old female with history of CVA hemiplegia, seizure disorder, anemia, lung mass, UTI, pneumonia, hyperlipidemia who presents with altered mental status after fall 3 days ago. She is a resident of [facility]. Here in the ER, she appeared lethargic. She gives limited history. She was able to say her first name. When asked if in pain she says "no". She was found to have leukocytosis, lactic acidosis, UTI, TAYLER and was admitted to the hospital for evaluation of sepsis secondary to pneumonia. Blood cultures were drawn and patient was started on vancomycin and cefepime. 11/05. Patient seen and examined at bedside this morning. She is unable to be further history. On IV antibiotics. Blood cultures have been drawn and awaiting results. Urine culture also pending. 11/06. COVID -19 came out positive. She has been placed on isolation. Urine culture is growing gram negative rods. On cefepime and vancomycin. Awaiting final blood culture results 11/07. She became hypoxic and has been started on dexamethasone and remdesivir. ID consulted. Continue antibiotics for UTI. Urine culture growing GN rods. Still has hypernatremia - nephrology is following. 11/08. On 6L nasal cannula. Still on remdesivir and dexamethasone. Urine culture grew Klebsiella pneumoniae. Sodium is still high. Need to encourage PO intake. 11/09. Sodium is still creeping up. She has poor oral intake. Increased D5 to 150cc/hr. She needs encouragement and assistance with meals and water intake. Discussed with RN. Nephrology recommendations appreciated. 11/10: cont on remdesivir (she missed her dose on 11/08 because she lost iv access) and dexamethasone 11/11: cont on remdesivir (she missed her dose on 11/08 because she lost iv access, last dose is tomorrow) and dexamethasone. failed swallow eval, ST recommended PEG tube. consult GI. Cont d5W, monitor BMP 11/12; wait on GI recommendation for PEG placement. Place Dobbhoff and start tube feeding for now. last dose of remdesivir today 11/13: pending PEG placement by GI, cont TF for now. 11/14: Patient is clinically stable, pending PEG tube placement by GI, continue tube feeding for now. Noted GI recommendation. Plan for EGD/PEG tube sometime next week. Continue to follow. Subjective Date of service: 11/15/19 Principal diagnosis: TAYLER Interval history: Patient seen and examined. Medical records and medication list reviewed. No acute event overnight noted by the RN. Patient denies any chest pain or difficulty breathing. Patient failed speech eval, currently n.p.o. and on TF Discussed plan of care at bedside with patient,s RN. Objective - Exam Narrative Exam: GENERAL: This is a malnourished elderly -Faroese female lying on bed appeared to be in no discomfort. HEENT: Normocephalic. Atraumatic. No conjunctival congestion or icterus. Patient has moist mucous membranes. Dobbhoff tube in place NECK: Supple. Trachea midline. CHEST/LUNGS: Clear to auscultated bilaterally, breathing nonlabored. No wheezes crackles or rhonchi. HEART/CARDIOVASCULAR: Regular in rate and rhythm. S1 and S2 positive. ABDOMEN: Abdomen is soft, nontender. Patient has normal bowel sounds. SKIN: There is no rash. Warm and dry. NEURO: No focal motor deficit. Follows command. MUSCULOSKELETAL: No joint effusion or tenderness. Generalized muscle wasting EXTRIMITY: No edema, no cyanosis or clubbing. PSYCH: Cooperative. - Constitutional Vitals: Vital Signs - 12hr 11/15/19 11/15/19 11/15/19 04:27 09:17 10:43 Temperature 98.6 F Pulse Rate 87 87 Respiratory 18 Rate Blood Pressure 127/74 119/73 119/73 O2 Sat by Pulse 100 Oximetry 11/15/19 11/15/19 11/15/19 10:49 11:31 14:21 Temperature 98.2 F Pulse Rate 92 H 92 H Respiratory 18 Rate Blood Pressure 119/73 121/73 121/73 O2 Sat by Pulse 91 Oximetry - Labs CBC & Chem 7: 11/15/19 05:35 11/16/19 10:12 Labs: Abnormal lab results 11/15/19 11/15/19 11/15/19 Range/Units 05:35 05:35 09:02 WBC 14.7 H (4.5-11.0) K/mm3 RBC 3.12 L (3.65-5.03) M/mm3 Hgb 8.7 L (10.1-14.3) gm/dl Hct 27.8 L (30.3-42.9) % Lymph % (Auto) 9.2 L (13.4-35.0) % Seg Neutrophils % 85.3 H (40.0-70.0) % Seg Neutrophils # 12.5 H (1.8-7.7) K/mm3 Potassium 3.3 L (3.6-5.0) mmol/L BUN 32 H 31 H (7-17) mg/dL Glucose 152 H 112 H (65-100) mg/dL POC Glucose (70-105) 11/15/19 Range/Units 11:46 WBC (4.5-11.0) K/mm3 RBC (3.65-5.03) M/mm3 Hgb (10.1-14.3) gm/dl Hct (30.3-42.9) % Lymph % (Auto) (13.4-35.0) % Seg Neutrophils % (40.0-70.0) % Seg Neutrophils # (1.8-7.7) K/mm3 Potassium (3.6-5.0) mmol/L BUN (7-17) mg/dL Glucose (65-100) mg/dL POC Glucose 132 H (70-105) HEART Score - HEART Score Age: > 65 Risk factors: 1-2 risk factors Troponin: Troponin T 0.014 ng/mL (0.00-0.029) 11/05/19 23:03 Troponin: < normal limit - Critical Actions Critical Actions: 0-3 pts:0.9-1.7%risk of adverse cardiac event.Candidate for discharge
[2019-11-15] MEDS: FAMOTIDINE 20 MG TAB PO SCH (21:17)
[2019-11-16] MEDS: FERROUS SULFATE 325 MG TAB PO SCH ×3 (10:07→15:32)
[2019-11-16] MEDS: amLODIPine 10 MG TAB PO SCH (10:08)
[2019-11-16] MEDS: hydrALAZINE 25 MG TAB PO SCH ×3 (10:08→22:11)
[2019-11-16] MEDS: levETIRAcetam 500 MG/5 ML ORAL LIQD PO SCH ×2 (10:08→22:10)
[2019-11-16] MEDS: HEPARIN 5,000 UNIT/1 ML VIAL SUB-Q SCH ×2 (10:09→22:09)
[2019-11-16] MEDS: DEXAMETHASONE 4 MG TAB PO SCH (10:09)
[2019-11-16 10:47] LABS: Blood Urea Nitrogen 24 mg/dL (7-17); Calcium 8.6 mg/dL (8.4-10.2); Hemolysis Index 20
[2019-11-16 10:52] LABS: BUN/Creatinine Ratio 34
--- NOTE | 2019-11-16 11:14 | Gastroenterology Progress Note ---
Assessment and Plan GI: pt COVID + failed swallow eval - probable PEG placement 11/17 if stable and cleared by primary team - will follow Subjective Date of service: 11/16/19 Principal diagnosis: TAYLER Interval history: - no GI issues overnight Objective - Constitutional Vitals: Temp Pulse Resp BP Pulse Ox 98.2 F 78 16 138/72 99 11/15/19 16:29 11/16/19 10:08 11/16/19 08:15 11/16/19 10:08 11/16/19 08:16 General appearance: no acute distress - EENT Eyes: PERRL - Respiratory Respiratory: bilateral: rhonchi - Cardiovascular Rhythm: regular Heart Sounds: Present: S1 & S2 - Labs CBC & Chem 7: 11/15/19 05:35 11/16/19 10:12 Labs: Laboratory Results - last 24 hr 11/15/19 11/15/19 11/16/19 11:46 16:44 10:12 Sodium 137 Potassium 3.7 Chloride 101.9 Carbon Dioxide 23 Anion Gap 16 BUN 24 H Creatinine 0.7 Estimated GFR > 60 BUN/Creatinine Ratio 34 Glucose 123 H POC Glucose 132 H 206 H Calcium 8.6
--- NOTE | 2019-11-16 13:50 | Progress Note ---
Assessment and Plan -- Sepsis Secondary to PNA, UTI and COVID-19 Blood culture NTD Urine culture - Klebsiella Continue cefepime. Added doxycycline as MRSA nares+ Monitor vital signs closely -- TAYLER (acute kidney injury) From vasomotor nephropathy. This is improving. Continue IV hydration Nephrology recommendations appreciated Avoid nephrotoxic medications -- Acute metabolic encephalopathy Likely as result of sepsis Continue antibiotics. Nephrology following for renal failure -- Hypernatremia Continue hypotonic solution. Increase rate to 150 cc/h Trend sodium Nephrology recommendations appreciated --Dysphagia, failed speech eval Need alternative feeding GI consulted for PEG tube placement --Severe protein calorie malnutrition, POA Patient will need tube feeding until PEG tube has placed Consulted dietary -- Urinary tract infection Continue cefepime. Urine cultures - Klebsiella. -- COVID-19 Continue oxygen supplementation Continue remdesivir and dexamethasone ID following, Continue to follow inflammatory markers -- DVT prophylaxis Heparin SQ Brief History; 74-year-old female with history of CVA hemiplegia, seizure disorder, anemia, lung mass, UTI, pneumonia, hyperlipidemia who presents with altered mental status after fall 3 days ago. She is a resident of [facility]. Here in the ER, she appeared lethargic. She gives limited history. She was able to say her first name. When asked if in pain she says "no". She was found to have leukocytosis, lactic acidosis, UTI, TAYLER and was admitted to the hospital for evaluation of sepsis secondary to pneumonia. Blood cultures were drawn and patient was started on vancomycin and cefepime. 11/05. Patient seen and examined at bedside this morning. She is unable to be further history. On IV antibiotics. Blood cultures have been drawn and awaiting results. Urine culture also pending. 11/06. COVID -19 came out positive. She has been placed on isolation. Urine culture is growing gram negative rods. On cefepime and vancomycin. Awaiting final blood culture results 11/07. She became hypoxic and has been started on dexamethasone and remdesivir. ID consulted. Continue antibiotics for UTI. Urine culture growing GN rods. Still has hypernatremia - nephrology is following. 11/08. On 6L nasal cannula. Still on remdesivir and dexamethasone. Urine culture grew Klebsiella pneumoniae. Sodium is still high. Need to encourage PO intake. 11/09. Sodium is still creeping up. She has poor oral intake. Increased D5 to 150cc/hr. She needs encouragement and assistance with meals and water intake. Discussed with RN. Nephrology recommendations appreciated. 11/10: cont on remdesivir (she missed her dose on 11/08 because she lost iv access) and dexamethasone 11/11: cont on remdesivir (she missed her dose on 11/08 because she lost iv access, last dose is tomorrow) and dexamethasone. failed swallow eval, ST recommended PEG tube. consult GI. Cont d5W, monitor BMP 11/12; wait on GI recommendation for PEG placement. Place Dobbhoff and start tube feeding for now. last dose of remdesivir today 11/13: pending PEG placement by GI, cont TF for now. 11/14: Patient is clinically stable, pending PEG tube placement by GI, continue tube feeding for now. Noted GI recommendation. Plan for EGD/PEG tube sometime next week. Continue to follow. 11/15: Tolerating tube feeding, probable PEG placement by GI 11/17 if clinically stable. Subjective Date of service: 11/16/19 Principal diagnosis: TAYLER Interval history: Patient seen and examined. Medical records and medication list reviewed. No acute event overnight noted by the RN. Patient denies any chest pain or difficulty breathing. Patient failed speech eval, currently n.p.o. and on TF Discussed plan of care at bedside with patient,s RN. Objective - Exam Narrative Exam: GENERAL: This is a malnourished elderly -Romanian female lying on bed appeared to be in no discomfort. HEENT: Normocephalic. Atraumatic. No conjunctival congestion or icterus. Patient has moist mucous membranes. Dobbhoff tube in place NECK: Supple. Trachea midline. CHEST/LUNGS: Clear to auscultated bilaterally, breathing nonlabored. No wheezes crackles or rhonchi. HEART/CARDIOVASCULAR: Regular in rate and rhythm. S1 and S2 positive. ABDOMEN: Abdomen is soft, nontender. Patient has normal bowel sounds. SKIN: There is no rash. Warm and dry. NEURO: No focal motor deficit. Follows command. MUSCULOSKELETAL: No joint effusion or tenderness. Generalized muscle wasting EXTRIMITY: No edema, no cyanosis or clubbing. PSYCH: Cooperative. - Constitutional Vitals: Vital Signs - 12hr 11/16/19 11/16/19 11/16/19 05:17 08:15 08:16 Pulse Rate 74 78 78 Respiratory 16 Rate Blood Pressure 135/51 138/72 O2 Sat by Pulse 99 99 99 Oximetry 11/16/19 10:08 Pulse Rate 78 Respiratory Rate Blood Pressure 138/72 O2 Sat by Pulse Oximetry - Labs CBC & Chem 7: 11/15/19 05:35 11/16/19 10:12 Labs: Abnormal lab results 11/15/19 11/16/19 Range/Units 16:44 10:12 BUN 24 H (7-17) mg/dL Glucose 123 H (65-100) mg/dL POC Glucose 206 H (70-105) HEART Score - HEART Score Age: > 65 Risk factors: 1-2 risk factors Troponin: Troponin T 0.014 ng/mL (0.00-0.029) 11/05/19 23:03 Troponin: < normal limit - Critical Actions Critical Actions: 0-3 pts:0.9-1.7%risk of adverse cardiac event.Candidate for discharge
[2019-11-16] MEDS: FAMOTIDINE 20 MG TAB PO SCH (22:09)
[2019-11-17] MEDS: DEXAMETHASONE 4 MG TAB PO SCH (09:47)
[2019-11-17] MEDS: hydrALAZINE 25 MG TAB PO SCH ×3 (09:48→21:11)
[2019-11-17] MEDS: HEPARIN 5,000 UNIT/1 ML VIAL SUB-Q SCH (09:48)
[2019-11-17] MEDS: levETIRAcetam 500 MG/5 ML ORAL LIQD PO SCH (09:48)
[2019-11-17] MEDS: amLODIPine 10 MG TAB PO SCH (09:48)
--- NOTE | 2019-11-17 12:18 | Progress Note ---
Assessment and Plan -- Sepsis Secondary to PNA, UTI and COVID-19 Blood culture NTD Urine culture - Klebsiella Continue cefepime. Added doxycycline as MRSA nares+ Monitor vital signs closely -- TAYLER (acute kidney injury) From vasomotor nephropathy. This is improving. Continue IV hydration Nephrology recommendations appreciated Avoid nephrotoxic medications -- Acute metabolic encephalopathy Likely as result of sepsis Continue antibiotics. Nephrology following for renal failure -- Hypernatremia Continue hypotonic solution. Increase rate to 150 cc/h Trend sodium Nephrology recommendations appreciated --Dysphagia, failed speech eval Need alternative feeding GI consulted for PEG tube placement --Severe protein calorie malnutrition, POA Patient will need tube feeding until PEG tube has placed Consulted dietary -- Urinary tract infection Continue cefepime. Urine cultures - Klebsiella. -- COVID-19 Continue oxygen supplementation Continue remdesivir and dexamethasone ID following, Continue to follow inflammatory markers -- DVT prophylaxis Heparin SQ Brief History; 74-year-old female with history of CVA hemiplegia, seizure disorder, anemia, lung mass, UTI, pneumonia, hyperlipidemia who presents with altered mental status after fall 3 days ago. She is a resident of [facility]. Here in the ER, she appeared lethargic. She gives limited history. She was able to say her first name. When asked if in pain she says "no". She was found to have leukocytosis, lactic acidosis, UTI, TAYLER and was admitted to the hospital for evaluation of sepsis secondary to pneumonia. Blood cultures were drawn and patient was started on vancomycin and cefepime. 11/05. Patient seen and examined at bedside this morning. She is unable to be further history. On IV antibiotics. Blood cultures have been drawn and awaiting results. Urine culture also pending. 11/06. COVID -19 came out positive. She has been placed on isolation. Urine culture is growing gram negative rods. On cefepime and vancomycin. Awaiting final blood culture results 11/07. She became hypoxic and has been started on dexamethasone and remdesivir. ID consulted. Continue antibiotics for UTI. Urine culture growing GN rods. Still has hypernatremia - nephrology is following. 11/08. On 6L nasal cannula. Still on remdesivir and dexamethasone. Urine culture grew Klebsiella pneumoniae. Sodium is still high. Need to encourage PO intake. 11/09. Sodium is still creeping up. She has poor oral intake. Increased D5 to 150cc/hr. She needs encouragement and assistance with meals and water intake. Discussed with RN. Nephrology recommendations appreciated. 11/10: cont on remdesivir (she missed her dose on 11/08 because she lost iv access) and dexamethasone 11/11: cont on remdesivir (she missed her dose on 11/08 because she lost iv access, last dose is tomorrow) and dexamethasone. failed swallow eval, ST recommended PEG tube. consult GI. Cont d5W, monitor BMP 11/12; wait on GI recommendation for PEG placement. Place Dobbhoff and start tube feeding for now. last dose of remdesivir today 11/13: pending PEG placement by GI, cont TF for now. 11/14: Patient is clinically stable, pending PEG tube placement by GI, continue tube feeding for now. Noted GI recommendation. Plan for EGD/PEG tube sometime next week. Continue to follow. 11/15: Tolerating tube feeding, probable PEG placement by GI 11/17 if clinically stable. 11/16: PEG placement tomorrow, cont TF. discussed with daughter by phone and she now wants to take patient back home instead of SNF Subjective Date of service: 11/17/19 Principal diagnosis: TAYLER Interval history: Patient seen and examined. Medical records and medication list reviewed. No acute event overnight noted by the RN. Patient denies any chest pain or difficulty breathing. Patient failed speech eval, currently n.p.o. and on TF Discussed plan of care at bedside with patient,s RN. Objective - Exam Narrative Exam: GENERAL: This is a malnourished elderly -Danish female lying on bed appeared to be in no discomfort. HEENT: Normocephalic. Atraumatic. No conjunctival congestion or icterus. Patient has moist mucous membranes. Dobbhoff tube in place NECK: Supple. Trachea midline. CHEST/LUNGS: Clear to auscultated bilaterally, breathing nonlabored. No wheezes crackles or rhonchi. HEART/CARDIOVASCULAR: Regular in rate and rhythm. S1 and S2 positive. ABDOMEN: Abdomen is soft, nontender. Patient has normal bowel sounds. SKIN: There is no rash. Warm and dry. NEURO: No focal motor deficit. Follows command. MUSCULOSKELETAL: No joint effusion or tenderness. Generalized muscle wasting EXTRIMITY: No edema, no cyanosis or clubbing. PSYCH: Cooperative. - Constitutional Vitals: Vital Signs - 12hr 11/17/19 04:58 Temperature 97.7 F Pulse Rate 73 Respiratory 20 Rate Blood Pressure 135/82 O2 Sat by Pulse 97 Oximetry - Labs CBC & Chem 7: 11/15/19 05:35 11/17/19 14:07 Labs: Abnormal lab results 11/16/19 11/17/19 11/17/19 Range/Units 16:36 00:15 12:14 POC Glucose 212 H 230 H 112 H (70-105) HEART Score - HEART Score Age: > 65 Risk factors: 1-2 risk factors Troponin: Troponin T 0.014 ng/mL (0.00-0.029) 11/05/19 23:03 Troponin: < normal limit - Critical Actions Critical Actions: 0-3 pts:0.9-1.7%risk of adverse cardiac event.Candidate for discharge
[2019-11-17] MEDS: FERROUS SULFATE 308 MG (62mg Elemental Iron) / 7 ML ELIXIR PO SCH ×2 (13:12→16:52)
[2019-11-17] MEDS: DEXTROSE 5% IN WATER 1,000 ML IV SCH (13:52)
[2019-11-17 14:52] LABS: Blood Urea Nitrogen 19 mg/dL (7-17); Hemolysis Index 78
[2019-11-17 14:56] LABS: BUN/Creatinine Ratio 32
--- NOTE | 2019-11-17 15:08 | Gastroenterology Progress Note ---
Assessment and Plan GI: stable - plan EGD/peg tomorrow Subjective Date of service: 11/17/19 Principal diagnosis: TAYLER Interval history: - no GI complaints overnight Objective - Constitutional Vitals: Temp Pulse Resp BP Pulse Ox 97.2 F L 80 18 118/67 97 11/17/19 12:04 11/17/19 13:18 11/17/19 12:04 11/17/19 13:18 11/17/19 04:58 General appearance: no acute distress - EENT Eyes: PERRL - Respiratory Respiratory: bilateral: CTA - Gastrointestinal General gastrointestinal: Present: soft, non-tender - Labs CBC & Chem 7: 11/15/19 05:35 11/17/19 14:07 Labs: Laboratory Results - last 24 hr 11/16/19 11/17/19 11/17/19 16:36 00:15 06:19 Sodium Potassium Chloride Carbon Dioxide Anion Gap BUN Creatinine Estimated GFR BUN/Creatinine Ratio Glucose POC Glucose 212 H 230 H 103 Calcium 11/17/19 11/17/19 12:14 14:07 Sodium 138 Potassium 4.8 D Chloride 101.0 Carbon Dioxide 23 Anion Gap 19 BUN 19 H Creatinine 0.6 Estimated GFR > 60 BUN/Creatinine Ratio 32 Glucose 140 H POC Glucose 112 H Calcium 9.0
[2019-11-17] MEDS: FAMOTIDINE 20 MG TAB PO SCH (21:11)
[2019-11-17] MEDS: levETIRAcetam 750 MG in DEXTROSE 5% IN WATER 100 ML IV SCH (22:18)
[2019-11-18 06:33] LABS: INR 1.02 (0.87-1.13)
[2019-11-18 06:34] LABS: Partial Thromboplastin Time 28.3 Sec. (24.2-36.6)
[2019-11-18] MEDS: hydrALAZINE 25 MG TAB PO SCH ×4 (07:41→21:44)
[2019-11-18] MEDS: FERROUS SULFATE 308 MG (62mg Elemental Iron) / 7 ML ELIXIR PO SCH ×3 (07:41→17:52)
[2019-11-18] MEDS ORDERED: SODIUM CHLORIDE 0.9% 1000 ML 1,000 ML IV SCH (08:45)
[2019-11-18] MEDS ORDERED: ceFAZolin/Water 2 GM/20 ML 2 GM/20 ML SYRINGE IV NR (09:00)
[2019-11-18] MEDS ORDERED: SODIUM CHLORIDE 0.9% 1000 ML 1,000 ML ONE (10:55)
[2019-11-18] MEDS ORDERED: ceFAZolin/Water 2 GM/20 ML 2 GM/20 ML SYRINGE IV ONE (10:58)
[2019-11-18] MEDS ORDERED: propofoL 200 MG/20 ML VIAL IV ONE (11:04)
--- NOTE | 2019-11-18 11:16 | Progress Note ---
Assessment and Plan Cultures: MRSA PCR positive. COVID 11/06/2019 positive. Urine cx 11/05/2019 Klebsiella resist to Bactrim/amp. Blood cx 11/05/2019 no growth so far. A/P: 74 y/o female with history of hypertension, seizures, CVA with hemiplegia, anemia, previous Kleb UTI, previous pneumonia, hyperlipidemia admitted on 11/05/2019 due to 3-day history of altered mental status and a fall: #Severe Sepsis: with tachycardia, leukocytosis, hypotension, AMS; secondary to COVID-19 infection and UTI: #Presumed severe COVID pneumonia: Initial CXR w/o obvious infiltrates, suspect interstitial pneumonia. Noted MRSA PCR positive. ?bacterial component possible. #Acute hypoxic respiratory failure: sats dropped 85%, now on 6L NC #TAYLER: creat 2.8--> now 1.2, renal on board #AMS: from COVID, UTI and high sodium #Hypernatremia: managed by hospitalist / renal Recs: -Continue IV/PO Dexamethasone 6 mg daily x 10 days -Completed Remdesivir -Prophylactic anticoagulation based on d-dimer -Trend ferritin, LDH, d-dimer, CRP every 2-3 days for risk stratification and to assess disease progression- ferritin/CRP pending -OK for DC from ID perspective. Kee Noriega MD [facility] M: [phone] O: [phone] F: [phone] Subjective Date of service: 11/18/19 Principal diagnosis: TAYLER Interval history: Afebrile, white count is stable today at 14.7. EGD/PEG today. Objective - Exam Narrative Exam: Physical exam deferred due to PPE conservation strategy. Please refer to primary team's note. - Constitutional Vitals: Vital Signs Temp Pulse Resp BP Pulse Ox 98.2 F 82 18 138/80 100 11/18/19 04:26 11/18/19 04:26 11/18/19 04:26 11/18/19 04:26 11/18/19 04:26 Temperature -Last 24 Hours Temperature 98.2 F Temperature 97.7 F Temperature 97.8 F Temperature 97.2 F - Labs CBC & Chem 7: 11/15/19 05:35 11/17/19 14:07 Labs: Abnormal lab results 11/17/19 11/17/19 11/17/19 Range/Units 12:14 14:07 17:00 BUN 19 H (7-17) mg/dL Glucose 140 H (65-100) mg/dL POC Glucose 112 H 178 H (70-105) 11/17/19 Range/Units 23:40 BUN (7-17) mg/dL Glucose (65-100) mg/dL POC Glucose 148 H (70-105)
--- NOTE | 2019-11-18 11:31 | Post Operative Note ---
Pre-op diagnosis: dysphagia, weight loss Post-op diagnosis: same Findings: EGD: mild gastritis - - small ulcer duodenum - negative other - 20F pull peg placed, bumper at 2 1/2cm Procedure: EGD/PEG Anesthesia: MAC Surgeon: GABRIELLE BENJAMIN Estimated blood loss: none Pathology: list Specimen disposition: to lab Condition: stable Disposition: floor
[2019-11-18] MEDS: amLODIPine 10 MG TAB PO SCH (11:48)
--- NOTE | 2019-11-18 11:52 | Operative Report ---
PROCEDURE: EGD with PEG tube placement. INDICATION: 1. Dysphagia. 2. Weight loss. 3. PEG tube placement. MEDICATIONS: Propofol per JOURNEYMAN MACHINIST. COMPLICATIONS: None. DESCRIPTION OF PROCEDURE: The patient brought to the procedure suite. The patient had the procedure discussed with her daughter at length. All risks, complications, and benefits were discussed after which consent was gotten from the daughter for the procedure to be performed. The patient was placed in supine position. Mouth block was placed in the patient's oral cavity. After adequate sedation medication as above, endoscope placed in mouth and brought to level of the second portion of duodenum. Retroflexion view performed. The patient's vital signs remained stable throughout the procedure. FINDINGS: The esophagus appeared grossly normal with GE junction at 38 cm from the gums. There is mild antral gastritis noted. The remaining stomach otherwise appeared to be normal. There were 3-4 small ulcers, the largest approximately 6 mm without bleeding stigmata noted in duodenal bulb. The duodenum otherwise appeared to be normal. Retroflexion view performed in the stomach showed no other pathology other than noted above. After this inspection using standard technique and an area of transillumination was found. Using standard technique, a 20-Faroese pull PEG was then placed. Bump was noted to be at 2.5 cm. Post-procedure appearance was satisfactory. The patient tolerated the procedure well. No complications noted during the procedure. IMPRESSION: 1. Normal esophagus. 2. Gastritis. 3. Small benign ulcer in the duodenum. 4. PEG tube placed without obvious complications. RECOMMENDATIONS: 1. Standard PEG tube orders, see chart. 2. Watch for signs of bleeding or infection. 3. We will follow up in a.m. 4. Okay to use PEG tube if stable in 6 hours. JOB# [id number] CAB/NTS
--- NOTE | 2019-11-18 13:33 | Anesthesia Consultation ---
Anesthesia Consult and Med Hx Date of service: 11/18/19 - Airway Anesthetic Teeth Evaluation: Poor ROM Head & Neck: Adequate Mental/Hyoid Distance: Adequate Mallampati Class: Class II Intubation Access Assessment: Good - Pulmonary Exam CTA: Yes - Cardiac Exam Cardiac Exam: RRR - Pre-Operative Health Status ASA Pre-Surgery Classification: ASA3 Proposed Anesthetic Plan: MAC (covid +) - Pulmonary Hx Smoking: Yes Hx Asthma: No COPD: No Hx Pneumonia: Yes - Cardiovascular System Hx Hypertension: Yes Hx Coronary Artery Disease: Yes Hx Pacemaker: No Hx Internal Defibrillator: No - Central Nervous System Hx Neuromuscular Disorder: No Hx Seizures: Yes CVA: Yes Hx Psychiatric Problems: Yes - Endocrine Hx Renal Disease: No Hx End Stage Renal Disease: No Hx Thyroid Disease: No - Other Systems Hx Cancer: No
--- NOTE | 2019-11-18 13:34 | Anesthesia Day of Surgery ---
Anesthesia Day of Surgery - Day of Surgery Patient Examined: Yes Patient H&P Reviewed: Yes Patient is NPO: Yes
--- NOTE | 2019-11-18 13:34 | Post Anesthesia Evaluation ---
- Post Anesthesia Evaluation Patient Participated: Yes Airway Patent: Yes Stable Respiratory Function: Yes Nausea/Vomiting: No Temp > 96.8F: Yes Pain Manageable: Yes Adequeate Hydration: Yes Anesthesia Complications: No Block Receding Appropriately: Not Applicable Patient on Ventilator: No
--- NOTE | 2019-11-18 13:51 | Progress Note ---
Assessment and Plan -- Sepsis Secondary to PNA, UTI and COVID-19 Blood culture NTD Urine culture - Klebsiella Continue cefepime. Added doxycycline as MRSA nares+ Monitor vital signs closely -- TAYLER (acute kidney injury) From vasomotor nephropathy. This is improving. Continue IV hydration Nephrology recommendations appreciated Avoid nephrotoxic medications -- Acute metabolic encephalopathy Likely as result of sepsis Continue antibiotics. Nephrology following for renal failure -- Hypernatremia Continue hypotonic solution. Increase rate to 150 cc/h Trend sodium Nephrology recommendations appreciated --Dysphagia, failed speech eval Need alternative feeding GI consulted for PEG tube placement --Severe protein calorie malnutrition, POA Patient will need tube feeding until PEG tube has placed Consulted dietary -- Urinary tract infection Continue cefepime. Urine cultures - Klebsiella. -- COVID-19 Continue oxygen supplementation Continue remdesivir and dexamethasone ID following, Continue to follow inflammatory markers -- DVT prophylaxis Heparin SQ Brief History; 74-year-old female with history of CVA hemiplegia, seizure disorder, anemia, lung mass, UTI, pneumonia, hyperlipidemia who presents with altered mental status after fall 3 days ago. She is a resident of [facility]. Here in the ER, she appeared lethargic. She gives limited history. She was able to say her first name. When asked if in pain she says "no". She was found to have leukocytosis, lactic acidosis, UTI, TAYLER and was admitted to the hospital for evaluation of sepsis secondary to pneumonia. Blood cultures were drawn and patient was started on vancomycin and cefepime. 11/05. Patient seen and examined at bedside this morning. She is unable to be further history. On IV antibiotics. Blood cultures have been drawn and awaiting results. Urine culture also pending. 11/06. COVID -19 came out positive. She has been placed on isolation. Urine culture is growing gram negative rods. On cefepime and vancomycin. Awaiting final blood culture results 11/07. She became hypoxic and has been started on dexamethasone and remdesivir. ID consulted. Continue antibiotics for UTI. Urine culture growing GN rods. Still has hypernatremia - nephrology is following. 11/08. On 6L nasal cannula. Still on remdesivir and dexamethasone. Urine culture grew Klebsiella pneumoniae. Sodium is still high. Need to encourage PO intake. 11/09. Sodium is still creeping up. She has poor oral intake. Increased D5 to 150cc/hr. She needs encouragement and assistance with meals and water intake. Discussed with RN. Nephrology recommendations appreciated. 11/10: cont on remdesivir (she missed her dose on 11/08 because she lost iv access) and dexamethasone 11/11: cont on remdesivir (she missed her dose on 11/08 because she lost iv access, last dose is tomorrow) and dexamethasone. failed swallow eval, ST recommended PEG tube. consult GI. Cont d5W, monitor BMP 11/12; wait on GI recommendation for PEG placement. Place Dobbhoff and start tube feeding for now. last dose of remdesivir today 11/13: pending PEG placement by GI, cont TF for now. 11/14: Patient is clinically stable, pending PEG tube placement by GI, continue tube feeding for now. Noted GI recommendation. Plan for EGD/PEG tube sometime next week. Continue to follow. 11/15: Tolerating tube feeding, probable PEG placement by GI 11/17 if clinically stable. 11/16: PEG placement tomorrow, cont TF. discussed with daughter by phone and she now wants to take patient back home instead of SNF 11/17: s/p PEG placement today, will start on TF. if patient tolerates TF and clinically stable, possible d/c tomorrow Subjective Date of service: 11/18/19 Principal diagnosis: TAYLER Interval history: Patient seen and examined. Medical records and medication list reviewed. No acute event overnight noted by the RN. Patient failed speech eval, currently n.p.o. and restart on TF s/p PEG tube placement today Discussed plan of care at bedside with patient's RN. Objective - Exam Narrative Exam: GENERAL: This is a malnourished elderly -[place] female lying on bed appeared to be in no discomfort. HEENT: Normocephalic. Atraumatic. No conjunctival congestion or icterus. Patient has moist mucous membranes. Dobbhoff tube in place NECK: Supple. Trachea midline. CHEST/LUNGS: Clear to auscultated bilaterally, breathing nonlabored. No wheezes crackles or rhonchi. HEART/CARDIOVASCULAR: Regular in rate and rhythm. S1 and S2 positive. ABDOMEN: Abdomen is soft, nontender. Patient has normal bowel sounds. PEG tube in place SKIN: There is no rash. Warm and dry. NEURO: No focal motor deficit. Follows command. MUSCULOSKELETAL: No joint effusion or tenderness. Generalized muscle wasting EXTRIMITY: No edema, no cyanosis or clubbing. PSYCH: Cooperative. - Constitutional Vitals: Vital Signs - 12hr 11/18/19 11/18/19 11/18/19 04:26 10:58 11:31 Temperature 98.2 F 97.7 F 97.8 F Pulse Rate 82 83 86 Respiratory 18 15 20 Rate Blood Pressure 138/80 125/73 96/59 O2 Sat by Pulse 100 98 100 Oximetry 11/18/19 11/18/19 11/18/19 11:45 12:00 12:15 Temperature Pulse Rate 75 76 76 Respiratory 15 16 20 Rate Blood Pressure 110/63 120/69 124/67 O2 Sat by Pulse 100 100 97 Oximetry 11/18/19 12:30 Temperature Pulse Rate 78 Respiratory 15 Rate Blood Pressure 128/73 O2 Sat by Pulse 97 Oximetry - Labs CBC & Chem 7: 11/15/19 05:35 11/17/19 14:07 Labs: Abnormal lab results 11/17/19 11/17/19 11/17/19 Range/Units 14:07 17:00 23:40 BUN 19 H (7-17) mg/dL Glucose 140 H (65-100) mg/dL POC Glucose 178 H 148 H (70-105) HEART Score - HEART Score Age: > 65 Risk factors: 1-2 risk factors Troponin: Troponin T 0.014 ng/mL (0.00-0.029) 11/05/19 23:03 Troponin: < normal limit - Critical Actions Critical Actions: 0-3 pts:0.9-1.7%risk of adverse cardiac event.Candidate for discharge
[2019-11-18] MEDS: levETIRAcetam 750 MG in DEXTROSE 5% IN WATER 100 ML IV SCH ×2 (14:59→21:44)
[2019-11-18] MEDS: PANTOPRAZOLE 40 MG INJ IV SCH (14:59)
[2019-11-18 20:15] LABS: Hematocrit 29.8 % (30.3-42.9); Hemoglobin 9.3 gm/dl (10.1-14.3); Mean Corpuscular HGB Conc 31 % (30-34); Mean Corpuscular Volume 92 fl (79-97); Platelet Count 373 K/mm3 (140-440); Red Blood Count 3.24 M/mm3 (3.65-5.03); Red Cell Distribution Width 13.6 % (13.2-15.2)
[2019-11-18 20:18] LABS: Alanine Aminotransferase 70 units/L (7-56); Albumin 2.3 g/dL (3.9-5); Blood Urea Nitrogen 14 mg/dL (7-17); Calcium 8.4 mg/dL (8.4-10.2); Hemolysis Index 12
[2019-11-18 20:22] LABS: BUN/Creatinine Ratio 23
[2019-11-19] MEDS ORDERED: POTASSIUM CHLORIDE ER 20 MEQ TAB PO ONE (09:00)
[2019-11-19] MEDS: levETIRAcetam 750 MG in DEXTROSE 5% IN WATER 100 ML IV SCH (09:31)
[2019-11-19] MEDS: PANTOPRAZOLE 40 MG INJ IV SCH (09:31)
[2019-11-19] MEDS: hydrALAZINE 25 MG TAB PO SCH ×2 (09:32→13:46)
[2019-11-19] MEDS: FERROUS SULFATE 308 MG (62mg Elemental Iron) / 7 ML ELIXIR PO SCH ×3 (09:32→17:18)
[2019-11-19] MEDS: amLODIPine 10 MG TAB PO SCH (09:32)
[2019-11-19] MEDS: DEXTROSE 5% IN WATER 1,000 ML IV SCH (09:49)
[2019-11-19 11:27] LABS: Hematocrit 25.3 % (30.3-42.9); Hemoglobin 8.3 gm/dl (10.1-14.3); Mean Corpuscular HGB Conc 33 % (30-34); Mean Corpuscular Volume 89 fl (79-97); Platelet Count 357 K/mm3 (140-440); Red Blood Count 2.85 M/mm3 (3.65-5.03); Red Cell Distribution Width 13.3 % (13.2-15.2)
--- NOTE | 2019-11-19 13:30 | Progress Note ---
Assessment and Plan -- Sepsis Secondary to PNA, UTI and COVID-19 Blood culture NTD Urine culture - Klebsiella s/p cefepime.also Added doxycycline as MRSA nares+ Monitor vital signs closely -- TAYLER (acute kidney injury) From vasomotor nephropathy. This is improving. Continue IV hydration Nephrology recommendations appreciated Avoid nephrotoxic medications -- Acute metabolic encephalopathy Likely as result of sepsis Continue antibiotics. Nephrology following for renal failure -- Hypernatremia, resolved with hypotonic solution. Trend sodium Nephrology recommendations appreciated --Dysphagia, failed speech eval Need alternative feeding GI consulted for PEG tube placement --Severe protein calorie malnutrition, POA Patient om TF with PEG tube Consulted dietary -- Urinary tract infection treated with cefepime. Urine cultures - Klebsiella. -- COVID-19 Continue oxygen supplementation s/p remdesivir and dexamethasone ID following, Continue to follow inflammatory markers --Hypertension, Controlled --Seizure disorder Stable on Keppra --Anemia of chronic disease H/H stable cont oral Fe tab --h/o Lung mass diagnosed back on 2018, but patient refused any biopsy or treatment at that time need outpt f/u -- DVT prophylaxis Heparin SQ Brief History; 74-year-old female with history of CVA hemiplegia, seizure disorder, anemia, lung mass, HTN, hyperlipidemia who presents to ER on 11/04 with altered mental status after fall 3 days ago. She is a resident of [facility]. She was found to have leukocytosis, lactic acidosis, UTI, TAYLER and was admitted to the hospital for evaluation of sepsis secondary to pneumonia. Blood cultures were drawn and patient was started on vancomycin and cefepime. She was eventually positive for COVID 19 and completed treatment. Also completed treatment for UTI. TAYLER and hyponatremia resolved. she failed speech eval and required PEg placement by GI. family wanted to take patient home instead of SNF. Plan to DC home with home health when tolerates tube feeding with newly placed PEG tube. 11/05. Patient seen and examined at bedside this morning. She is unable to be further history. On IV antibiotics. Blood cultures have been drawn and awaiti ng results. Urine culture also pending. 11/06. COVID -19 came out positive. She has been placed on isolation. Urine culture is growing gram negative rods. On cefepime and vancomycin. Awaiting final blood culture results 11/07. She became hypoxic and has been started on dexamethasone and remdesivir. ID consulted. Continue antibiotics for UTI. Urine culture growing GN rods. Still has hypernatremia - nephrology is following. 11/08. On 6L nasal cannula. Still on remdesivir and dexamethasone. Urine culture grew Klebsiella pneumoniae. Sodium is still high. Need to encourage PO intake. 11/09. Sodium is still creeping up. She has poor oral intake. Increased D5 to 150cc/hr. She needs encouragement and assistance with meals and water intake. Discussed with RN. Nephrology recommendations appreciated. 11/10: cont on remdesivir (she missed her dose on 11/08 because she lost iv access) and dexamethasone 11/11: cont on remdesivir (she missed her dose on 11/08 because she lost iv access, last dose is tomorrow) and dexamethasone. failed swallow eval, ST recommended PEG tube. consult GI. Cont d5W, monitor BMP 11/12; wait on GI recommendation for PEG placement. Place Dobbhoff and start tube feeding for now. last dose of remdesivir today 11/13: pending PEG placement by GI, cont TF for now. 11/14: Patient is clinically stable, pending PEG tube placement by GI, continue tube feeding for now. Noted GI recommendation. Plan for EGD/PEG tube sometime next week. Continue to follow. 11/15: Tolerating tube feeding, probable PEG placement by GI 11/17 if clinically stable. 11/16: PEG placement tomorrow, cont TF. discussed with daughter by phone and she now wants to take patient back home instead of SNF 11/17: s/p PEG placement today, will start on TF. if patient tolerates TF and clinically stable, possible d/c tomorrow 11/18: d/c home with HH when tolerates bolus TF, family educated for bolus feeding and dietitian placed recommendation. Subjective Date of service: 11/19/19 Principal diagnosis: TAYLER Interval history: Patient seen and examined. Medical records and medication list reviewed. No acute event overnight noted by the RN. Patient failed speech eval, currently n.p.o. and on TF s/p PEG tube placement yesterday Discussed plan of care at bedside with patient's RN. Objective - Exam Narrative Exam: GENERAL: This is a malnourished elderly -[place] female lying on bed appeared to be in no discomfort. HEENT: Normocephalic. Atraumatic. No conjunctival congestion or icterus. Patient has moist mucous membranes. Dobbhoff tube in place NECK: Supple. Trachea midline. CHEST/LUNGS: Clear to auscultated bilaterally, breathing nonlabored. No wheezes crackles or rhonchi. HEART/CARDIOVASCULAR: Regular in rate and rhythm. S1 and S2 positive. ABDOMEN: Abdomen is soft, nontender. Patient has normal bowel sounds. PEG tube in place SKIN: There is no rash. Warm and dry. NEURO: No focal motor deficit. Follows command. MUSCULOSKELETAL: No joint effusion or tenderness. Generalized muscle wasting EXTRIMITY: No edema, no cyanosis or clubbing. PSYCH: Cooperative. - Constitutional Vitals: Vital Signs - 12hr 11/19/19 11/19/19 11/19/19 03:58 08:19 09:32 Temperature 98.3 F Pulse Rate 95 H 99 H Pulse Rate [ 90 Apical] Respiratory 16 Rate Blood Pressure 106/70 121/74 O2 Sat by Pulse 99 Oximetry 11/19/19 11:52 Temperature 98.5 F Pulse Rate 95 H Pulse Rate [ Apical] Respiratory 18 Rate Blood Pressure 120/74 O2 Sat by Pulse 100 Oximetry - Labs CBC & Chem 7: 11/19/19 10:52 11/19/19 10:52 Labs: Abnormal lab results 11/18/19 11/18/19 11/18/19 Range/Units 19:36 19:36 21:23 WBC 20.3 H (4.5-11.0) K/mm3 RBC 3.24 L (3.65-5.03) M/mm3 Hgb 9.3 L (10.1-14.3) gm/dl Hct 29.8 L (30.3-42.9) % Potassium 3.3 L D (3.6-5.0) mmol/L POC Glucose 114 H (70-105) AST 59 H (5-40) units/L ALT 70 H (7-56) units/L Total Protein 5.7 L (6.3-8.2) g/dL Albumin 2.3 L (3.9-5) g/dL 11/19/19 11/19/19 11/19/19 Range/Units 04:17 10:52 10:52 WBC 18.5 H (4.5-11.0) K/mm3 RBC 2.85 L (3.65-5.03) M/mm3 Hgb 8.3 L (10.1-14.3) gm/dl Hct 25.3 L (30.3-42.9) % Potassium 3.5 L (3.6-5.0) mmol/L POC Glucose 107 H (70-105) AST (5-40) units/L ALT (7-56) units/L Total Protein (6.3-8.2) g/dL Albumin (3.9-5) g/dL 11/19/19 Range/Units 12:06 WBC (4.5-11.0) K/mm3 RBC (3.65-5.03) M/mm3 Hgb (10.1-14.3) gm/dl Hct (30.3-42.9) % Potassium (3.6-5.0) mmol/L POC Glucose 171 H (70-105) AST (5-40) units/L ALT (7-56) units/L Total Protein (6.3-8.2) g/dL Albumin (3.9-5) g/dL HEART Score - HEART Score Age: > 65 Risk factors: 1-2 risk factors Troponin: Troponin T 0.014 ng/mL (0.00-0.029) 11/05/19 23:03 Troponin: < normal limit - Critical Actions Critical Actions: 0-3 pts:0.9-1.7%risk of adverse cardiac event.Candidate for discharge
[2019-11-19] MEDS ORDERED: SODIUM BICARBONATE 325 MG TAB FEEDTUBE PRN (14:00)
[2019-11-19] MEDS ORDERED: SIMPLE SYRUP 15 ML FEEDTUBE PRN ×2 (14:00)
[2019-11-19] MEDS ORDERED: LIPASE 10,500/PROTEASE 25,000/AMYLASE 43,750 (UNITS) DR CAP FEEDTUBE PRN (14:00)
--- NOTE | 2019-11-19 15:01 | Progress Note ---
Assessment and Plan Cultures: MRSA PCR positive. COVID 11/06/2019 positive. Urine cx 11/05/2019 Klebsiella resist to Bactrim/amp. Blood cx 11/05/2019 no growth so far. A/P: 74 y/o female with history of hypertension, seizures, CVA with hemiplegia, anemia, previous Kleb UTI, previous pneumonia, hyperlipidemia admitted on 11/05/2019 due to 3-day history of altered mental status and a fall: #Severe Sepsis: with tachycardia, leukocytosis, hypotension, AMS; secondary to COVID-19 infection and UTI: #Presumed severe COVID pneumonia: Initial CXR w/o obvious infiltrates, suspect interstitial pneumonia. Noted MRSA PCR positive. ?bacterial component possible. #Acute hypoxic respiratory failure: sats dropped 85%, resolved #TAYLER: Improved #AMS: from COVID, UTI and high sodium #Hypernatremia: managed by hospitalist / renal Recs: -Completed dexamethasone. -Completed Remdesivir -Prophylactic anticoagulation based on d-dimer -Trend ferritin, LDH, d-dimer, CRP every 2-3 days for risk stratification and to assess disease progression- ferritin/CRP pending -OK for DC from ID perspective. Kee Noriega MD [facility] M: [phone] O: [phone] F: [phone] Subjective Date of service: 11/19/19 Principal diagnosis: TAYLER Interval history: Afebrile, white count is 18.5. No acute change. PEG was placed today. Objective - Exam Narrative Exam: Physical exam deferred due to PPE conservation strategy. Please refer to primary team's note. - Constitutional Vitals: Vital Signs Temp Pulse Resp BP Pulse Ox 98.5 F 95 H 18 120/74 100 11/19/19 11:52 11/19/19 11:52 11/19/19 11:52 11/19/19 11:52 11/19/19 11:52 Temperature -Last 24 Hours Temperature 98.5 F Temperature 98.3 F Temperature 97.4 F Temperature 97.0 F - Labs CBC & Chem 7: 11/19/19 10:52 11/19/19 10:52 Labs: Abnormal lab results 11/18/19 11/18/19 11/18/19 Range/Units 19:36 19:36 21:23 WBC 20.3 H (4.5-11.0) K/mm3 RBC 3.24 L (3.65-5.03) M/mm3 Hgb 9.3 L (10.1-14.3) gm/dl Hct 29.8 L (30.3-42.9) % Potassium 3.3 L D (3.6-5.0) mmol/L POC Glucose 114 H (70-105) AST 59 H (5-40) units/L ALT 70 H (7-56) units/L Total Protein 5.7 L (6.3-8.2) g/dL Albumin 2.3 L (3.9-5) g/dL 11/19/19 11/19/19 11/19/19 Range/Units 04:17 10:52 10:52 WBC 18.5 H (4.5-11.0) K/mm3 RBC 2.85 L (3.65-5.03) M/mm3 Hgb 8.3 L (10.1-14.3) gm/dl Hct 25.3 L (30.3-42.9) % Potassium 3.5 L (3.6-5.0) mmol/L POC Glucose 107 H (70-105) AST (5-40) units/L ALT (7-56) units/L Total Protein (6.3-8.2) g/dL Albumin (3.9-5) g/dL 11/19/19 Range/Units 12:06 WBC (4.5-11.0) K/mm3 RBC (3.65-5.03) M/mm3 Hgb (10.1-14.3) gm/dl Hct (30.3-42.9) % Potassium (3.6-5.0) mmol/L POC Glucose 171 H (70-105) AST (5-40) units/L ALT (7-56) units/L Total Protein (6.3-8.2) g/dL Albumin (3.9-5) g/dL
--- NOTE | 2019-11-19 15:18 | Gastroenterology Progress Note ---
Assessment and Plan GI: s/p peg w/o obvious complications - watch for signs bleeding/infection - ok to use peg as needed - call if needed Subjective Date of service: 11/19/19 Principal diagnosis: TAYLER Interval history: - ni GI related issues overnight. No peg related complaints Objective - Constitutional Vitals: Temp Pulse Resp BP Pulse Ox 98.5 F 95 H 18 120/74 100 11/19/19 11:52 11/19/19 11:52 11/19/19 11:52 11/19/19 11:52 11/19/19 11:52 General appearance: no acute distress - EENT Eyes: PERRL - Respiratory Respiratory: bilateral: CTA - Cardiovascular Rhythm: regular Heart Sounds: Present: S1 & S2 - Gastrointestinal General gastrointestinal: Present: soft, non-tender, non-distended (peg site intact) - Labs CBC & Chem 7: 11/19/19 10:52 11/19/19 10:52 Labs: Laboratory Results - last 24 hr 11/18/19 11/18/19 11/18/19 19:36 19:36 21:23 WBC 20.3 H RBC 3.24 L Hgb 9.3 L Hct 29.8 L MCV 92 MCH 29 MCHC 31 RDW 13.6 Plt Count 373 Sodium 137 Potassium 3.3 L D Chloride 101.5 Carbon Dioxide 24 Anion Gap 15 BUN 14 Creatinine 0.6 Estimated GFR > 60 BUN/Creatinine Ratio 23 Glucose 99 POC Glucose 114 H Calcium 8.4 Total Bilirubin 0.20 AST 59 H ALT 70 H Alkaline Phosphatase 71 Total Protein 5.7 L Albumin 2.3 L Albumin/Globulin Ratio 0.7 11/19/19 11/19/19 11/19/19 04:17 10:52 10:52 WBC 18.5 H RBC 2.85 L Hgb 8.3 L Hct 25.3 L MCV 89 MCH 29 MCHC 33 RDW 13.3 Plt Count 357 Sodium Potassium 3.5 L Chloride Carbon Dioxide Anion Gap BUN Creatinine Estimated GFR BUN/Creatinine Ratio Glucose POC Glucose 107 H Calcium Total Bilirubin AST ALT Alkaline Phosphatase Total Protein Albumin Albumin/Globulin Ratio 11/19/19 12:06 WBC RBC Hgb Hct MCV MCH MCHC RDW Plt Count Sodium Potassium Chloride Carbon Dioxide Anion Gap BUN Creatinine Estimated GFR BUN/Creatinine Ratio Glucose POC Glucose 171 H Calcium Total Bilirubin AST ALT Alkaline Phosphatase Total Protein Albumin Albumin/Globulin Ratio
--- NOTE | 2019-11-19 15:57 | Discharge Summary ---
Providers - Providers Date of Admission: 11/06/19 01:59 Date of discharge: 11/19/19 Attending physician: ELODIA LEDEZMA 11/06/19 06:00 Consult to Physician [CONS] Routine Comment: Consulting Provider: FRIDA HUMPHREY Physician Instructions: Reason For Exam: TAYLER 11/06/19 06:03 Consult to Wound/ET Nurse [CONS] Routine Reason For Exam: wound eval 11/06/19 10:08 Consult to Dietitian/Nutrition [CONS] Routine Physician Instructions: Reason For Exam: malnutrition/decubitus/oral mech issues Reason for Consult: Malnutrition 11/08/19 07:21 Consult to Physician [CONS] Routine Comment: Consulting Provider: MARIA M SANTOS Physician Instructions: Reason For Exam: COVID 11/11/19 05:37 Speech Therapy Evaluation and Treat [CONS] Routine Reason For Exam: speech evaluation 11/12/19 07:24 Speech Therapy Evaluation and Treat [CONS] Stat Reason For Exam: swallow eval 11/13/19 10:46 Consult to Physician [CONS] Routine Comment: Consulting Provider: MASON HA Physician Instructions: Reason For Exam: PEg placement 11/13/19 13:56 Consult to Dietitian/Nutrition [CONS] Routine Physician Instructions: Assess nutrtn needs, initiate, modify, manage TF Reason For Exam: Reason for Consult: Write/Manage Tube Feeding Reason for Consult: Write/Manage Tube Feeding 11/14/19 17:24 Midline [Consult to PICC Line RN] [CONS] Routine Reason For Exam: need iv hydration Type Line:: Midline 11/18/19 11:33 Consult to Dietitian/Nutrition [CONS] Routine Physician Instructions: Reason For Exam: Reason for Consult: post-peg Primary care physician: REPOSSESSOR Hospitalization Condition: Stable Pertinent studies: CXR abdominal xry Head CT Hospital course: 74-year-old female with history of CVA hemiplegia, seizure disorder, anemia, lung mass, HTN, hyperlipidemia who presents to ER on 11/04 with altered mental status after fall 3 days ago. She is a resident of [facility]. She was found to have leukocytosis, lactic acidosis, UTI, TAYLER and was admitted to the hospital for evaluation of sepsis secondary to pneumonia. Blood cultures were drawn and patient was started on vancomycin and cefepime. She was eventually positive for COVID 19 and completed treatment. Also completed treatment for UTI. TAYLER and hyponatremia resolved. she failed speech eval and required PEg placement by GI. Plan to DC SNF when tolerates tube feeding with newly placed PEG tube. Daily course; 11/05. Patient seen and examined at bedside this morning. She is unable to be further history. On IV antibiotics. Blood cultures have been drawn and awaiting results. Urine culture also pending. 11/06. COVID -19 came out positive. She has been placed on isolation. Urine culture is growing gram negative rods. On cefepime and vancomycin. Awaiting final blood culture results 11/07. She became hypoxic and has been started on dexamethasone and remdesivir. ID consulted. Continue antibiotics for UTI. Urine culture growing GN rods. Still has hypernatremia - nephrology is following. 11/08. On 6L nasal cannula. Still on remdesivir and dexamethasone. Urine culture grew Klebsiella pneumoniae. Sodium is still high. Need to encourage PO intake. 11/09. Sodium is still creeping up. She has poor oral intake. Increased D5 to 150cc/hr. She needs encouragement and assistance with meals and water intake. Discussed with RN. Nephrology recommendations appreciated. 11/10: cont on remdesivir (she missed her dose on 11/08 because she lost iv access) and dexamethasone 11/11: cont on remdesivir (she missed her dose on 11/08 because she lost iv access, last dose is tomorrow) and dexamethasone. failed swallow eval, ST recommended PEG tube. consult GI. Cont d5W, monitor BMP 11/12; wait on GI recommendation for PEG placement. Place Dobbhoff and start tube feeding for now. last dose of remdesivir today 11/13: pending PEG placement by GI, cont TF for now. 11/14: Patient is clinically stable, pending PEG tube placement by GI, continue tube feeding for now. Noted GI recommendation. Plan for EGD/PEG tube sometime next week. Continue to follow. 11/15: Tolerating tube feeding, probable PEG placement by GI 11/17 if clinically stable. 11/16: PEG placement tomorrow, cont TF. discussed with daughter by phone and she now wants to take patient back home instead of SNF 11/17: s/p PEG placement today, will start on TF. if patient tolerates TF and clinically stable, possible d/c tomorrow 11/18: d/c SNF when tolerates TF. Family initially wanted to take the patient home but then they decided to discharge the patient to SNF. Discharge plan and management thoroughly discussed with the patient daughter by phone and also with the case management services. Discharge diagnosis: -- Sepsis Secondary to PNA, UTI and COVID-19 Blood culture NTD Urine culture - Klebsiella s/p cefepime.also Added doxycycline as MRSA nares+ Monitored vital signs closely -- TAYLER (acute kidney injury) From vasomotor nephropathy. This is improving. Continue IV hydration Nephrology recommendations appreciated Avoid nephrotoxic medications -- Acute metabolic encephalopathy Likely as result of sepsis Continue antibiotics. Nephrology following for renal failure -- Hypernatremia, resolved with hypotonic solution. Trend sodium Nephrology recommendations appreciated --Dysphagia, failed speech eval Need alternative feeding GI consulted for PEG tube placement --Severe protein calorie malnutrition, POA Patient om TF with PEG tube Consulted dietary -- Urinary tract infection treated with cefepime. Urine cultures - Klebsiella. -- COVID-19 Continue oxygen supplementation s/p remdesivir and dexamethasone --Hypertension, Controlled --Seizure disorder Stable on Keppra --Anemia of chronic disease H/H stable cont oral Fe tab --h/o Lung mass diagnosed back on 2019, but patient refused any biopsy or treatment at that time need outpt f/u. Discussed with daughter and they are aware of the fact that patient have a lung mass which needs to be followed-up as outpatient -- DVT prophylaxis Heparin SQ Disposition: DC/[place]-03 SNF [facility] CERT Time spent for discharge: 34 minutes Core Measure Documentation - Palliative Care Palliative Care/ Comfort Measures: Not Applicable - Core Measures Any of the following diagnoses?: none Exam - Physical Exam Narrative exam: GENERAL: This is a malnourished elderly -[place] female lying on bed appeared to be in no discomfort. HEENT: Normocephalic. Atraumatic. No conjunctival congestion or icterus. Patient has moist mucous membranes. Dobbhoff tube in place NECK: Supple. Trachea midline. CHEST/LUNGS: Clear to auscultated bilaterally, breathing nonlabored. No wheezes crackles or rhonchi. HEART/CARDIOVASCULAR: Regular in rate and rhythm. S1 and S2 positive. ABDOMEN: Abdomen is soft, nontender. Patient has normal bowel sounds. PEG tube in place SKIN: There is no rash. Warm and dry. NEURO: No focal motor deficit. Follows command. MUSCULOSKELETAL: No joint effusion or tenderness. Generalized muscle wasting EXTRIMITY: No edema, no cyanosis or clubbing. PSYCH: Cooperative. - Constitutional Vitals: Temp Pulse Resp BP Pulse Ox 98.5 F 95 H 18 120/74 100 11/19/19 11:52 11/19/19 11:52 11/19/19 11:52 11/19/19 11:52 11/19/19 11:52 Plan Activity: fall precautions Weight Bearing Status: Non-Weight Bearing Diet: other (TF) Follow up with: PRIMARY CARE, [Primary Care Provider] - 3-5 Days Prescriptions: Mirtazapine [Remeron 15mg TAB] 15 mg PO QHS #10 amLODIPine 10 mg PO DAILY #30 hydrALAZINE [Apresoline TAB] 50 mg PO TID #90 tablet cloNIDine-TTS PATCH [Catapres-Tts 0.2mg Patch] 0.2 mg TD Fr@1000 #4 patch Ferrous Sulfate [Iron 325 MG] 325 mg PO QAC #30 levETIRAcetam [Keppra TAB] 750 mg PO BID #60 tablet Pantoprazole [Protonix] 40 mg PO QDAY #30 tablet Calcium Carbonate [Tums 500MG CHEW] 1,000 mg PO Q12HR #30
[2019-11-19] MEDS ORDERED: NEOMY 3.5 MG/BACIT 400 UNITS/POLY B 5000 UNITS/GM OINT PACKET TP ONE (16:50)
[2019-11-19 17:26] VITALS: BP 115/68
== END 2019-11-19 18:00 | DRG 871 ==
LOC: ED 19:33 → 4A 11-06 00:49 → OBSVTOIN 11-06 01:59 → 3A 11-07 18:37
PROVIDERS: ADMIT Internal Medicine; ATTEND Internal Medicine
PROC: XW033E5 Introduction of Remdesivir Anti-infective into Peripheral Vein, Percutaneous Approach, New Technology Group 5 (ICD-10-PCS; 2019-11-08)
PROC: XW033E5 Introduction of Remdesivir Anti-infective into Peripheral Vein, Percutaneous Approach, New Technology Group 5 (ICD-10-PCS; principal; 2019-11-09)
PROC: 06HY33Z Insertion of Infusion Device into Lower Vein, Percutaneous Approach (ICD-10-PCS; 2019-11-15)
PROC: 0DH63UZ Insertion of Feeding Device into Stomach, Percutaneous Approach (ICD-10-PCS; 2019-11-18)
DX: A41.89 Other specified sepsis (principal); U07.1 COVID-19; G93.41 Metabolic encephalopathy; N17.0 Acute kidney failure with tubular necrosis; J12.89 Other viral pneumonia; J96.01 Acute respiratory failure with hypoxia; E43 Unspecified severe protein-calorie malnutrition; N39.0 Urinary tract infection, site not specified; E87.0 Hyperosmolality and hypernatremia; E87.2 Acidosis; Z68.1 Body mass index [BMI] 19.9 or less, adult; G40.909 Epilepsy, unspecified, not intractable, without status epilepticus; D64.9 Anemia, unspecified; E78.5 Hyperlipidemia, unspecified; R65.20 Severe sepsis without septic shock; R13.10 Dysphagia, unspecified; D63.8 Anemia in other chronic diseases classified elsewhere; K29.70 Gastritis, unspecified, without bleeding; K26.9 Duodenal ulcer, unspecified as acute or chronic, without hemorrhage or perforation; Z90.49 Acquired absence of other specified parts of digestive tract; Z90.711 Acquired absence of uterus with remaining cervical stump; Z86.73 Personal history of transient ischemic attack (TIA), and cerebral infarction without residual deficits; B96.1 Klebsiella pneumoniae [K. pneumoniae] as the cause of diseases classified elsewhere
CPT/HCPCS: 36415; 70450; 71045; 74018; 80048; 80053; 80202; 81001; 82140; 82550; 82570; 82728; 82962; 83615; 83735; 84100; 84132; 84145; 84156; 84165; 84300; 84436; 84443; 84484; 84520; 85007; 85025; 85027; 85379; 85610; 85730; 86140; 87040; 87076; 87086; 87186; 87641; 89050; G0378; A6250; C9113; J0690; J0692; J1100; J1644; J1953; J2704; J3370; J3475; J7030; J7040; J7050; J7070; J8540; U0003-CS